=== PATIENT | male | born 1945 | race Caucasian/White ===

== ENCOUNTER → 2016-07-20 | Outpatient (CLI) | payer MEDICARE, MEDICAID ==
[~2016-07-20] MED LIST: /BISA10SU PR; /CARBXR20T PO; /LAMO20TA PO; /MEMA10TA PO; /TAMS4CA PO; ACET50TA PO; ARIC10TA PO; ASPI325T PEG; ASPI325T PO; CALC0.009 TOP; CALC05CR TOP; CLOR15TA PO; COLA100C PEG; COLA50CA3 PO; CORTISPORIN OTIC AU; CORTOTSO AU; DEPA250C PEG; DEPA250T2 PO; DEPA500T2 PO; DULC10SU2 PR; FLEEENE4 PR; HALO5OI EXT; LAMI200T3 PEG; LEVO500T PO; LISI10TA4 PO; LISI5TAB PO; MILKSUS PEG; MOM30SS PO; NAME28CA PO; NEO/1SUS AU; OMEP20CA3 PEG; OMEP20CA3 PO; PERC5TAB6 PO; POTA10SO11 GT; POTA50TAB PEG; PREVACID GT; TAMS0.4C2 PO; TOPA100T PO; TOPA200T6 PEG; TRAN15TA PO; TYLE325T5 PO; TYLE500T78 PO; VALP250S GT; VITA10002 PEG; [UNRECOGNIZED DRUG - CODE] EXT; [UNRECOGNIZED DRUG - CODE] TOP; [UNRECOGNIZED DRUG - CODE] TOP; [UNRECOGNIZED DRUG - CODE] TOP; [UNRECOGNIZED DRUG - OTHER] EXT
[2016-07-20 10:33] LABS: BASO # 0.1 K/mm3 (0.0-0.2); BASO % 0.5 % (0.0-1.0); EOS # 0.5 K/mm3 (0.0-0.50); EOS % 4.1 % (0.0-3.0); LARGE UNSTAINED CELL # 0.3 K/mm3 (0.0-0.4); LARGE UNSTAINED CELL % 2.4 % (0.0-4.0); LYMPH # 4.9 K/mm3 (1.5-4.5); LYMPH % 41.6 % (24.0-44.0); MEAN CORPUSCULAR HEMOGLOBIN 32.9 pg (27.0-33.0); MEAN CORPUSCULAR HGB CONC 32.1 g/dl (32.0-36.5); MEAN CORPUSCULAR VOLUME 102.7 fl (80.0-96.0); MONO # 0.8 K/mm3 (0.0-0.8); MONO % 6.4 % (0.0-5.0); NEUTROPHILS # 5.3 K/mm3 (1.8-7.7); PLATELET COUNT, AUTOMATED 276 k/mm3 (150-450); RED CELL DISTRIBUTION WIDTH 13.3 % (11.5-14.5); WHITE BLOOD COUNT 11.8 K/mm3 (4.0-10.0)
[2016-07-22 00:16] LABS: TOPIRAMATE LEVEL 11.5 ug/mL (2.0-25.0)
== END ==
LOC: M WUC 08:50
PROVIDERS: ATTEND Physician Assistant Medical
DX: R56.9 Unspecified convulsions (principal); E87.1 Hypo-osmolality and hyponatremia; Z79.899 Other long term (current) drug therapy

== ENCOUNTER → 2016-08-24 | Outpatient (REF) | payer MEDICARE, MEDICAID ==
[~2016-08-24] MED LIST changes: -COLA100C PEG; +COLA100C3 PEG
== END ==
LOC: M SFHCCLAY 15:18
PROVIDERS: ATTEND Family Medicine
DX: R46.89 Other symptoms and signs involving appearance and behavior (principal)

== ENCOUNTER → 2016-08-25 | Outpatient (CLI) | payer MEDICARE, MEDICAID ==
[2016-08-25 09:23] LABS: MEAN CORPUSCULAR HGB CONC 32.1 g/dl (32.0-36.5); MEAN CORPUSCULAR VOLUME 105.9 fl (80.0-96.0); RED CELL DISTRIBUTION WIDTH 14.5 % (11.5-14.5); WHITE BLOOD COUNT 12.9 K/mm3 (4.0-10.0)
[2016-08-25 10:01] LABS: ALBUMIN 2.4 GM/DL (3.2-5.2); ALBUMIN/GLOBULIN RATIO 0.56 (1.00-1.93); ALKALINE PHOSPHATASE 204 U/L (45-117); ALT/SGPT 51 U/L (12-78); ANION GAP 6 MEQ/L (8-16); AST/SGOT 65 U/L (15-37); BLOOD UREA NITROGEN 30 MG/DL (7-18); CALCIUM LEVEL 9.1 MG/DL (8.8-10.2); CARBON DIOXIDE LEVEL 29 MEQ/L (21-32); CHLORIDE LEVEL 104 MEQ/L (98-107); GLOMERULAR FILTRATION RATE > 60.0 (>49); GLUCOSE, FASTING 84 MG/DL (80-110); POTASSIUM SERUM 4.6 MEQ/L (3.5-5.1); SODIUM LEVEL 139 MEQ/L (136-145); TOTAL PROTEIN 6.7 GM/DL (6.4-8.2)
== END ==
LOC: M LAB 08:32
PROVIDERS: ATTEND Family Medicine
DX: R46.89 Other symptoms and signs involving appearance and behavior (principal)

== ENCOUNTER → 2016-09-18 | Outpatient (REF) | payer MEDICARE, MEDICAID | LOC: M SFHCCLAY 13:50 | PROVIDERS: ATTEND Nurse Practitioner | DX: K59.00 Constipation, unspecified (principal); R74.8 Abnormal levels of other serum enzymes; R56.9 Unspecified convulsions; L40.9 Psoriasis, unspecified; F79 Unspecified intellectual disabilities; R26.2 Difficulty in walking, not elsewhere classified; F03.90 Unspecified dementia, unspecified severity, without behavioral disturbance, psychotic disturbance, mood disturbance, and anxiety; Z87.81 Personal history of (healed) traumatic fracture | CPT/HCPCS: 84078; G0463 ==

== ENCOUNTER → 2016-09-29 | Outpatient (CLI) | payer MEDICARE, MEDICAID ==
--- NOTE | 2016-09-29 09:59 | REP ---
CT brain without contrast: History: Epilepsy. Comparison head CT study is from October 20, 2015. CT findings: Digital lateral fish fryer radiograph is unremarkable. Bone window settings demonstrate an intact bony calvarium. There is a small area of scalp swelling in the right parietal region. This appears to have been present previously although it is a little larger. No other scalp lesion is seen. There is marked diffuse cerebral atrophy again noted. Some vascular calcification is seen. There is a large old right middle cerebral artery territory infarction with extensive encephalomalacia in the middle cranial fossa and right temporal parietal lobe distribution unchanged from the comparison study. No new infarction is seen. There is concordant ventriculomegaly. This is unchanged as well. Small vessel atherosclerotic changes are noted. There is no evidence of hemorrhage, new infarct or mass. There are extensive dystrophic changes in the ocular globe on the left with calcification and contraction of the globe. There is evidence of a right-sided cataract. 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 Small vessel changes and moderate diffuse cerebral atrophy and concordant ventricular enlargement. No acute intracranial abnormality. Signed by Darryn Osullivan MD 09/29/2016 10:26 A
== END ==
LOC: M RAD 08:32
PROVIDERS: ATTEND Physician Assistant Medical
DX: I67.82 Cerebral ischemia (principal); G31.9 Degenerative disease of nervous system, unspecified; Z86.73 Personal history of transient ischemic attack (TIA), and cerebral infarction without residual deficits

== ENCOUNTER → 2016-10-09 | Outpatient (CLI) | payer MEDICARE, MEDICAID ==
--- NOTE | 2016-10-11 08:55 | DEXA ---
AP SPINE L1 - L4 1.375 1.1 1.7 LT FEMUR TOTAL Impacted left hip fracture. RT FEMUR TOTAL 0.639 -3.2 -2.5 TOTAL BODY TOTAL OTHER DUAL FEMUR FRAX* ASSESSMENT Risk factors: History of adult fracture. 10 year probability of fracture Major osteoporotic fracture 22.4 % Hip fracture 10.0 % COMMENTS: Normal bone densitometry of the spine. There is osteoporosis of the right hip. There is degenerative change in the spine which may artificially elevate the BMD. Lumbar scoliosis. FOLLOW-UP: Recommendation for the next bone density exam: 2 years. OCTAVIA
== END ==
LOC: M WHC 12:54
PROVIDERS: ATTEND Nurse Practitioner
DX: M81.0 Age-related osteoporosis without current pathological fracture (principal); M51.9 Unspecified thoracic, thoracolumbar and lumbosacral intervertebral disc disorder; M41.9 Scoliosis, unspecified; Z87.81 Personal history of (healed) traumatic fracture

== ENCOUNTER 2016-10-29 20:05 | Emergency (ER) | payer MEDICARE, MEDICAID ==
[2016-10-29 21:36] LABS: ADD MORPHOLOGY? YES; BASO # 0.1 K/mm3 (0.0-0.2); BASO % 1.3 % (0.0-1.0); EOS # 0.3 K/mm3 (0.0-0.50); EOS % 3.4 % (0.0-3.0); LARGE UNSTAINED CELL # 0.2 K/mm3 (0.0-0.4); LARGE UNSTAINED CELL % 1.8 % (0.0-4.0); LYMPH # 3.5 K/mm3 (1.5-4.5); LYMPH % 43.4 % (24.0-44.0); MEAN CORPUSCULAR HEMOGLOBIN 36.8 pg (27.0-33.0); MEAN CORPUSCULAR HGB CONC 33.3 g/dl (32.0-36.5); MEAN CORPUSCULAR VOLUME 110.4 fl (80.0-96.0); MONO # 0.6 K/mm3 (0.0-0.8); MONO % 6.8 % (0.0-5.0); NEUTROPHILS # 3.5 K/mm3 (1.8-7.7); NEUTROPHILS % 43.2 % (36.0-66.0); PLATELET COUNT, AUTOMATED 219 k/mm3 (150-450)
[2016-10-29 21:53] LABS: ANION GAP 7 MEQ/L (8-16); BLOOD UREA NITROGEN 33 MG/DL (7-18); CALCIUM LEVEL 8.7 MG/DL (8.8-10.2); CARBON DIOXIDE LEVEL 27 MEQ/L (21-32); CHLORIDE LEVEL 102 MEQ/L (98-107); CREATININE FOR GFR 0.66 MG/DL (0.70-1.30); GLOMERULAR FILTRATION RATE > 60.0 (>49); GLUCOSE, FASTING 78 MG/DL (80-110); POTASSIUM SERUM 4.4 MEQ/L (3.5-5.1); SODIUM LEVEL 136 MEQ/L (136-145)
[2016-10-30] MEDS ORDERED: LACTULOSE 20 GM/30 ML SYRUP UD PO ONE (00:30)
[2016-10-30 00:37] VITALS: BP 113/55
--- NOTE | 2016-10-30 14:44 | REPUSA ---
CLINICAL HISTORY: ALOC. TECHNIQUE: Multiple axial CT images were obtained through the brain without IV contrast material. COMPARISON: Comparison is made with prior study dated 09/29/2016. 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 The study shows normal configuration of sella turcica. There are no intra or extra-axial collections. There is no mass effect or midline shift. There is no evidence of hematoma formation. No hydrocep halus is present. The ventricles are symmetrical. No abnormal calcifications are present. Changes of diffuse age-appropriate cerebellar and cerebral atrophy are noted with proportionally dila arden ventricles and cortical sulci. There are bilateral periventricular hypolucencies compatible with white matter ischemic disease. There is no acute pathology. 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 Right sphenoid sinusitis is noted. Mastoid air cells are clear. IMPRESSION: 1. No acute intracranial pathology. 2. Old infract in the distribution of right MCA.. 3. Generalized parenchymal atrophy and chronic microvascular disease. 4. Right sphenoid sinusitis. Thank you for your kind referral of this patient. We appreciate the opportunity to participate in thi s patient's care.
== END 2016-10-30 00:54 | disposition home or self-care (01) ==
LOC: M ED 21:34
DX: G93.40 Encephalopathy, unspecified (principal); E72.20 Disorder of urea cycle metabolism, unspecified; T42.6X1A Poisoning by other antiepileptic and sedative-hypnotic drugs, accidental (unintentional), initial encounter; R56.9 Unspecified convulsions; F79 Unspecified intellectual disabilities; I63.9 Cerebral infarction, unspecified; Z79.82 Long term (current) use of aspirin; Z79.899 Other long term (current) drug therapy

== ENCOUNTER → 2016-11-02 | Outpatient (CLI) | payer MEDICARE, MEDICAID ==
[2016-11-06 10:11] LABS: TOPIRAMATE LEVEL 9.4 ug/mL (2.0-25.0)
== END ==
LOC: M WUC 09:23
PROVIDERS: ATTEND Physician Assistant Medical
DX: R56.9 Unspecified convulsions (principal); E72.20 Disorder of urea cycle metabolism, unspecified

== ENCOUNTER → 2016-11-06 | Outpatient (REF) | payer MEDICARE, MEDICAID | LOC: M LAB REF 19:20 | PROVIDERS: ATTEND Physician Assistant Medical | DX: R56.9 Unspecified convulsions (principal); E72.20 Disorder of urea cycle metabolism, unspecified ==

== ENCOUNTER → 2016-11-13 | Outpatient (CLI) | payer MEDICARE, MEDICAID ==
[2016-11-15 00:07] LABS: TOPIRAMATE LEVEL 12.8 ug/mL (2.0-25.0)
== END ==
LOC: M WUC 10:29
PROVIDERS: ATTEND Physician Assistant Medical
DX: R56.9 Unspecified convulsions (principal); E72.20 Disorder of urea cycle metabolism, unspecified

== ENCOUNTER → 2016-11-16 | Outpatient (CLI) | payer MEDICARE, MEDICAID ==
[~2016-11-16] MED LIST changes: +ARIC1TAB2 PO; -COLA100C3 PEG; +COLA100C5 PEG; +LAMI1TAB9 PEG; -LAMI200T3 PEG; +PERC5TAB12 PO; -PERC5TAB6 PO; -TOPA200T6 PEG; +TOPA200T7 PEG
== END ==
LOC: M WUC 08:46
PROVIDERS: ATTEND Physician Assistant Medical
DX: R56.9 Unspecified convulsions (principal); E72.20 Disorder of urea cycle metabolism, unspecified; R89.9 Unspecified abnormal finding in specimens from other organs, systems and tissues

== ENCOUNTER → 2016-11-16 | Outpatient (CLI) | payer MEDICARE, MEDICAID | LOC: M WUC 08:39 | PROVIDERS: ATTEND Nurse Practitioner | DX: R89.9 Unspecified abnormal finding in specimens from other organs, systems and tissues (principal) ==

== ENCOUNTER → 2016-11-27 | Outpatient (CLI) | payer MEDICARE, MEDICAID ==
--- NOTE | 2016-11-27 10:48 | REP ---
REASON: Hyperammonemia. There are no priors for comparison. Multiple ultrasonographic images of the liver show the hepatic parenchymal echo pattern to be within normal limits. There is no intrahepatic or extrahepatic ductal dilatation. The common bile duct measures between 4 and 5 mm. The patient is status post cholecystectomy. The imaged portion of the pancreas is within normal limits although barely identifiable due to intestinal gas. Seen in the imaged portion of the right kidney, there is a 2.6 cm sized hypoechoic nearly anechoic structure which exhibits posterior wall enhancement and increased through transmission. IMPRESSION: 1. No ultrasonographic evidence of an hepatic abnormality. 2. Complex appearing right renal cyst. Further evaluation with pre- and post contrast enhanced CT is warranted to rule out the possibility of suspicious features. Signed by Glen Michel DO 11/27/2016 11:01 A
== END ==
LOC: M RAD 07:52
PROVIDERS: ATTEND Nurse Practitioner
DX: R89.9 Unspecified abnormal finding in specimens from other organs, systems and tissues (principal); N28.1 Cyst of kidney, acquired

== ENCOUNTER → 2016-12-19 | Outpatient (CLI) | payer MEDICARE, MEDICAID ==
[2016-12-19 14:12] LABS: ADD MORPHOLOGY? YES; BASO % 0.3 % (0.0-1.0); EOS # 0.3 K/mm3 (0.0-0.50); EOS % 4.6 % (0.0-3.0); LARGE UNSTAINED CELL # 0.1 K/mm3 (0.0-0.4); LARGE UNSTAINED CELL % 1.2 % (0.0-4.0); LYMPH # 2.8 K/mm3 (1.5-4.5); LYMPH % 36.6 % (24.0-44.0); MEAN CORPUSCULAR HEMOGLOBIN 38.5 pg (27.0-33.0); MEAN CORPUSCULAR HGB CONC 33.1 g/dl (32.0-36.5); MEAN CORPUSCULAR VOLUME 116.2 fl (80.0-96.0); MONO # 0.4 K/mm3 (0.0-0.8); MONO % 5.3 % (0.0-5.0); NEUTROPHILS # 3.8 K/mm3 (1.8-7.7); NEUTROPHILS % 51.9 % (36.0-66.0); PLATELET COUNT, AUTOMATED 243 k/mm3 (150-450); RED CELL DISTRIBUTION WIDTH 14.5 % (11.5-14.5); WHITE BLOOD COUNT 7.3 K/mm3 (4.0-10.0)
[2016-12-19 14:22] LABS: ALBUMIN 2.1 GM/DL (3.2-5.2); ALKALINE PHOSPHATASE 237 U/L (45-117); ALT/SGPT 67 U/L (12-78); ANION GAP 9 MEQ/L (8-16); AST/SGOT 71 U/L (15-37); BILIRUBIN,TOTAL 1.4 MG/DL (0.2-1.0); BLOOD UREA NITROGEN 23 MG/DL (7-18); CALCIUM LEVEL 8.8 MG/DL (8.8-10.2); CARBON DIOXIDE LEVEL 28 MEQ/L (21-32); CHLORIDE LEVEL 98 MEQ/L (98-107); CREATININE FOR GFR 0.64 MG/DL (0.70-1.30); GLOMERULAR FILTRATION RATE > 60.0 (>49); GLUCOSE, FASTING 136 MG/DL (80-110); POTASSIUM SERUM 4.1 MEQ/L (3.5-5.1); SODIUM LEVEL 135 MEQ/L (136-145); TOTAL PROTEIN 6.3 GM/DL (6.4-8.2)
[2016-12-19 14:45] LABS: ANISOCYTOSIS 2+
[2016-12-21 00:07] LABS: TOPIRAMATE LEVEL 11.7 ug/mL (2.0-25.0)
== END ==
LOC: M LAB 13:05
PROVIDERS: ATTEND Physician Assistant Medical
DX: R56.9 Unspecified convulsions (principal); E72.20 Disorder of urea cycle metabolism, unspecified; Z79.899 Other long term (current) drug therapy

== ENCOUNTER → 2017-01-24 | Outpatient (CLI) | payer MEDICARE, MEDICAID ==
[2017-01-24 11:21] LABS: ADD MORPHOLOGY? YES; BASO % 0.5 % (0.0-1.0); EOS # 0.3 K/mm3 (0.0-0.50); EOS % 3.9 % (0.0-3.0); LARGE UNSTAINED CELL # 0.1 K/mm3 (0.0-0.4); LARGE UNSTAINED CELL % 1.3 % (0.0-4.0); LYMPH # 3.1 K/mm3 (1.5-4.5); MEAN CORPUSCULAR HEMOGLOBIN 39.1 pg (27.0-33.0); MEAN CORPUSCULAR HGB CONC 34.6 g/dl (32.0-36.5); MEAN CORPUSCULAR VOLUME 112.8 fl (80.0-96.0); MONO # 0.7 K/mm3 (0.0-0.8); MONO % 8.3 % (0.0-5.0); NEUTROPHILS # 4.1 K/mm3 (1.8-7.7); NEUTROPHILS % 49.1 % (36.0-66.0); PLATELET COUNT, AUTOMATED 223 k/mm3 (150-450); RED CELL DISTRIBUTION WIDTH 12.9 % (11.5-14.5); WHITE BLOOD COUNT 8.3 K/mm3 (4.0-10.0)
[2017-01-24 12:53] LABS: GLUCOSE, FASTING 72 MG/DL (80-110)
[2017-01-24 12:54] LABS: ANION GAP 11 MEQ/L (8-16); AST/SGOT 84 U/L (15-37); BLOOD UREA NITROGEN 22 MG/DL (7-18); CALCIUM LEVEL 8.5 MG/DL (8.8-10.2); CARBON DIOXIDE LEVEL 25 MEQ/L (21-32); CHLORIDE LEVEL 100 MEQ/L (98-107); CREATININE FOR GFR 0.64 MG/DL (0.70-1.30); GLOMERULAR FILTRATION RATE > 60.0 (>49); POTASSIUM SERUM 4.3 MEQ/L (3.5-5.1); SODIUM LEVEL 136 MEQ/L (136-145)
[2017-01-24 12:55] LABS: ALKALINE PHOSPHATASE 315 U/L (45-117); ALT/SGPT 74 U/L (12-78); BILIRUBIN,TOTAL 1.7 MG/DL (0.2-1.0); GAMMA GLUTAMYLTRANSPEPTIDASE 557 U/L (15-85); LABILE ALKPHOS 241 U/L; STABLE ALKPHOS 74 U/L
[2017-01-24 12:56] LABS: ALBUMIN 2.1 GM/DL (3.2-5.2)
[2017-01-24 12:57] LABS: ALBUMIN/GLOBULIN RATIO 0.47 (1.00-1.93); TOTAL PROTEIN 6.6 GM/DL (6.4-8.2)
[2017-01-24 13:45] LABS: ANISOCYTOSIS 2+; POLYCHROMASIA 1+
== END ==
LOC: M WUC 08:47
PROVIDERS: ATTEND Nurse Practitioner
DX: R89.9 Unspecified abnormal finding in specimens from other organs, systems and tissues (principal); R56.9 Unspecified convulsions

== ENCOUNTER → 2017-01-24 | Outpatient (CLI) | payer MEDICARE, MEDICAID ==
[2017-01-24 11:15] LABS: ALBUMIN 2.1 GM/DL (3.2-5.2); ALBUMIN/GLOBULIN RATIO 0.48 (1.00-1.93); ALKALINE PHOSPHATASE 304 U/L (45-117); ALT/SGPT 70 U/L (12-78); ANION GAP 10 MEQ/L (8-16); AST/SGOT 82 U/L (15-37); BILIRUBIN,TOTAL 1.6 MG/DL (0.2-1.0); BLOOD UREA NITROGEN 22 MG/DL (7-18); CALCIUM LEVEL 8.7 MG/DL (8.8-10.2); CARBON DIOXIDE LEVEL 26 MEQ/L (21-32); CHLORIDE LEVEL 101 MEQ/L (98-107); CREATININE FOR GFR 0.63 MG/DL (0.70-1.30); GLOMERULAR FILTRATION RATE > 60.0 (>49); GLUCOSE, FASTING 73 MG/DL (80-110); POTASSIUM SERUM 4.2 MEQ/L (3.5-5.1); SODIUM LEVEL 137 MEQ/L (136-145); TOTAL PROTEIN 6.5 GM/DL (6.4-8.2)
[2017-01-24 11:37] LABS: ADD MANUAL DIFFER YES; MEAN CORPUSCULAR HEMOGLOBIN 38.5 pg (27.0-33.0); MEAN CORPUSCULAR HGB CONC 34.2 g/dl (32.0-36.5); MEAN CORPUSCULAR VOLUME 112.7 fl (80.0-96.0); PLATELET COUNT, AUTOMATED 237 k/mm3 (150-450); WHITE BLOOD COUNT 7.9 K/mm3 (4.0-10.0)
[2017-01-24 13:51] LABS: BASOPHILS 2 % (0-4); EOSINOPHILS 4 % (0-5)
[2017-01-24 13:52] LABS: ANISOCYTOSIS 2+
[2017-01-26 00:06] LABS: TOPIRAMATE LEVEL 9.2 ug/mL (2.0-25.0)
== END ==
LOC: M WUC 08:40
PROVIDERS: ATTEND Physician Assistant Medical
DX: Z51.81 Encounter for therapeutic drug level monitoring (principal); Z79.899 Other long term (current) drug therapy; R89.9 Unspecified abnormal finding in specimens from other organs, systems and tissues; R56.9 Unspecified convulsions

== ENCOUNTER → 2017-03-28 | Outpatient (CLI) | payer MEDICARE, MEDICAID ==
[2017-03-28 11:13] LABS: BLOOD UREA NITROGEN 15 MG/DL (7-18); CHOLESTEROL LEVEL 158 MG/DL (<200); FERRITIN 308 NG/ML (26-388); GLOMERULAR FILTRATION RATE > 60.0 (>49); TRIGLYCERIDES LEVEL 119 MG/DL (<150)
[2017-03-28 11:20] LABS: HEPATITIS B SURFACE ANTIBODY POSITIVE (POSITIVE)
== END ==
LOC: M WUC 08:19
PROVIDERS: ATTEND Internal Medicine Gastroenterology
DX: R94.5 Abnormal results of liver function studies (principal); R74.8 Abnormal levels of other serum enzymes

== ENCOUNTER → 2017-04-22 | Outpatient (CLI) | payer MEDICARE, MEDICAID ==
--- NOTE | 2017-04-22 15:19 | REP ---
LEFT WRIST, FOUR VIEWS: HISTORY: Contusion. There is no acute fracture or dislocation. There is deformity of the distal radius and ulna secondary to old trauma. There is narrowing of the radiocarpal and first carpometacarpal joint spaces. IMPRESSION: Degenerative change as described above. Signed by Bola Thurman MD 04/22/2017 03:24 P
--- NOTE | 2017-04-23 06:24 | REP ---
LEFT ANKLE, FOUR VIEWS: HISTORY: Contusion. COMPARISON: 02/23/2015. There is no acute fracture. There is an old healed fracture of the distal fibula. There is narrowing of the joint space with associated irregularity of the talus. Soft tissue swelling is present. IMPRESSION: There is no acute fracture or dislocation. Signed by Bola Thurman MD 04/23/2017 08:24 A
== END ==
LOC: M WUC 14:25
PROVIDERS: ATTEND Physician Assistant
DX: M19.032 Primary osteoarthritis, left wrist (principal); S60.212A Contusion of left wrist, initial encounter; S90.02XA Contusion of left ankle, initial encounter; X58.XXXA Exposure to other specified factors, initial encounter; Y92.89 Other specified places as the place of occurrence of the external cause; Y93.89 Activity, other specified; Y99.8 Other external cause status

== ENCOUNTER 2017-07-06 06:28 | Day surgery (SDC) | payer MEDICARE, MEDICAID ==
[2017-07-06] MEDS ORDERED: LR 1,000 ML IV (06:45)
[2017-07-06] MEDS ORDERED: LIDOCAINE 1% MDV 20ML VIAL As Ordered (07:18)
[2017-07-06] MEDS ORDERED: LIDOCAINE W/EPINEPHRINE 1% 20ML VIAL As Ordered (07:18)
[2017-07-06] MEDS: CEFAZOLIN SOD 1 GM in APPROPRIATE DILUENT 1 EA IV (08:05)
[2017-07-06] MEDS ORDERED: PROPOFOL 200 MG/20 ML VIAL As Ordered (08:18)
[2017-07-06] MEDS ORDERED: MIDAZOLAM INJ 2 MG/2 ML VIAL (J2250) As Ordered (08:18)
[2017-07-06] MEDS ORDERED: fentaNYL 100 MCG/2 ML INJECTION (J3010) As Ordered (08:18)
[2017-07-06] MEDS ORDERED: PHENYLephrine HCL 500 MCG/5 ML (100MCG/ML) SYRINGE (J2370) As Ordered (08:23)
[2017-07-06] MEDS: BUPIVACAINE HCL 0.25% 10 ML VIAL As Ordered (08:30)
== END 2017-07-06 10:00 | disposition home or self-care (01) ==
LOC: M SDC 06:28
DX: D36.17 Benign neoplasm of peripheral nerves and autonomic nervous system of trunk, unspecified (principal); I10 Essential (primary) hypertension; N40.0 Benign prostatic hyperplasia without lower urinary tract symptoms; H54.8 Legal blindness, as defined in USA; M81.0 Age-related osteoporosis without current pathological fracture; K21.9 Gastro-esophageal reflux disease without esophagitis; R56.9 Unspecified convulsions; E07.9 Disorder of thyroid, unspecified; F41.9 Anxiety disorder, unspecified; Z86.73 Personal history of transient ischemic attack (TIA), and cerebral infarction without residual deficits; M41.9 Scoliosis, unspecified; F03.90 Unspecified dementia, unspecified severity, without behavioral disturbance, psychotic disturbance, mood disturbance, and anxiety; F72 Severe intellectual disabilities; F80.1 Expressive language disorder; Z79.899 Other long term (current) drug therapy
CPT/HCPCS: 11200

== ENCOUNTER 2017-07-14 09:05 | Outpatient (CLI) | payer MEDICARE, MEDICAID ==
[2017-07-15 09:20] LABS: BASO # 0.1 10^3/uL (0.0-0.2); BASO % 0.5 % (0.0-1.0); EOS # 0.3 10^3/uL (0.0-0.50); HEMATOCRIT 40.3 % (42.0-52.0); HEMOGLOBIN 13.8 g/dl (14.0-18.0); IMMATURE GRANULOCYTE % 0.6 % (0-3.0); LYMPH # 3.3 10^3/uL (1.5-4.5); MEAN CORPUSCULAR HEMOGLOBIN 35.7 pg (27.0-33.0); MEAN CORPUSCULAR HGB CONC 34.2 g/dl (32.0-36.5); MEAN CORPUSCULAR VOLUME 104.1 fl (80.0-96.0); MONO # 1.1 10^3/uL (0.0-0.8); MONO % 10.3 % (0.0-5.0); NEUTROPHILS # 5.5 10^3/uL (1.8-7.7); NEUTROPHILS % 53.6 % (36.0-66.0); PLATELET COUNT, AUTOMATED 230 10^3/uL (150-450); RED BLOOD COUNT 3.87 10^6/uL (4.30-6.10); RED CELL DISTRIBUTION WIDTH 13.4 % (11.5-14.5); WHITE BLOOD COUNT 10.3 10^3/uL (4.0-10.0)
[2017-07-15 09:45] LABS: AMMONIA 28 uMOL/L (<32)
[2017-07-15 09:55] LABS: ALBUMIN 2.7 GM/DL (3.2-5.2); ALBUMIN/GLOBULIN RATIO 0.63 (1.00-1.93); ALKALINE PHOSPHATASE 147 U/L (45-117); ALT/SGPT 30 U/L (12-78); ANION GAP 9 MEQ/L (8-16); AST/SGOT 28 U/L (7-37); BILIRUBIN,TOTAL 0.5 MG/DL (0.2-1.0); BLOOD UREA NITROGEN 12 MG/DL (7-18); CALCIUM LEVEL 9.2 MG/DL (8.8-10.2); CARBON DIOXIDE LEVEL 27 MEQ/L (21-32); CHLORIDE LEVEL 100 MEQ/L (98-107); CREATININE FOR GFR 0.62 MG/DL (0.70-1.30); FREE T3 2.5 PG/ML (2.2-4.0); FREE T4 1.25 NG/DL (0.76-1.46); GLOMERULAR FILTRATION RATE > 60.0 (>49); GLUCOSE, FASTING 82 MG/DL (70-100); POTASSIUM SERUM 4.1 MEQ/L (3.5-5.1); SODIUM LEVEL 136 MEQ/L (136-145)
[2017-07-16 09:43] LABS: THYROID PEROXIDASE ANTIBODY < 28.0 U/ML (<60.0)
== END 2017-07-15 ==
LOC: M WUC 09:05 → M LAB 07-15 08:46
DX: R74.0 Nonspecific elevation of levels of transaminase and lactic acid dehydrogenase [LDH] (principal); R79.89 Other specified abnormal findings of blood chemistry; R94.6 Abnormal results of thyroid function studies
CPT/HCPCS: 82140

== ENCOUNTER → 2018-01-30 | Outpatient (CLI) | payer MEDICARE, MEDICAID ==
[2018-01-30 10:08] LABS: BASO # 0.1 10^3/uL (0.0-0.2); BASO % 0.6 % (0.0-1.0); EOS # 0.4 10^3/uL (0.0-0.50); EOS % 3.8 % (0.0-3.0); HEMATOCRIT 44.3 % (42.0-52.0); HEMOGLOBIN 14.6 g/dl (13.5-17.5); IMMATURE GRANULOCYTE % 0.7 % (0-3.0); LYMPH # 4.3 10^3/uL (1.5-4.5); LYMPH % 38.1 % (24.0-44.0); MEAN CORPUSCULAR HEMOGLOBIN 35.4 pg (27.0-33.0); MEAN CORPUSCULAR VOLUME 107.3 fl (80.0-96.0); MONO % 8.5 % (0.0-5.0); NEUTROPHILS # 5.5 10^3/uL (1.8-7.7); NEUTROPHILS % 48.3 % (36.0-66.0); PLATELET COUNT, AUTOMATED 217 10^3/uL (150-450); RED BLOOD COUNT 4.13 10^6/uL (4.30-6.10); RED CELL DISTRIBUTION WIDTH 14.2 % (11.5-14.5); WHITE BLOOD COUNT 11.3 10^3/uL (4.0-10.0)
[2018-01-30 10:14] LABS: AMMONIA 45 uMOL/L (<32)
[2018-01-30 11:22] LABS: ALBUMIN 2.5 GM/DL (3.2-5.2); ALBUMIN/GLOBULIN RATIO 0.56 (1.00-1.93); ALKALINE PHOSPHATASE 147 U/L (45-117); ALT/SGPT 34 U/L (12-78); ANION GAP 7 MEQ/L (8-16); AST/SGOT 40 U/L (7-37); BILIRUBIN,TOTAL 0.7 MG/DL (0.2-1.0); BLOOD UREA NITROGEN 16 MG/DL (7-18); CALCIUM LEVEL 9.1 MG/DL (8.8-10.2); CARBON DIOXIDE LEVEL 27 MEQ/L (21-32); CHLORIDE LEVEL 103 MEQ/L (98-107); CREATININE FOR GFR 0.58 MG/DL (0.70-1.30); FREE T4 1.08 NG/DL (0.76-1.46); GLOMERULAR FILTRATION RATE > 60.0 (>42); GLUCOSE, FASTING 101 MG/DL (70-100); POTASSIUM SERUM 4.5 MEQ/L (3.5-5.1); SODIUM LEVEL 137 MEQ/L (136-145)
[2018-02-01 00:07] LABS: LAMOTRIGINE (LAMICTAL) 9.1 ug/mL (2.0-20.0)
[2018-02-01 00:07] LABS: TOPIRAMATE LEVEL 9.8 ug/mL (2.0-25.0)
== END ==
LOC: M WUC 08:31
DX: R74.0 Nonspecific elevation of levels of transaminase and lactic acid dehydrogenase [LDH] (principal); I10 Essential (primary) hypertension
CPT/HCPCS: 82140

== ENCOUNTER → 2018-02-22 | Outpatient (CLI) | payer MEDICARE, MEDICAID | LOC: M ST 11:51 | DX: Z86.73 Personal history of transient ischemic attack (TIA), and cerebral infarction without residual deficits (principal) | CPT/HCPCS: 74230 ==

== ENCOUNTER 2018-03-27 08:30 | Day surgery (SDC) | payer MEDICARE, MEDICAID ==
[~2018-03-27 08:30] MED LIST changes: -/BISA10SU PR; -/CARBXR20T PO; -/LAMO20TA PO; -/MEMA10TA PO; -/TAMS4CA PO; -ACET50TA PO; -ARIC10TA PO; -ARIC1TAB2 PO; -ASPI325T PEG; -ASPI325T PO; -CALC0.009 TOP; -CALC05CR TOP; -CLOR15TA PO; -COLA100C5 PEG; -COLA50CA3 PO; -CORTISPORIN OTIC AU; -CORTOTSO AU; -DEPA250C PEG; -DEPA250T2 PO; -DEPA500T2 PO; -DULC10SU2 PR; -FLEEENE4 PR; -HALO5OI EXT; -LAMI1TAB9 PEG; -LEVO500T PO; -LISI10TA4 PO; -LISI5TAB PO; -MILKSUS PEG; -MOM30SS PO; -NAME28CA PO; -NEO/1SUS AU; -OMEP20CA3 PEG; -OMEP20CA3 PO; -PERC5TAB12 PO; -POTA10SO11 GT; -POTA50TAB PEG; -PREVACID GT; +PROPOFOL 200 MG/20 ML VIAL As Ordered; -TAMS0.4C2 PO; -TOPA100T PO; -TOPA200T7 PEG; -TRAN15TA PO; -TYLE325T5 PO; -TYLE500T78 PO; -VALP250S GT; -VITA10002 PEG; -[UNRECOGNIZED DRUG - CODE] EXT; -[UNRECOGNIZED DRUG - CODE] TOP; -[UNRECOGNIZED DRUG - CODE] TOP; -[UNRECOGNIZED DRUG - CODE] TOP; -[UNRECOGNIZED DRUG - OTHER] EXT
[2018-03-27] MEDS ORDERED: ePHEDrine SULFATE 25 MG/5 ML(5MG/ML) SYRINGE As Ordered (09:43)
[2018-03-27] MEDS ORDERED: PROPOFOL 200 MG/20 ML VIAL As Ordered ×2 (10:09→10:41)
== END 2018-03-27 11:32 | disposition home or self-care (01) ==
LOC: M OPP 08:30
DX: Z12.11 Encounter for screening for malignant neoplasm of colon (principal); D12.4 Benign neoplasm of descending colon; Z86.010 Personal history of colon polyps; R56.9 Unspecified convulsions; H54.8 Legal blindness, as defined in USA; R32 Unspecified urinary incontinence; R15.9 Full incontinence of feces; Z93.1 Gastrostomy status; Z86.39 Personal history of other endocrine, nutritional and metabolic disease
CPT/HCPCS: 45385

== ENCOUNTER → 2018-04-03 | Outpatient (CLI) | payer MEDICARE, MEDICAID ==
[2018-04-03 08:09] LABS: AMMONIA 40 uMOL/L (<32)
[2018-04-03 08:12] LABS: VALPROIC ACID (DEPAKOTE) 65.4 UG/ML (50.0-100.0)
[2018-04-05 10:22] LABS: LAMOTRIGINE (LAMICTAL) 12.5 ug/mL (2.0-20.0)
[2018-04-05 10:22] LABS: TOPIRAMATE LEVEL 10.3 ug/mL (2.0-25.0)
== END ==
LOC: M LAB 07:19
DX: R56.9 Unspecified convulsions (principal)
CPT/HCPCS: 82140

== ENCOUNTER 2018-04-22 20:53 | Inpatient (IN) | payer MEDICARE, MEDICAID ==
[2018-04-22 21:47] LABS: BASO % 0.2 % (0.0-1.0); EOS % 0.1 % (0.0-3.0); HEMOGLOBIN 15.5 g/dl (13.5-17.5); IMMATURE GRANULOCYTE % 0.5 % (0-3.0); LYMPH # 1.2 10^3/uL (1.5-4.5); LYMPH % 6.1 % (24.0-44.0); MEAN CORPUSCULAR HEMOGLOBIN 35.7 pg (27.0-33.0); MEAN CORPUSCULAR VOLUME 108.3 fl (80.0-96.0); MONO % 10.4 % (0.0-5.0); NEUTROPHILS # 16.6 10^3/uL (1.8-7.7); NEUTROPHILS % 82.7 % (36.0-66.0); PLATELET COUNT, AUTOMATED 229 10^3/uL (150-450); RED BLOOD COUNT 4.34 10^6/uL (4.30-6.10); RED CELL DISTRIBUTION WIDTH 13.8 % (11.5-14.5); WHITE BLOOD COUNT 20.1 10^3/uL (4.0-10.0)
[2018-04-22 22:09] LABS: ALBUMIN 2.4 GM/DL (3.2-5.2); ALKALINE PHOSPHATASE 177 U/L (45-117); ALT/SGPT 61 U/L (12-78); ANION GAP 11 MEQ/L (8-16); AST/SGOT 92 U/L (7-37); BILIRUBIN,DIRECT 0.6 MG/DL (0.0-0.2); BILIRUBIN,TOTAL 0.9 MG/DL (0.2-1.0); BLOOD UREA NITROGEN 27 MG/DL (7-18); CALCIUM LEVEL 9.3 MG/DL (8.8-10.2); CARBON DIOXIDE LEVEL 26 MEQ/L (21-32); CHLORIDE LEVEL 100 MEQ/L (98-107); CREATININE FOR GFR 0.86 MG/DL (0.70-1.30); GLOMERULAR FILTRATION RATE > 60.0 (>42); GLUCOSE, FASTING 188 MG/DL (70-100); POTASSIUM SERUM 4.3 MEQ/L (3.5-5.1); SODIUM LEVEL 137 MEQ/L (136-145); TOTAL PROTEIN 7.2 GM/DL (6.4-8.2)
[2018-04-22 22:11] LABS: MONO # 2.1 10^3/uL (0.0-0.8); POSITIVE DIFF POS FLAG
[2018-04-22] MEDS: NS 1,000 ML IV (22:13)
[2018-04-22 22:16] LABS: LACTIC ACID SEPSIS PROTOCOL 5.1 MMOL/L (0.4-2.0)
[2018-04-22] MEDS ORDERED: ONDANSETRON 4MG/2ML VIAL (J2405) As Ordered (22:38)
[2018-04-22] MEDS: IBUPROFEN 100 MG/5 ML SUSP UDC DYE FREE GT (22:45)
[2018-04-22] MEDS: ONDANSETRON 4MG/2ML VIAL (J2405) IV (23:52)
[2018-04-23 00:02] LABS: INFLUENZA A AMPLIFICATION NEGATIVE (NEGATIVE); INFLUENZA B AMPLIFICATION NEGATIVE (NEGATIVE)
[2018-04-23] MEDS: PIPERACILLIN/TAZOBACTAM SOD 3.375 GM in D5W MINI-BAG PLUS 50 ML IV ×4 (00:45→20:07)
[2018-04-23] MEDS ORDERED: MOM 30ML SUSPENSION UDC GT (01:30)
[2018-04-23] MEDS ORDERED: FLEET ENEMA PR (01:30)
[2018-04-23] MEDS ORDERED: BISACODYL 10 MG SUPP PR (01:30)
[2018-04-23] MEDS ORDERED: ACETAMINOPHEN 650 MG SUPP PR (01:45)
[2018-04-23] MEDS: VANCOMYCIN HCL 1,000 MG, VIAL MATE ADAPTER 1 EACH in D5W 250 ML IV ×2 (02:01→05:55)
[2018-04-23] MEDS: NS 1,000 ML IV ×5 (02:01→23:10)
[2018-04-23 02:57] LABS: LACTIC ACID SEPSIS PROTOCOL 6.1 MMOL/L (0.4-2.0)
[2018-04-23] MEDS: NS 500 ML IV (04:20)
[2018-04-23 06:09] LABS: BASO % 0.2 % (0.0-1.0); IMMATURE GRANULOCYTE % 0.8 % (0-3.0); LYMPH # 1.3 10^3/uL (1.5-4.5); LYMPH % 5.6 % (24.0-44.0); MEAN CORPUSCULAR HEMOGLOBIN 35.2 pg (27.0-33.0); MEAN CORPUSCULAR HGB CONC 32.3 g/dl (32.0-36.5); MEAN CORPUSCULAR VOLUME 108.9 fl (80.0-96.0); MONO # 1.9 10^3/uL (0.0-0.8); MONO % 8.5 % (0.0-5.0); NEUTROPHILS % 84.9 % (36.0-66.0); PLATELET COUNT, AUTOMATED 197 10^3/uL (150-450); RED BLOOD COUNT 3.58 10^6/uL (4.30-6.10); RED CELL DISTRIBUTION WIDTH 13.8 % (11.5-14.5); WHITE BLOOD COUNT 22.4 10^3/uL (4.0-10.0)
[2018-04-23 06:14] LABS: HEMOGLOBIN 12.6 g/dl (13.5-17.5)
[2018-04-23 06:32] LABS: ANION GAP 10 MEQ/L (8-16); BLOOD UREA NITROGEN 24 MG/DL (7-18); CARBON DIOXIDE LEVEL 21 MEQ/L (21-32); CHLORIDE LEVEL 108 MEQ/L (98-107); CREATININE FOR GFR 0.76 MG/DL (0.70-1.30); GLOMERULAR FILTRATION RATE > 60.0 (>42); GLUCOSE, FASTING 144 MG/DL (70-100); POTASSIUM SERUM 4.3 MEQ/L (3.5-5.1); SODIUM LEVEL 139 MEQ/L (136-145)
[2018-04-23] MEDS: LACTULOSE 20 GM/30 ML SYRUP UD GT ×2 (09:18→20:07)
[2018-04-23] MEDS: MELOXICAM (MOBIC) 7.5 MG TAB GT (09:19)
[2018-04-23] MEDS: TOPIRAMATE (TopAMAX) 100 MG TAB GT ×2 (09:19→20:06)
[2018-04-23] MEDS: CYANOCOBALAMIN 500 MCG TAB GT (09:19)
[2018-04-23] MEDS: lamoTRIgine 100MG TAB GT ×2 (09:19→20:07)
[2018-04-23] MEDS: VALPROIC ACID SYRUP 250 MG/5 ML UDC GT ×2 (09:19→20:07)
[2018-04-23] MEDS: ENOXAPARIN 40 MG/0.4 ML SYRINGE (J1650) SC (09:20)
[2018-04-23 10:06] LABS: FOLATE 15.3 NG/ML (>5.4)
[2018-04-23 10:06] LABS: VITAMIN B12 LEVEL > 2000 PG/ML (247-911)
[2018-04-23 12:13] LABS: C REACTIVE PROTEIN QUANTITATIV 4.46 MG/DL (0.00-0.30)
[2018-04-23 12:24] LABS: ERYTHROCYTE SEDIMENTATION RATE 36 mm/hr (0-20)
[2018-04-23 15:02] LABS: PROCALCITONIN 2.48 NG/ML (<0.10)
[2018-04-23] MEDS ORDERED: ISOVUE-370 76% 100ML VIAL (Q9967) As Ordered (16:41)
[2018-04-24] MEDS: PIPERACILLIN/TAZOBACTAM SOD 3.375 GM in D5W MINI-BAG PLUS 50 ML IV ×4 (02:06→21:26)
[2018-04-24] MEDS: VANCOMYCIN HCL 1,000 MG, VIAL MATE ADAPTER 1 EACH in D5W 250 ML IV (06:04)
[2018-04-24 06:45] LABS: HEMATOCRIT 38.5 % (42.0-52.0); HEMOGLOBIN 12.8 g/dl (13.5-17.5); MEAN CORPUSCULAR HEMOGLOBIN 35.5 pg (27.0-33.0); MEAN CORPUSCULAR HGB CONC 33.2 g/dl (32.0-36.5); MEAN CORPUSCULAR VOLUME 106.6 fl (80.0-96.0); PLATELET COUNT, AUTOMATED 184 10^3/uL (150-450); RED BLOOD COUNT 3.61 10^6/uL (4.30-6.10); RED CELL DISTRIBUTION WIDTH 14.2 % (11.5-14.5); WHITE BLOOD COUNT 11.1 10^3/uL (4.0-10.0)
[2018-04-24 07:15] LABS: ANION GAP 9 MEQ/L (8-16); BLOOD UREA NITROGEN 22 MG/DL (7-18); C REACTIVE PROTEIN QUANTITATIV 7.84 MG/DL (0.00-0.30); CALCIUM LEVEL 8.3 MG/DL (8.8-10.2); CARBON DIOXIDE LEVEL 23 MEQ/L (21-32); CHLORIDE LEVEL 108 MEQ/L (98-107); CREATININE FOR GFR 0.63 MG/DL (0.70-1.30); GLOMERULAR FILTRATION RATE > 60.0 (>42); GLUCOSE, FASTING 85 MG/DL (70-100); POTASSIUM SERUM 3.9 MEQ/L (3.5-5.1); SODIUM LEVEL 140 MEQ/L (136-145)
[2018-04-24] MEDS: TOPIRAMATE (TopAMAX) 100 MG TAB GT ×2 (08:50→21:26)
[2018-04-24] MEDS: VALPROIC ACID SYRUP 250 MG/5 ML UDC GT ×2 (08:51→21:25)
[2018-04-24] MEDS: LACTULOSE 20 GM/30 ML SYRUP UD GT ×2 (08:51→21:25)
[2018-04-24] MEDS: CYANOCOBALAMIN 500 MCG TAB GT (08:51)
[2018-04-24] MEDS: MELOXICAM (MOBIC) 7.5 MG TAB GT (08:52)
[2018-04-24] MEDS: lamoTRIgine 100MG TAB GT ×2 (08:52→21:26)
[2018-04-24] MEDS: ENOXAPARIN 40 MG/0.4 ML SYRINGE (J1650) SC (08:53)
[2018-04-24 10:13] LABS: APPEARANCE, URINE CLEAR (CLEAR); BACTERIA, URINE AUTO NEGATIVE (NEGATIVE); BILIRUBIN, URINE AUTO NEGATIVE (NEGATIVE); BLOOD, URINE BLOOD NEGATIVE (NEGATIVE); COLOR, URINE AMBER (YELLOW); GLUCOSE, URINE (UA) AUTO NEGATIVE (NEGATIVE); KETONE, URINE AUTO NEGATIVE (NEGATIVE); LEUKOCYTE ESTERASE, URINE AUTO NEGATIVE (NEGATIVE); NITRITE, URINE AUTO NEGATIVE (NEGATIVE); PROTEIN, URINE AUTO NEGATIVE (NEGATIVE); RBC, URINE AUTO 1 /HPF (0-3); SPECIFIC GRAVITY URINE AUTO 1.041 (1.002-1.035); SQUAMOUS EPITHELIAL CELL UR AU 0 /HPF (0-6); WBC, URINE AUTO 1 /HPF (0-3)
[2018-04-25] MEDS: PIPERACILLIN/TAZOBACTAM SOD 3.375 GM in D5W MINI-BAG PLUS 50 ML IV ×2 (02:13→08:29)
[2018-04-25 05:52] LABS: HEMATOCRIT 37.3 % (42.0-52.0); HEMOGLOBIN 12.2 g/dl (13.5-17.5); MEAN CORPUSCULAR HGB CONC 32.7 g/dl (32.0-36.5); MEAN CORPUSCULAR VOLUME 106.9 fl (80.0-96.0); PLATELET COUNT, AUTOMATED 181 10^3/uL (150-450); RED BLOOD COUNT 3.49 10^6/uL (4.30-6.10); RED CELL DISTRIBUTION WIDTH 14.4 % (11.5-14.5); WHITE BLOOD COUNT 6.2 10^3/uL (4.0-10.0)
[2018-04-25 06:22] LABS: ANION GAP 9 MEQ/L (8-16); BLOOD UREA NITROGEN 24 MG/DL (7-18); CALCIUM LEVEL 8.1 MG/DL (8.8-10.2); CARBON DIOXIDE LEVEL 22 MEQ/L (21-32); CHLORIDE LEVEL 110 MEQ/L (98-107); CREATININE FOR GFR 0.65 MG/DL (0.70-1.30); GLOMERULAR FILTRATION RATE > 60.0 (>42); GLUCOSE, FASTING 93 MG/DL (70-100); POTASSIUM SERUM 3.9 MEQ/L (3.5-5.1); SODIUM LEVEL 141 MEQ/L (136-145)
[2018-04-25] MEDS: MELOXICAM (MOBIC) 7.5 MG TAB GT (08:29)
[2018-04-25] MEDS: VALPROIC ACID SYRUP 250 MG/5 ML UDC GT ×2 (08:29→21:47)
[2018-04-25] MEDS: TOPIRAMATE (TopAMAX) 100 MG TAB GT ×2 (08:30→21:46)
[2018-04-25] MEDS: CYANOCOBALAMIN 500 MCG TAB GT (08:30)
[2018-04-25] MEDS: ENOXAPARIN 40 MG/0.4 ML SYRINGE (J1650) SC (08:30)
[2018-04-25] MEDS: LACTULOSE 20 GM/30 ML SYRUP UD GT ×2 (08:30→21:46)
[2018-04-25] MEDS: lamoTRIgine 100MG TAB GT ×2 (08:30→21:47)
[2018-04-25] MEDS: AUGMENTIN 875 MG TAB GT ×2 (12:21→21:46)
[2018-04-25] MEDS ORDERED: VANCOMYCIN HCL 1,000 MG, VIAL MATE ADAPTER 1 EACH in D5W 250 ML IV (18:00)
[2018-04-26 06:48] LABS: HEMATOCRIT 38.6 % (42.0-52.0); HEMOGLOBIN 12.8 g/dl (13.5-17.5); MEAN CORPUSCULAR HEMOGLOBIN 35.9 pg (27.0-33.0); MEAN CORPUSCULAR HGB CONC 33.2 g/dl (32.0-36.5); MEAN CORPUSCULAR VOLUME 108.1 fl (80.0-96.0); PLATELET COUNT, AUTOMATED 179 10^3/uL (150-450); RED BLOOD COUNT 3.57 10^6/uL (4.30-6.10); RED CELL DISTRIBUTION WIDTH 14.4 % (11.5-14.5); WHITE BLOOD COUNT 6.2 10^3/uL (4.0-10.0)
[2018-04-26 07:14] LABS: ANION GAP 6 MEQ/L (8-16); BLOOD UREA NITROGEN 22 MG/DL (7-18); CALCIUM LEVEL 8.4 MG/DL (8.8-10.2); CARBON DIOXIDE LEVEL 28 MEQ/L (21-32); CHLORIDE LEVEL 109 MEQ/L (98-107); CREATININE FOR GFR 0.56 MG/DL (0.70-1.30); GLOMERULAR FILTRATION RATE > 60.0 (>42); GLUCOSE, FASTING 84 MG/DL (70-100); POTASSIUM SERUM 3.7 MEQ/L (3.5-5.1); SODIUM LEVEL 143 MEQ/L (136-145)
[2018-04-26] MEDS: TOPIRAMATE (TopAMAX) 100 MG TAB GT (08:00)
[2018-04-26] MEDS: LACTULOSE 20 GM/30 ML SYRUP UD GT (08:00)
[2018-04-26] MEDS: lamoTRIgine 100MG TAB GT (08:00)
[2018-04-26] MEDS: MELOXICAM (MOBIC) 7.5 MG TAB GT (08:00)
[2018-04-26] MEDS: VALPROIC ACID SYRUP 250 MG/5 ML UDC GT (08:00)
[2018-04-26] MEDS: AUGMENTIN 875 MG TAB GT (08:00)
[2018-04-26] MEDS: CYANOCOBALAMIN 500 MCG TAB GT (08:00)
[2018-04-26] MEDS: ENOXAPARIN 40 MG/0.4 ML SYRINGE (J1650) SC (08:01)
[2018-04-27 08:06] LABS: Methylmalonic Acid 73 nmol/L (0-378)
[2018-04-27 08:06] LABS: HOMOCYST(E)INE SERUM 4.2 umol/L (0.0-15.0)
[2018-04-27] MEDS ORDERED: CLOBETASOL PROPIONATE EMOLLIENT 0.05% CR 60 GM TOP (09:00)
== END 2018-04-26 13:30 | disposition home or self-care (01) | DRG 871 ==
LOC: M ED INP 04-23 01:32 → M MSPAV 04-23 03:22 → M ED 20:53
DX: A41.9 Sepsis, unspecified organism (principal); J69.0 Pneumonitis due to inhalation of food and vomit; G40.909 Epilepsy, unspecified, not intractable, without status epilepticus; L40.8 Other psoriasis; E53.8 Deficiency of other specified B group vitamins; R63.3 Feeding difficulties; R62.50 Unspecified lack of expected normal physiological development in childhood; D75.89 Other specified diseases of blood and blood-forming organs; Z79.899 Other long term (current) drug therapy; F79 Unspecified intellectual disabilities

== ENCOUNTER → 2018-05-06 | Outpatient (REF) | payer MEDICARE, MEDICAID ==
[~2018-05-06] MED LIST changes: +/BISA10SU PR; +/CARBXR20T PO; +/LAMO20TA PO; +/MEMA10TA PO; +/TAMS4CA PO; +ACET50TA PO; +AMOX875T2 GT; +ARIC10TA PO; +ARIC1TAB2 PO; +ASPI325T PEG; +ASPI325T PO; +CALC0.009 TOP; +CALC05CR TOP; +CLOB0.0548 TOP; +CLOB05OI EXT; +CLOR15TA PO; +COLA100C5 PEG; +COLA50CA3 PO; +CORTISPORIN OTIC AU; +CORTOTSO AU; +DEPA250C PEG; +DEPA250T2 PO; +DEPA500T2 PO; +DOCU5LIQ GT; +DOVO0.007 TOP; +DULC10SU2 PR; +FLEEENE4 PR; +HALO5OI EXT; +LACT10SO29 GT; +LACT10SO29 PEG; +LAMI1TAB9 PEG; +LAMO100T GT; +LEVO500T PO; +LISI10TA4 PO; +LISI5TAB PO; +MELO15TA28 GT; +MILK120011 GT; +MILK120011 PEG; +MOM30SS PO; +NAME28CA PO; +NEO/1SUS AU; +OMEP20CA3 PEG; +OMEP20CA3 PO; +PERC5TAB12 PO; +POTA10SO11 GT; +POTA50TAB PEG; +PREVACID GT; -PROPOFOL 200 MG/20 ML VIAL As Ordered; +TAMS0.4C2 PO; +TOPA100T PO; +TOPA200T7 GT; +TRAN15TA PO; +TWOCLIQ GT; +TYLE325T5 PO; +TYLE500T78 PO; +VALP250S GT; +VITA10002 GT; +[UNRECOGNIZED DRUG - CODE] EXT; +[UNRECOGNIZED DRUG - CODE] TOP; +[UNRECOGNIZED DRUG - CODE] TOP; +[UNRECOGNIZED DRUG - CODE] TOP; +[UNRECOGNIZED DRUG - OTHER] EXT; +docusate PEG
== END ==
LOC: M SFHCCLAY 13:28
PROVIDERS: ATTEND Nurse Practitioner Family
DX: R19.5 Other fecal abnormalities (principal)

== ENCOUNTER 2018-06-18 13:29 | Emergency (ER) | payer MEDICARE, MEDICAID ==
[~2018-06-18] VITALS: Ht 167.6 cm; Wt 90.9 kg
[2018-06-18 15:55] VITALS: BP 154/84
== END 2018-06-18 15:45 | disposition home or self-care (01) ==
LOC: M ED 13:29
DX: K94.20 Gastrostomy complication, unspecified (principal); G40.909 Epilepsy, unspecified, not intractable, without status epilepticus; K21.9 Gastro-esophageal reflux disease without esophagitis; I10 Essential (primary) hypertension; E03.9 Hypothyroidism, unspecified; N40.0 Benign prostatic hyperplasia without lower urinary tract symptoms

== ENCOUNTER 2018-07-05 07:41 | Inpatient (IN) | payer MEDICARE, MEDICAID ==
[~2018-07-05] VITALS: Ht 167.6 cm; Wt 93.6 kg
[2018-07-05] MEDS ORDERED: ACETAMINOPHEN 325 MG/10.15 ML UDC PO ONE (08:15)
[2018-07-05 08:57] LABS: BASO # 0.1 10^3/uL (0.0-0.2); BASO % 0.2 % (0.0-1.0); HEMATOCRIT 46.8 % (42.0-52.0); HEMOGLOBIN 15.3 g/dl (13.5-17.5); LYMPH # 1.3 10^3/uL (1.5-4.5); LYMPH % 3.4 % (24.0-44.0); MEAN CORPUSCULAR HEMOGLOBIN 35.6 pg (27.0-33.0); MEAN CORPUSCULAR HGB CONC 32.7 g/dl (32.0-36.5); MEAN CORPUSCULAR VOLUME 108.8 fl (80.0-96.0); MONO % 7.4 % (0.0-5.0); NEUTROPHILS % 87.6 % (36.0-66.0); PLATELET COUNT, AUTOMATED 247 10^3/uL (150-450)
[2018-07-05] MEDS ORDERED: NS 1,000 ML IV SCH (08:57)
[2018-07-05] MEDS ORDERED: VALPROIC ACID SYRUP 250 MG/5 ML UDC GT SCH (09:00)
[2018-07-05 09:04] LABS: MONO # 2.7 10^3/uL (0.0-0.8); NEUTROPHILS # 32.3 10^3/uL (1.8-7.7); WHITE BLOOD COUNT 36.9 10^3/uL (4.0-10.0)
[2018-07-05 09:27] LABS: ALBUMIN 2.5 GM/DL (3.2-5.2); ALT/SGPT 91 U/L (12-78); BILIRUBIN,DIRECT 2.2 MG/DL (0.0-0.2); BILIRUBIN,TOTAL 2.7 MG/DL (0.2-1.0); BLOOD UREA NITROGEN 19 MG/DL (7-18); CALCIUM LEVEL 9.7 MG/DL (8.8-10.2); CARBON DIOXIDE LEVEL 21 MEQ/L (21-32); CHLORIDE LEVEL 99 MEQ/L (98-107); CK-MB VALUE MASS < 1.0 NG/ML (<3.6); CPK CREATINE PHOSPHOKINASE 20 U/L (39-308); CREATININE FOR GFR 1.17 MG/DL (0.70-1.30); GLOMERULAR FILTRATION RATE > 60.0 (>42); GLUCOSE, FASTING 145 MG/DL (70-100); LIPASE 55 U/L (73-393); POTASSIUM SERUM 4.4 MEQ/L (3.5-5.1); SODIUM LEVEL 138 MEQ/L (136-145); TOTAL PROTEIN 7.6 GM/DL (6.4-8.2); TROPONIN I < 0.02 NG/ML (< 0.10)
[2018-07-05] MEDS ORDERED: NS IV ONE (09:30)
[2018-07-05] MEDS ORDERED: DILUENT IV ONE (09:30)
[2018-07-05 09:35] LABS: INR 0.99; PROTHROMBIN TIME 13.2 SECONDS (12.1-14.4)
[2018-07-05 09:36] LABS: PARTIAL THROMBOPLASTIN TIME 30.2 SECONDS (25.4-37.6)
[2018-07-05] MEDS ORDERED: ISOVUE-370 76% 100ML VIAL (Q9967) As Ordered ONE (09:44)
[2018-07-05] MEDS ORDERED: PIPERACILLIN/TAZOBACTAM SOD 4.5 GM in D5W MINI-BAG PLUS 50 ML IV ONE (09:45)
[2018-07-05] MEDS ORDERED: LIDOCAINE 2% 5ML JELLY UROJET TOP ONE (10:00)
[2018-07-05] MEDS ORDERED: OSEL6SUSP GT (10:24)
[2018-07-05] MEDS ORDERED: CLOB0.0548 TOP (10:24)
--- NOTE | 2018-07-05 10:28 | REP ---
CT of the chest with IV contrast, CT pulmonary artery angiography protocol: There are no comparisons. There are no emboli in the pulmonary trunk or central pulmonary arteries. There are no emboli in the pulmonary lobe or segment branches. There are no infiltrates or pleural effusions. There is scoliosis convex right of the mid thoracic spine resulting in anatomic distortion. There is atelectasis of the left lower lobe as a consequence. No masses or nodules are identified. There is no mediastinal or hilar adenopathy. No axillary adenopathy. Impression: No pulmonary emboli. No infiltrates or effusions. No adenopathy or mass. Thoracic scoliosis convex right, resulting in atelectasis of the left lower lobe. Electronically Signed by Beny Edmond MD 07/05/2018 10:19 A
--- NOTE | 2018-07-05 10:59 | REP ---
CT of the abdomen and pelvis with IV contrast, without bowel contrast: Comparison is 04/23/2018. The hepatic parenchyma, pancreas and spleen are unremarkable. There is a cholecystectomy. There is a peg tube. No evidence of inflammation or abscess along the tract. This is unchanged. There is a low density nodule in the left adrenal compatible with benign angioma, unchanged. The right adrenal is unremarkable. There are small simple cysts in the kidneys bilaterally, unchanged. There is no hydronephrosis or perinephric stranding. No solid renal masses are identified. There is a nonobstructive 5 mm calculus in the right kidney. There is a nonobstructive 6 mm calculus in the left kidney. No ureteral calculi are identified. There are multiple bladder calcifications along the dependent bladder wall, unchanged. No bladder wall masses are identified. The abdominal aorta is unremarkable. There is no retroperitoneal or mesenteric adenopathy. There is no ascites. There is no pneumoperitoneum. There is no bowel distension or obstruction. There is wall thickening of the sigmoid colon, nonspecific, but could represent colitis in the appropriate clinical setting. Pelvis: There is no ascites or adenopathy. The patient reportedly has an appendectomy. Impression: There are bilateral renal calculi and there are bladder calculi. There are no ureteral calculi. No hydronephrosis. No perinephric stranding. There are bilateral renal cortical cysts. There is sigmoid colon wall thickening, nonspecific, but compatible with colitis in the appropriate clinical setting. There is a peg tube in the upper abdomen. There is no inflammation or abscess along the tract. Cholecystectomy and appendectomy. Bilateral renal cortical simple cysts. No ascites or adenopathy. Low density left adrenal nodule compatible with benign angioma. Marked lumbar scoliosis convex left, unchanged. No bowel distension or obstruction. Electronically Signed by Beny Edmond MD 07/05/2018 10:51 A
[2018-07-05 11:13] LABS: AMORPHOUS SEDIMENT MODERATE (NEGATIVE); APPEARANCE, URINE TURBID (CLEAR); BACTERIA, URINE AUTO NEGATIVE (NEGATIVE); BILIRUBIN, URINE AUTO 1+ (NEGATIVE); BLOOD, URINE BLOOD 2+ (NEGATIVE); COLOR, URINE AMBER (YELLOW); GLUCOSE, URINE (UA) AUTO NEGATIVE (NEGATIVE); KETONE, URINE AUTO NEGATIVE (NEGATIVE); LEUKOCYTE ESTERASE, URINE AUTO NEGATIVE (NEGATIVE); MUCUS, URINE LARGE (NEGATIVE); NITRITE, URINE AUTO NEGATIVE (NEGATIVE); PROTEIN, URINE AUTO 2+ mg/dL (NEGATIVE); RBC, URINE AUTO 157 /HPF (0-3); SQUAMOUS EPITHELIAL CELL UR AU 0 /HPF (0-6); WBC, URINE AUTO 34 /HPF (0-3)
[2018-07-05 12:20] LABS: GAMMA GLUTAMYLTRANSPEPTIDASE 876 U/L (15-85)
[2018-07-05] MEDS ORDERED: LORazepam 2 MG/ML VIAL (J2060) As Ordered ONE (13:48)
[2018-07-05] MEDS: NS 1,000 ML IV SCH ×2 (13:52→20:53)
[2018-07-05] MEDS ORDERED: ACETAMINOPHEN 650 MG SUPP PR PRN (14:00)
[2018-07-05] MEDS ORDERED: ONDANSETRON 4MG/2ML VIAL (J2405) IV PRN (14:00)
[2018-07-05] MEDS ORDERED: LORazepam 2 MG/ML VIAL (J2060) IV STA (14:00)
[2018-07-05] MEDS ORDERED: ENTER DRUG NAME HERE (PATIENT'S OWN MED) TOP SCH (14:15)
[2018-07-05] MEDS ORDERED: LORazepam 2 MG/ML VIAL (J2060) IV PRN (14:15)
[2018-07-05] MEDS: lamoTRIgine 100MG TAB GT SCH ×2 (15:51→20:52)
[2018-07-05] MEDS: TOPIRAMATE (TopAMAX) 100 MG TAB GT SCH ×2 (15:52→20:52)
[2018-07-05 16:00] VITALS: BP 145/81
[2018-07-05] MEDS: LACTULOSE 20 GM/30 ML SYRUP UD GT SCH (20:52)
[2018-07-05] MEDS: VALPROIC ACID SYRUP 250 MG/5 ML UDC GT SCH (20:53)
[2018-07-05 22:00] VITALS: BP 149/73
[2018-07-06] MEDS: NS 1,000 ML IV SCH ×3 (04:32→22:32)
[2018-07-06 06:00] VITALS: BP 130/72
[2018-07-06] MEDS: ENOXAPARIN 40 MG/0.4 ML SYRINGE (J1650) SC SCH (09:06)
[2018-07-06] MEDS: LACTULOSE 20 GM/30 ML SYRUP UD GT SCH ×2 (09:07→22:30)
[2018-07-06] MEDS: TOPIRAMATE (TopAMAX) 100 MG TAB GT SCH ×2 (09:07→22:30)
[2018-07-06] MEDS: CYANOCOBALAMIN 500 MCG TAB GT SCH (09:07)
[2018-07-06] MEDS: lamoTRIgine 100MG TAB GT SCH ×2 (09:08→22:30)
[2018-07-06] MEDS: VALPROIC ACID SYRUP 250 MG/5 ML UDC GT SCH ×2 (09:08→22:31)
[2018-07-06] MEDS ORDERED: PILL CRUSHER/CUTTER 1 EACH XX PRN (09:15)
[2018-07-06 11:56] LABS: BASO % 0.2 % (0.0-1.0); EOS # 0.1 10^3/uL (0.0-0.50); EOS % 0.4 % (0.0-3.0); HEMATOCRIT 37.6 % (42.0-52.0); LYMPH % 6.9 % (24.0-44.0); MEAN CORPUSCULAR HGB CONC 32.4 g/dl (32.0-36.5); MEAN CORPUSCULAR VOLUME 110.9 fl (80.0-96.0); MONO % 7.1 % (0.0-5.0); NEUTROPHILS # 12.1 10^3/uL (1.8-7.7); NEUTROPHILS % 84.9 % (36.0-66.0); PLATELET COUNT, AUTOMATED 149 10^3/uL (150-450); RED BLOOD COUNT 3.39 10^6/uL (4.30-6.10); WHITE BLOOD COUNT 14.2 10^3/uL (4.0-10.0)
[2018-07-06 11:59] LABS: HEMOGLOBIN 12.2 g/dl (13.5-17.5)
[2018-07-06 12:29] LABS: ALBUMIN 2.1 GM/DL (3.2-5.2); ALT/SGPT 65 U/L (12-78); BILIRUBIN,TOTAL 1.1 MG/DL (0.2-1.0); BLOOD UREA NITROGEN 18 MG/DL (7-18); CALCIUM LEVEL 8.3 MG/DL (8.8-10.2); CARBON DIOXIDE LEVEL 25 MEQ/L (21-32); CHLORIDE LEVEL 110 MEQ/L (98-107); CREATININE FOR GFR 0.72 MG/DL (0.70-1.30); GLOMERULAR FILTRATION RATE > 60.0 (>42); GLUCOSE, FASTING 184 MG/DL (70-100); SODIUM LEVEL 142 MEQ/L (136-145); TOTAL PROTEIN 6.4 GM/DL (6.4-8.2)
--- NOTE | 2018-07-06 14:03 | IPN ---
DATE: 07/06/2018 The patient is seen today on [address]. He is a 72-year-old [facility] ([facility]) patient who is chronically tube fed, who was admitted yesterday due to nausea, vomiting, leukocytosis, since he did have elevated lactic acid level. He did not have very much in the way of elevated immature white cells. At this time, he is not febrile, not having any vomiting, tolerating his tube feedings okay, not evidencing any cough or shortness of breath. His three brothers are at his bedside and they feel that he is looking better than yesterday and really much improved and back to what appears to be his normal self. On examination temperature is 96.5, blood pressure 130/72, pulse 96 and regular, respirations 18, oxygen saturation is 93% on room air. He is having his blood drawn at this time. He is awake and alert. Not doing any coughing. No facial weakness. He does not have any jaundice. His lungs are clear. His heart has a regular rhythm without any murmur, click or gallop. Abdomen is soft and nontender without any masses or organomegaly. Bowel sounds are active. There is no edema. He did seem to be ticklish when we palpated his right foot. I reviewed his labs from yesterday. Today's labs are not done yet. His white count was 36,000. He had some elevations of his liver functions that were greater than his usual liver function elevations. ASSESSMENT: 1. Resolved nausea and vomiting. 2. Tube feeding dependent due to aspiration risk. 3. Chronic developmental disability. 4. Seizure disorder. 5. Leukocytosis. 6. Elevated liver functions. PLAN: Resident will continue on medications as currently ordered. I have not changed anything. Continue on IV fluids as well as his tube feedings. His blood cultures thus far are negative. His brothers report to me that leukocytosis was an issue during his last admission. I am unclear whether there was an interim CBC where his white count went down to normal. [facility]
--- NOTE | 2018-07-06 19:21 | ECGEPIP ---
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
[2018-07-06 22:00] VITALS: BP 139/88
[2018-07-06] MEDS: CLOBETASOL PROPIONATE EMOLLIENT 0.05% CR 60 GM TOP SCH (22:31)
[2018-07-07] MEDS: NS 1,000 ML IV SCH ×2 (05:06→12:41)
[2018-07-07 06:00] VITALS: BP 133/63
[2018-07-07] MEDS: LACTULOSE 20 GM/30 ML SYRUP UD GT SCH ×2 (08:22→21:55)
[2018-07-07] MEDS: TOPIRAMATE (TopAMAX) 100 MG TAB GT SCH ×2 (08:23→21:55)
[2018-07-07] MEDS: CYANOCOBALAMIN 500 MCG TAB GT SCH (08:24)
[2018-07-07] MEDS: VALPROIC ACID SYRUP 250 MG/5 ML UDC GT SCH ×2 (08:24→21:55)
[2018-07-07] MEDS: lamoTRIgine 100MG TAB GT SCH ×2 (08:24→21:55)
[2018-07-07] MEDS: ENOXAPARIN 40 MG/0.4 ML SYRINGE (J1650) SC SCH (08:25)
[2018-07-07 14:00] VITALS: BP 139/68
[2018-07-07] MEDS: CLOBETASOL PROPIONATE EMOLLIENT 0.05% CR 60 GM TOP SCH (21:55)
[2018-07-07 22:00] VITALS: BP 166/82
[2018-07-08 06:00] VITALS: BP 137/82
[2018-07-08 06:45] LABS: HEMATOCRIT 39.9 % (42.0-52.0); HEMOGLOBIN 13.1 g/dl (13.5-17.5); MEAN CORPUSCULAR HEMOGLOBIN 35.2 pg (27.0-33.0); MEAN CORPUSCULAR HGB CONC 32.8 g/dl (32.0-36.5); MEAN CORPUSCULAR VOLUME 107.3 fl (80.0-96.0); PLATELET COUNT, AUTOMATED 166 10^3/uL (150-450); RED BLOOD COUNT 3.72 10^6/uL (4.30-6.10); WHITE BLOOD COUNT 7.8 10^3/uL (4.0-10.0)
[2018-07-08 08:00] VITALS: BP 168/88
[2018-07-08 10:00] VITALS: BP 133/73
[2018-07-08] MEDS: ENOXAPARIN 40 MG/0.4 ML SYRINGE (J1650) SC SCH (10:14)
[2018-07-08] MEDS: LACTULOSE 20 GM/30 ML SYRUP UD GT SCH ×2 (10:16→21:52)
[2018-07-08] MEDS: VALPROIC ACID SYRUP 250 MG/5 ML UDC GT SCH ×2 (10:16→21:52)
[2018-07-08] MEDS: lamoTRIgine 100MG TAB GT SCH ×2 (10:16→21:52)
[2018-07-08] MEDS: CYANOCOBALAMIN 500 MCG TAB GT SCH (10:17)
[2018-07-08] MEDS: TOPIRAMATE (TopAMAX) 100 MG TAB GT SCH ×2 (10:17→21:52)
--- NOTE | 2018-07-08 11:07 | IPNPDOC ---
Subjective Date Seen The patient was seen on 07/08/18. Subjective Chief Complaint/HPI Pt nonverbal, nursing without new concerns. General: Reports: ROS Unobtainable Objective Physical Examination General Exam: Positive: Alert, Cooperative, No Acute Distress ENT Exam: Positive: Mucous membr. moist/pink Neck Exam: Positive: Supple Chest Exam: Positive: Clear to auscultation, Diminished Heart Exam: Positive: Rate Normal, Normal S1, Normal S2 Abdomen Exam: Positive: Normal bowel sounds, Soft, Other (+ PEG); Negative: Tenderness Extremity Exam: Negative: Edema Neuro Exam: Negative: Normal Speech Psych Exam: Negative: Mental status NL Assessment /Plan Problems (1) Elevated LFTs Status: Acute Response to Treatment: Stable, Improving Problem Specific Plan: Monitor Clinically, Repeat Labs Problem Text: Pt admitted on at home meds, has remained stable with improvement in his LFTs as well as WBC, suspect d/t viral infection, vomiting has resolved. WBC has normalized, LFTs are trending down, repeat labs in AM, if remain stable, plan to D/C back to [facility]. Will d/c IVF today as he is tolerating tube feeds. (2) Seizure disorder Status: Chronic Response to Treatment: Stable (3) Vomiting Status: Resolved (4) Leukocytosis Status: Resolved Response to Treatment: Stable, Improving Problem Specific Plan: Monitor Clinically, Repeat Labs Plan/VTE VTE Prophylaxis Ordered?: Yes VS, I&O, 24H, Fishbone Vital Signs/I&O Vital Signs Date Time Temp Pulse Resp B/P (MAP) Pulse Ox O2 Delivery O2 Flow Rate FiO2 07/08/18 08:00 97.4 94 18 168/88 (114) 97 07/05/18 15:25 Room Air I&O- Last 24 Hours up to 6 AM 07/08/18 06:00 Intake Total 2582 ml Output Total 1400 ml Balance 1182 ml Laboratory Data 24H LABS Laboratory Tests 2 07/08/18 05:50: Nucleated Red Blood Cells % (auto) 0.0 CBC/BMP Laboratory Tests 07/08/18 05:50 Red Blood Count 3.72 L, Mean Corpuscular Volume 107.3 H, Mean Corpuscular Hemoglobin 35.2 H, Mean Corpuscular Hemoglobin Concent 32.8, Red Cell Distribution Width 14.9 H Microbiology Microbiology 07/05/18 Blood Culture - Preliminary, Resulted No Growth after 72 hours. All specime... 07/05/18 Blood Culture - Preliminary, Resulted No Growth after 72 hours. All specime... 07/05/18 Respiratory Virus Panel (PCR) (TEDDY) - Final, Complete 07/05/18 Urine Culture - Final, Complete JACLYN BLAKELY PA-C Jul 08, 2018 11:07
--- NOTE | 2018-07-08 11:25 | ECWPN ---
PATIENT NAME: CONOR BORGES : 1945 GENDER: MALE VISIT DATE: 07/05/2018 DISCHARGE DATE: 07/05/18 0000 VISIT LOCKED DATE TIME: PHYSICIAN: PRITI ALEX MD RESOURCE: PRITI ALEX MD REASON FOR APPOINTMENT 1. ADMISSION H AND P 2. NAUSEA AND VOMITING AT [facility] HISTORY OF PRESENT ILLNESS GENERAL: (THIS HISTORY IS LIMITED BY THE PATIENT'S NON-VERBAL STATUS. THIS HISTORY IS COMPILED FROM THE ER PHYSICIAN'S REPORT PLUS HIS AIDE'S INPUT.)MR. BORGES IS A PATIENT OF [facility] IN [place] WHO WAS BROUGHT TO THE [facility] ER BY THE [facility] STAFF B/C OF SIGNIFICANT VOMITING IN THE PREVIOUS FEW HOURS. 72 YEAR OLD MALE PRESENTS WITH C/O HPI HIS AIDE REPORTS THAT HE HAS HAD A FEVER FOR SEVERAL DAYS AND THEY EMPIRICALLY GAVE HIM TAMIFLU, SINCE MANY OTHER RESIDENTS AT [facility] ARE INFLUENZA POSITIVE. HOWEVER WHEN HE STARTED VOMITING AT 1AM ON THE DAY OF ADMISSION AND SUBSEQUENTLY VOMITED 6-7 MORE TIMES THE BEGAN TO SUSPECT SOMETHING DIFFERENT WAS GOING ON. HIS TMAX WAS AROUND 101 AT [facility] TODAY OF NOTE HE DID HAVE HIS YONY BUTTON CHANGED ABOUT 2 WEEKS AGO, BUT HAD DONE WELL SINCE THEN. PAST MEDICAL HISTORY MENTAL RETARDATION PSORIASIS SEIZURES MENTAL ILLNESS IMPACTED CERUMEN FRACTURE RIGHT METACARPAL-FIRST RIGHT MCA INFARCT ALLERGIES N.K.D.A. SURGICAL HISTORY APPENDECTOMY 2004 REMOVAL OF POLYPS WITH COLONOSCOPY 2006 COLONOSCOPY -03/2010 LEFT HIP FRACTURE 12/2015 G- TUBE 2016 SKIN TAG REMOVED- LOWER BACK 06/2017 FAMILY HISTORY [facility] PT.- - - -. SOCIAL HISTORY GENERAL: TOBACCO USE ARE YOU A:NONSMOKER NON-SMOKER - PER [facility] EMPLOYEE ALCOHOL SCREENING DID YOU HAVE A DRINK CONTAINING ALCOHOL IN THE PAST YEAR?NO POINTS0 INTERPRETATIONNEGATIVE RECREATIONAL DRUG USE DRUG USE?NO CAFFEINE CAFFEINE USE?NO SEXUAL HX HAD SEX IN THE LAST 12 MONTHS (VAGINAL, ORAL, OR ANAL)?NO HIV / HEP-C SCREENING HIV TEST OFFERED TO PATIENT:NO HEP-C TEST OFFERED TO PATIENT:NO SCIENTOLOGIST SCIENTOLOGIST NO YARSANISM PREFERENCES THAT WOULD IMPACT HEALTHCARE LANGUAGE LATVIAN. EDUCATION NONE. LEARNING BARRIERS / SPECIAL NEEDS BARRIERS TO LEARNING?YES VISION IMPAIRED?YES COGNITIVELY IMPAIRED?YES SPECIAL DEVICES?YES :WHEELCHAIR DOMESTIC VIOLENCE NONE. OCCUPATION: DISABLED. DIET: HEART HEALTHY,GERD, CAT. EXERCISE: NONE. MARITAL STATUS: SINGLE. OTHERS AT HOME: [facility] RESIDENCE. HOUSING: [facility] HOUSING. HOSPITALIZATION/MAJOR DIAGNOSTIC PROCEDURE URGENT CARE 08/31/15 LEFT HIP FRACTURE SOB 04/2018 REVIEW OF SYSTEMS FOLLOW-UP ROS: CARDIOLOGY: NO ORTHOPNEA/PND . HEME/LYMPH NO EXCESSIVE BLEEDING OR BRUISING . ALLERGY/IMMUNOLOGY NO NASAL CONGESTION, ITCHING EYES . INTEGUMENT CHRONIC PSORIASIS; NO UNUSUAL RASH OR CHANGING LESIONS . ENDOCRINOLOGY: NO POLYURIA, POLYDIPSIA, POLYPHAGIA . GASTROENTEROLOGY: VOMITING; NO DIARRHEA, CONSTIPATION, MELENA, HEMATOCHEZIA . GENERAL: FEVER; NO SIGNIFICANT ABNORMAL WEIGHT CHANGE . GI/ NO HEMATURIA . HEENT NO RHINORRHEA . PULMONOLOGY: NO COUGH, CHANGE IN DYSPNEA . EXAMINATION GENERAL EXAMINATION: GENERAL APPEARANCE:WELL-NOURISHED. IN NO ACUTE DISTRESS. LAYING IN THE ER STRECHER WITH HIS AIDE AT HIS SIDE WHEN I ENTERED THE ER BAY . PSYCHALERT. HE WILL RESPOND TO SOME STIMULI AND QUESTIONS WITH PURPOSEFUL MOANS THAT APPROXIMATE LANGUAGE. HIS AIDE SEEMS TO BE ABLE TO INTERPRET A LITTLE OF WHAT HE SAYS . HEENT:HEAD: NORMOCEPHALIC, ATRAUMATIC. EYES: PUPILS ARE EQUAL AND REACTIVE TO LIGHT. SCLERA ANICTERIC. CONJUNCTIVA PINK AND NOT INFLAMED. EARS: AURICLES NORMALLY PLACED. EXTERNAL AUDITORY CANALS NOT INFLAMED BILATERALLY. TYMPANIC MEMBRANES SARABIA WITH NO FLUID NOTED BEHIND THEM. NOSE: SYMMETRIC. NO NASAL MUCOSA EDEMA OR ERYTHEMA. NO NASAL DISCHARGE . ORAL CAVITY:MUCOUS MEMBRANES ARE SLIGHTLY DRY . NECK:TRACHEA MIDLINE. NO CERVICAL OR SUPRACLAVICULAR LYMPHADENOPATHY NOTED . CHEST:THE CHEST IS SYMMETRIC AND EXPANDS SYMMETRICALLY ON INSPIRATION. NO PALPABLE CHEST WALL TENDERNESS . LUNGS:LUNG ISBELL ARE CLEAR TO AUSCULTATION BILATERALLY. MODERATE MOVEMENT OF AIR SECONDARY TO EXTRINSIC RESTRICTION FROM THE WEIGHT OF THE CHEST WALL . HEART:HEART TONES ARE A LITTLE DISTANT. S1 AND S2 ARE NOTED IN A REGULAR RATE AND RHYTHM. NO SIGNIFICANT MURMURS, RUBS OR GALLOPS NOTED . ABDOMEN:SYMMETRIC, SLIGHTLY DISTENDED. BOWEL SOUNDS ARE POSITIVE, BUT HYPOACTIVE. ABDOMEN IS NON-TENDER TO LIGHT PALPATION. HIS YONY BUTTON APPEARS TO BE WELL POSITIONED IN HIS LEFT/CENTRAL UPPER ABDOMEN. THERE IS NO, SWELLING, BLEEDING OR DISCHARGE AROUND IT . MALE GENITOURINARY:HE HAS A PSORIATIC PLAQUE NOTED JUST ABOVE HIS PENIS ON THE PRE-PUBIC FAT PAD . EXTREMITIES:NO NOTED PERIPHERAL EDEMA . NEUROLOGIC EXAM:NOTABLY, DURING MY EXAMINATION HE STARTED SEIZING. IT WAS A GENERALIZED TONIC-CONIC SEIZURE, BUT THE AMPLITUDE OF HIS MOVMENTS WAS RELATIVELY SMALL. HE ALSO HAD SIGNIFICANT LIP SMACKING AND SPASMS OF HIS SCMS AND PLATHYSMA. HIS AIDE STATED THAT HE USALLY COMES OUT OF THEM QUICKLY. AFTER ROUGHLY 2 MINUTES HIS EXTREMITY MOVEMENTS WERE DECREASED, BUT HE CONTINUED TO HAVE EVIDENCE OF SEIZURE WITH HIS NECK MUSCLES, FINE MOVEMENTS OF HIS CHEST MUSCLES (NOTED ON THE TELEMETRY) AND HAD A DECREASED RESPONSIVENESS (FROM THE BASELINE I OBSERVED AND PER HIS AIDE). I ORDERED 1MG OF IV ATIVAN STAT AND THE SEIZURE ACTIVITY QUICKLY SUBSIDED. LAB TESTS REVIEWEDLABS FROM 07/05/18 WERE REVIEWED EXTENSIVELY ON [employer] . ASSESSMENTS SYSTEMIC INFLAMMATORY RESPONSE SYNDROME (SIRS) - R65.10 (PRIMARY) VOMITING, INTRACTABILITY OF VOMITING NOT SPECIFIED, PRESENCE OF NAUSEA NOT SPECIFIED, UNSPECIFIED VOMITING TYPE - R11.10 LEUKOCYTOSIS, UNSPECIFIED TYPE - D72.829 ELEVATED LFTS - R94.5 CONVULSIONS - R56.9 PSORIASIS - L40.9 MENTAL RETARDATION - F79 THIS IS A 72YO MAN WITH MR WHO HAD SIGNIFICANT VOMITING THIS MORNING AND PRESENTS TO THE ER WITH SIRS. HE REQUIRES ADMISSION TO CONTROL HIS VOMITING IF IT SHOULD REOCCUR, FOR IV HYDRATION, AND MANAGEMENT OF HIS SEIZURES. TREATMENT SYSTEMIC INFLAMMATORY RESPONSE SYNDROME (SIRS) CLINICAL NOTES: HE MEETS CRITERIA FOR SIRS WITH A FEVER, TACHYCARDIA, LEUKOCYTOSIS, AND TACHYPNEA. HOWEVER, THE SOURCE OF THE INFECTION IS NOT CLEAR. HE DID RECEIVE A 30ML/KG BOLUS IN THE ER. HE HAS NOT BEEN STARTED ON ABX, I SUSPECT THIS IS A VIRAL GI SOURCE. HIS URINE IS TURBID, BUT DOESN'T LOOK INFECTED; UCX IS PENDING. HE HAS BPH AND I SUSPECT THAT THE CATHERIZATION WAS PARTIALLY TRAUMATIC. NO INFILTRATES ON CT (THOUGH THERE IS A CHRONIC ATALECTASIS FROM SCOLIOSIS). BLOOD CX PENDING. VOMITING, INTRACTABILITY OF VOMITING NOT SPECIFIED, PRESENCE OF NAUSEA NOT SPECIFIED, UNSPECIFIED VOMITING TYPE CLINICAL NOTES: THE VOMITING SEEMED TO BE CONTROLLED IN THE ER, PROBABLY BY THE ANTIEMETICS. I CONTINUED IV ODANSETRON. IT IS NOTEWORTHY THAT A VIRAL GASTROENTERITIS WITH VERY SIMILAR DAY CONVALESCENT PERIOD WITH AN ILEUS AND DIARRHEA HAS BEEN WIDELY CIRCULATING IN OUR COMMUNITY. LEUKOCYTOSIS, UNSPECIFIED TYPE CLINICAL NOTES: HE HAS A SIGNIFICANTLY ELEVATED WBC WITH A NEUTROPHIL PREDOMINENCE. THERE IS A NORMAL NUMBER OF BANDS. I BELIEVE THAT THIS IS LIKELY VIRAL (DESPITE THE NEUTROPHILS) AND THAT THE SIGNIFICANT ELEVATION IN THE WBC COUNT IS LARGLY 2/2 DEMARGINATION FROM THE STRESS OF RECURRENT VOMITING. IF I'M CORRECT THEN THE WBC WILL BE DOWN TOMORROW, THE DIFF WILL BE MORE BALANCED, AND STILL NO BANDS. IF I'M WRONG, HE SHOULD BE STARTED ON EMPERIC BROAD-SPECTRUM ABX WHILE A SOURCE IS IDENTIFIED. ELEVATED LFTS CLINICAL NOTES: HIS LFTS ARE ELEVATED IS HIS BILIRUBIN AND GGT. HE DOESN'T HAVE A GALL BLADDER ANY MORE. I SUSPECT THESE ABNORMALITIES ARE A FUNCTION OF A VIRAL ENTERITIS MAKING ITS WAY THROUGH THE ENTIRE GI TRACT. MONITOR. CONVULSIONS CLINICAL NOTES: HE SEIZED IN FRONT OF ME IN THE ER. WILL USE SEIZURE PRECAUTIONS AND I ORDERED LORAZEPAM TO BREAK THE SEIZURES. I SUSPECT THAT HE VOMITED UP THE LAST COUPLE DOSES OF HIS SEIZURE MEDICATIONS AND THIS IS WHY HIS SEIZURES BROKE THROUGH RIGHT NOW. I HAVE ORDERED HIS REGULAR REGIMEN WHILE HE IS HERE. IT IS GOOD FOR HIM TO BE ADMITTED WHILE WE ARE REGAINING CONTROL OVER HIS SEIZURES. PSORIASIS CLINICAL NOTES: CONTINUE HOME REGIMEN. MENTAL RETARDATION CLINICAL NOTES: THIS COMPLICATES ALL OF HIS CARE IT IS NOT POSSIBLE TO GET GOOD SUBJECTIVE DATA FROM HIM. OTHERS CLINICAL NOTES: PROPHYLAXIS: LOVENOX. NO GI PROPHYLAXIS FOR CONCERNS THAT IF HE HAS A GI BACTERIA WE COULD MAKE IT WORSE OR SET HIM UP FOR C. DIFF IF BROAD SPECTRUM ABX ARE NEEDED. HE IS NOT NPO. CODE STATUS: HE IS FULL CODEALTERNATE DECISION-MAKING: WE HAVE HCPS ON FILE LISTING HIS MOTHER HIS ALTERNATE DECISION-MAKER. UNFORTUNATELY, I WAS INFORMED THAT SHE HAS SINCE . NOW HIS BROTHERS BRENDA ([phone]) AND REYNOLD ([phone]) REPORTEDLY MAKE DECISIONS FOR HIM. PROCEDURE CODES ADM00 ADM HOSPITAL ADMISSION - NO CHARGE DISPOSITION & COMMUNICATION FOLLOW UP PRN (REASON: HOSPITAL DISCHARGE) ELECTRONICALLY SIGNED BY PRITI ALEX MD, MD ON 07/05/2018 AT 10:38 PM EST DISCLAIMER : THIS IS A VISIT SUMMARY EXTRACTED FROM THE [employer] CHART. IT IS NOT A COPY OF THE [employer] PROGRESS NOTE. [place]
[2018-07-08 14:00] VITALS: BP 133/73
[2018-07-08 22:00] VITALS: BP 123/69
[2018-07-09] MEDS ORDERED: UNRESOLVED CLARIFICATION ENTRY XX SCH (00:01)
--- NOTE | 2018-07-09 05:23 | IPN ---
DATE OF VISIT: 07/07/2018 The patient is seen today on [address] [facility]. He seems to be feeling well. He has not been febrile, not been vomiting, not having any dysuria. He is putting out plenty of urine; because of his developmental disability really not able to answer questions in a coherent fashion. CURRENT MEDICATIONS: He still getting some IV fluids. - Lovenox - vitamin B12 - valproic acid - lactulose - lorazepam as needed - lamotrigine - Topamax PHYSICAL EXAMINATION: VITAL SIGNS: Temperature is 97.60, blood pressure 139/68, pulse 97 and regular, respirations 18, O2 saturation 98% on room air. GENERAL: He does not appear in any distress. He is alert and awake. NECK: No neck masses, tenderness or adenopathy. No carotid bruits. LUNGS: Lungs are clear. HEART: Heart has regular rhythm without any murmur, click or gallop. ABDOMEN: Soft and nontender without any masses. He does have feeding tube with a Tavares button in the epigastrium. EXTREMITIES: I think his right arm looks a little puffy, otherwise no edema. LABORATORY DATA: Labs today show that his white blood count is down to 14,200, hemoglobin is down to 12,200. He has 85 segs, 7 lymphs, 7 monos. Chemistries today show that his BUN is 18, creatinine 0.72, glucose 84, calcium is 8.3, AST down to 83, alkaline phosphatase down to 134, ALT down to 65. Urine culture was negative, blood cultures are negative. Respiratory virus panel was negative. ASSESSMENT: 1. Resolved nausea and vomiting. 2. 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 3. Chronic mental developmental disability. 4. Seizure disorder. 5. Leukocytosis improved. 6. Elevated liver functions improved. PLAN: In retrospect he either had a viral illness or reacted adversely to the Tamiflu that he was given for influenza treatment which he did not have. Would discontinue his intravenous fluids at this time and take his Claudio catheter out. I did review his old records and indeed, the last time he was in the hospital he had a white count of 20,000, but in the interim it did go back to 6000, completely within normal range. Assuming that he has a good night, he could go back to the [facility] ([facility]) facility tomorrow.
[2018-07-09 06:00] VITALS: BP 131/63
[2018-07-09 07:18] LABS: ALBUMIN 1.8 GM/DL (3.2-5.2); ALT/SGPT 58 U/L (12-78); BILIRUBIN,TOTAL 0.8 MG/DL (0.2-1.0); BLOOD UREA NITROGEN 16 MG/DL (7-18); CALCIUM LEVEL 8.7 MG/DL (8.8-10.2); CARBON DIOXIDE LEVEL 22 MEQ/L (21-32); CHLORIDE LEVEL 108 MEQ/L (98-107); CREATININE FOR GFR 0.53 MG/DL (0.70-1.30); GLOMERULAR FILTRATION RATE > 60.0 (>42); GLUCOSE, FASTING 102 MG/DL (70-100); POTASSIUM SERUM 3.8 MEQ/L (3.5-5.1); SODIUM LEVEL 138 MEQ/L (136-145)
[2018-07-09 08:03] VITALS: BP 132/68
[2018-07-09] MEDS: LACTULOSE 20 GM/30 ML SYRUP UD GT SCH (08:23)
[2018-07-09] MEDS: ENOXAPARIN 40 MG/0.4 ML SYRINGE (J1650) SC SCH (08:24)
[2018-07-09] MEDS: CYANOCOBALAMIN 500 MCG TAB GT SCH (08:25)
[2018-07-09] MEDS: lamoTRIgine 100MG TAB GT SCH (08:25)
[2018-07-09] MEDS: VALPROIC ACID SYRUP 250 MG/5 ML UDC GT SCH (08:25)
[2018-07-09] MEDS: TOPIRAMATE (TopAMAX) 100 MG TAB GT SCH (08:26)
[2018-07-09 12:00] VITALS: BP 124/68
--- NOTE | 2018-07-09 22:34 | DSES ---
DATE OF ADMISSION: 07/05/2018 DATE OF DISCHARGE: 07/09/2018 PRIMARY CARE PROVIDER: Ariana Pacheco ATTENDING TODAY: Dr. Roula Sinha HISTORY: This is a 72-year-old male resident of [facility] ([facility]) who presented to [facility] after having vomiting and found to have leukocytosis. He had an elevated lactic acid upon evaluation in the emergency room. He was admitted to the hospital for further management and evaluation of leukocytosis and elevated liver function tests (LFTs). During his hospitalization, he has remained medically stable. His routine at-home medications were held. His leukocytosis has resolved. He had elevated LFTs. It is felt that these are likely secondary to either viral or post-Tamiflu treatment, and he was initially placed on intravenous (IV) fluids, which have been discontinued. His seizure medications have been continued. DISCHARGE DIAGNOSES INCLUDE: Elevated liver function tests. Leukocytosis. Seizure disorder. Vomiting. DISCHARGE MEDICATIONS INCLUDE: - clobetasol 0.5% topically two times weekly - vitamin B12 1000 mcg by mouth G-tube daily - docusate sodium 50 mg per 5 mL, 100 mg G-tube before bed - Dovonex 0.005 topically five times weekly - lactulose 15 mL G-tube twice daily - lamotrigine 100 mg G-tube twice daily - meloxicam 15 mg G-tube daily - Topamax 200 mg G-tube twice a day - valproic acid 15 mL G-tube daily, 10 mL G-tube nightly DISCHARGE PLAN: Will be to followup with Chely Pacheco in 1 week. Activity should be as tolerated. He will continue his percutaneous endoscopic gastrostomy (PEG) tube feedings.
== END 2018-07-09 15:45 | disposition home or self-care (01) | DRG 866 ==
LOC: EDBD 07:41 → M ED 07:41 → M ED INP 13:52 → M MS5PR 15:31
PROVIDERS: ADMIT Family Medicine; ATTEND Family Medicine
DX: B34.9 Viral infection, unspecified (principal); R65.10 Systemic inflammatory response syndrome (SIRS) of non-infectious origin without acute organ dysfunction; R11.10 Vomiting, unspecified; D72.829 Elevated white blood cell count, unspecified; R94.5 Abnormal results of liver function studies; G40.909 Epilepsy, unspecified, not intractable, without status epilepticus; F79 Unspecified intellectual disabilities; L40.9 Psoriasis, unspecified; Z79.899 Other long term (current) drug therapy; Z93.1 Gastrostomy status; Z86.73 Personal history of transient ischemic attack (TIA), and cerebral infarction without residual deficits

== ENCOUNTER → 2018-09-12 | Outpatient (CLI) | payer MEDICARE, MEDICAID ==
[~2018-09-12] MED LIST changes: -/BISA10SU PR; -/CARBXR20T PO; -/LAMO20TA PO; -/MEMA10TA PO; -/TAMS4CA PO; -ACET50TA PO; +ASPI-1 PEG; -ASPI325T PEG; +BISA10SU31 PR; -CALC05CR TOP; +CEFD250S26 PEG; +CEFD250S26 PO; -CORTOTSO AU; +FLOM0.4C39 PO; +HALO0.0511 EXT; -HALO5OI EXT; +LAMI1TAB9 PO; +LOTRCRE TOP; +MAPA500T17 PO; -NEO/1SUS AU; +NEOM1SOL19 AU; +NEOM1SUS10 AU; +OSEL6SUSP GT; +TEGR1TAB PO; +ULTR0.0510 TOP; +[UNRECOGNIZED DRUG - CODE] PO; -[UNRECOGNIZED DRUG - OTHER] EXT
[2018-09-12 09:46] LABS: VALPROIC ACID (DEPAKOTE) 59.2 UG/ML (50.0-100.0)
[2018-09-12 09:54] LABS: BASO % 0.4 % (0.0-1.0); EOS # 0.3 10^3/uL (0.0-0.50); EOS % 3.2 % (0.0-3.0); HEMATOCRIT 46.7 % (42.0-52.0); HEMOGLOBIN 15.2 g/dl (13.5-17.5); LYMPH % 31.4 % (24.0-44.0); MEAN CORPUSCULAR HEMOGLOBIN 35.5 pg (27.0-33.0); MEAN CORPUSCULAR HGB CONC 32.5 g/dl (32.0-36.5); MEAN CORPUSCULAR VOLUME 109.1 fl (80.0-96.0); MONO # 0.8 10^3/uL (0.0-0.8); MONO % 8.5 % (0.0-5.0); NEUTROPHILS # 5.3 10^3/uL (1.8-7.7); NEUTROPHILS % 55.9 % (36.0-66.0); PLATELET COUNT, AUTOMATED 234 10^3/uL (150-450); RED BLOOD COUNT 4.28 10^6/uL (4.30-6.10); WHITE BLOOD COUNT 9.5 10^3/uL (4.0-10.0)
[2018-09-17 00:08] LABS: LAMOTRIGINE (LAMICTAL) 13.5 ug/mL (2.0-20.0); TOPIRAMATE LEVEL 11.7 ug/mL (2.0-25.0)
== END ==
LOC: M LAB 08:16
PROVIDERS: ATTEND Physician Assistant Medical
DX: G40.89 Other seizures (principal); Z51.81 Encounter for therapeutic drug level monitoring; E72.20 Disorder of urea cycle metabolism, unspecified

== ENCOUNTER 2018-09-22 09:13 | Emergency (ER) | payer MEDICARE, MEDICAID ==
[2018-09-22] MEDS ORDERED: TOPA200T7 (09:26)
[2018-09-22] MEDS ORDERED: FLEEENE12 PR (09:26)
[2018-09-22] MEDS ORDERED: B-122500 PO (09:26)
[2018-09-22] MEDS ORDERED: DULC10SU2 PR (09:26)
[2018-09-22] MEDS ORDERED: NS 1,000 ML IV ONE ×2 (10:00→12:45)
[2018-09-22 11:19] LABS: BASO % 0.4 % (0.0-1.0); EOS # 0.3 10^3/uL (0.0-0.50); EOS % 2.8 % (0.0-3.0); HEMATOCRIT 43.6 % (42.0-52.0); HEMOGLOBIN 14.6 g/dl (13.5-17.5); LYMPH # 2.6 10^3/uL (1.5-4.5); LYMPH % 28.6 % (24.0-44.0); MEAN CORPUSCULAR HEMOGLOBIN 36.4 pg (27.0-33.0); MEAN CORPUSCULAR HGB CONC 33.5 g/dl (32.0-36.5); MEAN CORPUSCULAR VOLUME 108.7 fl (80.0-96.0); MONO # 1.5 10^3/uL (0.0-0.8); MONO % 16.1 % (0.0-5.0); NEUTROPHILS # 4.6 10^3/uL (1.8-7.7); NEUTROPHILS % 51.2 % (36.0-66.0); PLATELET COUNT, AUTOMATED 197 10^3/uL (150-450); RED BLOOD COUNT 4.01 10^6/uL (4.30-6.10)
[2018-09-22] MEDS: IPRATROPIUM 0.5MG/ALBUTEROL 2.5MG INH SOL UD 3ML (DUONEB)(J7620) NEB PRN ×2 (11:35→12:22)
[2018-09-22 11:42] LABS: ALBUMIN 2.2 GM/DL (3.2-5.2); ALT/SGPT 55 U/L (12-78); BILIRUBIN,DIRECT 0.4 MG/DL (0.0-0.2); BILIRUBIN,TOTAL 0.7 MG/DL (0.2-1.0); BLOOD UREA NITROGEN 24 MG/DL (7-18); CALCIUM LEVEL 8.7 MG/DL (8.8-10.2); CARBON DIOXIDE LEVEL 26 MEQ/L (21-32); CHLORIDE LEVEL 102 MEQ/L (98-107); CREATININE FOR GFR 0.68 MG/DL (0.70-1.30); GLOMERULAR FILTRATION RATE > 60.0 (>42); GLUCOSE, FASTING 98 MG/DL (70-100); POTASSIUM SERUM 4.1 MEQ/L (3.5-5.1); SODIUM LEVEL 136 MEQ/L (136-145); TOTAL PROTEIN 7.3 GM/DL (6.4-8.2)
[2018-09-22 11:42] LABS: INFLUENZA A AMPLIFICATION NEGATIVE (NEGATIVE); INFLUENZA B AMPLIFICATION NEGATIVE (NEGATIVE)
--- NOTE | 2018-09-22 11:47 | REP ---
CHEST, TWO VIEWS: Two views of the chest are performed and compared to prior study of 04/22/2018. No acute infiltrate is seen. There is mild bibasilar fibroatelectatic change which appears stable. There is left ventricular prominence. Mediastinal silhouette is unchanged. Severe right thoracic scoliosis is noted with degenerative changes. IMPRESSION: Stable exam. No evidence of acute infiltrate. Electronically Signed by Beny Mcghee MD 09/22/2018 12:29 P
--- NOTE | 2018-09-22 11:49 | REP ---
KUB ABDOMEN AND PELVIS: Two KUB films of abdomen and pelvis performed. Bowel gas pattern is unremarkable with no evidence of small bowel obstruction. I do not see significantly dilated small bowel loops. Metallic clips are seen in the right upper quadrant presumably status post cholecystectomy. Severe right thoracolumbar scoliosis is noted with degenerative changes of the spine. There are severe degenerative changes at the left hip. IMPRESSION: No evidence of small bowel obstruction. Electronically Signed by Beny Mcghee MD 09/22/2018 12:29 P
[2018-09-22 15:21] LABS: BLOOD UREA NITROGEN 23 MG/DL (7-18); CREATININE FOR GFR 0.68 MG/DL (0.70-1.30); GLOMERULAR FILTRATION RATE > 60.0 (>42)
[2018-09-22] MEDS ORDERED: LACT10SO29 PO (16:46)
[2018-09-22] MEDS ORDERED: CLOB0.0548 TOP (16:46)
[2018-09-22] MEDS ORDERED: MILKSUS9 PO (16:46)
[2018-09-22 17:47] VITALS: BP 149/67
[2018-09-22] MEDS ORDERED: AUGM875T28 PO (17:53)
[2018-09-22] MEDS ORDERED: MIRA1POW3 PEG (18:12)
[2018-09-22] MEDS ORDERED: AUGMENTIN 875 MG TAB PEG ONE (18:45)
[2018-09-22] MEDS ORDERED: AUGMENTIN BID 400MG/5ML SUSP 50ML BTL PO ONE (18:45)
== END 2018-09-22 19:39 | disposition home or self-care (01) ==
LOC: M ED 09:13
DX: R74.0 Nonspecific elevation of levels of transaminase and lactic acid dehydrogenase [LDH] (principal); E86.0 Dehydration; R06.2 Wheezing; K59.00 Constipation, unspecified; B34.9 Viral infection, unspecified; I10 Essential (primary) hypertension; K21.9 Gastro-esophageal reflux disease without esophagitis; M81.0 Age-related osteoporosis without current pathological fracture; E03.9 Hypothyroidism, unspecified; G40.909 Epilepsy, unspecified, not intractable, without status epilepticus; G93.41 Metabolic encephalopathy; L40.9 Psoriasis, unspecified; F79 Unspecified intellectual disabilities; H54.8 Legal blindness, as defined in USA; F60.7 Dependent personality disorder; Z79.899 Other long term (current) drug therapy

== ENCOUNTER 2018-10-02 10:29 | Emergency (ER) | payer MEDICARE, MEDICAID ==
[~2018-10-02] VITALS: Ht 167.6 cm; Wt 94.5 kg
[~2018-10-02 10:29] MED LIST changes: +AUGM875T28 PO; +B-122500 PO; +FLEEENE12 PR; +LACT10SO29 PO; +MILKSUS9 PO; +MIRA1POW3 PEG; +TOPA200T7
[2018-10-02] MEDS ORDERED: ALBU83IN NEB (10:51)
[2018-10-02] MEDS ORDERED: VALP25EL PO (10:51)
[2018-10-02] MEDS ORDERED: PANTOPRAZOLE 40MG INJ (PROTONIX) (C9113) IV ONE (12:15)
[2018-10-02 13:52] LABS: BASO # 0.1 10^3/uL (0.0-0.2); BASO % 0.6 % (0.0-1.0); EOS # 0.3 10^3/uL (0.0-0.50); EOS % 2.5 % (0.0-3.0); HEMATOCRIT 42.1 % (42.0-52.0); HEMOGLOBIN 13.7 g/dl (13.5-17.5); LYMPH # 4.4 10^3/uL (1.5-4.5); LYMPH % 34.3 % (24.0-44.0); MEAN CORPUSCULAR HEMOGLOBIN 36.3 pg (27.0-33.0); MEAN CORPUSCULAR HGB CONC 32.5 g/dl (32.0-36.5); MEAN CORPUSCULAR VOLUME 111.7 fl (80.0-96.0); MONO # 1.5 10^3/uL (0.0-0.8); MONO % 11.4 % (0.0-5.0); NEUTROPHILS # 6.4 10^3/uL (1.8-7.7); NEUTROPHILS % 49.7 % (36.0-66.0); PLATELET COUNT, AUTOMATED 253 10^3/uL (150-450); RED BLOOD COUNT 3.77 10^6/uL (4.30-6.10); WHITE BLOOD COUNT 12.9 10^3/uL (4.0-10.0)
[2018-10-02 14:14] LABS: ALBUMIN 1.9 GM/DL (3.2-5.2); ALT/SGPT 35 U/L (12-78); BILIRUBIN,DIRECT 0.4 MG/DL (0.0-0.2); BILIRUBIN,TOTAL 0.8 MG/DL (0.2-1.0); BLOOD UREA NITROGEN 16 MG/DL (7-18); CALCIUM LEVEL 8.5 MG/DL (8.8-10.2); CARBON DIOXIDE LEVEL 24 MEQ/L (21-32); CHLORIDE LEVEL 104 MEQ/L (98-107); CREATININE FOR GFR 0.67 MG/DL (0.70-1.30); GLOMERULAR FILTRATION RATE > 60.0 (>42); GLUCOSE, FASTING 86 MG/DL (70-100); LIPASE 114 U/L (73-393); POTASSIUM SERUM 4.5 MEQ/L (3.5-5.1); SODIUM LEVEL 134 MEQ/L (136-145); TOTAL PROTEIN 7.2 GM/DL (6.4-8.2)
[2018-10-02] MEDS ORDERED: ISOVUE-370 76% 100ML VIAL (Q9967) As Ordered ONE (14:22)
--- NOTE | 2018-10-02 15:05 | REP ---
CT of the abdomen and pelvis with IV contrast, without bowel contrast: Comparison is 07/05/2018. There is diffuse thickening of the left rectus abdominus as an interval change compatible with left rectus sheath hematoma. There is a significant motion artifact obscuring visualization of this area. The visualized lung lorenzo are unremarkable except for dependent atelectasis and marked scoliosis convex right at the thoracolumbar junction. This is unchanged. The hepatic parenchyma is homogeneous. There are surgical clips in the gallbladder fossa. The pancreas, spleen, adrenals are unremarkable. There are bilateral nonobstructive renal calculi. There are small bilateral renal cortical cysts. These are unchanged. There is no hydronephrosis. Abdominal aorta is unremarkable. There is no retroperitoneal adenopathy or mass. The bowel is difficult to visualize as there is significant motion artifact related to bowel loops. No definite bowel distension or obstruction. Pelvis: There are multiple small calculated calcifications layering along the dependent wall of the bladder. These are unchanged. The There is no pelvic ascites or adenopathy. The pelvic bowel loops are unremarkable. There is bilateral hip osteoarthritis. There is chronic deformity of the left hip which may be post traumatic, chronic osteoarthritic change, or combination. It is unchanged. There are multiple lumbar vertebral body compression deformities. These are unchanged. There are no retropulsed fragments. Impression: Findings are compatible with left rectus sheath hematoma. There is significant motion artifact reducing visualization in this area. There are other chronic findings as described. Electronically Signed by Beny Edmond MD 10/02/2018 02:56 P
[2018-10-02 15:53] VITALS: BP 110/62
--- NOTE | 2018-10-08 13:55 | ED PDOC ---
Post-Departure Follow-Up cat castillo faxed formal report of ct abd/p for fu Marilee Villatoro MD October 08, 2018 13:55
== END 2018-10-02 16:19 | disposition home or self-care (01) ==
LOC: M ED 10:29 → EDBD 10:29 → M ED 16:19
DX: S39.011A Strain of muscle, fascia and tendon of abdomen, initial encounter (principal); X58.XXXA Exposure to other specified factors, initial encounter; Y92.9 Unspecified place or not applicable; Y93.9 Activity, unspecified; Y99.9 Unspecified external cause status; R56.9 Unspecified convulsions; F79 Unspecified intellectual disabilities; Z79.899 Other long term (current) drug therapy
CPT/HCPCS: 51701; 74177; 80048; 80076; 81001; 83690; 85025; 96374; 99284; C9113; Q9967

== ENCOUNTER → 2018-11-07 | Outpatient (REF) | payer MEDICARE, MEDICAID ==
[~2018-11-07] MED LIST changes: +ALBU83IN NEB; +VALP25EL PO
== END ==
LOC: M SFHCCLAY 16:41
PROVIDERS: ATTEND Nurse Practitioner Family
DX: R19.7 Diarrhea, unspecified (principal)

== ENCOUNTER 2018-11-27 10:46 | Emergency (ER) | payer MEDICARE, MEDICAID ==
[~2018-11-27] VITALS: Ht 167.6 cm; Wt 92.3 kg
[~2018-11-27 10:46] MED LIST changes: +CYAN100049 GT; -OMEP20CA3 PEG; +OMEP20CA4 PEG; +OMEP20CA4 PO; -VITA10002 GT
[2018-11-27 12:03] LABS: BASO % 0.4 % (0.0-1.0); EOS # 0.2 10^3/uL (0.0-0.50); EOS % 1.5 % (0.0-3.0); HEMATOCRIT 42.5 % (42.0-52.0); HEMOGLOBIN 14.5 g/dl (13.5-17.5); LYMPH % 28.5 % (24.0-44.0); MEAN CORPUSCULAR HEMOGLOBIN 36.7 pg (27.0-33.0); MEAN CORPUSCULAR HGB CONC 34.1 g/dl (32.0-36.5); MEAN CORPUSCULAR VOLUME 107.6 fl (80.0-96.0); MONO # 1.1 10^3/uL (0.0-0.8); MONO % 10.2 % (0.0-5.0); NEUTROPHILS # 6.2 10^3/uL (1.8-7.7); NEUTROPHILS % 58.9 % (36.0-66.0); PLATELET COUNT, AUTOMATED 230 10^3/uL (150-450); RED BLOOD COUNT 3.95 10^6/uL (4.30-6.10); WHITE BLOOD COUNT 10.4 10^3/uL (4.0-10.0)
[2018-11-27 12:29] LABS: BLOOD UREA NITROGEN 21 MG/DL (7-18); CARBON DIOXIDE LEVEL 26 MEQ/L (21-32); CHLORIDE LEVEL 102 MEQ/L (98-107); CREATININE FOR GFR 0.72 MG/DL (0.70-1.30); GLOMERULAR FILTRATION RATE > 60.0 (>42); GLUCOSE, FASTING 100 MG/DL (70-100); POTASSIUM SERUM 3.7 MEQ/L (3.5-5.1); SODIUM LEVEL 136 MEQ/L (136-145)
[2018-11-27] MEDS ORDERED: CLOTCRE3 TOP (12:52)
[2018-11-27] MEDS ORDERED: SULF200S10 PO (13:12)
[2018-11-27] MEDS ORDERED: SULF200S10 PEG (13:23)
[2018-11-27 13:37] VITALS: BP 136/77
[2018-11-30] MEDS ORDERED: CEFD1CAP8 PO (15:46)
== END 2018-11-27 13:39 | disposition home or self-care (01) ==
LOC: M ED 10:46
DX: N49.2 Inflammatory disorders of scrotum (principal); B35.6 Tinea cruris; E86.0 Dehydration; Z79.899 Other long term (current) drug therapy

== ENCOUNTER → 2019-02-04 | Outpatient (CLI) | payer MEDICARE, MEDICAID ==
[~2019-02-04] MED LIST changes: +CEFD1CAP8 PO; +CLOTCRE3 TOP; +SULF200S10 PEG; +SULF200S10 PO
== END ==
LOC: M LAB 09:15
PROVIDERS: ATTEND Physician Assistant Medical
DX: R56.9 Unspecified convulsions (principal); E72.20 Disorder of urea cycle metabolism, unspecified

== ENCOUNTER → 2019-03-23 | Outpatient (REF) | payer MEDICARE, MEDICAID | LOC: M LAB REF 10:58 | DX: L02.415 Cutaneous abscess of right lower limb (principal) ==

== ENCOUNTER → 2019-04-06 | Outpatient (REF) | payer MEDICARE, MEDICAID | LOC: M LAB REF 13:32 | PROVIDERS: ATTEND Nurse Practitioner Family | DX: R19.7 Diarrhea, unspecified (principal) ==

== ENCOUNTER → 2019-04-09 | Outpatient (CLI) | payer MEDICARE, MEDICAID ==
[~2019-04-09] MED LIST changes: +ISOVUE-300 61% 50ML VIAL (Q9967) As Ordered ONE
[2019-04-09 15:21] VITALS: BP 128/73
--- NOTE | 2019-04-09 16:23 | POST-OPPD ---
Postoperative Procedure Note Date Of Procedure: Apr 09, 2019 Time Of Procedure: 15:02 PREOPERATIVE DIAGNOSIS: Reflux and aspiration. Gastrojejunostomy dependent POSTOPERATIVE DIAGNOSIS: Same FINDINGS: Button gastrojejunostomy catheter in expected location PROCEDURE: Gastrojejunostomy catheter exchanged for 18 Guinean SimpliVT gastrojejunostomy catheter. SURGEON: Alize ESTIMATED BLOOD LOSS: Less than 5 mL COMPLICATIONS: None POSTOPERATIVE CONDITION: Stable KEVIN SALAS MD Apr 09, 2019 16:23
--- NOTE | 2019-04-10 17:03 | REP ---
IR gastrojejunostomy catheter exchange. Gastrojejunostomy catheter exchange under fluoroscopy guidance. Clinical information: Gastrojejunostomy dependent. Aspiration. Reflux. Catheter malfunctioning. Physician: Dr. Herrmann. Procedure: The patient's family were advised of the benefits, risks and alternatives of the procedure and informed consent was obtained. The time-out was performed with verification of the patient's name, MRN, site of procedure and type of procedure to be performed. The patient was positioned in the supine position on the angiographic table. The site was prepped and draped in the usual sterile fashion. Moderate sedation was not required. The physician spent 45 minutes of continuous face to face time with the patient. A advance scout radiograph reveals a gastro jejunostomy catheter in expected location. A stiff guidewire was advanced through the catheter into the mid jejunum under fluoroscopy guidance. The old catheter was removed over the wire without difficulty. A 5-Australian catheter was advanced over the glide wire into the jejunum. The wire was removed and injection of contrast confirmed location within the jejunum. The catheter was removed over the wire. A new 18-Australian TEDDY gastro jejunostomy catheter was advanced over the wire under fluoroscopy guidance. The retention balloon was inflated and the catheter retracted against the anterior stomach wall. The wire was removed. Appropriate positioning of the catheter was confirmed with injection of contrast through the jejunal port. The retention disc was approximated to the skin of the abdominal wall and secured. A sterile dressing was applied. The patient tolerated the procedure well and was returned to the PRU in stable condition. EBL: Less than 5 ml. Complications: None. Conclusion: 1. Successful exchange of gastrojejunostomy catheter for 18 F TEDDY gastro jejunostomy catheter. The catheter is ready for immediate use. Thank you this referral. Electronically Signed by Arely Herrmann MD 04/10/2019 05:01 P
== END ==
LOC: M IRPRO 13:27 → EEVIPCON 14:30
PROVIDERS: ATTEND Radiology Diagnostic Radiology
DX: Z43.1 Encounter for attention to gastrostomy (principal); K21.9 Gastro-esophageal reflux disease without esophagitis

== ENCOUNTER → 2019-06-11 | Outpatient (CLI) | payer MEDICARE, MEDICAID ==
[~2019-06-11] MED LIST changes: -ISOVUE-300 61% 50ML VIAL (Q9967) As Ordered ONE; -LAMO100T GT; +LAMO100T3 GT; +MAGN400O50 PO; -MILKSUS9 PO; +OMEP1CAP73 PEG; +OMEP1CAP73 PO; -OMEP20CA4 PEG; -OMEP20CA4 PO
[2019-06-14 00:11] LABS: LAMOTRIGINE (LAMICTAL) 13.7 ug/mL (2.0-20.0); TOPIRAMATE LEVEL 9.6 ug/mL (2.0-25.0)
== END ==
LOC: M LAB 08:08
PROVIDERS: ATTEND Physician Assistant Medical
DX: R56.9 Unspecified convulsions (principal); H55.00 Unspecified nystagmus; Z51.81 Encounter for therapeutic drug level monitoring

== ENCOUNTER → 2019-06-11 | Outpatient (CLI) | payer MEDICARE, MEDICAID ==
[2019-06-11 09:39] LABS: BASO # 0.1 10^3/uL (0.0-0.2); BASO % 0.6 % (0.0-1.0); EOS # 0.3 10^3/uL (0.0-0.5); EOS % 2.7 % (0.0-3.0); HEMATOCRIT 46.7 % (42.0-52.0); HEMOGLOBIN 15.6 g/dl (13.5-17.5); LYMPH # 2.6 10^3/uL (1.5-5.0); LYMPH % 24.2 % (24.0-44.0); MEAN CORPUSCULAR HEMOGLOBIN 34.7 pg (27.0-33.0); MEAN CORPUSCULAR HGB CONC 33.4 g/dl (32.0-36.5); MONO % 9.2 % (0.0-5.0); NEUTROPHILS # 6.7 10^3/uL (1.5-8.5); NEUTROPHILS % 62.7 % (36.0-66.0); PLATELET COUNT, AUTOMATED 267 10^3/uL (150-450); RED BLOOD COUNT 4.49 10^6/uL (4.30-6.10); WHITE BLOOD COUNT 10.6 10^3/uL (4.0-10.0)
[2019-06-11 10:14] LABS: ALBUMIN 2.8 GM/DL (3.2-5.2); ALT/SGPT 23 U/L (12-78); BILIRUBIN,TOTAL 0.4 MG/DL (0.2-1.0); BLOOD UREA NITROGEN 16 MG/DL (7-18); CARBON DIOXIDE LEVEL 25 MEQ/L (21-32); CHLORIDE LEVEL 102 MEQ/L (98-107); CHOLESTEROL LEVEL 156 MG/DL (<200); CHOLESTEROL RISK RATIO 3.804 (<5); CREATININE FOR GFR 0.52 MG/DL (0.70-1.30); FREE T4 1.16 NG/DL (0.76-1.46); GLOMERULAR FILTRATION RATE > 60.0 (>42); GLUCOSE, FASTING 112 MG/DL (70-100); HDL CHOLESTEROL 41 MG/DL (>40); LDL CHOLESTEROL 73 MG/DL (<100); NON-HDL-C 115 MG/DL; SODIUM LEVEL 137 MEQ/L (136-145); TOTAL PROTEIN 7.3 GM/DL (6.4-8.2); TRIGLYCERIDES LEVEL 211 MG/DL (<150)
== END ==
LOC: M LAB 08:12
PROVIDERS: ATTEND Nurse Practitioner Family
DX: I10 Essential (primary) hypertension (principal); Z93.1 Gastrostomy status; Z22.322 Carrier or suspected carrier of Methicillin resistant Staphylococcus aureus; R56.9 Unspecified convulsions; H55.00 Unspecified nystagmus; Z51.81 Encounter for therapeutic drug level monitoring

== ENCOUNTER → 2019-07-21 | Outpatient (CLI) | payer MEDICARE, MEDICAID ==
[~2019-07-21] MED LIST changes: +ISOVUE-300 61% 50ML VIAL (Q9967) As Ordered ONE; +LIDOCAINE 1% MDV 20ML VIAL As Ordered ONE
[2019-07-21 11:54] VITALS: BP 121/70
--- NOTE | 2019-07-22 15:40 | REP ---
IR Gastro jejunostomy catheter exchange. Gastro Jejunostomy catheter exchange under fluoroscopy guidance. Clinical information: GJ dependent. Catheter broken. Physician: Dr. Herrmann. Procedure: The patient was advised of the benefits, risks and alternatives of the procedure and informed consent was obtained. The time-out was performed with verification of the patient's name, MRN, site of procedure and type of procedure to be performed. The patient was positioned in the supine position on the angiographic table. The site was prepped and draped in the usual sterile fashion. Moderate sedation was not performed. The physician spent 45 minutes of continuous face to face time with the patient. A mapping engineer radiograph reveals a GJ catheter in expected location. The jejunal port of the catheter was injected with contrast demonstrating contrast within the jejunum. The catheter is patent. A guidewire was advanced through the catheter into the mid jejunum under fluoroscopy guidance. The old catheter was removed over the wire without difficulty. A new 18-Somali TEDDY gastro jejunostomy catheter was advanced over the wire under fluoroscopy guidance. The retention balloon was inflated and the catheter retracted against the anterior stomach wall. The wire was removed. Appropriate positioning of the catheter was confirmed with injection of contrast through the gastric and jejunal port. The retention disc was approximated to the skin of the abdominal wall and secured. A sterile dressing was applied. The patient tolerated the procedure well and was returned to the PRU in stable condition. EBL: Less than 5 ml. Complications: None. Conclusion: 1. Gastro Jejunostomy catheter check demonstrates broken external hub. 2. Successful exchange of 18 F TEDDY gasto jejunostomy catheter. The catheter is ready for immediate use. NO routine exchanges required unless catheter malfunctions. Thank you this referral. [facility] Electronically Signed by Arely Herrmann MD 07/22/2019 03:38 P
== END ==
LOC: M IRPRO 11:03
PROVIDERS: ATTEND Radiology Diagnostic Radiology
DX: Z43.1 Encounter for attention to gastrostomy (principal)
CPT/HCPCS: 43762; C1729; C1769; Q9967

== ENCOUNTER → 2019-07-28 | Outpatient (REF) | payer MEDICARE, MEDICAID ==
[~2019-07-28] MED LIST changes: -ISOVUE-300 61% 50ML VIAL (Q9967) As Ordered ONE; -LIDOCAINE 1% MDV 20ML VIAL As Ordered ONE
[2019-07-29 11:57] LABS: APPEARANCE, URINE TURBID (CLEAR); BACTERIA, URINE AUTO 2+ (NEGATIVE); BILIRUBIN, URINE AUTO NEGATIVE (NEGATIVE); BLOOD, URINE BLOOD 2+ (NEGATIVE); CALCIUM OXALATE CRYSTALS SMALL; COLOR, URINE AMBER (YELLOW); GLUCOSE, URINE (UA) AUTO NEGATIVE (NEGATIVE); KETONE, URINE AUTO TRACE mg/dL (NEGATIVE); LEUKOCYTE ESTERASE, URINE AUTO 3+ (NEGATIVE); MUCUS, URINE LARGE (NEGATIVE); NITRITE, URINE AUTO NEGATIVE (NEGATIVE); PROTEIN, URINE AUTO 1+ mg/dL (NEGATIVE); RBC, URINE AUTO 60 /HPF (0-3); SPECIFIC GRAVITY URINE AUTO 1.017 (1.002-1.035); SQUAMOUS EPITHELIAL CELL UR AU 0 /HPF (0-6); WBC, URINE AUTO TNTC /HPF (0-3)
== END ==
LOC: M SFHCCLAY 12:52
PROVIDERS: ATTEND Nurse Practitioner Family
DX: R82.90 Unspecified abnormal findings in urine (principal)

== ENCOUNTER → 2019-09-17 | Outpatient (CLI) | payer MEDICARE, MEDICAID ==
--- NOTE | 2019-09-17 11:28 | REP ---
LEFT KNEE, FIVE VIEWS: Five views of the left knee performed. Medial tibial plateau fracture is suspected. I suspect depression and fracture of the posterior aspect of the medial tibial plateau. There is a moderate joint effusion. No other acute fracture or dislocation is visualized. IMPRESSION: Suspect posterior medial tibial plateau fracture. Recommend CT exam for further evaluation. Electronically Signed by Beny Mcghee MD 09/17/2019 11:58 A
== END ==
LOC: M RAD 10:13
PROVIDERS: ATTEND Nurse Practitioner Family
DX: M25.562 Pain in left knee (principal)

== ENCOUNTER → 2019-09-18 | Outpatient (CLI) | payer MEDICARE, MEDICAID ==
--- NOTE | 2019-09-18 16:43 | REP ---
REASON: Assess for medial tibial plateau fracture. There is a comminuted and depressed fracture of the medial tibial plateau. In addition, there is a fracture involving the lateral cortex of the lateral femoral condyle. The bones are rather markedly demineralized. There are no additional fractures. There is a knee joint effusion. IMPRESSION: Fractures as described above. Knee joint effusion and bony demineralization. Electronically Signed by Glen Michel DO 09/19/2019 09:23 A
== END ==
LOC: M RAD 15:14
PROVIDERS: ATTEND Nurse Practitioner Family
DX: S82.122A Displaced fracture of lateral condyle of left tibia, initial encounter for closed fracture (principal); S82.132A Displaced fracture of medial condyle of left tibia, initial encounter for closed fracture; X58.XXXA Exposure to other specified factors, initial encounter; Y92.89 Other specified places as the place of occurrence of the external cause; Y93.89 Activity, other specified; Y99.8 Other external cause status

== ENCOUNTER 2019-11-02 23:33 | Emergency (ER) | payer MEDICARE, MEDICAID ==
[~2019-11-02 23:33] MED LIST changes: -LACT10SO29 GT; -LACT10SO29 PEG; -LACT10SO29 PO; +LACT20EL GT; +LACT20EL PEG; +LACT20EL PO
[2019-11-03 00:41] LABS: BLOOD UREA NITROGEN 15 MG/DL (7-18); CALCIUM LEVEL 8.8 MG/DL (8.8-10.2); CARBON DIOXIDE LEVEL 23 MEQ/L (21-32); CHLORIDE LEVEL 100 MEQ/L (98-107); GLOMERULAR FILTRATION RATE > 60.0 (>42); GLUCOSE, FASTING 84 MG/DL (70-100); POTASSIUM SERUM 4.3 MEQ/L (3.5-5.1); SODIUM LEVEL 133 MEQ/L (136-145); VALPROIC ACID (DEPAKOTE) 72.1 UG/ML (50.0-100.0)
[2019-11-03 01:30] VITALS: BP 111/61
== END 2019-11-03 02:22 | disposition home or self-care (01) ==
LOC: M ED 23:33 → EDBD 23:33 → M ED 11-03 02:22
DX: E16.2 Hypoglycemia, unspecified (principal); F79 Unspecified intellectual disabilities

== ENCOUNTER → 2020-02-12 | Outpatient (CLI) | payer MEDICARE, MEDICAID ==
[~2020-02-12] MED LIST changes: +FAMO40TA3 PO; +ISOVUE-300 61% 50ML VIAL As Ordered ONE; +LIDOCAINE 1% MDV 20ML VIAL As Ordered ONE; +TRIA1CR80 TOP
[2020-02-12 15:22] VITALS: BP 124/71
--- NOTE | 2020-02-13 10:05 | POST-OPPD ---
Postoperative Procedure Note Date Of Procedure: Feb 12, 2020 Time Of Procedure: 16:00 IR Gastrojejunostomy Catheter Exchange Gastrojejunostomy catheter exchange with fluoroscopic guidance Clinical Information:Aspiration. Gastrojejunostomy dependent. Hole on side of gastrojejunostomy catheter. Physician: Dr. Herrmann. Procedure: The patient's auto claim representative was advised of the benefits, risks, and alternatives of the procedure and informed consent was obtained. A time out was performed with verification of the patient's name, MRN, site of procedure, and type of procedure to be performed. The patient was positioned in the supine position on the angiographic table. The site was prepped and draped in the usual sterile fashion. Moderate sedation was not required. The physician spent 30 minutes continuous [id number] time with the patient. A senior contracts administrator radiograph reveals a gastrojejunostomy catheter. The gastric and jejunal ports of the catheter were injected with contrast demonstrating the catheter is blocked and broken. The balloon port could not be used for balloon deflation as the catheter was broken. Therefore an 18-gauge needle was advanced to the balloon, under fluoroscopy guidance to pop the balloon. A stiff Eugene wire was advanced through the catheter into the mid jejunum under fluoroscopic guidance.The catheter was removed over the wire. A new 18 F Canadian TEDDY gastrojejunostomy catheter was advanced over the wire into the proximal jejunum. The retention balloon was inflated and then retracted against the anterior stomach wall. Appropriate positioning of the catheter was confirmed with injection of contrast through the gastric and jejunal ports. The retention disc was approximated to the skin of the abdominal wall and secured with 2-0 Prolene. A sterile dressing was applied. The patient tolerated the procedure well and was returned to the PRU in stable condition. EBL:Less than 5 mL Complications:None Conclusion: Successful exchange of a new 18 Canadian double lumen TEDDY gastrojejunostomy catheter. The catheter is ready for immediate use. Thank you for this referral KEVIN HERRMANN MD Feb 13, 2020 10:05
== END ==
LOC: M IRPRO 12:37
PROVIDERS: ATTEND Radiology Diagnostic Radiology
DX: Z43.1 Encounter for attention to gastrostomy (principal); R56.9 Unspecified convulsions; Z51.81 Encounter for therapeutic drug level monitoring
CPT/HCPCS: 36415; 43762; 80164; 80175; 80299; 82140; C1729; C1769; Q9967

== ENCOUNTER → 2020-02-12 | Outpatient (CLI) | payer MEDICARE, MEDICAID ==
[~2020-02-12] MED LIST changes: -ISOVUE-300 61% 50ML VIAL As Ordered ONE; -LIDOCAINE 1% MDV 20ML VIAL As Ordered ONE
[2020-02-16 14:08] LABS: TOPIRAMATE LEVEL 8.8 ug/mL (2.0-25.0)
== END ==
LOC: M LAB 12:50
PROVIDERS: ATTEND Physician Assistant Medical
DX: R56.9 Unspecified convulsions (principal); Z51.81 Encounter for therapeutic drug level monitoring

== ENCOUNTER → 2020-03-23 | Outpatient (CLI) | payer MEDICARE, MEDICAID | LOC: M LAB 09:16 | PROVIDERS: ATTEND Physician Assistant Medical | DX: R56.9 Unspecified convulsions (principal) ==

== ENCOUNTER → 2020-05-26 | Outpatient (CLI) | payer MEDICARE, MEDICAID | LOC: M WHC 11:12 | PROVIDERS: ATTEND Nurse Practitioner Family | DX: Z53.9 Procedure and treatment not carried out, unspecified reason (principal); M81.0 Age-related osteoporosis without current pathological fracture; S82.142A Displaced bicondylar fracture of left tibia, initial encounter for closed fracture; X58.XXXA Exposure to other specified factors, initial encounter; Y92.9 Unspecified place or not applicable ==

== ENCOUNTER 2020-06-20 10:38 | Observation (INO) | payer MEDICARE, MEDICAID ==
[~2020-06-20 10:38] MED LIST changes: +LISI10TA22 PO; -LISI10TA4 PO
--- OUTSIDE RECORDS SUMMARY | 2020-06-20 10:44 | CCD ---
Author Author [facility] Organization [facility] Address Unknown Phone Unavailable Care Team Providers Care Community Health Navigator Name Role Phone Ariana Pacheco Unavailable PROBLEMS Type Condition ICD9-CM Code MNP72-AD Code Onset Dates Condition S tatus SNOMED Code Notes Problem Psoriasis L40.9 Active 0063743 Problem Constipation K59.00 Active 15921429 Problem Convulsions R56.9 Active 57055528 Problem Mental retardation F79 Active 48997950 Problem Pain management R52 Active 843955603 Problem Stuporous R40.1 Active 69649259 Problem Medicare annual wellness visit, subsequent Z00.00 Active 399530156 Problem BPH (benign prostatic hyperplasia) N40.0 Activ e 551030906 Problem Immunization due Z23 Active 105526703 Problem Dementia F03.90 Active 00500612 Problem TSH elevation R94.6 Active 008483454 Problem Increased ammonia level R79.89 Active 32072324 3 Problem Abnormal laboratory test result R89.9 Active 473082237 Problem Seizure disorder G40.909 Active 429116318 Problem Abnormal laboratory test R89.9 Active 3810752 00 Problem Reflux esophagitis K21.0 Active 651485032 Problem Osteoporosis, unspecified os teoporosis type, unspecified pathological fracture presence M81.0 Active 05785866 Problem Abnormal levels of other serum enzymes R74.8 A ctive 232740639 Problem Prostate cancer screening Z12.5 Active 177849 005 Problem Difficulty walking R26.2 Active 448596341 Problem HTN (hypertension) I10 Active 22865037 Problem Intertrigo L30.4 Active 82407215 Problem Unspecified dementia with behavioral disturbance F 03.91 Active 6833810542758 Problem Feeding by G-tube Z93.1 Active 445180009 ALLERGIES No Known Allergies ENCOUNTERS from 1945 to 2020-06-14 Encounter Location Date Provider Diagnosis [facility] [place] [address] May Ariana Jesusjo ann Annual physical exam Z00.00 ; Mental ret ardation F79 ; HTN (hypertension) I10 ; BPH (benign prostatic hyperplasia) N40.0 ; Psoriasis L40.9 ; Feeding by G-tube Z93.1 ; Osteoporosis, unspecified osteoporosis type, unspecified pathological fracture presence M81.0 and Convulsions R56.9 IMMUNIZATIONS Vaccine Route Administration Date Status COVID-19(given elsewhere) Unspecified Unknown May 26 21 Administered Influenza (High Dose 65 & up) Unknown Mar 08, 2016 Ad ministered Pneumococcal Adult 0.5mL (Pneumovax 23) IM Intramuscular Jan 15, 2018 Administered TDAP IM Intramuscular Dec 20, 2011 Administered Pneumococcal 0.5mL (Prevnar 13) IM Intramuscular Mar 21, 2016 Administered Influenza (6mo & up) Fluzone Unknown Mar 27, 2017 Adm inistered SOCIAL HISTORY Tobacco Use: Social History Observation Description Date Details (start date - stop date) Never Smoker Sex Assigned At : Social History Observation Description Sex Assigned At Unknown Audit Question Answer Notes Total Score: 0 Interpretation: Alcohol Education Scientology: Question Answer Notes Scientology No episcopal prefere nces that would impact healthcare Sexual Hx: Question Answer Notes Had sex in the last 12 months (vaginal, oral, or anal)? No Drug and Alcohol Question Answer Notes Total Score: 0 Interpretation: No problems reported Alcohol Screening: Question Answer Notes Did you have a drink containing alcohol in the past year? No Points 0 Interpretation Negative BMI Care Goal Follow-Up Question Answer Notes Above Normal BMI Follow-Up Dietary management educatio n, guidance, and counseling Tobacco Use: Question Answer Notes Are you a: never smoker non-smoker - per [facility] employee REASON FOR REFERRAL No Information VITAL SIGNS Weight 161 lbs May, Height 66 in May, BMI 25.98 kg/m2 May, Heart Rate 69 /min May, Respiratory Rate 18 /min May, Temperature 97.2 degrees Fahrenheit May, Oximetry 98 May, Blood pressure systolic 110 mm Hg May, Blood pressure diastolic 64 mm Hg May, MEDICATIONS Medication SIG (Take, Route, Frequency, Duration) Notes Start Da te End Date Status May Have - as directed may have frequen t rest periods during the day - for 30 days Jan, Active Nystatin - as directed Externally Four times a day for 10 day(s) Aug, Active Docusate Sodium 100 MG 100 mg Orally Once a day for 30 day(s) Active May Have - as directed hospital bed -DX : Seizure d/o, Dev. delay, altered gait for 30 day(s) Jun, Active May Have - as directed Please eval for wheelchair measurements [facility] PT eval x 1 for 30 days September, Active Prevacid SoluTab 30 MG 1 tablet dissolved in 8 ounc es water GT Once a day for 30 Active Ultravate 0.05 % 1 application to affected area Externally Once a day Active TEDDY-HYATT Gastrostomy Kit 16FR - Replace every 6 months or PRN for any complications Daily Jun, Active May Have - as directed 2 chalo HN 2 cans tid via GT for 30 day(s) Jul, Active Diocto 50 MG/5ML TAKE 10 MILLILITERS VIA G-TU BE ONCE DAILY DIRECTED for 30 days Jun, Active Acetaminophen 650 MG 1 suppository as needed Rect al every 6 hrs MDD 3 grams. given prn temp of 100.3 or above for 30 day(s) Jun, Not-Taking Acetaminophen-Codeine #3 300-30 MG please given 300mg- 30mg in 12.5 ml via GT as needed every 6 hrs for 30 day(s) September, Active PredniSONE 5 MG/ML 8 ml GT Once a day with meal/feeding for 5 da y(s) Aug, Not-Taking Vitamin B12 1000 MCG 1 tablet Orally Once a day via G-Tube for 3 0 days Jun, Active Clotrimazole 1 % 1 application to affected ar ea Externally: groin Twice a day for 28 day(s) Nov, Active Abdominal Binder/Elastic XL - as directed DX: dysphagia with GT - for 30 days Oct, Active Acetaminophen 650 MG/20.3ML 20.3 ml as needed via GT every 4 hrs for 30 Days Aug, Active Sulfamethoxazole-Trimethoprim 800-160 MG 1 tablet via GT Twice a day Jul, Not-Taking Bactrim DS 800-160 MG 1 tablet Orally Twice a day for 10 day(s) Mar, Not-Taking Acetaminophen 650 MG 1 suppositories as needed Re ctal every 6 hrs prn temp above 100.3 for 30 days May, Active May Have - as directed [id number]-key18 Hungarian 4.5cm gasttrostomytube as directed for 30 day(s) May, Active MiraLax - 1 packet mixed with 8 ounces of fluid Or ally Once a day for 30 day(s) Active May Have - as directed 150 ml water via GT at 1000 and 1400 bid for 30 day(s) Jun, Active Jevity - as directed Orally Active Nebulizer Compressor - _ Dx wheezing R06.2 September, Active Triamcinolone Acetonide 0.1 % 1 application Externally bid on Sunday and Sunday for 90 day(s) Jul, Active May Have - as directed needs baby monitor while sleeping fo r 1 days September, Active Milk of Magnesia 400 MG/5ML 30 ml via G-tube daily Aug, Active Nebulizer/Adult Mask 1 inhaled q6h or as directed DX: R06.2 September, Active Topiramate 200 MG 1 tablet Orally Twice a day for 30 day(s) Active Valproic Acid 250 MG/5ML as directed gtube 15ML daily, 10ml @bedtime Active Fleet Enema 7-19 GM/118ML Rectal Active May Have - as directed may have rest periods throughout the day - for 30 days September, Active Mobic 15 MG 1 tablet VGT daily for 90 Active Lactulose 10 GM/15ML 15 ml via GT bid for 30 day(s) Active Dovonex 0.005 % 1 application to affected ar ea Externally Twice a day sunday to sunday only for 25 Active Lamictal 100 MG 2 gtube bid Active Albuterol Sulfate (2.5 MG/3ML) 0.083% 3 ml as needed I nhalation every 4 hours as needed for SOB, cough, DURBIN for 30 day(s) September, Active Dulcolax 10 MG 1 suppository as needed Rectal Active Famotidine 20 MG 0.5 tablet crush and give via GT bid for 30 day (s) Apr, Active PROCEDURES No Information RESULTS No Results REASON FOR VISIT annual MEDICAL (GENERAL) HISTORY Type Description Date Medical History mental retardation Medical History psoriasis Medical History seizures Medical History mental illness Medical History Impacted cerumen Medical History Fracture right metacarpal-first Medical History RIGHT MCA infarct Medical History Elevated LFT Medical History LEFT rectus sheath hematoma Medical History Tavares feeding tube. Surgical History appendectomy 2004 Surgical History removal of polyps with colonoscopy 2006 Surgical History colonoscopy -03/2010 Surgical History Left hip fracture 12/2015 Surgical History G- tube 2015 Surgical History Skin tag removed- lower back 06/2017 Hospitalization History Urgent care 08/31/15 Hospitalization History Left hip Fracture Hospitalization History SOB 04/2018 Hospitalization History [facility]-dehydration 07/05/18-07/09/18 Hospitalization History [facility]-ER-URI 09/22/18 Goals Section No Information Health Concerns No Information MEDICAL EQUIPMENT No Information MENTAL STATUS No Information FUNCTIONAL STATUS No Information ASSESSMENTS Encounter Date Diagnosis Assessment Notes Treatment Notes Treatm ent Clinical Notes May, Annual physical exam (ICD-10 - Z00.00) Paperwork filled out May, Mental retardation (ICD-10 - F79) Continue with supportive care through [facility] May, HTN (hypertension) (ICD-10 - I10) Stable. BP May, BPH (benign prostatic hyperplasia) (ICD-10 - N40 .0) Symptoms controlled May, Psoriasis (ICD-10 - L40.9) Continue with dermatology May, Feeding by G-tube (ICD-10 - Z93.1) G/J-tube stable May, Osteoporosis, unspecified os teoporosis type, unspecified pathological fracture presence (ICD-10 - M81.0) DEXA is scheduled for the next few weeks May, Convulsions (ICD-10 - R56.9) Continue with neurology PLAN OF TREATMENT Treatment Notes Assessment Notes Clinical Notes Annual physical exam Paperwork filled ou t Mental retardation Continue with suppor tive care through [facility] HTN (hypertension) Stable. BP BPH (benign prostatic hyperplasia) Sympt oms controlled Psoriasis Continue with dermat ology Feeding by G-tube G/J-tube stable Osteoporosis, unspecified osteoporosis t ype, unspecified pathological fracture presence DEXA is scheduled for the ne xt few weeks Convulsions Continue with neurol ogy Next Appt Details Provider Name:Ariana Sabas Tara, 2021-06-13 11:00:00 AM, Arianne [address], [place], [address], Insurance Providers Payer Name Payer Address Payer Phone Insured Name Patient Relati onship to Insured Coverage Start Date Coverage End Date MEDICARE Part A and B [address] [facility] [id number] [phone] [place] self MEDICAID [facility] [address] [facility] [id number] [place] self
--- OUTSIDE RECORDS SUMMARY | 2020-06-20 10:45 | CCD ---
Author Author [facility] Organization [facility] Address Unknown Phone Unavailable Care Team Providers Care Segmental Paving Supervisor Name Role Phone Ariana Pacheco Unavailable PROBLEMS Type Condition ICD9-CM Code PAC80-UM Code Onset Dates Condition S tatus SNOMED Code Notes Problem Psoriasis L40.9 Active 1517920 Problem Constipation K59.00 Active 36737469 Problem Convulsions R56.9 Active 11510850 Problem Mental retardation F79 Active 21045158 Problem Pain management R52 Active 018871896 Problem Stuporous R40.1 Active 02236185 Problem Medicare annual wellness visit, subsequent Z00.00 Active 220013990 Problem BPH (benign prostatic hyperplasia) N40.0 Activ e 074999227 Problem Immunization due Z23 Active 214325974 Problem Dementia F03.90 Active 02686840 Problem TSH elevation R94.6 Active 594089908 Problem Increased ammonia level R79.89 Active 33568120 3 Problem Abnormal laboratory test result R89.9 Active 957427538 Problem Seizure disorder G40.909 Active 824756216 Problem Abnormal laboratory test R89.9 Active 2109541 00 Problem Reflux esophagitis K21.0 Active 486062579 Problem Osteoporosis, unspecified os teoporosis type, unspecified pathological fracture presence M81.0 Active 94021532 Problem Abnormal levels of other serum enzymes R74.8 A ctive 921228195 Problem Prostate cancer screening Z12.5 Active 410950 005 Problem Difficulty walking R26.2 Active 769260308 Problem HTN (hypertension) I10 Active 29023938 Problem Intertrigo L30.4 Active 60458466 Problem Unspecified dementia with behavioral disturbance F 03.91 Active 8921051844164 Problem Feeding by G-tube Z93.1 Active 910298147 ALLERGIES No Known Allergies ENCOUNTERS from 1945 to 2020-04-23 Encounter Location Date Provider Diagnosis [facility] [place] [address] Apr Ariana Pacheco IMMUNIZATIONS Vaccine Route Administration Date Status Influenza (High Dose 65 & up) Unknown [...] Notes Total Score: 0 Interpretation: Alcohol Education Restoration: Question Answer Notes Restoration No orthodoxy prefere nces that would impact healthcare Sexual [...] you a: never smoker non-smoker - per [facility] employee REASON FOR REFERRAL No Information VITAL SIGNS No information MEDICATIONS Medication SIG (Take, Route, Frequency, Duration) Notes Start Da te End Date Status Lamictal 100 MG 2 gtube bid Active Lactulose 10 GM/15ML 15 ml via GT bid for 30 day(s) Active Acetaminophen 650 MG/20.3ML 20.3 ml as needed via GT every 4 hrs for 30 Days Aug, Active Bactrim DS 800-160 MG 1 tablet Orally Twice a day for 10 day(s) Mar, Active Famotidine 20 MG 0.5 tablet crush and give via GT bid for 30 day (s) Apr, Active Nystatin - as directed Externally Four times a day for 10 day(s) Aug, Active May Have - as directed may have frequen t rest periods during the day - for 30 days Jan, Active May Have - as directed needs baby monitor while sleeping fo r 1 days September, Active May Have - as directed 150 ml water via GT at 1000 and 1400 bid for 30 day(s) Jun, Active Mobic 15 MG 1 tablet VGT daily for 90 Active Abdominal Binder/Elastic XL - as directed DX: dysphagia with GT - for 30 days Oct, Active Ultravate 0.05 % 1 application to affected area Externally Once a day Active Albuterol Sulfate (2.5 MG/3ML) 0.083% 3 ml as needed I nhalation every 4 hours as needed for SOB, cough, DURBIN for 30 day(s) September, Active May Have - as directed [id number] Fijian 4.5cm gasttrostomytube as directed for 30 day(s) May, Active Clotrimazole 1 % 1 application to affected ar ea Externally: groin Twice a day for 28 day(s) Nov, Active PredniSONE 5 MG/ML 8 ml GT Once a day with meal/feeding for 5 da y(s) Aug, Active Diocto 50 MG/5ML TAKE 10 MILLILITERS VIA G-TU BE ONCE DAILY DIRECTED for 30 days Jun, Active Triamcinolone Acetonide 0.1 % 1 application Externally bid on Sunday and Sunday for 90 day(s) Jul, Active Nebulizer/Adult Mask 1 inhaled q6h or as directed DX: R06.2 September, Active Vitamin B12 1000 MCG 1 tablet Orally Once a day via G-Tube for 3 0 days Jun, Active Prevacid SoluTab 30 MG 1 tablet dissolved in 8 ounc es water GT Once a day for 30 Active May Have - as directed 2 chalo HN 2 cans tid via GT for 30 day(s) Jul, Active Fleet Enema 7-19 GM/118ML Rectal Active Docusate Sodium 100 MG 100 mg Orally Once a day for 30 day(s) Active Dovonex 0.005 % 1 application to affected ar ea Externally Twice a day sunday to sunday only for 25 Active Acetaminophen 650 MG 1 suppositories as needed Re ctal every 6 hrs prn temp above 100.3 for 30 days May, Active Topiramate 200 MG 1 tablet Orally Twice a day for 30 day(s) Active Sulfamethoxazole-Trimethoprim 800-160 MG 1 tablet via GT Twice a day Jul, Active May Have - as directed may have rest periods throughout the day - for 30 days September, Active Nebulizer Compressor - _ Dx wheezing R06.2 September, Active MiraLax - 1 packet mixed with 8 ounces of fluid Or ally Once a day for 30 day(s) Active Valproic Acid 250 MG/5ML as directed gtube 15ML daily, 10ml @bedtime Active Milk of Magnesia 400 MG/5ML 30 ml via G-tube daily Aug, Active TEDDY-HYATT Gastrostomy Kit 16FR - Replace every 6 months or PRN for any complications Daily Jun, Active Acetaminophen 650 MG 1 suppository as needed Rect al every 6 hrs MDD 3 grams. given prn temp of 100.3 or above for 30 day(s) Jun, Active Dulcolax 10 MG 1 suppository as needed Rectal Active Acetaminophen-Codeine #3 300-30 MG please given 300mg- 30mg in 12.5 ml via GT as needed every 6 hrs for 30 day(s) September, Active May Have - as directed hospital bed -DX : Seizure d/o, Dev. delay, altered gait for 30 day(s) Jun, Active May Have - as directed Please eval for wheelchair measurements [facility] PT eval x 1 for 30 days September, Active PROCEDURES No Information RESULTS No Results REASON FOR VISIT Orders MEDICAL (GENERAL) HISTORY Type Description Date Medical [...] Fracture Hospitalization History SOB 04/2018 Hospitalization History [facility]-dehydration 07/05/18-07/09/18 Hospitalization History [facility]-ER-URI 09/22/18 Goals Section No Information Health Concerns No Information MEDICAL EQUIPMENT No Information MENTAL STATUS No Information FUNCTIONAL STATUS No Information ASSESSMENTS No Information PLAN OF TREATMENT Medication Medication Name Sig Start Date Stop Date Dovonex 0.005 % 1 application to affected ar ea Externally Twice a day sunday to sunday only for 12 October Have - as directed Please eval for wheelchair measurements [facility] PT eval x 1 for 30 days September, Famotidine 20 MG 0.5 tablet crush and give via GT bid for 30 day(s) Apr,September Have - as directed may have rest periods throug hout the day - for 30 days September, Acetaminophen-Codeine #3 300-30 MG please given 300mg- 30mg in 12.5 ml via GT as needed every 6 hrs for 30 day(s) September, PredniSONE 5 MG/ML 8 ml GT Once a day with meal/feeding for 5 day(s) Aug, Lactulose 10 GM/15ML 15 ml via GT bid for 30 day(s) Triamcinolone Acetonide 0.1 % 1 application Externally bid on Sunday and Sunday for 90 day(s) Jul, Acetaminophen 650 MG/20.3ML 20.3 ml as needed via GT every 4 hrs for 30 Days Aug, Next Appt Details Provider Name:Ariana Pacheco, 06-09 11:15:00 AM, [address] [place], [address], Insurance Providers Payer Name Payer Address Payer Phone Insured Name Patient Relati onship to Insured Coverage Start Date Coverage End Date MEDICARE Part A and B [address] [facility] [address] [place] [facility] MEDICAID [employer] [address] [facility] [id number] [place]
--- OUTSIDE RECORDS SUMMARY | 2020-06-20 10:45 | CCD | Continuity of Care Document ---
Author Author [facility] Organization Unknown Address [address] [place] [address] Phone [phone] Care Team Providers Care Play Writer Name Role Phone TaraYaniDonna Sabas BEP-C AUTM Problems Description No Information Available Social History Type Date Description Comments Sex Unknown Allergies, Adverse Reactions, Alerts Description No Known Drug Allergies Medications Active Medications SIG Qnty Indications Ordering Provide r Date Valproic Acid 250mg/5ML Solution take 1 tablespoonful (15ml) via g-tube bid, new directions 946ml Laura Hodge M.D. 01/09/2019 Lamotrigine 100mg Tablets Take One Tablet Via G-Tube Twice Daily 60tabs Laura Hodge M.D. 019 Topiramate 200mg Tablets Take One Tablet Via G-Tube Twice Daily 60tabs G40.111 Laura Hodge M.D. 019 Immunizations Description No Information Available Vital Signs Date Vital Result Comment 01/21/2020 4:15am BP Systolic 110 mmHg BP Diastolic 70 mmHg Heart Rate 76 /min Respiratory Rate 16 /min 07/10/2019 7:19am BP Systolic 110 mmHg BP Diastolic 70 mmHg Heart Rate 84 /min Respiratory Rate 16 /min Results Test Acquired Date Facility Test Result H/L Range Note Laboratory test finding 03/23/2020 [facility] Valproic Acid (Depakote) 62.8 UG/ML Normal 50.0-100.0 1 Ammonia 23 uMOL/L Normal <32 2 Lamotrigine (Lamictal) 11.8 ug/mL Normal 2.0-20.0 3 Topiramate 8.7 ug/mL Normal 2.0-25.0 4 Laboratory test finding 02/12/2020 [facility] Valproic Acid (Depakote) 41.9 UG/ML Low 50.0-100.0 5 Laboratory test finding 02/12/2020 [facility] Ammonia 21 uMOL/L Normal <32 6 Topiramate 8.8 ug/mL Normal 2.0-25.0 7 Lamotrigine (Lamictal) 12.0 ug/mL Normal 2.0-20.0 8 1 note:<nlbl:demographic_chang ed> 2 note:<nlbl:demographic_chang ed> 3 Testing on this sample was p erformed by homogeneous enzyme immunoassay. Detection Limit = 1.0 Performed at: [facility] [id number] Bench Lay Out Technician: Geovanny Mao MD, Phone: [phone] Performed at: [facility] [address] [place] [id number] Bench Lay Out Technician: Kamila Pineda [facility], Phone: [phone] 4 This test was developed and its performance characteristics determined by [email or web address]. It has not been cleared or approved by the Food and Drug Administration. Detection Limit = 1.0 5 note:<nlbl:demographic_chang ed> 6 By: LAB DRAW Time: 1254 note:<nlbl:demographic_changed> By: LAB DRAW Time: 1254 7 This test was developed and its performance characteristics determined by [email or web address]. It has not been cleared or approved by the Food and Drug Administration. Detection Limit = 1.0 Performed at: [facility] [id number] 61 Bench Lay Out Technician: Geovanny Mao MD, Phone: [phone] 8 Testing on this sample was p erformed by homogeneous enzyme immunoassay. 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 01/21/2020 I63.89 Other cerebral infarction Seth Estrada.A.-C. 01/21/2020 F02.80 Dementia in other di seases classified elsewhere without behavioral disturbance Seth Soto.A.-C. 01/21/2020 E72.29 Other disorders of urea cycle me tabolism Dixie Reardon P.A.-C. 10/10/2019 I63.89 Other cerebral infarction Mike Byrd M.D. 10/10/2019 I63.89 Other cerebral infarction Seth Estrada.A.-C. 10/10/2019 F02.80 Dementia in other di seases classified elsewhere without behavioral disturbance Mike Byrd M.D. 10/10/2019 F02.80 Dementia in other diseases class ified elsewhere without beha Seth Soto.A.-C. 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 10/10/2019 G40.309 Generalized idiopathic epilepsy and epileptic syndromes, not Dixie Reardon P.A.-C. 10/10/2019 E72.29 Other disorders of urea cycle me tabolism Mike Byrd M.D. 10/10/2019 E72.29 Other disorders of urea cycle me tabolism Seth Soto.A.-CClarice Plan of Treatment Future Appointment(s):* 04/30/2020 11:15 am - Dixie Reardon P.A.-C. 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 Depakote, Topamax, and Lamictal levels pending. * I63.89 Other cerebral infarction* Comments:* No recurrent symptoms. * F02.80 Dementia in other diseases classified elsewhere without behavioral disturbance* Comments:* No medications added. 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 * Follow up:* 3 months Functional Status Description No Information Available Mental Status Description No Information Available Referrals Description No Information Available
--- OUTSIDE RECORDS SUMMARY | 2020-06-20 10:45 | CCD ---
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 Name Role Phone Ariana Pacheco Unavailable PROBLEMS Type Condition ICD9-CM Code [id number] Code Onset Dates Condition S tatus SNOMED Code Notes Problem Psoriasis L40.9 Active 8403207 Problem Constipation K59.00 Active 81877319 Problem Convulsions R56.9 Active 78145032 Problem Mental retardation F79 Active 18822443 Problem Pain management R52 Active 634898124 Problem Stuporous R40.1 Active 86990095 Problem Medicare annual wellness visit, subsequent Z00.00 Active 610568699 Problem BPH (benign prostatic hyperplasia) N40.0 Activ e 362152297 Problem Immunization due Z23 Active 259583589 Problem Dementia F03.90 Active 25022878 Problem TSH elevation R94.6 Active 338663751 Problem Increased ammonia level R79.89 Active 79524511 3 Problem Abnormal laboratory test result R89.9 Active 086997924 Problem Seizure disorder G40.909 Active 294910719 Problem Abnormal laboratory test R89.9 Active 2630145 00 Problem Reflux esophagitis K21.0 Active 806723940 Problem Osteoporosis, unspecified os teoporosis type, unspecified pathological fracture presence M81.0 Active 89966694 Problem Abnormal levels of other serum enzymes R74.8 A ctive 956260431 Problem Prostate cancer screening Z12.5 Active 503858 005 Problem Difficulty walking R26.2 Active 006558262 Problem HTN (hypertension) I10 Active 54744221 Problem Intertrigo L30.4 Active 86298409 Problem Unspecified dementia with behavioral disturbance F 03.91 Active 3231690544113 Problem Feeding by G-tube Z93.1 Active 633700222 ALLERGIES No Known Allergies ENCOUNTERS from 1945 to 2020-05-10 Encounter Location Date Provider Diagnosis [facility] [place] [address] 16 Apr Ariana Pacheco IMMUNIZATIONS Vaccine Route Administration [...] Notes Total Score: 0 Interpretation: Alcohol Education Baptism: Question Answer Notes Baptism No church prefere nces that would impact healthcare Sexual [...] you a: never smoker non-smoker - per [facility] employee REASON FOR REFERRAL No Information VITAL [...] Active May Have - as directed TEDDY-key18 Japanese 4.5cm gasttrostomytube as directed for 30 day(s) [...] as directed Please eval for wheelchair measurements [facility] PT eval x 1 for 30 days September, Active PROCEDURES No Information RESULTS No Results REASON FOR VISIT No Information MEDICAL (GENERAL) HISTORY Type Description Date Medical [...] Fracture Hospitalization History SOB 04/2018 Hospitalization History [facility]-dehydration 07/05/18-07/09/18 Hospitalization History [facility]-ER-URI 09/22/18 Goals Section No Information Health [...] as directed Please eval for wheelchair measurements [facility] PT eval x 1 for 30 days [...] Details Provider Name:Ariana Pacheco, [birth year]-09 11:15:00 AM, [address] [place], [address], Insurance Providers Payer Name Payer Address Payer Phone Insured Name Patient Relati onship to Insured Coverage Start Date Coverage End Date MEDICAID [place] [employer] [address] [facility] [id number] [place] MEDICARE Part A and B [address] [facility] [phone] [place]
--- OUTSIDE RECORDS SUMMARY | 2020-06-20 10:45 | CCD ---
Author Author [facility] Organization 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 Name Role Phone Ariana Pacheco Unavailable PROBLEMS Type Condition ICD9-CM Code [id number]-[id number] Code Onset Dates Condition S tatus SNOMED Code Notes Problem Psoriasis L40.9 Active 1284353 Problem Constipation K59.00 Active 46569811 Problem Convulsions R56.9 Active 96478842 Problem Mental retardation F79 Active 48273101 Problem Pain management R52 Active 389206500 Problem Stuporous R40.1 Active 88851271 Problem Medicare annual wellness visit, subsequent Z00.00 Active 589460716 Problem BPH (benign prostatic hyperplasia) N40.0 Activ e 380736684 Problem Immunization due Z23 Active 695557430 Problem Dementia F03.90 Active 48039038 Problem TSH elevation R94.6 Active 117942323 Problem Increased ammonia level R79.89 Active 31867694 3 Problem Abnormal laboratory test result R89.9 Active 077018627 Problem Seizure disorder G40.909 Active 616249903 Problem Abnormal laboratory test R89.9 Active 5133396 00 Problem Reflux esophagitis K21.0 Active 175128105 Problem Osteoporosis, unspecified os teoporosis type, unspecified pathological fracture presence M81.0 Active 20853949 Problem Abnormal levels of other serum enzymes R74.8 A ctive 557805942 Problem Prostate cancer screening Z12.5 Active 044366 005 Problem Difficulty walking R26.2 Active 151520795 Problem HTN (hypertension) I10 Active 87575236 Problem Intertrigo L30.4 Active 55300440 Problem Unspecified dementia with behavioral disturbance F 03.91 Active 0428909483938 Problem Feeding by G-tube Z93.1 Active 888461808 ALLERGIES No Known Allergies ENCOUNTERS from 1945 to 2020-06-11 Encounter Location Date Provider Diagnosis [facility] [place] [address] May Ariana Pacheco IMMUNIZATIONS Vaccine Route Administration Date Status COVID-19(given [...] Education Baptism: Question Answer Notes Baptism No temple prefere nces that would impact healthcare Sexual [...] a: never smoker non-smoker - per [facility] employee REASON FOR REFERRAL No Information [...] directed Please eval for wheelchair measurements [facility] PT eval x 1 for 30 [...] Active May Have - as directed TEDDY-key18 Uzbek 4.5cm gasttrostomytube as directed for 30 day(s) [...] Information RESULTS No Results REASON FOR VISIT follow up appointment MEDICAL (GENERAL) HISTORY Type Description Date Medical [...] Fracture Hospitalization History SOB 04/2018 Hospitalization History [facility]-dehydration 07/05/18-07/09/18 Hospitalization History [facility]-ER-URI 09/22/18 Goals Section No Information Health Concerns No Information MEDICAL EQUIPMENT No Information MENTAL STATUS No Information FUNCTIONAL STATUS No Information ASSESSMENTS No Information PLAN OF TREATMENT Next Appt Details Provider Name:Arianabay Leejo ann, [birth year]-13 11:00:00 AM, [address] , [place], [address], Insurance Providers Payer Name Payer Address Payer Phone Insured Name Patient Relati onship to Insured Coverage Start Date Coverage End Date MEDICARE Part A and B [address] [facility] [address] [phone] [place] self MEDICAID [facility] [employer] [address] [facility] [id number] [place] self
--- OUTSIDE RECORDS SUMMARY | 2020-06-20 10:45 | CCD ---
Author Author [facility] Organization [facility] Address Unknown Phone Unavailable Care Team Providers Care Ski Maker Name Role Phone Ariana Pacheco Unavailable PROBLEMS Type Condition ICD9-CM Code YSU58-KN Code Onset Dates Condition S tatus SNOMED Code Notes Problem Psoriasis L40.9 Active 8739004 Problem Constipation K59.00 Active 41072069 Problem Convulsions R56.9 Active 43320335 Problem Mental retardation F79 Active 88841403 Problem Pain management R52 Active 356487151 Problem Stuporous R40.1 Active 78977088 Problem Medicare annual wellness visit, subsequent Z00.00 Active 702654975 Problem BPH (benign prostatic hyperplasia) N40.0 Activ e 680441393 Problem Immunization due Z23 Active 464711829 Problem Dementia F03.90 Active 14535463 Problem TSH elevation R94.6 Active 703459740 Problem Increased ammonia level R79.89 Active 06176376 3 Problem Abnormal laboratory test result R89.9 Active 503362903 Problem Seizure disorder G40.909 Active 229614066 Problem Abnormal laboratory test R89.9 Active 2044452 00 Problem Reflux esophagitis K21.0 Active 106564269 Problem Osteoporosis, unspecified os teoporosis type, unspecified pathological fracture presence M81.0 Active 27264452 Problem Abnormal levels of other serum enzymes R74.8 A ctive 570061691 Problem Prostate cancer screening Z12.5 Active 827630 005 Problem Difficulty walking R26.2 Active 306070634 Problem HTN (hypertension) I10 Active 93681404 Problem Intertrigo L30.4 Active 10740747 Problem Unspecified dementia with behavioral disturbance F 03.91 Active 5935081855351 Problem Feeding by G-tube Z93.1 Active 565530030 ALLERGIES No Known Allergies ENCOUNTERS from 1945 to 2020-04-21 Encounter Location Date Provider Diagnosis [facility] [place] [address] Mar Ariana Jesusjo ann IMMUNIZATIONS Vaccine Route Administration Date Status Influenza [...] Notes Total Score: 0 Interpretation: Alcohol Education Quaker: Question Answer Notes Quaker No sikh prefere nces that would impact healthcare Sexual [...] you a: never smoker non-smoker - per [facility] employee REASON FOR REFERRAL No Information [...] Active May Have - as directed TEDDY-key18 Bermudian 4.5cm gasttrostomytube as directed for 30 day(s) [...] as directed Please eval for wheelchair measurements [facility] PT eval x 1 for 30 days September, Active PROCEDURES No Information RESULTS No Results REASON FOR VISIT COVID/med change MEDICAL (GENERAL) HISTORY Type Description Date Medical [...] Fracture Hospitalization History SOB 04/2018 Hospitalization History [facility]-dehydration 07/05/18-07/09/18 Hospitalization History [facility]-ER-URI 09/22/18 Goals Section No Information Health [...] as directed Please eval for wheelchair measurements [facility] PT eval x 1 for 30 [...] Name:Ariana Pacheco, [birth year]-09 11:15:00 AM, [address] , [place], [address], Insurance Providers Payer Name Payer Address Payer Phone Insured Name Patient Relati onship to Insured Coverage Start Date Coverage End Date MEDICAID [employer] [address] [facility] [address] [place] MEDICARE Part A and B [address] [facility] [address] [phone] [place]
--- OUTSIDE RECORDS SUMMARY | 2020-06-20 10:45 | CCD | Continuity of Care Document ---
Author Author [facility] REARDON P.A.-C. Organization Unknown Address [address] [place] [address] Phone [phone] Care Team Providers Care Transfer Coordinator Name Role Phone TaraYaniDonna Sabas BEP-C AUTM [phone] Problems Description No Information Available Social History [...] Normal 2.0-25.0 4 Laboratory test finding 02/12/2020 [facility] Valproic Acid (Depakote) 41.9 UG/ML Low 50.0-100.0 5 Laboratory test finding 02/12/2020 [facility] Ammonia 21 uMOL/L Normal <32 6 Topiramate 8.8 ug/mL Normal 2.0-25.0 7 Lamotrigine (Lamictal) 12.0 ug/mL Normal 2.0-20.0 8 1 note:<nlbl:demographic_chang ed> 2 note:<nlbl:demographic_chang ed> 3 Testing on this sample was p erformed by homogeneous enzyme immunoassay. Detection Limit = 1.0 Performed at: [facility] [id number] Micro Photographer: Geovanny Mao MD, Phone: [phone] Performed at: [facility] [address] [place] [address] [id number] Micro Photographer: Kamila Pineda [facility], Phone: [phone] 4 This test was developed and its performance characteristics determined by [facility]. It has not been cleared or approved by the Food and Drug Administration. Detection Limit = 1.0 5 note:<nlbl:demographic_chang ed> 6 By: LAB DRAW Time: 1254 note:<nlbl:demographic_changed> By: LAB DRAW Time: 1254 7 This test was developed and its performance characteristics determined by [facility]. It has not been cleared or approved by the Food and Drug Administration. Detection Limit = 1.0 Performed at: [facility] [id number] Micro Photographer: Geovanny Mao MD, Phone: [phone] 8 Testing on this sample was p erformed by homogeneous enzyme immunoassay. Detection Limit = 1.0 Performed at: [facility] [address] [place] [address] [id number] Micro Photographer: Kamila Pineda [facility], Phone: [phone] Procedures Description No Information Available Medical Devices Description No Information Available Encounters Type Date Location Provider Dx Diagnosis Office Visit 04/30/2020 11:15a Main office - [place] Dixie palmer, P.A.-C. 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 04/30/2020 F02.80 Dementia in other di seases classified elsewhere without behavioral disturbance Dixie Reardon P.A.-C. 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 04/30/2020 E72.29 Other disorders of urea cycle me tabolism Dixie Reardon P.A.-C. 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 01/21/2020 I63.89 Other cerebral infarction Dixie Reardon P.A.-C. 01/21/2020 F02.80 Dementia in other di seases classified elsewhere without behavioral disturbance Seth Soto.A.-C. 01/21/2020 E72.29 Other disorders of urea cycle me tabolism Dixie Reardon P.A.-C. Plan of Treatment 04/30/2020 - Dixie Reardon P.A.-C.* I63.89 Other cerebral infarction* Comments:* Not recurrent. * F02.80 Dementia in other diseases classified elsewhere without behavioral disturbance* Comments:* Stable. 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 His Depakote level was 62, Lamictal level 11.8, and Topamax level 8.7 in January. Continue current doses. 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 * Follow up:* 3 months with labs. Functional Status Description No Information Available Mental Status Description No Information Available Referrals Refer to Reason for Referral Status Appt Date Laura Hodge M.D. Created [facility] [address] [place] [address] [phone]
--- OUTSIDE RECORDS SUMMARY | 2020-06-20 10:45 | CCD | Continuity of Care Document ---
Author Author Bola LUNA P.A.-C. Organization Unknown Address [address] [place] [address] Phone [phone] Care Team Providers Care Director Compliance Name Role Phone TaraYaniDonna Sabas BEP-C AUTM [phone] Problems Description No Information Available Social History [...] Normal 2.0-25.0 4 Laboratory test finding 02/12/2020 [facility] Valproic Acid (Depakote) 41.9 UG/ML Low 50.0-100.0 5 Laboratory test finding 02/12/2020 [facility] Ammonia 21 uMOL/L Normal <32 6 Topiramate 8.8 ug/mL Normal 2.0-25.0 7 Lamotrigine (Lamictal) 12.0 ug/mL Normal 2.0-20.0 8 1 note:<nlbl:demographic_chang ed> 2 note:<nlbl:demographic_chang ed> 3 Testing on this sample was p erformed by homogeneous enzyme immunoassay. Detection Limit = 1.0 Performed at: [facility] [id number] Pet Feeder: Geovanny Mao MD, Phone: [phone] Performed at: [facility] [address] [place] [address] [id number] Pet Feeder: Kamila Pineda [facility], Phone: [phone] 4 This test was developed and its performance characteristics determined by [facility]. It has not been cleared or approved by the Food and Drug Administration. Detection Limit = 1.0 5 note:<nlbl:demographic_chang ed> 6 By: LAB DRAW Time: 1254 note:<nlbl:demographic_changed> By: LAB DRAW Time: 1254 7 This test was developed and its performance characteristics determined by [facility]. It has not been cleared or approved by the Food and Drug Administration. Detection Limit = 1.0 Performed at: [facility] [id number] Pet Feeder: Geovanny Mao MD, Phone: [phone] 8 Testing on this sample was p erformed by homogeneous enzyme immunoassay. 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 04/30/2020 E72.29 Other disorders of urea cycle me tabolism Madhav SotoA.-C. 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 01/21/2020 F02.80 Dementia in other di seases classified elsewhere without behavioral disturbance Seth Soto.A.-C. 01/21/2020 E72.29 Other disorders of urea cycle me tabolism Seth Soto.A.-CClarice Plan of Treatment No Information Available Functional Status Description No Information Available Mental Status Description No Information Available Referrals Description No Information Available
--- OUTSIDE RECORDS SUMMARY | 2020-06-20 10:46 | CCD ---
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 Driver Name Role Phone Jae Reardon PA Unavailable Unavailable Trickey, Jae Colin PA Unavailable Unavailable Trickey, Jae Colin PA Unavailable Unavailable Trickey, Jae Colni PA Unavailable Unavailable Trickey, Jae Colin PA Unavailable Unavailable Trickey, Jae Colin PA Unavailable Unavailable Trickey, J Dixie PA Unavailable Unavailable Trickey, J Dixie PA Unavailable Unavailable Trickey, J Dixie PA Unavailable Unavailable Trickey, J Dixie PA Unavailable Unavailable Trickey, J Dixie PA Unavailable Unavailable Trickey, J Dixie PA Unavailable Unavailable Trickey, J Dixie PA Unavailable Unavailable Trickey, J Dixie PA Unavailable Unavailable Trickey, J Dixie PA Unavailable Unavailable Trickey, J Dixie PA Unavailable Unavailable Trickey, J Dixie PA Unavailable Unavailable Trickey, J Dixie PA Unavailable Unavailable Trickey, J Dixie PA Unavailable Unavailable Trickey, J Dixie PA Unavailable Unavailable Trickey, J Dixie PA Unavailable Unavailable Trickey, J Dixie PA Unavailable Unavailable Trickey, J Dixie PA Unavailable Unavailable Trickey, J Dixie PA Unavailable Unavailable Trickey, J Dixie PA Unavailable Unavailable Trickey, J Dixie PA Unavailable Unavailable Trickey, J Dixie PA Unavailable Unavailable Trickey, J Dixie PA Unavailable Unavailable Trickey, J Dixie PA Unavailable Unavailable Trickey, J Dixie PA Unavailable Unavailable Trickey, J Dixie PA Unavailable Unavailable Trickey, J Dixie PA Unavailable Unavailable Trickey, J Dixie PA Unavailable Unavailable Trickey, J Dixie PA Unavailable Unavailable Trickey, J Dixie PA Unavailable Unavailable Trickey, J Dixie PA Unavailable Unavailable Trickey, J Dixie PA Unavailable Unavailable Trickey, J Dixie PA Unavailable Unavailable Trickey, J Dixie PA Unavailable Unavailable Trickey, J Dixie PA Unavailable Unavailable Trickey, J Dixie PA Unavailable Unavailable Trickey, J Dixie PA Unavailable Unavailable Trickey, J Dixie PA Unavailable Unavailable Trickey, J Dixie PA Unavailable Unavailable Trickey, J Dixie PA Unavailable Unavailable Trickey, J Dixie PA Unavailable Unavailable Trickey, J Dixie PA Unavailable Unavailable Trickey, J Dixie PA Unavailable Unavailable Trickey, J Dixie PA Unavailable Unavailable Trickey, J Dixie PA Unavailable Unavailable Trickey, J Dixie PA Unavailable Unavailable Trickey, J Dixie PA Unavailable Unavailable FishKarolina MPAS, PA-C Unavailable Unavailabl e Karolina Villegas MPAS, PA-C Unavailable Unavailabl e Karolina Villegas MPAS, PA-C Unavailable Unavailabl e FishKarolina MPAS, PA-C Unavailable Unavailabl e FishKarolina MPAS, PA-C Unavailable Unavailabl e FishKarolinaen MPAS, PA-C Unavailable Unavailabl e FishKarolinaen MPAS, PA-C Unavailable Unavailabl e FishKarolina MPAS, PA-C Unavailable Unavailabl e FishKarolina MPAS, PA-C Unavailable Unavailabl e FishKarolina MPAS, PA-C Unavailable Unavailabl e FishKarolina MPAS, PA-C Unavailable Unavailabl e FishKarolina MPAS, PA-C Unavailable Unavailabl e FishKarolinaen MPAS, PA-C Unavailable Unavailabl e FishKarolina MPAS, PA-C Unavailable Unavailabl e Fish, Kar[facility]ina [facility], PA-C Unavailable Unavailabl e Fish, Karolina [facility], PA-C Unavailable Unavailabl e Fish, Karolina [facility], PA-C Unavailable Unavailabl e Fish, Karolina [facility], PA-C Unavailable Unavailabl e Fish, [facility]ina [facility], [facility]-C Unavailable Unavailabl e Fish, Karolina [facility], PA-C Unavailable Unavailabl e Fish, Karolina [facility], PA-C Unavailable Unavailabl e Fish, Karolina [facility], PA-C Unavailable Unavailabl e Fish, Karolina [facility], PA-C Unavailable Unavailabl e Fish, Karolina [facility], PA-C Unavailable Unavailabl e Fish, Karolina [facility], [facility]C Unavailable Unavailabl e Fish, Karolina [facility], PA-C Unavailable Unavailabl e Fish, Karolina [facility], PA-C Unavailable Unavailabl e Fish, Karolina [facility], PA-C Unavailable Unavailabl e Fish, Karolina [facility], PA-C Unavailable Unavailabl e Fish, Karolina [facility], PA-C Unavailable Unavailabl e Fish, Karolina [facility], PA-C Unavailable Unavailabl e Fish, Karolina [facility], PA-C Unavailable Unavailabl e Fish, Karolina [facility], PA-C Unavailable Unavailabl e Dille, E Stacey DDS Unavailable Unavailable Dille, E Stacey DDS Unavailable Unavailable Dille, E Stacey DDS Unavailable Unavailable Dille, E Stacey DDS Unavailable Unavailable Re-disclosure Warning The records that you are about to access may contain information from federally-assisted alcohol or drug abuse programs. If such information is present, then the following federally mandated warning applies: This information has been disclosed to you from records protected by federal confidentiality rules (42 CFR part 2). The federal rules prohibit you from making any further disclosure of this information unless further disclosure is expressly permitted by the written consent of the person to whom it pertains or as otherwise permitted by 42 CFR part 2. A general authorization for the release of medical or other information is NOT sufficient for this purpose. The Federal rules restrict any use of the information to criminally investigate or prosecute any alcohol or drug abuse patient.The records that you are about to access may contain highly sensitive health information, the redisclosure of which is protected by Article 27-F of the [facility] Public Health law. If you continue you may have access to information: Regarding HIV / AIDS; Provided by facilities licensed or operated by the [facility] Office of Mental Health; or Provided by the [facility] Office for People With Developmental Disabilities. If such information is present, then the following [facility] mandated warning applies: This information has been disclosed to you from confidential records which are protected by state law. State law prohibits you from making any further disclosure of this information without the specific written consent of the person to whom it pertains, or as otherwise permitted by law. Any unauthorized further disclosure in violation of state law may result in a fine or mcfp sentence or both. A general authorization for the release of medical or other information is NOT sufficient authorization for further disc losure. Family History Family Member Name Family Member Gender Family Member Status Date o f Status Description Data Source(s) Unknown Male Problem MEDENT ([facility]) () Unknown Male Problem MEDENT ([facility]) Unknown Unknown Problem MEDENT ([facility]) Encounters Encounter Providers Location Date Indications Data Source(s ) Outpatient [address] [facility] [place] [address] 06/09/2020 12:00:00 AM EST [facility]CW1 [facility] Unknown [address] [facility] [place] [address] 06/09/2020 12:00:00 AM EST eCW1 ([facility]) [place] [address] [facility] [place] [address] 05/05/2020 12:00:00 AM EST eCW1 ([facility]) Office Visit Attender: Dixie HANDY Main office - [facility] 04/30/2020 10:15:00 AM EST MEDENT ([facility] ) Unknown [address] [facility] [place] [address] 04/22/2020 12:00:00 AM EST eCW1 ([facility]) Unknown [address] [facility] [place] [address] 04/19/2020 12:00:00 AM EST eCW1 ([facility]) [place] [address] [facility] [place] [address] 03/18/2020 12:00:00 AM EDT eCW1 ([facility]) Outpatient Attender: Dixie HANDY Main office - [facility] 01/21/2020 11:15:00 AM EDT MEDENT ([facility]) [place] [address] [facility] [place] [address] 12/03/2019 12:00:00 AM EDT eCW1 ([facility]) [facility] [address] [facility] [place] [address] 12/03/2019 12:00:00 AM EDT eCW1 ([facility]) [place] [address] [facility] [place] [address] 11/03/2019 12:00:00 AM EDT eCW1 ([facility]) [place] [address] [facility] [place] [address] 10/31/2019 12:00:00 AM EDT eCW1 ([facility]) Outpatient Attender: Stacey KNOTT 10/28/2019 07:35:46 P M EDT [facility] Unknown [address] [facility] [place] [address] 10/23/2019 12:00:00 AM EDT eCW1 ([facility]) Outpatient Attender: Stacey KNOTT 10/18/2019 12:10:25 A M EDT [facility] [address] [facility] [place] [address] 10/15/2019 12:00:00 AM EDT eCW1 ([facility]) [facility] [address] [facility] [place] [address] 10/15/2019 12:00:00 AM EDT eCW1 ([facility]) Office Visit Attender: Dixie HANDY Main office - [facility] 10/10/2019 11:45:00 AM EDT MEDENT ([facility]) [address] [address] 10/06/2019 12:00:00 AM EDT eCW1 ([facility]) [address] [address] 09/24/2019 12:00:00 AM EDT eCW1 ([facility]) [address] [address] 09/24/2019 12:00:00 AM EDT eCW1 ([facility]) Outpatient Attender: Stacey KNOTT 09/23/2019 10:02:01 A M EDT [facility] OFFICE OUTPATIENT NEW 30 MINUTES Attender: Lissy HAAS PA-C Physical Therapy 09/19/2019 01:30:00 PM EDT MEDENT ([facility]) [address] [address] 09/19/2019 12:00:00 AM EDT eCW1 ([facility]) [address] [address] 09/18/2019 12:00:00 AM EDT eCW1 ([facility]) [address] [address] 09/18/2019 12:00:00 AM EDT eCW1 ([facility]) [address] [address] 09/18/2019 12:00:00 AM EDT eCW1 ([facility]) [address] [address] 09/17/2019 12:00:00 AM EDT eCW1 ([facility]) [address] [address] 09/17/2019 12:00:00 AM EDT eCW1 ([facility]) [facility] [address] [facility] [place] [address] 09/16/2019 12:00:00 AM EDT eCW1 ([facility]) [facility] [address] [facility] [place] [address] 09/16/2019 12:00:00 AM EDT eCW1 ([facility]) [facility] [address] [place] [address] 08/18/2019 12:00:00 AM EDT eCW1 ([facility]) [facility] [address] [facility] [place] [address] 08/07/2019 12:00:00 AM EDT eCW1 ([facility]) [facility] [address] [facility] [place] [address] 08/06/2019 12:00:00 AM EDT eCW1 ([facility]) [facility] [address] [facility] [place] [address] 08/06/2019 12:00:00 AM EDT eCW1 ([facility]) [facility] [address] [facility] [place] [address] 08/05/2019 12:00:00 AM EDT eCW1 ([facility]) [facility] [address] [facility] [place] [address] 07/31/2019 12:00:00 AM EDT eCW1 ([facility]) [facility] [address] [place] [address], [place] [address] 07/31/2019 12:00:00 AM EDT eCW1 ([facility]) [facility] [address] [place] [address], [place] [address] 07/30/2019 12:00:00 AM EDT eCW1 ([facility]) [facility] [address] [place] [address], [place] [address] 07/29/2019 12:00:00 AM EDT eCW1 ([facility]) [address] [address] 07/28/2019 12:00:00 AM EDT eCW1 ([facility]) [address] [address] 07/28/2019 12:00:00 AM EDT eCW1 ([facility]) Outpatient 07/24/2019 01:05:00 PM EST [facility] [address] [address] 07/21/2019 12:00:00 AM EST eCW1 ([facility]) Outpatient Attender: Dixie HANDY Main office - [facility] 07/10/2019 10:15:00 AM EST MEDENT ([facility] ) [address] [address] 07/09/2019 12:00:00 AM EST eCW1 ([facility]) [address] [address] 07/07/2019 12:00:00 AM EST eCW1 ([facility]) [address] [address] 07/07/2019 12:00:00 AM EST eCW1 ([facility]) [address] [address] 06/24/2019 12:00:00 AM EST eCW1 ([facility]) [address] [address] 06/17/2019 12:00:00 AM EST eCW1 ([facility]) [address] [address] 06/10/2019 12:00:00 AM EST eCW1 ([facility]) [address] [address] 06/05/2019 12:00:00 AM EST eCW1 ([facility]) [address] [address] 06/04/2019 12:00:00 AM EST eCW1 ([facility]) [address] [address] 05/05/2019 12:00:00 AM EST eCW1 ([facility]) [address] [address] 04/25/2019 12:00:00 AM EST eCW1 ([facility]) Immunizations Vaccine Date Status Description Data Source(s) COVID-19(given elsewhere) Unspecified 05/26/2020 11:30:00 AM EST co mpleted [facility] COVID-19(given elsewhere) Unspecified 05/26/2020 11:30:00 AM EST co mpleted [facility]) Medications Medication Brand Name Start Date Product Form Dose Route Admi nistrative Instructions Pharmacy Instructions Status Indications Reaction Description Data Source(s) Famotidine 20 MG Oral Tablet Famotidine 20 MG 04/20/2020 12:00:00 A M EST 0.5 {tablet} active Famotidine 20 MG [facility]CW[facility] ( [facility]) Famotidine 20 MG Oral Tablet Famotidine 20 MG 04/20/2020 12:00:00 A M EST 0.5 {tablet} active Famotidine 20 MG eCW1 ( [facility]) Famotidine 20 MG Oral Tablet Famotidine 20 MG 04/20/2020 12:00:00 A M EST 0.5 {tablet} active Famotidine 20 MG eCW1 ( [facility]) Famotidine 20 MG Oral Tablet Famotidine 20 MG 04/20/2020 12:00:00 A M EST 0.5 {tablet} active Famotidine 20 MG eCW1 ( [facility]) Famotidine 20 MG Oral Tablet Famotidine 20 MG 04/20/2020 12:00:00 A M EST 0.5 {tablet} active Famotidine 20 MG eCW1 ( [facility]) May Have - UNK 10/15/2019 12:00:00 AM EDT active May Have - eCW1 ([facility]) May Have - UNK 10/15/2019 12:00:00 AM EDT active May Have - eCW1 ([facility]) May Have - UNK 10/15/2019 12:00:00 AM EDT active May Have - eCW1 ([facility]) May Have - UNK 10/15/2019 12:00:00 AM EDT active May Have - eCW1 ([facility]) May Have - UNK 10/15/2019 12:00:00 AM EDT active May Have - eCW1 ([facility]) May Have - UNK 10/15/2019 12:00:00 AM EDT active as directed eCW1 ([facility]) May Have - UNK 10/15/2019 12:00:00 AM EDT active May Have - eCW1 ([facility]) May Have - UNK 10/15/2019 12:00:00 AM EDT active May Have - eCW1 ([facility]) May Have - UNK 10/15/2019 12:00:00 AM EDT active May Have - eCW1 ([facility]) May Have - UNK 10/15/2019 12:00:00 AM EDT active May Have - eCW1 ([facility]) May Have - UNK 10/15/2019 12:00:00 AM EDT active May Have - eCW1 ([facility]) Acetaminophen 300 MG / Codeine Phosphate 30 MG Oral Tablet Acetaminophen-Codeine #3 300-30 MG Acetaminophen-Codeine #3 300-30 MG 09/24/2019 12:00:00 AM EDT active please given 300mg-3 0mg in 12.5 ml eCW1 ([facility]) Acetaminophen 300 MG / Codeine Phosphate 30 MG Oral Tablet Acetaminophen-Codeine #3 300-30 MG Acetaminophen-Codeine #3 300-30 MG 09/24/2019 12:00:00 AM EDT active Acetaminophen-Codein e #3 300-30 MG eCW1 ([facility]) Acetaminophen 300 MG / Codeine Phosphate 30 MG Oral Tablet Acetaminophen-Codeine #3 300-30 MG Acetaminophen-Codeine #3 300-30 MG 09/24/2019 12:00:00 AM EDT active Acetaminophen-Codein e #3 300-30 MG eCW1 ([facility]) Acetaminophen 300 MG / Codeine Phosphate 30 MG Oral Tablet Acetaminophen-Codeine #3 300-30 MG Acetaminophen-Codeine #3 300-30 MG 09/24/2019 12:00:00 AM EDT active please given 300mg-3 0mg in 12.5 ml eCW1 ([facility]) Acetaminophen 300 MG / Codeine Phosphate 30 MG Oral Tablet Acetaminophen-Codeine #3 300-30 MG Acetaminophen-Codeine #3 300-30 MG 09/24/2019 12:00:00 AM EDT active Acetaminophen-Codein e #3 300-30 MG eCW1 ([facility]) Acetaminophen 300 MG / Codeine Phosphate 30 MG Oral Tablet Acetaminophen-Codeine #3 300-30 MG Acetaminophen-Codeine #3 300-30 MG 09/24/2019 12:00:00 AM EDT active Acetaminophen-Codein e #3 300-30 MG eCW1 ([facility]) Acetaminophen 300 MG / Codeine Phosphate 30 MG Oral Tablet Acetaminophen-Codeine #3 300-30 MG Acetaminophen-Codeine #3 300-30 MG 09/24/2019 12:00:00 AM EDT active Acetaminophen-Codein e #3 300-30 MG eCW1 ([facility]) Acetaminophen 300 MG / Codeine Phosphate 30 MG Oral Tablet Acetaminophen-Codeine #3 300-30 MG Acetaminophen-Codeine #3 300-30 MG 09/24/2019 12:00:00 AM EDT active please given 300mg-3 0mg in 12.5 ml eCW1 ([facility]) Acetaminophen 300 MG / Codeine Phosphate 30 MG Oral Tablet Acetaminophen-Codeine #3 300-30 MG Acetaminophen-Codeine #3 300-30 MG 09/24/2019 12:00:00 AM EDT active Acetaminophen-Codein e #3 300-30 MG eCW1 ([facility]) Acetaminophen 300 MG / Codeine Phosphate 30 MG Oral Tablet Acetaminophen-Codeine #3 300-30 MG Acetaminophen-Codeine #3 300-30 MG 09/24/2019 12:00:00 AM EDT active Acetaminophen-Codein e #3 300-30 MG eCW1 ([facility]) Acetaminophen 300 MG / Codeine Phosphate 30 MG Oral Tablet Acetaminophen-Codeine #3 300-30 MG Acetaminophen-Codeine #3 300-30 MG 09/24/2019 12:00:00 AM EDT active Acetaminophen-Codein e #3 300-30 MG eCW1 ([facility]) Acetaminophen 300 MG / Codeine Phosphate 30 MG Oral Tablet Acetaminophen-Codeine #3 300-30 MG Acetaminophen-Codeine #3 300-30 MG 09/24/2019 12:00:00 AM EDT active Acetaminophen-Codein e #3 300-30 MG eCW1 ([facility]) Acetaminophen 300 MG / Codeine Phosphate 30 MG Oral Tablet Acetaminophen-Codeine #3 300-30 MG Acetaminophen-Codeine #3 300-30 MG 09/24/2019 12:00:00 AM EDT active Acetaminophen-Codein e #3 300-30 MG eCW1 ([facility]) May Have - UNK 09/22/2019 12:00:00 AM EDT active May Have - eCW1 ([facility]) May Have - UNK 09/22/2019 12:00:00 AM EDT active May Have - eCW1 ([facility]) May Have - UNK 09/22/2019 12:00:00 AM EDT active May Have - eCW1 ([facility]) May Have - UNK 09/22/2019 12:00:00 AM EDT active May Have - eCW1 ([facility]) May Have - UNK 09/22/2019 12:00:00 AM EDT active May Have - eCW1 ([facility]) May Have - UNK 09/22/2019 12:00:00 AM EDT active May Have - eCW1 ([facility]) May Have - UNK 09/22/2019 12:00:00 AM EDT active as directed eCW1 ([facility]) May Have - UNK 09/22/2019 12:00:00 AM EDT active May Have - eCW1 ([facility]) May Have - UNK 09/22/2019 12:00:00 AM EDT active May Have - eCW1 ([facility]) May Have - UNK 09/22/2019 12:00:00 AM EDT active May Have - eCW1 ([facility]) May Have - UNK 09/22/2019 12:00:00 AM EDT active May Have - eCW1 ([facility]) Famotidine 8 MG/ML Oral Suspension Famotidine 40 MG/5ML Famo tidine 40 MG/5ML 09/18/2019 12:00:00 AM EDT active 1.25 ml eCW1 ([facility]) Famotidine 8 MG/ML Oral Suspension Famotidine 40 MG/5ML Famo tidine 40 MG/5ML 09/18/2019 12:00:00 AM EDT 1.25 {ml} active Famotidine 40 MG/5ML eCW1 ([facility]) Famotidine 8 MG/ML Oral Suspension Famotidine 40 MG/5ML Famo tidine 40 MG/5ML 09/18/2019 12:00:00 AM EDT 1.25 {ml} active Famotidine 40 MG/5ML eCW1 ([facility]) Famotidine 8 MG/ML Oral Suspension Famotidine 40 MG/5ML Famo tidine 40 MG/5ML 09/18/2019 12:00:00 AM EDT 1.25 {ml} active Famotidine 40 MG/5ML eCW1 ([facility]) Famotidine 8 MG/ML Oral Suspension Famotidine 40 MG/5ML Famo tidine 40 MG/5ML 09/18/2019 12:00:00 AM EDT 1.25 {ml} active Famotidine 40 MG/5ML eCW1 ([facility]) Famotidine 8 MG/ML Oral Suspension Famotidine 40 MG/5ML Famo tidine 40 MG/5ML 09/18/2019 12:00:00 AM EDT 1.25 {ml} active Famotidine 40 MG/5ML eCW1 [facility]) Acetaminophen 32 MG/ML Oral Suspension Acetaminophen 6 50 MG/20.3ML Acetaminophen 650 MG/20.3ML 09/17/2019 12:00:00 AM EDT 20.3 {ml_as_needed} active Acetaminophen 650 MG/20.3ML eCW1 ([facility]) Acetaminophen 32 MG/ML Oral Suspension Acetaminophen 6 50 MG/20.3ML Acetaminophen 650 MG/20.3ML 09/17/2019 12:00:00 AM EDT 20.3 {ml_as_needed} active Acetaminophen 650 MG/20.3ML eCW1 ([facility]) Acetaminophen 32 MG/ML Oral Suspension Acetaminophen 6 50 MG/20.3ML Acetaminophen 650 MG/20.3ML 09/17/2019 12:00:00 AM EDT 20.3 {ml_as_needed} active Acetaminophen 650 MG/20.3ML eCW1 ([facility]) Acetaminophen 32 MG/ML Oral Suspension Acetaminophen 6 50 MG/20.3ML Acetaminophen 650 MG/20.3ML 09/17/2019 12:00:00 AM EDT 20.3 {ml_as_needed} active Acetaminophen 650 MG/20.3ML eCW1 ([facility]) Acetaminophen 32 MG/ML Oral Suspension Acetaminophen 6 50 MG/20.3ML Acetaminophen 650 MG/20.3ML 09/17/2019 12:00:00 AM EDT active 20.3 ml as needed eCW1 ([facility]) Acetaminophen 32 MG/ML Oral Suspension Acetaminophen 6 50 MG/20.3ML Acetaminophen 650 MG/20.3ML 09/17/2019 12:00:00 AM EDT 20.3 {ml_as_needed} active Acetaminophen 650 MG/20.3ML eCW1 ([facility]) Acetaminophen 32 MG/ML Oral Suspension Acetaminophen 6 50 MG/20.3ML Acetaminophen 650 MG/20.3ML 09/17/2019 12:00:00 AM EDT 20.3 {ml_as_needed} active Acetaminophen 650 MG/20.3ML eCW1 ([facility]) Acetaminophen 32 MG/ML Oral Suspension Acetaminophen 6 50 MG/20.3ML Acetaminophen 650 MG/20.3ML 09/17/2019 12:00:00 AM EDT 20.3 {ml_as_needed} active Acetaminophen 650 MG/20.3ML eCW1 ([facility]) Acetaminophen 32 MG/ML Oral Suspension Acetaminophen 6 50 MG/20.3ML Acetaminophen 650 MG/20.3ML 09/17/2019 12:00:00 AM EDT 20.3 {ml_as_needed} active Acetaminophen 650 MG/20.3ML eCW1 ([facility]) Acetaminophen 32 MG/ML Oral Suspension Acetaminophen 6 50 MG/20.3ML Acetaminophen 650 MG/20.3ML 09/17/2019 12:00:00 AM EDT 20.3 {ml_as_needed} active Acetaminophen 650 MG/20.3ML eCW1 ([facility]) Acetaminophen 32 MG/ML Oral Suspension Acetaminophen 6 50 MG/20.3ML Acetaminophen 650 MG/20.3ML 09/17/2019 12:00:00 AM EDT 20.3 {ml_as_needed} active Acetaminophen 650 MG/20.3ML eCW1 [facility]) Acetaminophen 32 MG/ML Oral Suspension Acetaminophen 6 50 MG/20.3ML Acetaminophen 650 MG/20.3ML 09/17/2019 12:00:00 AM EDT active 20.3 ml as needed eCW1 [facility]) PredniSONE 5 MG/ML UNK 09/16/2019 12:00:00 AM EDT 8.0 {ml} active PredniSONE 5 MG/ML eCW1 ([facility]) PredniSONE 5 MG/ML UNK 09/16/2019 12:00:00 AM EDT 8.0 {ml} suspended PredniSONE 5 MG/ML eCW1 ([facility]) PredniSONE 5 MG/ML UNK 09/16/2019 12:00:00 AM EDT 8.0 {ml} active PredniSONE 5 MG/ML [facility]CW1 [facility]) PredniSONE 5 MG/ML UNK 09/16/2019 12:00:00 AM EDT 8.0 {ml} active PredniSONE 5 MG/ML eCW1 ([facility]) PredniSONE 5 MG/ML UNK 09/16/2019 12:00:00 AM EDT 8.0 {ml} active PredniSONE 5 MG/ML eCW1 [facility] PredniSONE 5 MG/ML UNK 09/16/2019 12:00:00 AM EDT 8.0 {ml} active PredniSONE 5 MG/ML [facility]CW[facility] PredniSONE 5 MG/ML UNK 09/16/2019 12:00:00 AM EDT active 8 ml eCW1 ([facility]) PredniSONE 5 MG/ML UNK 09/16/2019 12:00:00 AM EDT 8.0 {ml} active PredniSONE 5 MG/ML eCW1 [facility]) PredniSONE 5 MG/ML UNK 09/16/2019 12:00:00 AM EDT 8.0 {ml} active PredniSONE 5 MG/ML eCW1 [facility]) PredniSONE 5 MG/ML UNK 09/16/2019 12:00:00 AM EDT 8.0 {ml} active PredniSONE 5 MG/ML eCW1 [facility]) PredniSONE 5 MG/ML UNK 09/16/2019 12:00:00 AM EDT 8.0 {ml} suspended PredniSONE 5 MG/ML eCW1 ([facility]) Triamcinolone Acetonide 1 MG/ML Topical Cream Triamcin olone Acetonide 0.1 % Triamcinolone Acetonide 0.1 % 07/31/2019 12:00:00 AM EDT active 1 application eCW1 [facility]) Triamcinolone Acetonide 1 MG/ML Topical Cream Triamcin olone Acetonide 0.1 % Triamcinolone Acetonide 0.1 % 07/31/2019 12:00:00 AM EDT 1.0 {appli cation} active Triamcinolone Acetonide 0 .1 % [facility]CW1 [facility] Triamcinolone Acetonide 1 MG/ML Topical Cream Triamcin olone Acetonide 0.1 % Triamcinolone Acetonide 0.1 % 07/31/2019 12:00:00 AM EDT 1.0 {appli cation} active Triamcinolone Acetonide 0 .1 % [facility]CW1 [facility]) Triamcinolone Acetonide 1 MG/ML Topical Cream Triamcin olone Acetonide 0.1 % Triamcinolone Acetonide 0.1 % 07/31/2019 12:00:00 AM EDT 1.0 {appli cation} active Triamcinolone Acetonide 0 .1 % eCW1 [facility]) Triamcinolone Acetonide 1 MG/ML Topical Cream Triamcin olone Acetonide 0.1 % Triamcinolone Acetonide 0.1 % 07/31/2019 12:00:00 AM EDT active 1 application eCW1 [facility]) Triamcinolone Acetonide 1 MG/ML Topical Cream Triamcin olone Acetonide 0.1 % Triamcinolone Acetonide 0.1 % 07/31/2019 12:00:00 AM EDT 1.0 {appli cation} active Triamcinolone Acetonide 0 .1 % eCW1 [facility]) Triamcinolone Acetonide 1 MG/ML Topical Cream Triamcin olone Acetonide 0.1 % Triamcinolone Acetonide 0.1 % 07/31/2019 12:00:00 AM EDT 1.0 {appli cation} active Triamcinolone Acetonide 0 .1 % eCW1 [facility]) Triamcinolone Acetonide 1 MG/ML Topical Cream Triamcin olone Acetonide 0.1 % Triamcinolone Acetonide 0.1 % 07/31/2019 12:00:00 AM EDT active 1 application eCW1 [facility]) Triamcinolone Acetonide 1 MG/ML Topical Cream Triamcin olone Acetonide 0.1 % Triamcinolone Acetonide 0.1 % 07/31/2019 12:00:00 AM EDT 1.0 {appli cation} active Triamcinolone Acetonide 0 .1 % eCW1 [facility]) Triamcinolone Acetonide 1 MG/ML Topical Cream Triamcin olone Acetonide 0.1 % Triamcinolone Acetonide 0.1 % 07/31/2019 12:00:00 AM EDT active 1 application eCW1 ([facility]) Triamcinolone Acetonide 1 MG/ML Topical Cream Triamcin olone Acetonide 0.1 % Triamcinolone Acetonide 0.1 % 07/31/2019 12:00:00 AM EDT active 1 application eCW1 [facility]) Triamcinolone Acetonide 1 MG/ML Topical Cream Triamcin olone Acetonide 0.1 % Triamcinolone Acetonide 0.1 % 07/31/2019 12:00:00 AM EDT 1.0 {appli cation} active Triamcinolone Acetonide 0 .1 % eCW1 [facility]) Triamcinolone Acetonide 1 MG/ML Topical Cream Triamcin olone Acetonide 0.1 % Triamcinolone Acetonide 0.1 % 07/31/2019 12:00:00 AM EDT 1.0 {appli cation} active Triamcinolone Acetonide 0 .1 % eCW1 [facility]) Triamcinolone Acetonide 1 MG/ML Topical Cream Triamcin olone Acetonide 0.1 % Triamcinolone Acetonide 0.1 % 07/31/2019 12:00:00 AM EDT 1.0 {appli cation} active Triamcinolone Acetonide 0 .1 % eCW1 [facility]) Triamcinolone Acetonide 1 MG/ML Topical Cream Triamcin olone Acetonide 0.1 % Triamcinolone Acetonide 0.1 % 07/31/2019 12:00:00 AM EDT 1.0 {appli cation} active Triamcinolone Acetonide 0 .1 % eCW1 [facility]) Sulfamethoxazole 800 MG / Trimethoprim 1 60 MG Oral Tablet Sulfamethoxazole- Trimethoprim 800-160 MG Sulfamethoxazole-Trimethoprim 800-160 MG 07/29/2019 12:00:00 AM EDT 1.0 {tablet} active Sulfamethoxazole-Trimethoprim 800-160 MG eCW1 [facility]) Sulfamethoxazole 800 MG / Trimethoprim 1 60 MG Oral Tablet Sulfamethoxazole- Trimethoprim 800-160 MG Sulfamethoxazole-Trimethoprim 800-160 MG 07/29/2019 12:00:00 AM EDT 1.0 {tablet} active Sulfamethoxazole-Trimethoprim 800-160 MG eCW1 [facility]) Sulfamethoxazole 800 MG / Trimethoprim 1 60 MG Oral Tablet Sulfamethoxazole- Trimethoprim 800-160 MG Sulfamethoxazole-Trimethoprim 800-160 MG 07/29/2019 12:00:00 AM EDT 1.0 {tablet} active Sulfamethoxazole-Trimethoprim 800-160 MG eCW1 [facility]) Sulfamethoxazole 800 MG / Trimethoprim 1 60 MG Oral Tablet Sulfamethoxazole- Trimethoprim 800-160 MG Sulfamethoxazole-Trimethoprim 800-160 MG 07/29/2019 12:00:00 AM EDT active 1 tablet eCW1 ([facility]) Sulfamethoxazole 800 MG / Trimethoprim 1 60 MG Oral Tablet Sulfamethoxazole- Trimethoprim 800-160 MG Sulfamethoxazole-Trimethoprim 800-160 MG 07/29/2019 12:00:00 AM EDT 1.0 {tablet} active Sulfamethoxazole-Trimethoprim 800-160 MG eCW1 [facility]) Sulfamethoxazole 800 MG / Trimethoprim 1 60 MG Oral Tablet Sulfamethoxazole- Trimethoprim 800-160 MG Sulfamethoxazole-Trimethoprim 800-160 MG 07/29/2019 12:00:00 AM EDT active 1 tablet eCW1 ([facility]) Sulfamethoxazole 800 MG / Trimethoprim 1 60 MG Oral Tablet Sulfamethoxazole- Trimethoprim 800-160 MG Sulfamethoxazole-Trimethoprim 800-160 MG 07/29/2019 12:00:00 AM EDT active 1 tablet eCW1 ([facility]) Sulfamethoxazole 800 MG / Trimethoprim 1 60 MG Oral Tablet Sulfamethoxazole- Trimethoprim 800-160 MG Sulfamethoxazole-Trimethoprim 800-160 MG 07/29/2019 12:00:00 AM EDT 1.0 {tablet} active Sulfamethoxazole-Trimethoprim 800-160 MG eCW1 [facility]) Sulfamethoxazole 800 MG / Trimethoprim 1 60 MG Oral Tablet Sulfamethoxazole- Trimethoprim 800-160 MG Sulfamethoxazole-Trimethoprim 800-160 MG 07/29/2019 12:00:00 AM EDT 1.0 {tablet} suspended Sulfamethoxazole-Trimethoprim 800-160 MG eCW1 [facility]) Sulfamethoxazole 800 MG / Trimethoprim 1 60 MG Oral Tablet Sulfamethoxazole- Trimethoprim 800-160 MG Sulfamethoxazole-Trimethoprim 800-160 MG 07/29/2019 12:00:00 AM EDT 1.0 {tablet} active Sulfamethoxazole-Trimethoprim 800-160 MG eCW1 [facility]) Sulfamethoxazole 800 MG / Trimethoprim 1 60 MG Oral Tablet Sulfamethoxazole- Trimethoprim 800-160 MG Sulfamethoxazole-Trimethoprim 800-160 MG 07/29/2019 12:00:00 AM EDT 1.0 {tablet} active Sulfamethoxazole-Trimethoprim 800-160 MG eCW1 [facility]) Sulfamethoxazole 800 MG / Trimethoprim 1 60 MG Oral Tablet Sulfamethoxazole- Trimethoprim 800-160 MG Sulfamethoxazole-Trimethoprim 800-160 MG 07/29/2019 12:00:00 AM EDT 1.0 {tablet} suspended Sulfamethoxazole-Trimethoprim 800-160 MG eCW1 [facility]) Sulfamethoxazole 800 MG / Trimethoprim 1 60 MG Oral Tablet Sulfamethoxazole- Trimethoprim 800-160 MG Sulfamethoxazole-Trimethoprim 800-160 MG 07/29/2019 12:00:00 AM EDT 1.0 {tablet} active Sulfamethoxazole-Trimethoprim 800-160 MG eCW1 [facility]) Sulfamethoxazole 800 MG / Trimethoprim 1 60 MG Oral Tablet Sulfamethoxazole- Trimethoprim 800-160 MG Sulfamethoxazole-Trimethoprim 800-160 MG 07/29/2019 12:00:00 AM EDT active 1 tablet eCW1 [facility]) Docusate Sodium 10 MG/ML Oral Suspension Diocto 50 MG/5ML Di octo 50 MG/5ML 07/09/2019 12:00:00 AM EST active TAKE 10 MILLILITERS VIA G-TUBE ONCE DAILY DIRECTED eCW1 ([facility]) Docusate Sodium 10 MG/ML Oral Suspension Diocto 50 MG/5ML Di octo 50 MG/5ML 07/09/2019 12:00:00 AM EST active Diocto 50 MG/5ML eCW1 ([facility]) Vitamin B12 1000 MCG Vitamin B12 1000 MCG 07/09/2019 12:00:00 AM ES T 1.0 {tablet} active Vitamin B12 1000 MCG eC W1 ([facility]) Docusate Sodium 10 MG/ML Oral Suspension Diocto 50 MG/5ML Di octo 50 MG/5ML 07/09/2019 12:00:00 AM EST active Diocto 50 MG/5ML eCW1 ([facility]) Vitamin B12 1000 MCG Vitamin B12 1000 MCG 07/09/2019 12:00:00 AM ES T 1.0 {tablet} active Vitamin B12 1000 MCG eC W1 [facility]) Docusate Sodium 10 MG/ML Oral Suspension Diocto 50 MG/5ML Di octo 50 MG/5ML 07/09/2019 12:00:00 AM EST active Diocto 50 MG/5ML eCW1 ([facility]) Docusate Sodium 10 MG/ML Oral Suspension Diocto 50 MG/5ML Di octo 50 MG/5ML 07/09/2019 12:00:00 AM EST active TAKE 10 MILLILITERS VIA G-TUBE ONCE DAILY DIRECTED eCW1 ([facility]) Vitamin B12 1000 MCG Vitamin B12 1000 MCG 07/09/2019 12:00:00 AM ES T 1.0 {tablet} active Vitamin B12 1000 MCG eC W1 ([facility]) Docusate Sodium 10 MG/ML Oral Suspension Diocto 50 MG/5ML Di octo 50 MG/5ML 07/09/2019 12:00:00 AM EST active Diocto 50 MG/5ML eCW1 ([facility]) Vitamin B12 1000 MCG Vitamin B12 1000 MCG 07/09/2019 12:00:00 AM ES T 1.0 {tablet} active Vitamin B12 1000 MCG eC W1 [facility]) Vitamin B12 1000 MCG Vitamin B12 1000 MCG 07/09/2019 12:00:00 AM ES T 1.0 {tablet} active Vitamin B12 1000 MCG eC W1 ([facility]) Vitamin B12 1000 MCG Vitamin B12 1000 MCG 07/09/2019 12:00:00 AM ES T 1.0 {tablet} active Vitamin B12 1000 MCG eC W1 ([facility]) Docusate Sodium 10 MG/ML Oral Suspension Diocto 50 MG/5ML Di octo 50 MG/5ML 07/09/2019 12:00:00 AM EST active Diocto 50 MG/5ML eCW1 [facility]) Vitamin B12 1000 MCG Vitamin B12 1000 MCG 07/09/2019 12:00:00 AM ES T 1.0 {tablet} active Vitamin B12 1000 MCG eC W1 ([facility]) Vitamin B12 1000 MCG Vitamin B12 1000 MCG 07/09/2019 12:00:00 AM ES T 1.0 {tablet} active Vitamin B12 1000 MCG eC W1 ([facility]) Vitamin B12 1000 MCG Vitamin B12 1000 MCG 07/09/2019 12:00:00 AM ES T 1.0 {tablet} active Vitamin B12 1000 MCG eC W1 ([facility]) Docusate Sodium 10 MG/ML Oral Suspension Diocto 50 MG/5ML Di octo 50 MG/5ML 07/09/2019 12:00:00 AM EST active Diocto 50 MG/5ML eCW1 ([facility]) Docusate Sodium 10 MG/ML Oral Suspension Diocto 50 MG/5ML Di octo 50 MG/5ML 07/09/2019 12:00:00 AM EST active Diocto 50 MG/5ML eCW1 ([facility]) Vitamin B12 1000 MCG Vitamin B12 1000 MCG 07/09/2019 12:00:00 AM ES T 1.0 {tablet} active Vitamin B12 1000 MCG eC W1 ([facility]) Vitamin B12 1000 MCG Vitamin B12 1000 MCG 07/09/2019 12:00:00 AM EST active 1 tablet eCW1 ([facility]) Vitamin B12 1000 MCG Vitamin B12 1000 MCG 07/09/2019 12:00:00 AM EST active 1 tablet eCW1 ([facility]) Vitamin B12 1000 MCG Vitamin B12 1000 MCG 07/09/2019 12:00:00 AM EST active 1 tablet eCW1 ([facility]) Docusate Sodium 10 MG/ML Oral Suspension Diocto 50 MG/5ML Di octo 50 MG/5ML 07/09/2019 12:00:00 AM EST active Diocto 50 MG/5ML eCW1 [facility]) Docusate Sodium 10 MG/ML Oral Suspension Diocto 50 MG/5ML Di octo 50 MG/5ML 07/09/2019 12:00:00 AM EST active Diocto 50 MG/5ML eCW1 ([facility]) Docusate Sodium 10 MG/ML Oral Suspension Diocto 50 MG/5ML Di octo 50 MG/5ML 07/09/2019 12:00:00 AM EST active Diocto 50 MG/5ML eCW1 [facility]) Docusate Sodium 10 MG/ML Oral Suspension Diocto 50 MG/5ML Di octo 50 MG/5ML 07/09/2019 12:00:00 AM EST active TAKE 10 MILLILITERS VIA G-TUBE ONCE DAILY DIRECTED eCW1 ([facility]) TEDDY-HYATT Gastrostomy Kit 16FR - TEDDY-HYATT Gastrostomy Kit FR 07/07/2019 12:00:00 AM EST active TEDDY-HYATT Gastrostomy Kit 16FR - eCW1 [facility]) TEDDY-HYATT Gastrostomy Kit 16FR - TEDDY-HYATT Gastrostomy Kit FR 07/07/2019 12:00:00 AM EST active TEDDY-HYATT Gastrostomy Kit 16FR - eCW1 ([facility]) TEDDY-HYATT Gastrostomy Kit 16FR - TEDDY-HYATT Gastrostomy Kit FR 07/07/2019 12:00:00 AM EST active TEDDY-HYATT Gastrostomy Kit 16FR - eCW1 [facility] TEDDY-HYATT Gastrostomy Kit 16FR - TEDDY-HYATT Gastrostomy Kit FR 07/07/2019 12:00:00 AM EST active TEDDY-HYATT Gastrostomy Kit 16FR - eCW1 [facility]) TEDDY-HYATT Gastrostomy Kit 16FR - TEDDY-HYATT Gastrostomy Kit 07/07/2019 12:00:00 AM EST active Replace every 6 months or PRN for any complications eCW1 ([facility]) TEDDY-HYATT Gastrostomy Kit 16FR - TEDDY-HYATT Gastrostomy Kit 07/07/2019 12:00:00 AM EST active TEDDY-HYATT Gastrostomy Kit 16FR - eCW1 [facility] TEDDY-HYATT Gastrostomy Kit 16FR - TEDDY-HYATT Gastrostomy Kit FR 07/07/2019 12:00:00 AM EST active TEDDY-HYATT Gastrostomy Kit 16FR - eCW1 [facility] TEDDY-HYATT Gastrostomy Kit 16FR - TEDDY-HYATT Gastrostomy Kit FR 07/07/2019 12:00:00 AM EST active TEDDY-HYATT Gastrostomy Kit 16FR - eCW1 [facility] TEDDY-HYATT Gastrostomy Kit 16FR - TEDDY-HYATT Gastrostomy Kit FR 07/07/2019 12:00:00 AM EST active TEDDY-HYATT Gastrostomy Kit 16FR - eCW1 [facility]) TEDDY-HYATT Gastrostomy Kit 16FR - TEDDY-HYATT Gastrostomy Kit 16FR - 07/07/2019 12:00:00 AM EST active TEDDY-HYATT Gastrostomy Kit 16FR - eCW1 [facility]) TEDDY-HYATT Gastrostomy Kit 16FR - TEDDY-HYATT Gastrostomy Kit 16FR - 07/07/2019 12:00:00 AM EST active TEDDY-HYATT Gastrostomy Kit 16FR - eCW1 [facility]) TEDDY-HYATT Gastrostomy Kit 16FR - TEDDY-HYATT Gastrostomy Kit 16FR - 07/07/2019 12:00:00 AM EST active Replace every 6 months or PRN for any complications eCW1 ([facility]) Dura-G Gastrostomy Tube 18FR - Dura-G Gastrostomy Tube 18FR - 07/07/2019 12:00:00 AM EST active Replace every 6 months or as needed for complication eCW1 [facility]) Ranitidine 15 MG/ML Oral Solution Ranitidine HCl 150 M G/10ML Ranitidine HCl 150 MG/10ML 06/17/2019 12:00:00 AM EST active 10 ml as needed eCW1 [facility]) Ranitidine 15 MG/ML Oral Solution Ranitidine HCl 150 M G/10ML Ranitidine HCl 150 MG/10ML 06/17/2019 12:00:00 AM EST active 10 ml as needed eCW1 [facility]) Acetaminophen 650 MG Rectal Suppository Acetaminophen 650 MG 06/10/2019 12:00:00 AM EST active Acetaminophen 650 MG eCW1 [facility]) Acetaminophen 650 MG Rectal Suppository Acetaminophen 650 MG 06/10/2019 12:00:00 AM EST active Acetaminophen 650 MG eCW1 [facility]) Acetaminophen 650 MG Rectal Suppository Acetaminophen 650 MG 06/10/2019 12:00:00 AM EST active Acetaminophen 650 MG eCW1 [facility]) Acetaminophen 650 MG Rectal Suppository Acetaminophen 650 MG 06/10/2019 12:00:00 AM EST active Acetaminophen 650 MG eCW1 [facility]) Acetaminophen 650 MG Rectal Suppository Acetaminophen 650 MG 06/10/2019 12:00:00 AM EST active 1 suppositories a s needed eCW1 ([facility]) Acetaminophen 650 MG Rectal Suppository Acetaminophen 650 MG 06/10/2019 12:00:00 AM EST active Acetaminophen 650 MG eCW1 [facility]) Acetaminophen 650 MG Rectal Suppository Acetaminophen 650 MG 06/10/2019 12:00:00 AM EST active Acetaminophen 650 MG eCW1 [facility]) Acetaminophen 650 MG Rectal Suppository Acetaminophen 650 MG 06/10/2019 12:00:00 AM EST active Acetaminophen 650 MG eCW1 [facility]) Acetaminophen 650 MG Rectal Suppository Acetaminophen 650 MG 06/10/2019 12:00:00 AM EST active Acetaminophen 650 MG eCW1 [facility]) Acetaminophen 650 MG Rectal Suppository Acetaminophen 650 MG 06/10/2019 12:00:00 AM EST active Acetaminophen 650 MG eCW1 [facility]) Acetaminophen 650 MG Rectal Suppository Acetaminophen 650 MG 06/10/2019 12:00:00 AM EST active Acetaminophen 650 MG eCW1 [facility]) Acetaminophen 650 MG UNK 06/10/2019 12:00:00 AM EST active 1 suppositories as needed eCW1 [facility]) Insurance Providers Payer name Policy type / Coverage type Policy ID Covered green party ID Covered green party's relationship to cummins Policy [employer] Plan Information EMEDNY [id number] SP [id number] MEDICARE [id number] SP [id number] Medicare P [id number] S [id number] Medicaid S UNAVAILABLE S UNA[place]ILA BLE MEDICAID [id number] SP [id number] MEDICARE C [id number] S [id number] MEDICAID M [id number] S [id number] MEDICAID [id number] SP [id number] MEDICARE [id number] SP [id number] ANS-Medicare Part B [id number] ANSI-Medicaid [id number] ANSI-Medicaid [id number] ANSI-Medicare Part B [id number] ANSI-Medicaid [id number] ANSI-Medicare Part B [id number] ANSI-Medicaid [id number] ANSI-Medicare Part B [id number] ANSI-Medicaid [id number] ANSI-Medicare Part B [id number] MEDICAID M [id number] Self [id number] MEDICARE A [id number] Self [id number] Medicaid Medigap Part B [id number] Self [id number] Medicare Part B Medicare Primary [id number] Self [id number] ANSI-Medicaid [id number] ANSI-Medicare Part B [id number] ANSI-Medicare Part B [id number] ANSI-Medicaid [id number] ANSI-Medicaid [id number] ANSI-Medicare Part B [id number] ANSI-Medicaid [id number] ANSI-Medicare Part B [id number] ANSI-Medicare Part B [id number] ANSI-Medicaid [id number] ANSI-Medicaid [id number] ANSI-Medicare Part B [id number] ANSI-Medicare Part B [id number] ANSI-Medicaid [id number] MEDICARE [id number] SP [id number] ANSI-Medicaid [id number] ANSI-Medicare Part B [id number] ANSI-Medicare Part B [id number] ANSI-Medicaid [id number] ANSI-Medicare Part B [id number] ANSI-Medicaid [id number] Medicaid Medigap Part B [id number] Self [id number] Medicare Part B Medicare Primary [id number] Self [id number] Medicaid Medigap Part B [id number] Self [id number] Medicare Part B Medicare Primary [id number] Self [id number] ANSI-Medicare Part B [id number] ANSI-Medicaid [id number] ANSI-Medicare Part B [id number] ANSI-Medicaid [id number] ANSI-Medicaid [id number] ANSI-Medicare Part B [id number] ANSI-Medicaid [id number] ANSI-Medicare Part B [id number] Medicaid [place] Medigap Part B [id number] Self [id number] [place] Primary [id number] Self [id number] ANSI-Medicaid [id number] ANSI-Medicare Part B [id number] ANSI-Medicare Part B [id number] ANSI-Medicaid [id number] ANSI-Medicare Part B [id number] ANSI-Medicaid [id number] ANSI-Medicare Part B [id number] ANSI-Medicaid [id number] ANSI-Medicare Part B [id number] ANSI-Medicaid [id number] ANSI-Medicare Part B [id number] ANSI-Medicaid [id number] ANSI-Medicaid [id number] ANSI-Medicare Part B [id number] ANSI-Medicare Part B [id number] ANSI-Medicaid [id number] ANSI-Medicare Part B [id number] ANSI-Medicaid [id number] Medicaid Medigap Part B [id number] Self [id number] Medicare Part B Medicare Primary [id number] Self [id number] ANSI-Medicaid [id number] ANSI-Medicare Part B [id number] Medicaid [facility] Part B [id number] Self [id number] [place] Primary [id number] Self [id number] MEDICARE [id number] ANSI-Medicare Part B [id number] ANSI-Medicaid [id number] ANSI-Medicaid [id number] ANSI-Medicare Part B [id number] ANSI-Medicare Part B [id number] ANSI-Medicaid [id number] ANSI-Medicare Part B [id number] ANSI-Medicaid [id number] ANSI-Medicare Part B [id number] ANSI-Medicaid [id number] ANS-Medicare Part B [id number] ANSI-Medicaid [id number] ANSI-Medicaid [id number] ANSI-Medicare Part B [id number] Medicaid Medigap Part B [id number] Self [id number] Medicare Part B Medicare Primary [id number] Self [id number] MEDICAID [id number] [place] [id number] Self [id number] [place] Medicare Primary [id number] Self [id number] [place] Part [place] [id number] Self [id number] Medicare [place] Gov't Servi Medicare Primary [id number] Self [id number] Medicaid Medigap Part B [id number] Self [id number] [id number] Medicare Part B Medicare Primary [id number] Self [id number] [place] Med[place] [id number] Self [id number] [place] Medicare Primary [id number] Self [id number] Medicaid Medigap Part B [id number] Self [id number] Medicare Part B Medicare Primary [id number] Self [id number] Medicaid Medigap Part B [id number] Self [id number] Medicare Part B Medicare Primary [id number] Self [id number] MEDICARE C [id number] S [id number] Medicaid Medigap Part B [id number] Self [id number] Medicare Part B Medicare Primary [id number] Self [id number] MEDICAID [id number] SP [id number] Medicaid Medigap Part B [id number] Self [id number] [id number] Medicare Part B Medicare Primary [id number] Self [id number] Medicaid Medigap Part B [id number] #[id number] Self A [id number] #[id number] Medicare Part B Medicare Primary [id number] Self [id number] [place] Primary Self Medicare Part B Medicare Primary Self Medicaid Medicaid Self Medicaid [place] Self [place] Gov't [place] Medicare Primary Self Medicare Medicare Primary Self Medicaid Dental S [id number] S [id number] Problems, Conditions, and Diagnoses Code Display Name Description Problem Type Effective Dates Data Source(s) M81.0 [id number] Osteoporosis, unspec ified osteoporosis type, unspecified pathological fracture presence Problem 06/24/2019 12:00:00 AM EST [facility]C [facility] M81.0 [id number] Osteoporosis, unspec ified osteoporosis type, unspecified pathological fracture presence Problem 06/24/2019 12:00:00 AM EST eC W1 ([facility]) G40.909 [id number] Seizure disorder Problem 06/04/2019 12:00:00 AM EST eCW1 ([facility]) G40.909 [id number] Seizure disorder Problem 06/04/2019 12:00:00 AM EST eCW1 ([facility]) Surgeries/Procedures Procedure Description Date Indications Data Source(s) RADIOLOGIC EXAMINATION KNEE 1/2 VIEWS 11/25/2019 12:00 :00 AM EDT MEDENT ([facility]) RADIOLOGIC EXAM KNEE COMPLETE 4/MORE VIEWS 10/27/2019 12:00:00 AM EDT [facility] ([facility]) FX Femur Med/Lat Condyle W/O Manipulation 09/26/2019 1 2:00:00 AM EDT [facility] ([facility]) FX Tibia Proximal W/O Manipulation 09/26/2019 12:00:00 AM EDT [facility] ([facility]) RADIOLOGIC EXAM KNEE COMPLETE 4/MORE VIEWS 09/26/2019 12:00:00 AM EDT [facility] ([facility]) Office Visit, Est Pt., Level 2 FC 09/16/2019 12:00:00 AM EDT eCW1 ([facility]) Office Visit, Est Pt., Level 3 PC 09/16/2019 12:00:00 AM EDT eCW1 ([facility]) Results ID Date Data Source [id number] 03/23/2020 09:39:00 AM EST [facility] ([facility]) Name Value Range Interpretation Code Description Data Caroline rce(s) Supporting Document(s) Valproate [Mass/volume] in Serum or Plasma 62.8 UG/ML 50.0-100.0 [facility] ([facility] ) <content>note:<nlbl:demographic_changed> </content>
<content></content> Ammonia [Mass/volume] in Blood 23 uMOL/L MED[facility] ([facility] ) <content>note:<nlbl:demographic_changed> </content>
<content></content> Topiramate [Mass/volume] in Serum or Plasma 8.7 ug/mL 2.0-25.0 MED[facility] ([facility] ) This test was developed and its performa nce characteristics determined by [employer]. It has not been cleared or approved by the Food and Drug Administration. Detection Limit = 1.0 Lamotrigine [Mass/volume] in Serum or Plasma 11.8 ug/mL 2.0-20.0 MED[facility] ([facility] ) Testing on this sample was performed by homogeneous enzyme immunoassay. Detection Limit = 1.0 Performed at: [facility] [employer] [id number] Pricing Strategist: Geovanny Mao MD, Phone: [phone] Performed at: [employer] [address] [place] [address] [id number] Pricing Strategist: Kamila Pineda [facility], Phone: [phone] ID Date Data Source [id number] 02/12/2020 01:20:00 PM EDT [facility] ([facility]) Name Value Range Interpretation Code Description Data Caroline rce(s) Supporting Document(s) Valproate [Mass/volume] in Serum or Plasma 41.9 UG/ML 50.0-100.0 [facility] ([facility] ) <content>note:<nlbl:demographic_changed> </content>
<content></content> ID Date Data Source [id number] 02/12/2020 01:16:00 PM EDT [facility] ([facility] ) Name Value Range Interpretation Code Description Data Caroline rce(s) Supporting Document(s) Topiramate [Mass/volume] in Serum or Plasma 8.8 ug/mL 2.0-25.0 MED[facility] ([facility] ) This test was developed and its performa nce characteristics determined by [employer]. It has not been cleared or approved by the Food and Drug Administration. Detection Limit = 1.0 Performed at: [facility] [employer] [id number] Pricing Strategist: Geovanny Mao MD, Phone: [phone] Ammonia [Mass/volume] in Blood 21 uMOL/L [facility] ([facility] ) <content>By: LAB DRAW</content>
<con tent>Time: 1254</content>
<content>note:<nlbl:demographic_changed></content>
<sherly LAB DRAW Time: 1254</content>
<content></content> Lamotrigine [Mass/volume] in Serum or Plasma 12.0 ug/mL 2.0-20.0 [facility] ([facility] ) Testing on this sample was performed by homogeneous enzyme immunoassay. Detection Limit = 1.0 Performed at: [employer] [address] [id number] Pricing Strategist: Kamila Pineda [facility], Phone: [phone] ID Date Data Source [id number] 06/11/2019 08:29:00 AM EST [facility] ([facility] ) Name Value Range Interpretation Code Description Data Caroline rce(s) Supporting Document(s) Ammonia [Mass/volume] in Blood 27 uMOL/L [facility] ([facility] ) <content>note:<nlbl:demographic_changed> </content>
<content></content> Valproate [Mass/volume] in Serum or Plasma 50.1 UG/ML 50.0-100.0 [facility] ([facility] ) <content>note:<nlbl:demographic_changed> </content>
<content></content> Topiramate [Mass/volume] in Serum or Plasma 9.6 ug/mL 2.0-25.0 [facility] ([facility] ) This test was developed and its performa nce characteristics determined by [facility]. It has not been cleared or approved by the Food and Drug Administration. Detection Limit = 1.0 Lamotrigine [Mass/volume] in Serum or Plasma 13.7 ug/mL 2.0-20.0 MED[facility] ([facility], ) This test was developed and its performa nce characteristics determined by [facility]. It has not been cleared or approved by the Food and Drug Administration. Detection Limit = 1.0 Performed at: [facility] [id number] Pricing Strategist: Geovanny Mao MD, Phone: [phone] Procedure Social History Code Duration Value Status Description Data Source(s ) Smoking 06/09/2020 12:00:00 AM EST Never Smoker completed Never S moker [facility] ([facility]) Smoking 06/09/2020 12:00:00 AM EST Never Smoker completed Never S moker eCW1 ([facility]) Smoking 09/16/2019 12:00:00 AM EDT Never Smoker completed Never S moker eCW1 ([facility]) Smoking 09/16/2019 12:00:00 AM EDT Never Smoker completed Never S moker eCW1 ([facility]) Smoking 09/16/2019 12:00:00 AM EDT Never Smoker completed Never S moker eCW1 ([facility]) Smoking 09/16/2019 12:00:00 AM EDT Never Smoker completed Never S moker eCW1 ([facility]) Smoking 09/16/2019 12:00:00 AM EDT Never Smoker completed Never S moker eCW1 ([facility]) Smoking 09/16/2019 12:00:00 AM EDT Never Smoker completed Never S moker eCW1 ([facility]) Smoking 09/16/2019 12:00:00 AM EDT Never Smoker completed Never S moker eCW1 ([facility]) Smoking 09/16/2019 12:00:00 AM EDT Never Smoker completed Never S moker eCW1 ([facility]) Vital Signs ID Date Data Source UNK Name Value Range Interpretation Code Description Data Source(s) Diastolic blood pressure 64 mm[Hg] 64 mm[Hg] eCW1 ([facility]) Systolic blood pressure 110 mm[Hg] 110 mm[Hg] e CW1 ([facility]) Body temperature 97.2 [degF] 97.2 [degF] eCW1 ( [facility]) Respiratory rate 18 /min 18 /min eCW1 ([facility]) Heart rate 69 /min 69 /min eCW1 ([facility]) Body mass index (BMI) [Ratio] 25.98 kg/m2 25.98 kg/m2 eCW1 ([facility]) Body height 66 [in_i] 66 [in_i] eCW1 ([facility]) Body weight 161 [lb_av] 161 [lb_av] eCW1 ([facility]) Respiratory rate 16 /min 16 /min [facility] ( [facility] ) Heart rate 76 /min 76 /min [facility] ([facility] ) Diastolic blood pressure 70 mm[Hg] 70 mm[Hg] [facility] ([facility] ) Systolic blood pressure 110 mm[Hg] 110 mm[Hg] M EDENT ([facility] ) Body mass index (BMI) [Ratio] 27.4 kg/m2 27.4 k g/m2 [facility] ([facility] Body weight 175.00 [lb_av] 175.00 [lb_av] MEDEN T ([facility] ) Body height 67 [in_i] 67 [in_i] [facility] ([facility] ) 5'7" Diastolic blood pressure 78 mm[Hg] 78 mm[Hg] eCW1 [facility] Systolic blood pressure 127 mm[Hg] 127 mm[Hg] e CW1 ([facility]) Body temperature 97.8 [degF] 97.8 [degF] eCW1 ( [facility]) Respiratory rate 16 /min 16 /min eCW1 ([facility]) Heart rate 89 /min 89 /min eCW1 ([facility]) Body mass index (BMI) [Ratio] 28.24 kg/m2 28.24 kg/m2 eCW1 ([facility]) Body height 66 [in_us] 66 [in_us] eCW1 ([facility]) Body weight Measured [lb_av] eCW1 ([facility]) Respiratory rate 16 /min 16 /min [facility] ( [facility] ) Heart rate 84 /min 84 /min [facility] ([facility] ) Diastolic blood pressure 70 mm[Hg] 70 mm[Hg] [facility] ([facility] ) Systolic blood pressure 110 mm[Hg] 110 mm[Hg] M EDENT ([facility] ) Diastolic blood pressure 78 mm[Hg] 78 mm[Hg] eCW1 [facility] Systolic blood pressure 117 mm[Hg] 117 mm[Hg] e CW1 ([facility]) Body temperature 97.9 [degF] 97.9 [degF] eCW1 ( [facility]) Respiratory rate 18 /min 18 /min eCW1 ([facility]) Heart rate 90 /min 90 /min eCW1 ([facility]) Body mass index (BMI) [Ratio] 30.02 kg/m2 30.02 kg/m2 eCW1 ([facility]) Body height 66 [in_us] 66 [in_us] eCW1 ([facility]) Body weight Measured 186 [lb_av] 186 [lb_av] eC W1 ([facility]) Patient Treatment Plan of Care Planned Activity Planned Date Details Description Data Source (s) Famotidine 20 MG Oral Tablet 04/20/2020 12:00:00 AM EST eCW1 ([facility]) Famotidine 20 MG Oral Tablet 04/20/2020 12:00:00 AM EST eCW1 ([facility]) Famotidine 20 MG Oral Tablet 04/20/2020 12:00:00 AM EST eCW1 ([facility]) May Have - 10/15/2019 12:00:00 AM EDT e CW1 ([facility]) May Have - 10/15/2019 12:00:00 AM EDT e CW1 ([facility]) May Have - 10/15/2019 12:00:00 AM EDT e CW1 ([facility]) May Have - 10/15/2019 12:00:00 AM EDT e CW1 ([facility]) May Have - 10/15/2019 12:00:00 AM EDT e CW1 ([facility]) May Have - 10/15/2019 12:00:00 AM EDT e CW1 ([facility]) May Have - 10/15/2019 12:00:00 AM EDT e CW1 ([facility]) May Have - 10/15/2019 12:00:00 AM EDT e CW1 ([facility]) May Have - 10/15/2019 12:00:00 AM EDT e CW1 ([facility]) Acetaminophen 300 MG / Codeine Phosphate 30 MG Oral Ta blet 09/24/2019 12:00:00 AM EDT eCW1 ([facility]) Acetaminophen 300 MG / Codeine Phosphate 30 MG Oral Ta blet 09/24/2019 12:00:00 AM EDT eCW1 ([facility]) Acetaminophen 300 MG / Codeine Phosphate 30 MG Oral Ta blet 09/24/2019 12:00:00 AM EDT eCW1 ([facility]) Acetaminophen 300 MG / Codeine Phosphate 30 MG Oral Ta blet 09/24/2019 12:00:00 AM EDT eCW1 ([facility]) Acetaminophen 300 MG / Codeine Phosphate 30 MG Oral Ta blet 09/24/2019 12:00:00 AM EDT eCW1 ([facility]) Acetaminophen 300 MG / Codeine Phosphate 30 MG Oral Ta blet 09/24/2019 12:00:00 AM EDT eCW1 ([facility]) Acetaminophen 300 MG / Codeine Phosphate 30 MG Oral Ta blet 09/24/2019 12:00:00 AM EDT eCW1 ([facility]) Acetaminophen 300 MG / Codeine Phosphate 30 MG Oral Ta blet 09/24/2019 12:00:00 AM EDT eCW1 ([facility]) Acetaminophen 300 MG / Codeine Phosphate 30 MG Oral Ta blet 09/24/2019 12:00:00 AM EDT eCW1 ([facility]) Acetaminophen 300 MG / Codeine Phosphate 30 MG Oral Ta blet 09/24/2019 12:00:00 AM EDT eCW1 ([facility]) Acetaminophen 300 MG / Codeine Phosphate 30 MG Oral Ta blet 09/24/2019 12:00:00 AM EDT eCW1 ([facility]) May Have - 09/22/2019 12:00:00 AM EDT e CW1 ([facility]) May Have - 09/22/2019 12:00:00 AM EDT e CW1 ([facility]) May Have - 09/22/2019 12:00:00 AM EDT e CW1 ([facility]) May Have - 09/22/2019 12:00:00 AM EDT e CW1 ([facility]) May Have - 09/22/2019 12:00:00 AM EDT e CW1 ([facility]) May Have - 09/22/2019 12:00:00 AM EDT e CW1 ([facility]) May Have - 09/22/2019 12:00:00 AM EDT e CW1 ([facility]) May Have - 09/22/2019 12:00:00 AM EDT e CW1 ([facility]) May Have - 09/22/2019 12:00:00 AM EDT e CW1 ([facility]) Famotidine 8 MG/ML Oral Suspension 09/18/2019 12:00:00 AM EDT eCW1 ([facility]) Famotidine 8 MG/ML Oral Suspension 09/18/2019 12:00:00 AM EDT eCW1 ([facility]) Famotidine 8 MG/ML Oral Suspension 09/18/2019 12:00:00 AM EDT eCW1 ([facility]) Famotidine 8 MG/ML Oral Suspension 09/18/2019 12:00:00 AM EDT eCW1 ([facility]) Famotidine 8 MG/ML Oral Suspension 09/18/2019 12:00:00 AM EDT eCW1 ([facility]) Famotidine 8 MG/ML Oral Suspension 09/18/2019 12:00:00 AM EDT eCW1 ([facility]) Acetaminophen 32 MG/ML Oral Suspension 09/17/2019 12:00:00 AM EDT eCW1 ([facility]) Acetaminophen 32 MG/ML Oral Suspension 09/17/2019 12:00:00 AM EDT eCW1 ([facility]) Acetaminophen 32 MG/ML Oral Suspension 09/17/2019 12:00:00 AM EDT eCW1 ([facility]) Acetaminophen 32 MG/ML Oral Suspension 09/17/2019 12:00:00 AM EDT eCW1 ([facility]) Acetaminophen 32 MG/ML Oral Suspension 09/17/2019 12:00:00 AM EDT eCW1 ([facility]) Acetaminophen 32 MG/ML Oral Suspension 09/17/2019 12:00:00 AM EDT eCW1 ([facility]) Acetaminophen 32 MG/ML Oral Suspension 09/17/2019 12:00:00 AM EDT eCW1 ([facility]) Acetaminophen 32 MG/ML Oral Suspension 09/17/2019 12:00:00 AM EDT eCW1 ([facility]) Acetaminophen 32 MG/ML Oral Suspension 09/17/2019 12:00:00 AM EDT eCW1 ([facility]) Acetaminophen 32 MG/ML Oral Suspension 09/17/2019 12:00:00 AM EDT eCW1 ([facility]) PredniSONE 5 MG/ML 09/16/2019 12:00:00 AM EDT eCW1 ([facility]) PredniSONE 5 MG/ML 09/16/2019 12:00:00 AM EDT eCW1 ([facility]) PredniSONE 5 MG/ML 09/16/2019 12:00:00 AM EDT eCW1 ([facility]) PredniSONE 5 MG/ML 09/16/2019 12:00:00 AM EDT eCW1 ([facility]) PredniSONE 5 MG/ML 09/16/2019 12:00:00 AM EDT eCW1 ([facility]) PredniSONE 5 MG/ML 09/16/2019 12:00:00 AM EDT eCW1 ([facility]) PredniSONE 5 MG/ML 09/16/2019 12:00:00 AM EDT eCW1 ([facility]) PredniSONE 5 MG/ML 09/16/2019 12:00:00 AM EDT eCW1 ([facility]) PredniSONE 5 MG/ML 09/16/2019 12:00:00 AM EDT eCW1 ([facility]) Triamcinolone Acetonide 1 MG/ML Topical Cream 07/31/2019 12:00:00 A M EDT eCW1 ([facility]) Triamcinolone Acetonide 1 MG/ML Topical Cream 07/31/2019 12:00:00 A M EDT eCW1 ([facility]) Triamcinolone Acetonide 1 MG/ML Topical Cream 07/31/2019 12:00:00 A M EDT eCW1 ([facility]) Triamcinolone Acetonide 1 MG/ML Topical Cream 07/31/2019 12:00:00 A M EDT eCW1 ([facility]) Triamcinolone Acetonide 1 MG/ML Topical Cream 07/31/2019 12:00:00 A M EDT eCW1 ([facility]) Triamcinolone Acetonide 1 MG/ML Topical Cream 07/31/2019 12:00:00 A M EDT eCW1 ([facility]) Triamcinolone Acetonide 1 MG/ML Topical Cream 07/31/2019 12:00:00 A M EDT eCW1 ([facility]) Triamcinolone Acetonide 1 MG/ML Topical Cream 07/31/2019 12:00:00 A M EDT eCW1 ([facility]) Sulfamethoxazole 800 MG / Trimethoprim 160 MG Oral Tab let 07/29/2019 12:00:00 AM EDT eCW1 ([facility]) Sulfamethoxazole 800 MG / Trimethoprim 160 MG Oral Tab let 07/29/2019 12:00:00 AM EDT eCW1 ([facility]) Sulfamethoxazole 800 MG / Trimethoprim 160 MG Oral Tab let 07/29/2019 12:00:00 AM EDT eCW1 ([facility]) Vitamin B12 1000 MCG 07/09/2019 12:00:00 AM EST eCW1 ([facility]) Docusate Sodium 10 MG/ML Oral Suspension 07/09/2019 12:00:00 AM EST eCW1 ([facility]) Vitamin B12 1000 MCG 07/09/2019 12:00:00 AM EST eCW1 ([facility]) Docusate Sodium 10 MG/ML Oral Suspension 07/09/2019 12:00:00 AM EST eCW1 ([facility]) Dura-G Gastrostomy Tube 18FR - 07/07/2019 12:00:00 AM EST eCW1 ([facility]) TEDDY-HYATT Gastrostomy Kit 16FR - 07/07/2019 12:00:00 AM EST eCW1 ([facility]) Ranitidine 15 MG/ML Oral Solution 06/17/2019 12:00:00 AM EST eCW1 ([facility]) Acetaminophen 650 MG 06/10/2019 12:00:00 AM EST eCW1 ([facility])
[2020-06-20] MEDS ORDERED: VANCOMYCIN HCL 1,500 MG in D5W 250 ML IV ONE (11:15)
[2020-06-20] MEDS ORDERED: PIPERACILLIN/TAZOBACTAM SOD 4.5 GM in D5W MINI-BAG PLUS 50 ML IV ONE (11:15)
[2020-06-20] MEDS ORDERED: NS 2,200 ML in IV 1 EA IV ONE (11:15)
--- NOTE | 2020-06-20 11:31 | REP ---
INDICATION: hypotension. COMPARISON: Comparison chest x-ray 22 Sep 2018. TECHNIQUE: Portable upright AP chest radiograph. FINDINGS: There is a severe dextroconvex thoracolumbar scoliosis again noted. Mild cardiomegaly is observed unchanged. Pulmonary vasculature is not increased. No infiltrate is seen. Pleural angles are sharp. 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 IMPRESSION: Cardiomegaly. Severe scoliosis. Otherwise no acute disease.. <Electronically signed by Osmel Osullivan > 06/20/20 1121
[2020-06-20] MEDS ORDERED: ACETAMINOPHEN 650 MG SUPP PR ONE (11:45)
[2020-06-20 11:57] LABS: VENOUS BASE EXCESS -8.2 (-2.0-2.0); VENOUS HCO3 18.8 MEQ/L (23.0-27.0); VENOUS O2 SATURATION 92.3 % (60.0-80.0); VENOUS PARTIAL PRESSURE CO2 43.9 mmHg (38.0-50.0); VENOUS PARTIAL PRESSURE O2 65.5 mmHg (30.0-50.0); VENOUS PH 7.249 UNITS (7.330-7.430); VENOUS STANDARD HCO3 17.8 MEQ/L; VENOUS TOTAL CO2 20.1 MEQ/L (24.0-28.0)
[2020-06-20 11:59] LABS: HEMATOCRIT 47.7 % (42.0-52.0); HEMOGLOBIN 15.1 g/dl (13.5-17.5); MEAN CORPUSCULAR HEMOGLOBIN 32.4 pg (27.0-33.0); MEAN CORPUSCULAR HGB CONC 31.7 g/dl (32.0-36.5); MEAN CORPUSCULAR VOLUME 102.4 fl (80.0-96.0); PLATELET COUNT, AUTOMATED 203 10^3/uL (150-450); RED BLOOD COUNT 4.66 10^6/uL (4.30-6.10)
--- OUTSIDE RECORDS SUMMARY | 2020-06-20 12:01 | CCD ---
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 Role Phone Jae Reardon PA Unavailable [...] J Dixie PA Unavailable Unavailable Trickey, J Idxie PA Unavailable Unavailable Trickey, J Dixie PA Unavailable Unavailable Trickey, J Dixie PA Unavailable Unavailable Trickey, J Dixie PA Unavailable Unavailable Trickey, J Dixie PA Unavailable Unavailable Trickey, J Dixie PA Unavailable Unavailable Trickey, J Dixie PA Unavailable Unavailable Trickey, J Dixie PA Unavailable Unavailable Trickey, J Dixie PA Unavailable Unavailable Trickey, J Dixie PA Unavailable Unavailable Trickey, J Diixe PA Unavailable Unavailable Trickey, J Dixie PA [...] MPAS, PA-C Unavailable Unavailabl e Fish, Karolina [facility], PA-C Unavailable Unavailabl e Fish, Karolina JimenezSaint [facility] Hospital[facility], PA-C Unavailable Unavailabl e Fish, Karolina JimenezSaint [facility], PA-C Unavailable Unavailabl e Fish, Karolina JimenezSaint [facility], PA-C Unavailable Unavailabl e Fish, [facility]ina [facility], PA-C Unavailable Unavailabl e Fish, Karolina [facility], PA-C Unavailable Unavailabl e Fish, Karolina [facility], PA-C Unavailable Unavailabl e Fish, Karolina [facility], PA-C Unavailable Unavailabl e Fish, Karolina [facility], PA-C Unavailable Unavailabl e Fish, Karolina [facility], PA-C Unavailable Unavailabl e Fish, Karolina [facility]enezSaint [facility], PA-C Unavailable Unavailabl e Fish, Karolina [facility], PA-C Unavailable Unavailabl e Fish, Karolina [facility], PA-C Unavailable Unavailabl e Fish, Karolina [facility], PA-C Unavailable Unavailabl e Fish, Karolina [facility], PA-C Unavailable Unavailabl e Fish, Karolina [facility]enez[facility], PA-C Unavailable Unavailabl e Fish, Karolina [facility]enez[facility], PA-C Unavailable Unavailabl e Fish, Karolina [facility]enez[facility], PA-C Unavailable Unavailabl e Fish, Karolina Jimenez[facility], PA-C Unavailable Unavailabl e Dille, E Stacey [...] is protected by Article 27-F of the [facility] Public Health law. If you continue you may have access to information: Regarding HIV / AIDS; Provided by facilities licensed or operated by the [facility] Office of Mental Health; or Provided by the [facility] Office for People With Developmental Disabilities. If such information is present, then the following [facility] mandated warning applies: This information has [...] law may result in a fine or chcf sentence or both. A general authorization for the release of medical or other information is NOT sufficient authorization for further disc losure. Family History Family Member Name Family Member Gender Family Member Status Date o f Status Description Data Source(s) Unknown Male Problem MEDENT ([facility]) () Unknown Male Problem MEDENT ([facility]) Unknown Unknown Problem MEDENT ([facility]) Encounters Encounter Providers Location Date Indications Data Source(s ) Outpatient [address] [facility] [place] [address] 06/09/2020 12:00:00 AM EST eCW1 ([facility]) [place] [address] [facility] [place] [address] 06/09/2020 12:00:00 AM EST eCW1 ([facility]) Unknown [address] [facility] [place] [address] 05/05/2020 12:00:00 AM EST eCW1 ([facility]) Office Visit Attender: Dixie HANDY Main office - [facility] 04/30/2020 10:15:00 AM EST MEDENT ([facility] ) Unknown [address] [facility] [place] [address] 04/22/2020 12:00:00 AM EST eCW1 ([facility]) Unknown [address] [facility] [place] [address] 04/19/2020 12:00:00 AM EST eCW1 ([facility]) Unknown [address] [facility] [place] [address] 03/18/2020 12:00:00 AM EDT eCW1 ([facility]) Outpatient Attender: Dixie HANDY Main office - [facility] n 01/21/2020 11:15:00 AM EDT MEDENT ([facility]) Unknown [address] [facility] [address] 12/03/2019 12:00:00 AM EDT eCW1 ([facility]) [facility] [address] [facility] [address] 12/03/2019 12:00:00 AM EDT eCW1 ([facility]) Unknown [address] [facility] [place] [address] 11/03/2019 12:00:00 AM EDT eCW1 ([facility]) Unknown [address] [facility] [address] 10/31/2019 12:00:00 AM EDT eCW1 ([facility]) Outpatient Attender: Stacey KNOTT 10/28/2019 07:35:[address] [facility] Unknown [address] [facility] [address] 10/23/2019 12:00:00 AM EDT eCW1 ([facility]) Outpatient Attender: Stacey KNOTT 10/18/2019 12:10:25 A M EDT [facility] [address] [facility] [address] 10/15/2019 12:00:00 AM EDT eCW1 ([facility]) [facility] [address] [facility] [address] 10/15/2019 12:00:00 AM EDT eCW1 ([facility]) Office Visit Attender: Dixie HANDY Main office - [facility] n 10/10/2019 11:45:00 AM EDT MEDENT ([facility]) [address] [address] 10/06/2019 12:00:00 AM EDT eCW1 ([facility]) [address] [address] 09/24/2019 12:00:00 AM EDT eCW1 ([facility]) [address] [address] 09/24/2019 12:00:00 AM EDT eCW1 ([facility]) Outpatient Attender: Stacey KNOTT 09/23/2019 10:02:[address] [facility] OFFICE OUTPATIENT NEW 30 MINUTES Attender: Lissy HAAS PA-C Physical Therapy 09/19/2019 01:30:00 PM EDT MEDENT ([facility]) [address] [address] 09/19/2019 12:00:00 AM EDT eCW1 ([facility]) [address] [address] 09/18/2019 12:00:00 AM EDT eCW1 ([facility]) [address] [address] 09/18/2019 12:00:00 AM EDT eCW1 ([facility]) [address] [address] 09/18/2019 12:00:00 AM EDT eCW1 ([facility]) [address] [address] 09/17/2019 12:00:00 AM EDT eCW1 ([facility]) [address] [address] 09/17/2019 12:00:00 AM EDT eCW1 ([facility]) [facility] [place] [address] [facility] [address] 09/16/2019 12:00:00 AM EDT eCW1 ([facility]) [facility] [place] [address] [facility] [address] 09/16/2019 12:00:00 AM EDT eCW1 ([facility]) [facility] [address] [facility] [place] [address] 08/18/2019 12:00:00 AM EDT eCW1 ([facility]) [facility] [place] [address] [facility] [address] 08/07/2019 12:00:00 AM EDT eCW1 ([facility]) [facility] [place] [address] [facility] [address] 08/06/2019 12:00:00 AM EDT eCW1 ([facility]) [facility] [place] [address] [facility] [address] 08/06/2019 12:00:00 AM EDT eCW1 ([facility]) [facility] [place] [address] [facility] [place] [address] 08/05/2019 12:00:00 AM EDT eCW1 ([facility]) [facility] [place] [address] [facility] [address] 07/31/2019 12:00:00 AM EDT eCW1 ([facility]) [facility] [place] [address] [place] [address], [place] [address] 07/31/2019 12:00:00 AM EDT eCW1 ([facility]) [facility] [place] [address] [place] [address], [place] [address] 07/30/2019 12:00:00 AM EDT eCW1 ([facility]) [facility] [place] [address] [place] [address], [place] [address] 07/29/2019 12:00:00 AM EDT eCW1 ([facility]) [address] [address] 07/28/2019 12:00:00 AM EDT eCW1 ([facility]) [address] [address] 07/28/2019 12:00:00 AM EDT eCW1 ([facility]) Outpatient 07/24/2019 01:05:00 PM EST [facility] [address] [address] 07/21/2019 12:00:00 AM EST eCW1 ([facility]) Outpatient Attender: Dixie HANDY Main office - [facility] 07/10/2019 10:15:00 AM EST MEDENT ([facility] ) [address] [address] 07/09/2019 12:00:00 AM EST eCW1 ([facility]) [address] [address] 07/07/2019 12:00:00 AM EST eCW1 ([facility]) [address] [address] 07/07/2019 12:00:00 AM EST eCW1 ([facility]) [address] [address] 06/24/2019 12:00:00 AM EST eCW1 ([facility]) [address] [address] 06/17/2019 12:00:00 AM EST eCW1 ([facility]) [address] [address] 06/10/2019 12:00:00 AM EST eCW1 ([facility]) [address] [address] 06/05/2019 12:00:00 AM EST eCW1 ([facility]) [address] [address] 06/04/2019 12:00:00 AM EST eCW1 ([facility]) [address] [address] 05/05/2019 12:00:00 AM EST eCW1 ([facility]) [address] [address] 04/25/2019 12:00:00 AM EST eCW1 ([facility]) Immunizations Vaccine Date Status Description Data Source(s) COVID-19(given elsewhere) Unspecified 05/26/2020 11:30:00 AM EST co mpleted eCW1 ([facility]) COVID-19(given elsewhere) Unspecified 05/26/2020 11:30:00 AM EST co mpleted eCW1 ([facility]) Medications Medication Brand Name Start Date Product Form Dose Route Admi nistrative Instructions Pharmacy Instructions Status Indications Reaction Description Data Source(s) Famotidine 20 MG Oral Tablet Famotidine 20 MG 04/20/2020 12:00:00 A M EST 0.5 {tablet} active Famotidine 20 MG eCW1 ( [facility]) Famotidine 20 MG Oral Tablet Famotidine 20 MG 04/20/2020 12:00:00 A M EST 0.5 {tablet} active Famotidine 20 MG eCW1 ( [facility]) Famotidine 20 MG Oral Tablet Famotidine 20 MG 04/20/2020 12:00:00 A M EST 0.5 {tablet} active Famotidine 20 MG eCW1 ( [facility]) Famotidine 20 MG Oral Tablet Famotidine 20 MG 04/20/2020 12:00:00 A M EST 0.5 {tablet} active Famotidine 20 MG eCW1 ( [facility]) Famotidine 20 MG Oral Tablet Famotidine 20 MG 04/20/2020 12:00:00 A M EST 0.5 {tablet} active Famotidine 20 MG eCW1 ( [facility]) May Have - UNK 10/15/2019 12:00:00 AM EDT active May Have - eCW1 ([facility]) May Have - UNK 10/15/2019 12:00:00 AM EDT active May Have - eCW1 ([facility]) May Have - UNK 10/15/2019 12:00:00 AM EDT active May Have - eCW1 ([facility]) May Have - UNK 10/15/2019 12:00:00 AM EDT active May Have - eCW1 ([facility]) May Have - UNK 10/15/2019 12:00:00 AM EDT active May Have - eCW1 ([facility]) May Have - UNK 10/15/2019 12:00:00 AM EDT active as directed eCW1 ([facility]) May Have - UNK 10/15/2019 12:00:00 AM EDT active May Have - eCW1 ([facility]) May Have - UNK 10/15/2019 12:00:00 AM EDT active May Have - eCW1 ([facility]) May Have - UNK 10/15/2019 12:00:00 AM EDT active May Have - eCW1 ([facility]) May Have - UNK 10/15/2019 12:00:00 AM EDT active May Have - eCW1 ([facility]) May Have - UNK 10/15/2019 12:00:00 AM EDT active May Have - eCW1 ([facility]) Acetaminophen 300 MG / Codeine Phosphate 30 MG Oral Tablet Acetaminophen-Codeine #3 300-30 MG Acetaminophen-Codeine #3 300-30 MG 09/24/2019 12:00:00 AM EDT active please given 300mg-3 0mg in 12.5 ml eCW1 ([facility]) Acetaminophen 300 MG / Codeine Phosphate 30 MG Oral Tablet Acetaminophen-Codeine #3 300-30 MG Acetaminophen-Codeine #3 300-30 MG 09/24/2019 12:00:00 AM EDT active Acetaminophen-Codein e #3 300-30 MG eCW1 ([facility]) Acetaminophen 300 MG / Codeine Phosphate 30 MG Oral Tablet Acetaminophen-Codeine #3 300-30 MG Acetaminophen-Codeine #3 300-30 MG 09/24/2019 12:00:00 AM EDT active Acetaminophen-Codein e #3 300-30 MG eCW1 ([facility]) Acetaminophen 300 MG / Codeine Phosphate 30 MG Oral Tablet Acetaminophen-Codeine #3 300-30 MG Acetaminophen-Codeine #3 300-30 MG 09/24/2019 12:00:00 AM EDT active please given 300mg-3 0mg in 12.5 ml eCW1 ([facility]) Acetaminophen 300 MG / Codeine Phosphate 30 MG Oral Tablet Acetaminophen-Codeine #3 300-30 MG Acetaminophen-Codeine #3 300-30 MG 09/24/2019 12:00:00 AM EDT active Acetaminophen-Codein e #3 300-30 MG eCW1 ([facility]) Acetaminophen 300 MG / Codeine Phosphate 30 MG Oral Tablet Acetaminophen-Codeine #3 300-30 MG Acetaminophen-Codeine #3 300-30 MG 09/24/2019 12:00:00 AM EDT active Acetaminophen-Codein e #3 300-30 MG eCW1 ([facility]) Acetaminophen 300 MG / Codeine Phosphate 30 MG Oral Tablet Acetaminophen-Codeine #3 300-30 MG Acetaminophen-Codeine #3 300-30 MG 09/24/2019 12:00:00 AM EDT active Acetaminophen-Codein e #3 300-30 MG eCW1 ([facility]) Acetaminophen 300 MG / Codeine Phosphate 30 MG Oral Tablet Acetaminophen-Codeine #3 300-30 MG Acetaminophen-Codeine #3 300-30 MG 09/24/2019 12:00:00 AM EDT active please given 300mg-3 0mg in 12.5 ml eCW1 ([facility]) Acetaminophen 300 MG / Codeine Phosphate 30 MG Oral Tablet Acetaminophen-Codeine #3 300-30 MG Acetaminophen-Codeine #3 300-30 MG 09/24/2019 12:00:00 AM EDT active Acetaminophen-Codein e #3 300-30 MG eCW1 ([facility]) Acetaminophen 300 MG / Codeine Phosphate 30 MG Oral Tablet Acetaminophen-Codeine #3 300-30 MG Acetaminophen-Codeine #3 300-30 MG 09/24/2019 12:00:00 AM EDT active Acetaminophen-Codein e #3 300-30 MG eCW1 ([facility]) Acetaminophen 300 MG / Codeine Phosphate 30 MG Oral Tablet Acetaminophen-Codeine #3 300-30 MG Acetaminophen-Codeine #3 300-30 MG 09/24/2019 12:00:00 AM EDT active Acetaminophen-Codein e #3 300-30 MG eCW1 ([facility]) Acetaminophen 300 MG / Codeine Phosphate 30 MG Oral Tablet Acetaminophen-Codeine #3 300-30 MG Acetaminophen-Codeine #3 300-30 MG 09/24/2019 12:00:00 AM EDT active Acetaminophen-Codein e #3 300-30 MG eCW1 ([facility]) Acetaminophen 300 MG / Codeine Phosphate 30 MG Oral Tablet Acetaminophen-Codeine #3 300-30 MG Acetaminophen-Codeine #3 300-30 MG 09/24/2019 12:00:00 AM EDT active Acetaminophen-Codein e #3 300-30 MG eCW1 ([facility]) May Have - UNK 09/22/2019 12:00:00 AM EDT active May Have - eCW1 ([facility]) May Have - UNK 09/22/2019 12:00:00 AM EDT active May Have - eCW1 ([facility]) May Have - UNK 09/22/2019 12:00:00 AM EDT active May Have - eCW1 ([facility]) May Have - UNK 09/22/2019 12:00:00 AM EDT active May Have - eCW1 ([facility]) May Have - UNK 09/22/2019 12:00:00 AM EDT active May Have - eCW1 ([facility]) May Have - UNK 09/22/2019 12:00:00 AM EDT active May Have - eCW1 ([facility]) May Have - UNK 09/22/2019 12:00:00 AM EDT active as directed eCW1 ([facility]) May Have - UNK 09/22/2019 12:00:00 AM EDT active May Have - eCW1 ([facility]) May Have - UNK 09/22/2019 12:00:00 AM EDT active May Have - eCW1 ([facility]) May Have - UNK 09/22/2019 12:00:00 AM EDT active May Have - eCW1 ([facility]) May Have - UNK 09/22/2019 12:00:00 AM EDT active May Have - eCW1 ([facility]) Famotidine 8 MG/ML Oral Suspension Famotidine 40 MG/5ML Famo tidine 40 MG/5ML 09/18/2019 12:00:00 AM EDT active 1.25 ml eCW1 ([facility]) Famotidine 8 MG/ML Oral Suspension Famotidine 40 MG/5ML Famo tidine 40 MG/5ML 09/18/2019 12:00:00 AM EDT 1.25 {ml} active Famotidine 40 MG/5ML eCW1 ([facility]) Famotidine 8 MG/ML Oral Suspension Famotidine 40 MG/5ML Famo tidine 40 MG/5ML 09/18/2019 12:00:00 AM EDT 1.25 {ml} active Famotidine 40 MG/5ML eCW1 ([facility]) Famotidine 8 MG/ML Oral Suspension Famotidine 40 MG/5ML Famo tidine 40 MG/5ML 09/18/2019 12:00:00 AM EDT 1.25 {ml} active Famotidine 40 MG/5ML eCW1 ([facility]) Famotidine 8 MG/ML Oral Suspension Famotidine 40 MG/5ML Famo tidine 40 MG/5ML 09/18/2019 12:00:00 AM EDT 1.25 {ml} active Famotidine 40 MG/5ML eCW1 ([facility]) Famotidine 8 MG/ML Oral Suspension Famotidine 40 MG/5ML Famo tidine 40 MG/5ML 09/18/2019 12:00:00 AM EDT 1.25 {ml} active Famotidine 40 MG/5ML eCW1 ([facility]) Acetaminophen 32 MG/ML Oral Suspension Acetaminophen 6 50 MG/20.3ML Acetaminophen 650 MG/20.3ML 09/17/2019 12:00:00 AM EDT 20.3 {ml_as_needed} active Acetaminophen 650 MG/20.3ML eCW1 ([facility]) Acetaminophen 32 MG/ML Oral Suspension Acetaminophen 6 50 MG/20.3ML Acetaminophen 650 MG/20.3ML 09/17/2019 12:00:00 AM EDT 20.3 {ml_as_needed} active Acetaminophen 650 MG/20.3ML eCW1 ([facility]) Acetaminophen 32 MG/ML Oral Suspension Acetaminophen 6 50 MG/20.3ML Acetaminophen 650 MG/20.3ML 09/17/2019 12:00:00 AM EDT 20.3 {ml_as_needed} active Acetaminophen 650 MG/20.3ML eCW1 ([facility]) Acetaminophen 32 MG/ML Oral Suspension Acetaminophen 6 50 MG/20.3ML Acetaminophen 650 MG/20.3ML 09/17/2019 12:00:00 AM EDT 20.3 {ml_as_needed} active Acetaminophen 650 MG/20.3ML eCW1 ([facility]) Acetaminophen 32 MG/ML Oral Suspension Acetaminophen 6 50 MG/20.3ML Acetaminophen 650 MG/20.3ML 09/17/2019 12:00:00 AM EDT active 20.3 ml as needed eCW1 ([facility]) Acetaminophen 32 MG/ML Oral Suspension Acetaminophen 6 50 MG/20.3ML Acetaminophen 650 MG/20.3ML 09/17/2019 12:00:00 AM EDT 20.3 {ml_as_needed} active Acetaminophen 650 MG/20.3ML eCW1 ([facility]) Acetaminophen 32 MG/ML Oral Suspension Acetaminophen 6 50 MG/20.3ML Acetaminophen 650 MG/20.3ML 09/17/2019 12:00:00 AM EDT 20.3 {ml_as_needed} active Acetaminophen 650 MG/20.3ML eCW1 ([facility]) Acetaminophen 32 MG/ML Oral Suspension Acetaminophen 6 50 MG/20.3ML Acetaminophen 650 MG/20.3ML 09/17/2019 12:00:00 AM EDT 20.3 {ml_as_needed} active Acetaminophen 650 MG/20.3ML eCW1 ([facility]) Acetaminophen 32 MG/ML Oral Suspension Acetaminophen 6 50 MG/20.3ML Acetaminophen 650 MG/20.3ML 09/17/2019 12:00:00 AM EDT 20.3 {ml_as_needed} active Acetaminophen 650 MG/20.3ML eCW1 ([facility]) Acetaminophen 32 MG/ML Oral Suspension Acetaminophen 6 50 MG/20.3ML Acetaminophen 650 MG/20.3ML 09/17/2019 12:00:00 AM EDT 20.3 {ml_as_needed} active Acetaminophen 650 MG/20.3ML eCW1 ([facility]) Acetaminophen 32 MG/ML Oral Suspension Acetaminophen 6 50 MG/20.3ML Acetaminophen 650 MG/20.3ML 09/17/2019 12:00:00 AM EDT 20.3 {ml_as_needed} active Acetaminophen 650 MG/20.3ML eCW1 ([facility]) Acetaminophen 32 MG/ML Oral Suspension Acetaminophen 6 50 MG/20.3ML Acetaminophen 650 MG/20.3ML 09/17/2019 12:00:00 AM EDT active 20.3 ml as needed eCW1 ([facility]) PredniSONE 5 MG/ML UNK 09/16/2019 12:00:00 AM EDT 8.0 {ml} active PredniSONE 5 MG/ML eCW1 ([facility]) PredniSONE 5 MG/ML UNK 09/16/2019 12:00:00 AM EDT 8.0 {ml} suspended PredniSONE 5 MG/ML eCW1 ([facility]) PredniSONE 5 MG/ML UNK 09/16/2019 12:00:00 AM EDT 8.0 {ml} active PredniSONE 5 MG/ML eCW1 ([facility]) PredniSONE 5 MG/ML UNK 09/16/2019 12:00:00 AM EDT 8.0 {ml} active PredniSONE 5 MG/ML eCW1 ([facility]) PredniSONE 5 MG/ML UNK 09/16/2019 12:00:00 AM EDT 8.0 {ml} active PredniSONE 5 MG/ML eCW1 ([facility]) PredniSONE 5 MG/ML UNK 09/16/2019 12:00:00 AM EDT 8.0 {ml} active PredniSONE 5 MG/ML eCW1 ([facility]) PredniSONE 5 MG/ML UNK 09/16/2019 12:00:00 AM EDT active 8 ml eCW1 ([facility]) PredniSONE 5 MG/ML UNK 09/16/2019 12:00:00 AM EDT 8.0 {ml} active PredniSONE 5 MG/ML eCW1 ([facility]) PredniSONE 5 MG/ML UNK 09/16/2019 12:00:00 AM EDT 8.0 {ml} active PredniSONE 5 MG/ML eCW1 ([facility]) PredniSONE 5 MG/ML UNK 09/16/2019 12:00:00 AM EDT 8.0 {ml} active PredniSONE 5 MG/ML eCW1 ([facility]) PredniSONE 5 MG/ML UNK 09/16/2019 12:00:00 AM EDT 8.0 {ml} suspended PredniSONE 5 MG/ML eCW1 ([facility]) Triamcinolone Acetonide 1 MG/ML Topical Cream Triamcin olone Acetonide 0.1 % Triamcinolone Acetonide 0.1 % 07/31/2019 12:00:00 AM EDT active 1 application eCW1 ([facility]) Triamcinolone Acetonide 1 MG/ML Topical Cream Triamcin olone Acetonide 0.1 % Triamcinolone Acetonide 0.1 % 07/31/2019 12:00:00 AM EDT 1.0 {appli cation} active Triamcinolone Acetonide 0 .1 % eCW1 ([facility]) Triamcinolone Acetonide 1 MG/ML Topical Cream Triamcin olone Acetonide 0.1 % Triamcinolone Acetonide 0.1 % 07/31/2019 12:00:00 AM EDT 1.0 {appli cation} active Triamcinolone Acetonide 0 .1 % eCW1 ([facility]) Triamcinolone Acetonide 1 MG/ML Topical Cream Triamcin olone Acetonide 0.1 % Triamcinolone Acetonide 0.1 % 07/31/2019 12:00:00 AM EDT 1.0 {appli cation} active Triamcinolone Acetonide 0 .1 % eCW1 ([facility]) Triamcinolone Acetonide 1 MG/ML Topical Cream Triamcin olone Acetonide 0.1 % Triamcinolone Acetonide 0.1 % 07/31/2019 12:00:00 AM EDT active 1 application eCW1 ([facility]) Triamcinolone Acetonide 1 MG/ML Topical Cream Triamcin olone Acetonide 0.1 % Triamcinolone Acetonide 0.1 % 07/31/2019 12:00:00 AM EDT 1.0 {appli cation} active Triamcinolone Acetonide 0 .1 % eCW1 ([facility]) Triamcinolone Acetonide 1 MG/ML Topical Cream Triamcin olone Acetonide 0.1 % Triamcinolone Acetonide 0.1 % 07/31/2019 12:00:00 AM EDT 1.0 {appli cation} active Triamcinolone Acetonide 0 .1 % eCW1 ([facility]) Triamcinolone Acetonide 1 MG/ML Topical Cream Triamcin olone Acetonide 0.1 % Triamcinolone Acetonide 0.1 % 07/31/2019 12:00:00 AM EDT active 1 application eCW1 ([facility]) Triamcinolone Acetonide 1 MG/ML Topical Cream Triamcin olone Acetonide 0.1 % Triamcinolone Acetonide 0.1 % 07/31/2019 12:00:00 AM EDT 1.0 {appli cation} active Triamcinolone Acetonide 0 .1 % eCW1 ([facility]) Triamcinolone Acetonide 1 MG/ML Topical Cream Triamcin olone Acetonide 0.1 % Triamcinolone Acetonide 0.1 % 07/31/2019 12:00:00 AM EDT active 1 application eCW1 ([facility]) Triamcinolone Acetonide 1 MG/ML Topical Cream Triamcin olone Acetonide 0.1 % Triamcinolone Acetonide 0.1 % 07/31/2019 12:00:00 AM EDT active 1 application eCW1 ([facility]) Triamcinolone Acetonide 1 MG/ML Topical Cream Triamcin olone Acetonide 0.1 % Triamcinolone Acetonide 0.1 % 07/31/2019 12:00:00 AM EDT 1.0 {appli cation} active Triamcinolone Acetonide 0 .1 % eCW1 ([facility]) Triamcinolone Acetonide 1 MG/ML Topical Cream Triamcin olone Acetonide 0.1 % Triamcinolone Acetonide 0.1 % 07/31/2019 12:00:00 AM EDT 1.0 {appli cation} active Triamcinolone Acetonide 0 .1 % eCW1 ([facility]) Triamcinolone Acetonide 1 MG/ML Topical Cream Triamcin olone Acetonide 0.1 % Triamcinolone Acetonide 0.1 % 07/31/2019 12:00:00 AM EDT 1.0 {appli cation} active Triamcinolone Acetonide 0 .1 % eCW1 ([facility]) Triamcinolone Acetonide 1 MG/ML Topical Cream Triamcin olone Acetonide 0.1 % Triamcinolone Acetonide 0.1 % 07/31/2019 12:00:00 AM EDT 1.0 {appli cation} active Triamcinolone Acetonide 0 .1 % eCW1 ([facility]) Sulfamethoxazole 800 MG / Trimethoprim 1 60 MG Oral Tablet Sulfamethoxazole- Trimethoprim 800-160 MG Sulfamethoxazole-Trimethoprim 800-160 MG 07/29/2019 12:00:00 AM EDT 1.0 {tablet} active Sulfamethoxazole-Trimethoprim 800-160 MG eCW1 ([facility]) Sulfamethoxazole 800 MG / Trimethoprim 1 60 MG Oral Tablet Sulfamethoxazole- Trimethoprim 800-160 MG Sulfamethoxazole-Trimethoprim 800-160 MG 07/29/2019 12:00:00 AM EDT 1.0 {tablet} active Sulfamethoxazole-Trimethoprim 800-160 MG eCW1 ([facility]) Sulfamethoxazole 800 MG / Trimethoprim 1 60 MG Oral Tablet Sulfamethoxazole- Trimethoprim 800-160 MG Sulfamethoxazole-Trimethoprim 800-160 MG 07/29/2019 12:00:00 AM EDT 1.0 {tablet} active Sulfamethoxazole-Trimethoprim 800-160 MG eCW1 ([facility]) Sulfamethoxazole 800 MG / Trimethoprim 1 60 MG Oral Tablet Sulfamethoxazole- Trimethoprim 800-160 MG Sulfamethoxazole-Trimethoprim 800-160 MG 07/29/2019 12:00:00 AM EDT active 1 tablet eCW1 ([facility]) Sulfamethoxazole 800 MG / Trimethoprim 1 60 MG Oral Tablet Sulfamethoxazole- Trimethoprim 800-160 MG Sulfamethoxazole-Trimethoprim 800-160 MG 07/29/2019 12:00:00 AM EDT 1.0 {tablet} active Sulfamethoxazole-Trimethoprim 800-160 MG eCW1 ([facility]) Sulfamethoxazole 800 MG / Trimethoprim 1 60 MG Oral Tablet Sulfamethoxazole- Trimethoprim 800-160 MG Sulfamethoxazole-Trimethoprim 800-160 MG 07/29/2019 12:00:00 AM EDT active 1 tablet eCW1 ([facility]) Sulfamethoxazole 800 MG / Trimethoprim 1 60 MG Oral Tablet Sulfamethoxazole- Trimethoprim 800-160 MG Sulfamethoxazole-Trimethoprim 800-160 MG 07/29/2019 12:00:00 AM EDT active 1 tablet eCW1 ([facility]) Sulfamethoxazole 800 MG / Trimethoprim 1 60 MG Oral Tablet Sulfamethoxazole- Trimethoprim 800-160 MG Sulfamethoxazole-Trimethoprim 800-160 MG 07/29/2019 12:00:00 AM EDT 1.0 {tablet} active Sulfamethoxazole-Trimethoprim 800-160 MG eCW1 ([facility]) Sulfamethoxazole 800 MG / Trimethoprim 1 60 MG Oral Tablet Sulfamethoxazole- Trimethoprim 800-160 MG Sulfamethoxazole-Trimethoprim 800-160 MG 07/29/2019 12:00:00 AM EDT 1.0 {tablet} suspended Sulfamethoxazole-Trimethoprim 800-160 MG eCW1 ([facility]) Sulfamethoxazole 800 MG / Trimethoprim 1 60 MG Oral Tablet Sulfamethoxazole- Trimethoprim 800-160 MG Sulfamethoxazole-Trimethoprim 800-160 MG 07/29/2019 12:00:00 AM EDT 1.0 {tablet} active Sulfamethoxazole-Trimethoprim 800-160 MG eCW1 ([facility]) Sulfamethoxazole 800 MG / Trimethoprim 1 60 MG Oral Tablet Sulfamethoxazole- Trimethoprim 800-160 MG Sulfamethoxazole-Trimethoprim 800-160 MG 07/29/2019 12:00:00 AM EDT 1.0 {tablet} active Sulfamethoxazole-Trimethoprim 800-160 MG eCW1 ([facility]) Sulfamethoxazole 800 MG / Trimethoprim 1 60 MG Oral Tablet Sulfamethoxazole- Trimethoprim 800-160 MG Sulfamethoxazole-Trimethoprim 800-160 MG 07/29/2019 12:00:00 AM EDT 1.0 {tablet} suspended Sulfamethoxazole-Trimethoprim 800-160 MG eCW1 ([facility]) Sulfamethoxazole 800 MG / Trimethoprim 1 60 MG Oral Tablet Sulfamethoxazole- Trimethoprim 800-160 MG Sulfamethoxazole-Trimethoprim 800-160 MG 07/29/2019 12:00:00 AM EDT 1.0 {tablet} active Sulfamethoxazole-Trimethoprim 800-160 MG eCW1 ([facility]) Sulfamethoxazole 800 MG / Trimethoprim 1 60 MG Oral Tablet Sulfamethoxazole- Trimethoprim 800-160 MG Sulfamethoxazole-Trimethoprim 800-160 MG 07/29/2019 12:00:00 AM EDT active 1 tablet eCW1 ([facility]) Docusate Sodium 10 MG/ML Oral Suspension Diocto 50 MG/5ML Di octo 50 MG/5ML 07/09/2019 12:00:00 AM EST active TAKE 10 MILLILITERS VIA G-TUBE ONCE DAILY DIRECTED eCW1 ([facility]) Docusate Sodium 10 MG/ML Oral Suspension Diocto 50 MG/5ML Di octo 50 MG/5ML 07/09/2019 12:00:00 AM EST active Diocto 50 MG/5ML eCW1 ([facility]) Vitamin B12 1000 MCG Vitamin B12 1000 MCG 07/09/2019 12:00:00 AM ES T 1.0 {tablet} active Vitamin B12 1000 MCG eC W1 ([facility]) Docusate Sodium 10 MG/ML Oral Suspension Diocto 50 MG/5ML Di octo 50 MG/5ML 07/09/2019 12:00:00 AM EST active Diocto 50 MG/5ML eCW1 ([facility]) Vitamin B12 1000 MCG Vitamin B12 1000 MCG 07/09/2019 12:00:00 AM ES T 1.0 {tablet} active Vitamin B12 1000 MCG eC W1 ([facility]) Docusate Sodium 10 MG/ML Oral Suspension Diocto 50 MG/5ML Di octo 50 MG/5ML 07/09/2019 12:00:00 AM EST active Diocto 50 MG/5ML eCW1 ([facility]) Docusate Sodium 10 MG/ML Oral Suspension Diocto 50 MG/5ML Di octo 50 MG/5ML 07/09/2019 12:00:00 AM EST active TAKE 10 MILLILITERS VIA G-TUBE ONCE DAILY DIRECTED eCW1 ([facility]) Vitamin B12 1000 MCG Vitamin B12 1000 MCG 07/09/2019 12:00:00 AM ES T 1.0 {tablet} active Vitamin B12 1000 MCG eC W1 ([facility]) Docusate Sodium 10 MG/ML Oral Suspension Diocto 50 MG/5ML Di octo 50 MG/5ML 07/09/2019 12:00:00 AM EST active Diocto 50 MG/5ML eCW1 ([facility]) Vitamin B12 1000 MCG Vitamin B12 1000 MCG 07/09/2019 12:00:00 AM ES T 1.0 {tablet} active Vitamin B12 1000 MCG eC W1 ([facility]) Vitamin B12 1000 MCG Vitamin B12 1000 MCG 07/09/2019 12:00:00 AM ES T 1.0 {tablet} active Vitamin B12 1000 MCG eC W1 ([facility]) Vitamin B12 1000 MCG Vitamin B12 1000 MCG 07/09/2019 12:00:00 AM ES T 1.0 {tablet} active Vitamin B12 1000 MCG eC W1 ([facility]) Docusate Sodium 10 MG/ML Oral Suspension Diocto 50 MG/5ML Di octo 50 MG/5ML 07/09/2019 12:00:00 AM EST active Diocto 50 MG/5ML eCW1 ([facility]) Vitamin B12 1000 MCG Vitamin B12 1000 MCG 07/09/2019 12:00:00 AM ES T 1.0 {tablet} active Vitamin B12 1000 MCG eC W1 ([facility]) Vitamin B12 1000 MCG Vitamin B12 1000 MCG 07/09/2019 12:00:00 AM ES T 1.0 {tablet} active Vitamin B12 1000 MCG eC W1 ([facility]) Vitamin B12 1000 MCG Vitamin B12 1000 MCG 07/09/2019 12:00:00 AM ES T 1.0 {tablet} active Vitamin B12 1000 MCG eC W1 ([facility]) Docusate Sodium 10 MG/ML Oral Suspension Diocto 50 MG/5ML Di octo 50 MG/5ML 07/09/2019 12:00:00 AM EST active Diocto 50 MG/5ML eCW1 ([facility]) Docusate Sodium 10 MG/ML Oral Suspension Diocto 50 MG/5ML Di octo 50 MG/5ML 07/09/2019 12:00:00 AM EST active Diocto 50 MG/5ML eCW1 ([facility]) Vitamin B12 1000 MCG Vitamin B12 1000 MCG 07/09/2019 12:00:00 AM ES T 1.0 {tablet} active Vitamin B12 1000 MCG eC W1 ([facility]) Vitamin B12 1000 MCG Vitamin B12 1000 MCG 07/09/2019 12:00:00 AM EST active 1 tablet eCW1 ([facility]) Vitamin B12 1000 MCG Vitamin B12 1000 MCG 07/09/2019 12:00:00 AM EST active 1 tablet eCW1 ([facility]) Vitamin B12 1000 MCG Vitamin B12 1000 MCG 07/09/2019 12:00:00 AM EST active 1 tablet eCW1 ([facility]) Docusate Sodium 10 MG/ML Oral Suspension Diocto 50 MG/5ML Di octo 50 MG/5ML 07/09/2019 12:00:00 AM EST active Diocto 50 MG/5ML eCW1 ([facility]) Docusate Sodium 10 MG/ML Oral Suspension Diocto 50 MG/5ML Di octo 50 MG/5ML 07/09/2019 12:00:00 AM EST active Diocto 50 MG/5ML eCW1 ([facility]) Docusate Sodium 10 MG/ML Oral Suspension Diocto 50 MG/5ML Di octo 50 MG/5ML 07/09/2019 12:00:00 AM EST active Diocto 50 MG/5ML eCW1 ([facility]) Docusate Sodium 10 MG/ML Oral Suspension Diocto 50 MG/5ML Di octo 50 MG/5ML 07/09/2019 12:00:00 AM EST active TAKE 10 MILLILITERS VIA G-TUBE ONCE DAILY DIRECTED eCW1 ([facility]) TEDDY-HYATT Gastrostomy Kit 16FR - TEDDY-HYATT Gastrostomy Kit FR 07/07/2019 12:00:00 AM EST active TEDDY-HYATT Gastrostomy Kit 16FR - eCW1 ([facility]) TEDDY-HYATT Gastrostomy Kit 16FR - TEDDY-HYATT Gastrostomy Kit FR 07/07/2019 12:00:00 AM EST active TEDDY-HYATT Gastrostomy Kit 16FR - eCW1 ([facility]) TEDDY-HYATT Gastrostomy Kit 16FR - TEDDY-HYATT Gastrostomy Kit FR 07/07/2019 12:00:00 AM EST active TEDDY-HYATT Gastrostomy Kit 16FR - eCW1 ([facility]) TEDDY-HYATT Gastrostomy Kit 16FR - TEDDY-HYATT Gastrostomy Kit FR 07/07/2019 12:00:00 AM EST active TEDDY-HYATT Gastrostomy Kit 16FR - eCW1 ([facility]) TEDDY-HYATT Gastrostomy Kit 16FR - TEDDY-HYATT Gastrostomy Kit 07/07/2019 12:00:00 AM EST active Replace every 6 months or PRN for any complications eCW1 ([facility]) TEDDY-HYATT Gastrostomy Kit 16FR - TEDDY-HYATT Gastrostomy Kit 07/07/2019 12:00:00 AM EST active TEDDY-HYATT Gastrostomy Kit 16FR - eCW1 ([facility]) TEDDY-HYATT Gastrostomy Kit 16FR - TEDDY-HYATT Gastrostomy Kit FR 07/07/2019 12:00:00 AM EST active TEDDY-HYATT Gastrostomy Kit 16FR - eCW1 ([facility]) TEDDY-HYATT Gastrostomy Kit 16FR - TEDDY-HYATT Gastrostomy Kit FR 07/07/2019 12:00:00 AM EST active TEDDY-HYATT Gastrostomy Kit 16FR - eCW1 ([facility]) TEDDY-HYATT Gastrostomy Kit 16FR - TEDDY-HYATT Gastrostomy Kit FR 07/07/2019 12:00:00 AM EST active TEDDY-HYATT Gastrostomy Kit 16FR - eCW1 ([facility]) TEDDY-HYATT Gastrostomy Kit 16FR - TEDDY-HYATT Gastrostomy Kit 16FR - 07/07/2019 12:00:00 AM EST active TEDDY-HYATT Gastrostomy Kit 16FR - eCW1 ([facility]) TEDDY-HYATT Gastrostomy Kit 16FR - TEDDY-HYATT Gastrostomy Kit 16FR - 07/07/2019 12:00:00 AM EST active TEDDY-HYATT Gastrostomy Kit 16FR - eCW1 ([facility]) TDEDY-HYATT Gastrostomy Kit 16FR - TEDDY-HYATT Gastrostomy Kit 16FR - 07/07/2019 12:00:00 AM EST active Replace every 6 months or PRN for any complications eCW1 ([facility]) Dura-G Gastrostomy Tube 18FR - Dura-G Gastrostomy Tube 18FR - 07/07/2019 12:00:00 AM EST active Replace every 6 months or as needed for complication eCW1 ([facility]) Ranitidine 15 MG/ML Oral Solution Ranitidine HCl 150 M G/10ML Ranitidine HCl 150 MG/10ML 06/17/2019 12:00:00 AM EST active 10 ml as needed eCW1 ([facility]) Ranitidine 15 MG/ML Oral Solution Ranitidine HCl 150 M G/10ML Ranitidine HCl 150 MG/10ML 06/17/2019 12:00:00 AM EST active 10 ml as needed eCW1 ([facility]) Acetaminophen 650 MG Rectal Suppository Acetaminophen 650 MG 06/10/2019 12:00:00 AM EST active Acetaminophen 650 MG eCW1 ([facility]) Acetaminophen 650 MG Rectal Suppository Acetaminophen 650 MG 06/10/2019 12:00:00 AM EST active Acetaminophen 650 MG eCW1 ([facility]) Acetaminophen 650 MG Rectal Suppository Acetaminophen 650 MG 06/10/2019 12:00:00 AM EST active Acetaminophen 650 MG eCW1 ([facility]) Acetaminophen 650 MG Rectal Suppository Acetaminophen 650 MG 06/10/2019 12:00:00 AM EST active Acetaminophen 650 MG eCW1 ([facility]) Acetaminophen 650 MG Rectal Suppository Acetaminophen 650 MG 06/10/2019 12:00:00 AM EST active 1 suppositories a s needed eCW1 ([facility]) Acetaminophen 650 MG Rectal Suppository Acetaminophen 650 MG 06/10/2019 12:00:00 AM EST active Acetaminophen 650 MG eCW1 ([facility]) Acetaminophen 650 MG Rectal Suppository Acetaminophen 650 MG 06/10/2019 12:00:00 AM EST active Acetaminophen 650 MG eCW1 ([facility]) Acetaminophen 650 MG Rectal Suppository Acetaminophen 650 MG 06/10/2019 12:00:00 AM EST active Acetaminophen 650 MG eCW1 ([facility]) Acetaminophen 650 MG Rectal Suppository Acetaminophen 650 MG 06/10/2019 12:00:00 AM EST active Acetaminophen 650 MG eCW1 ([facility]) Acetaminophen 650 MG Rectal Suppository Acetaminophen 650 MG 06/10/2019 12:00:00 AM EST active Acetaminophen 650 MG eCW1 ([facility]) Acetaminophen 650 MG Rectal Suppository Acetaminophen 650 MG 06/10/2019 12:00:00 AM EST active Acetaminophen 650 MG eCW1 ([facility]) Acetaminophen 650 MG UNK 06/10/2019 12:00:00 AM EST active 1 suppositories as needed eCW1 ([facility]) Insurance Providers Payer name Policy type / Coverage type Policy ID Covered constitution party ID Covered constitution party's relationship to cummins Policy [employer] Plan Information EMEDNY [id number] SP [id number] MEDICARE [id number] SP [id number] Medicare P [id number] S [id number] Medicaid S UNAVAILABLE S UNAVAILA BLE MEDICAID [id number] SP [id number] MEDICARE C [id number] S [id number] MEDICAID M [id number] S [id number] MEDICAID [id number] SP [id number] MEDICARE [id number] SP [id number] ANS-Medicare Part B [id number] ANSI-Medicaid [id number] ANSI-Medicaid [id number] ANSI-Medicare Part B [id number] ANSI-Medicaid [id number] ANSI-Medicare Part B [id number] ANSI-Medicaid [id number] ANSI-Medicare Part B [id number] ANSI-Medicaid [id number] ANSI-Medicare Part B [id number] MEDICAID M [id number] Self [id number] MEDICARE A [id number] Self [id number] Medicaid Medigap Part B [id number] Self [id number] Medicare Part B Medicare Primary [id number] Self [id number] ANSI-Medicaid [id number] ANSI-Medicare Part B [id number] ANSI-Medicare Part B [id number] ANSI-Medicaid [id number] ANSI-Medicaid [id number] ANSI-Medicare Part B [id number] ANSI-Medicaid [id number] ANSI-Medicare Part B [id number] ANSI-Medicare Part B [id number] ANSI-Medicaid [id number] ANSI-Medicaid [id number] ANSI-Medicare Part B [id number] ANSI-Medicare Part B [id number] ANSI-Medicaid [id number] MEDICARE [id number] SP [id number] ANSI-Medicaid [id number] ANSI-Medicare Part B [id number] ANSI-Medicare Part B [id number] ANSI-Medicaid [id number] ANSI-Medicare Part B [id number] ANSI-Medicaid [id number] Medicaid Medigap Part B [id number] Self [id number] Medicare Part B Medicare Primary [id number] Self [id number] Medicaid Medigap Part B [id number] Self [id number] Medicare Part B Medicare Primary [id number] Self [id number] ANSI-Medicare Part B [id number] ANSI-Medicaid [id number] ANSI-Medicare Part B [id number] ANSI-Medicaid [id number] ANSI-Medicaid [id number] ANSI-Medicare Part B [id number] ANSI-Medicaid [id number] ANSI-Medicare Part B [id number] [place] Part B [id number] Self [id number] [place] Primary [id number] Self [id number] ANSI-Medicaid [id number] ANSI-Medicare Part B [id number] ANSI-Medicare Part B [id number] ANSI-Medicaid [id number] ANSI-Medicare Part B [id number] ANSI-Medicaid [id number] ANSI-Medicare Part B [id number] ANSI-Medicaid [id number] ANSI-Medicare Part B [id number] ANSI-Medicaid [id number] ANSI-Medicare Part B [id number] ANSI-Medicaid [id number] ANSI-Medicaid [id number] ANSI-Medicare Part B [id number] ANSI-Medicare Part B [id number] ANSI-Medicaid [id number] ANSI-Medicare Part B [id number] ANSI-Medicaid [id number] Medicaid Medigap Part B [id number] Self [id number] 93V Medicare Part B Medicare Primary [id number] Self [id number] ANSI-Medicaid [id number] ANSI-Medicare Part B [id number] Medicaid [facility] Part B [id number] Self AN0 [id number] [place] Primary [id number] Self [id number] MEDICARE [id number] ANSI-Medicare Part B [id number] ANSI-Medicaid [id number] ANSI-Medicaid [id number] ANSI-Medicare Part B [id number] ANSI-Medicare Part B [id number] ANSI-Medicaid [id number] ANSI-Medicare Part B [id number] ANSI-Medicaid [id number] ANSI-Medicare Part B [id number] ANSI-Medicaid [id number] ANS-Medicare Part B [id number] ANSI-Medicaid [id number] ANSI-Medicaid [id number] ANSI-Medicare Part B [id number] Medicaid Medigap Part B [id number] Self [id number] 93V Medicare Part B Medicare Primary [id number] Self [id number] MEDICAID [id number] [place] Med[place] Part B [id number] Self AN0 [id number] [place] Primary [id number] Self [id number] [place] B [id number] Self [id number] Medicare [place] Gov[place] Medicare Primary [id number] Self [id number] Medicaid Medigap Part B [id number] Self [id number] 93V Medicare Part B Medicare Primary [id number] Self [id number] [place] Part B [id number] Self AN0 [id number] [place] Primary [id number] Self [id number] Medicaid Medigap Part B [id number] Self [id number] [id number] Medicare Part B Medicare Primary [id number] Self [id number] Medicaid Medigap Part B [id number] Self [id number] 93V Medicare Part B Medicare Primary [id number] Self [id number] MEDICARE C [id number] S [id number] Medicaid Medigap Part B [id number] Self [id number] [id number] Medicare Part B Medicare Primary [id number] Self [id number] MEDICAID [id number] Medicaid Medigap Part B [id number] Self [id number] 93V Medicare Part B Medicare Primary [id number] Self [id number] Medicaid Medigap Part B [id number] Self A [id number] Medicare Part B Medicare Primary [id number] Self [id number] [place] Self Medicare Part B Medicare Primary Self Medicaid Medicaid Self Medicaid [place] Self [place] Medicare Primary Self Medicare Medicare Primary Self Medicaid Dental S [id number] Problems, Conditions, and Diagnoses Code Display Name Description Problem Type Effective Dates Data Source(s) M81.0 49232440 Osteoporosis, unspec ified osteoporosis type, unspecified pathological fracture presence Problem 06/24/2019 12:00:00 AM EST eC W1 ([facility] [facility] M81.0 [id number] Osteoporosis, unspec ified osteoporosis type, unspecified pathological fracture presence Problem 06/24/2019 12:00:00 AM EST eC W1 ([facility]) G40.909 [id number] Seizure disorder Problem 06/04/2019 12:00:00 AM EST eCW1 ([facility]) G40.909 [id number] Seizure disorder Problem 06/04/2019 12:00:00 AM EST eCW1 ([facility]) Surgeries/Procedures Procedure Description Date Indications Data Source(s) RADIOLOGIC EXAMINATION KNEE 1/2 VIEWS 11/25/2019 12:00 :00 AM EDT MEDENT ([facility]) RADIOLOGIC EXAM KNEE COMPLETE 4/MORE VIEWS 10/27/2019 12:00:00 AM EDT [facility] ([facility]) FX Femur Med/Lat Condyle W/O Manipulation 09/26/2019 1 2:00:00 AM EDT [facility] ([facility]) FX Tibia Proximal W/O Manipulation 09/26/2019 12:00:00 AM EDT [facility] ([facility]) RADIOLOGIC EXAM KNEE COMPLETE 4/MORE VIEWS 09/26/2019 12:00:00 AM EDT MEDENT ([facility]) Office Visit, Est Pt., Level 2 FC 09/16/2019 12:00:00 AM EDT eCW1 ([facility]) Office Visit, Est Pt., Level 3 PC 09/16/2019 12:00:00 AM EDT eCW1 ([facility]) Results ID Date Data Source [id number] 03/23/2020 09:39:00 AM EST MEDENT ([facility]) Name Value Range Interpretation Code Description Data Caroline rce(s) Supporting Document(s) Valproate [Mass/volume] in Serum or Plasma 62.8 UG/ML 50.0-100.0 MEDENT ([facility] ) <content>note:<nlbl:demographic_changed> </content>
<content></content> Ammonia [Mass/volume] in Blood 23 uMOL/L MEDENT ([facility] ) <content>note:<nlbl:demographic_changed> </content>
<content></content> Topiramate [Mass/volume] in Serum or Plasma 8.7 ug/mL 2.0-25.0 MEDENT ([facility] ) This test was developed and its performa nce characteristics determined by [facility]. It has not been cleared or approved by the Food and Drug Administration. Detection Limit = 1.0 Lamotrigine [Mass/volume] in Serum or Plasma 11.8 ug/mL 2.0-20.0 MEDENT ([facility] ) Testing on this sample was performed by homogeneous enzyme immunoassay. Detection Limit = 1.0 Performed at: [facility] [address] [id number] Endocrinology Physician: Geovanny Mao MD, Phone: [phone] Performed at: [facility] [address] [place] [id number] Endocrinology Physician: Kamila Pineda [facility], Phone: [phone] ID Date Data Source [id number] 02/12/2020 01:20:00 PM EDT MED[facility] ([facility]) Name Value Range Interpretation Code Description Data Caroline rce(s) Supporting Document(s) Valproate [Mass/volume] in Serum or Plasma 41.9 UG/ML 50.0-100.0 MED[facility] ([facility] ) <content>note:<nlbl:demographic_changed> </content>
<content></content> ID Date Data Source [id number] 02/12/2020 01:16:00 PM EDT MED[facility] ([facility] ) Name Value Range Interpretation Code Description Data Caroline rce(s) Supporting Document(s) Topiramate [Mass/volume] in Serum or Plasma 8.8 ug/mL 2.0-25.0 MEDENT ([facility] ) This test was developed and its performa nce characteristics determined by [facility]. It has not been cleared or approved by the Food and Drug Administration. Detection Limit = 1.0 Performed at: [facility] [address] [id number] Endocrinology Physician: Geovanny Mao MD, Phone: [phone] Ammonia [Mass/volume] in Blood 21 uMOL/L MEDENT ([facility] ) <content>By: LAB DRAW</content>
<con tent>Time: 1254</content>
<content>note:<nlbl:demographic_changed></content>
<sherly LAB DRAW Time: 1254</content>
<content></content> Lamotrigine [Mass/volume] in Serum or Plasma 12.0 ug/mL 2.0-20.0 MEDENT ([facility] ) Testing on this sample was performed by homogeneous enzyme immunoassay. Detection Limit = 1.0 Performed at: [facility] [address] [id number] Endocrinology Physician: Kaimla Pineda [facility], Phone: [phone] ID Date Data Source [id number] 06/11/2019 08:29:00 AM EST MED[facility] ([facility] ) Name Value Range Interpretation Code Description Data Caroline rce(s) Supporting Document(s) Ammonia [Mass/volume] in Blood 27 uMOL/L MEDENT ([facility] ) <content>note:<nlbl:demographic_changed> </content>
<content></content> Valproate [Mass/volume] in Serum or Plasma 50.1 UG/ML 50.0-100.0 MED[facility] ([facility] ) <content>note:<nlbl:demographic_changed> </content>
<content></content> Topiramate [Mass/volume] in Serum or Plasma 9.6 ug/mL 2.0-25.0 MEDENT ([facility] ) This test was developed and its performa nce characteristics determined by [facility]. It has not been cleared or approved by the Food and Drug Administration. Detection Limit = 1.0 Lamotrigine [Mass/volume] in Serum or Plasma 13.7 ug/mL 2.0-20.0 MEDENT ([facility], ) This test was developed and its performa nce characteristics determined by [facility]. It has not been cleared or approved by the Food and Drug Administration. Detection Limit = 1.0 Performed at: [facility] [address] [id number] Endocrinology Physician: Geovanny Mao MD, Phone: [phone] Procedure Social History Code Duration Value Status Description Data Source(s ) Smoking 06/09/2020 12:00:00 AM EST Never Smoker completed Never S moker eCW1 ([facility]) Smoking 06/09/2020 12:00:00 AM EST Never Smoker completed Never S moker eCW1 ([facility]) Smoking 09/16/2019 12:00:00 AM EDT Never Smoker completed Never S moker eCW1 ([facility]) Smoking 09/16/2019 12:00:00 AM EDT Never Smoker completed Never S moker eCW1 ([facility]) Smoking 09/16/2019 12:00:00 AM EDT Never Smoker completed Never S moker eCW1 ([facility]) Smoking 09/16/2019 12:00:00 AM EDT Never Smoker completed Never S moker eCW1 ([facility]) Smoking 09/16/2019 12:00:00 AM EDT Never Smoker completed Never S moker eCW1 ([facility]) Smoking 09/16/2019 12:00:00 AM EDT Never Smoker completed Never S moker eCW1 ([facility]) Smoking 09/16/2019 12:00:00 AM EDT Never Smoker completed Never S moker eCW1 ([facility]) Smoking 09/16/2019 12:00:00 AM EDT Never Smoker completed Never S moker eCW1 ([facility]) Vital Signs ID Date Data Source UNK Name Value Range Interpretation Code Description Data Source(s) Diastolic blood pressure 64 mm[Hg] 64 mm[Hg] eCW1 ([facility]) Systolic blood pressure 110 mm[Hg] 110 mm[Hg] e CW1 ([facility]) Body temperature 97.2 [degF] 97.2 [degF] eCW1 ( [facility]) Respiratory rate 18 /min 18 /min eCW1 ([facility]) Heart rate 69 /min 69 /min eCW1 ([facility]) Body mass index (BMI) [Ratio] 25.98 kg/m2 25.98 kg/m2 eCW1 ([facility]) Body height 66 [in_i] 66 [in_i] eCW1 ([facility]) Body weight 161 [lb_av] 161 [lb_av] eCW1 ([facility]) Respiratory rate 16 /min 16 /min MEDENT ( [facility] ) Heart rate 76 /min 76 /min MEDENT ([facility] ) Diastolic blood pressure 70 mm[Hg] 70 mm[Hg] MEDENT ([facility] ) Systolic blood pressure 110 mm[Hg] 110 mm[Hg] M EDENT ([facility] ) Body mass index (BMI) [Ratio] 27.4 kg/m2 27.4 k g/m2 MEDENT ([facility] Body weight 175.00 [lb_av] 175.00 [lb_av] MEDEN T ([facility] ) Body height 67 [in_i] 67 [in_i] MED[facility] ([facility] ) 5'7" Diastolic blood pressure 78 mm[Hg] 78 mm[Hg] eCW1 ([facility]) Systolic blood pressure 127 mm[Hg] 127 mm[Hg] e CW1 ([facility]) Body temperature 97.8 [degF] 97.8 [degF] eCW1 ( [facility]) Respiratory rate 16 /min 16 /min eCW1 ([facility]) Heart rate 89 /min 89 /min eCW1 ([facility]) Body mass index (BMI) [Ratio] 28.24 kg/m2 28.24 kg/m2 eCW1 ([facility]) Body height 66 [in_us] 66 [in_us] eCW1 ([facility]) Body weight Measured [lb_av] eCW1 ([facility]) Respiratory rate 16 /min 16 /min MEDENT ( [facility] ) Heart rate 84 /min 84 /min MED[facility] ([facility] ) Diastolic blood pressure 70 mm[Hg] 70 mm[Hg] MEDENT ([facility] ) Systolic blood pressure 110 mm[Hg] 110 mm[Hg] M EDENT ([facility] ) Diastolic blood pressure 78 mm[Hg] 78 mm[Hg] eCW1 ([facility]) Systolic blood pressure 117 mm[Hg] 117 mm[Hg] e CW1 ([facility]) Body temperature 97.9 [degF] 97.9 [degF] eCW1 ( [facility]) Respiratory rate 18 /min 18 /min eCW1 ([facility]) Heart rate 90 /min 90 /min eCW1 ([facility]) Body mass index (BMI) [Ratio] 30.02 kg/m2 30.02 kg/m2 eCW1 ([facility]) Body height 66 [in_us] 66 [in_us] eCW1 ([facility]) Body weight Measured 186 [lb_av] 186 [lb_av] eC W1 ([facility]) Patient Treatment Plan of Care Planned Activity Planned Date Details Description Data Source (s) Famotidine 20 MG Oral Tablet 04/20/2020 12:00:00 AM EST eCW1 ([facility]) Famotidine 20 MG Oral Tablet 04/20/2020 12:00:00 AM EST eCW1 ([facility]) Famotidine 20 MG Oral Tablet 04/20/2020 12:00:00 AM EST eCW1 ([facility]) May Have - 10/15/2019 12:00:00 AM EDT e CW1 ([facility]) May Have - 10/15/2019 12:00:00 AM EDT e CW1 ([facility]) May Have - 10/15/2019 12:00:00 AM EDT e CW1 ([facility]) May Have - 10/15/2019 12:00:00 AM EDT e CW1 ([facility]) May Have - 10/15/2019 12:00:00 AM EDT e CW1 ([facility]) May Have - 10/15/2019 12:00:00 AM EDT e CW1 ([facility]) May Have - 10/15/2019 12:00:00 AM EDT e CW1 ([facility]) May Have - 10/15/2019 12:00:00 AM EDT e CW1 ([facility]) May Have - 10/15/2019 12:00:00 AM EDT e CW1 ([facility]) Acetaminophen 300 MG / Codeine Phosphate 30 MG Oral Ta blet 09/24/2019 12:00:00 AM EDT eCW1 ([facility]) Acetaminophen 300 MG / Codeine Phosphate 30 MG Oral Ta blet 09/24/2019 12:00:00 AM EDT eCW1 ([facility]) Acetaminophen 300 MG / Codeine Phosphate 30 MG Oral Ta blet 09/24/2019 12:00:00 AM EDT eCW1 ([facility]) Acetaminophen 300 MG / Codeine Phosphate 30 MG Oral Ta blet 09/24/2019 12:00:00 AM EDT eCW1 ([facility]) Acetaminophen 300 MG / Codeine Phosphate 30 MG Oral Ta blet 09/24/2019 12:00:00 AM EDT eCW1 ([facility]) Acetaminophen 300 MG / Codeine Phosphate 30 MG Oral Ta blet 09/24/2019 12:00:00 AM EDT eCW1 ([facility]) Acetaminophen 300 MG / Codeine Phosphate 30 MG Oral Ta blet 09/24/2019 12:00:00 AM EDT eCW1 ([facility]) Acetaminophen 300 MG / Codeine Phosphate 30 MG Oral Ta blet 09/24/2019 12:00:00 AM EDT eCW1 ([facility]) Acetaminophen 300 MG / Codeine Phosphate 30 MG Oral Ta blet 09/24/2019 12:00:00 AM EDT eCW1 ([facility]) Acetaminophen 300 MG / Codeine Phosphate 30 MG Oral Ta blet 09/24/2019 12:00:00 AM EDT eCW1 ([facility]) Acetaminophen 300 MG / Codeine Phosphate 30 MG Oral Ta blet 09/24/2019 12:00:00 AM EDT eCW1 ([facility]) May Have - 09/22/2019 12:00:00 AM EDT e CW1 ([facility]) May Have - 09/22/2019 12:00:00 AM EDT e CW1 ([facility]) May Have - 09/22/2019 12:00:00 AM EDT e CW1 ([facility]) May Have - 09/22/2019 12:00:00 AM EDT e CW1 ([facility]) May Have - 09/22/2019 12:00:00 AM EDT e CW1 ([facility]) May Have - 09/22/2019 12:00:00 AM EDT e CW1 ([facility]) May Have - 09/22/2019 12:00:00 AM EDT e CW1 ([facility]) May Have - 09/22/2019 12:00:00 AM EDT e CW1 ([facility]) May Have - 09/22/2019 12:00:00 AM EDT e CW1 ([facility]) Famotidine 8 MG/ML Oral Suspension 09/18/2019 12:00:00 AM EDT eCW1 ([facility]) Famotidine 8 MG/ML Oral Suspension 09/18/2019 12:00:00 AM EDT eCW1 ([facility]) Famotidine 8 MG/ML Oral Suspension 09/18/2019 12:00:00 AM EDT eCW1 ([facility]) Famotidine 8 MG/ML Oral Suspension 09/18/2019 12:00:00 AM EDT eCW1 ([facility]) Famotidine 8 MG/ML Oral Suspension 09/18/2019 12:00:00 AM EDT eCW1 ([facility]) Famotidine 8 MG/ML Oral Suspension 09/18/2019 12:00:00 AM EDT eCW1 ([facility]) Acetaminophen 32 MG/ML Oral Suspension 09/17/2019 12:00:00 AM EDT eCW1 ([facility]) Acetaminophen 32 MG/ML Oral Suspension 09/17/2019 12:00:00 AM EDT eCW1 ([facility]) Acetaminophen 32 MG/ML Oral Suspension 09/17/2019 12:00:00 AM EDT eCW1 ([facility]) Acetaminophen 32 MG/ML Oral Suspension 09/17/2019 12:00:00 AM EDT eCW1 ([facility]) Acetaminophen 32 MG/ML Oral Suspension 09/17/2019 12:00:00 AM EDT eCW1 ([facility]) Acetaminophen 32 MG/ML Oral Suspension 09/17/2019 12:00:00 AM EDT eCW1 ([facility]) Acetaminophen 32 MG/ML Oral Suspension 09/17/2019 12:00:00 AM EDT eCW1 ([facility]) Acetaminophen 32 MG/ML Oral Suspension 09/17/2019 12:00:00 AM EDT eCW1 ([facility]) Acetaminophen 32 MG/ML Oral Suspension 09/17/2019 12:00:00 AM EDT eCW1 ([facility]) Acetaminophen 32 MG/ML Oral Suspension 09/17/2019 12:00:00 AM EDT eCW1 ([facility]) PredniSONE 5 MG/ML 09/16/2019 12:00:00 AM EDT eCW1 ([facility]) PredniSONE 5 MG/ML 09/16/2019 12:00:00 AM EDT eCW1 ([facility]) PredniSONE 5 MG/ML 09/16/2019 12:00:00 AM EDT eCW1 ([facility]) PredniSONE 5 MG/ML 09/16/2019 12:00:00 AM EDT eCW1 ([facility]) PredniSONE 5 MG/ML 09/16/2019 12:00:00 AM EDT eCW1 ([facility]) PredniSONE 5 MG/ML 09/16/2019 12:00:00 AM EDT eCW1 ([facility]) PredniSONE 5 MG/ML 09/16/2019 12:00:00 AM EDT eCW1 ([facility]) PredniSONE 5 MG/ML 09/16/2019 12:00:00 AM EDT eCW1 ([facility]) PredniSONE 5 MG/ML 09/16/2019 12:00:00 AM EDT eCW1 ([facility]) Triamcinolone Acetonide 1 MG/ML Topical Cream 07/31/2019 12:00:00 A M EDT eCW1 ([facility]) Triamcinolone Acetonide 1 MG/ML Topical Cream 07/31/2019 12:00:00 A M EDT eCW1 ([facility]) Triamcinolone Acetonide 1 MG/ML Topical Cream 07/31/2019 12:00:00 A M EDT eCW1 ([facility]) Triamcinolone Acetonide 1 MG/ML Topical Cream 07/31/2019 12:00:00 A M EDT eCW1 ([facility]) Triamcinolone Acetonide 1 MG/ML Topical Cream 07/31/2019 12:00:00 A M EDT eCW1 ([facility]) Triamcinolone Acetonide 1 MG/ML Topical Cream 07/31/2019 12:00:00 A M EDT eCW1 ([facility]) Triamcinolone Acetonide 1 MG/ML Topical Cream 07/31/2019 12:00:00 A M EDT eCW1 ([facility]) Triamcinolone Acetonide 1 MG/ML Topical Cream 07/31/2019 12:00:00 A M EDT eCW1 ([facility]) Sulfamethoxazole 800 MG / Trimethoprim 160 MG Oral Tab let 07/29/2019 12:00:00 AM EDT eCW1 ([facility]) Sulfamethoxazole 800 MG / Trimethoprim 160 MG Oral Tab let 07/29/2019 12:00:00 AM EDT eCW1 ([facility]) Sulfamethoxazole 800 MG / Trimethoprim 160 MG Oral Tab let 07/29/2019 12:00:00 AM EDT eCW1 ([facility]) Vitamin B12 1000 MCG 07/09/2019 12:00:00 AM EST eCW1 ([facility]) Docusate Sodium 10 MG/ML Oral Suspension 07/09/2019 12:00:00 AM EST eCW1 ([facility]) Vitamin B12 1000 MCG 07/09/2019 12:00:00 AM EST eCW1 ([facility]) Docusate Sodium 10 MG/ML Oral Suspension 07/09/2019 12:00:00 AM EST eCW1 ([facility]) Dura-G Gastrostomy Tube 18FR - 07/07/2019 12:00:00 AM EST eCW1 ([facility]) TEDDY-HYATT Gastrostomy Kit 16FR - 07/07/2019 12:00:00 AM EST eCW1 ([facility]) Ranitidine 15 MG/ML Oral Solution 06/17/2019 12:00:00 AM EST eCW1 ([facility]) Acetaminophen 650 MG 06/10/2019 12:00:00 AM EST eCW1 ([facility])
[2020-06-20 12:12] LABS: WHITE BLOOD COUNT 37.5 10^3/uL (4.0-10.0)
[2020-06-20] MEDS ORDERED: VANCOMYCIN HCL 750 MG, VIAL MATE ADAPTER 1 EACH in D5W 250 ML IV ONE ×2 (12:15→13:15)
[2020-06-20 12:16] LABS: ATYPICAL LYMPH 2 % (0-5); LYMPHOCYTES 1 % (16-44); METAMYELOCYTES 10 % (0-0); MONOCYTES 6 % (0-5); MYELOCYTES 1 % (0-0); NEUTROPHILS 50 % (28-66); PLATELET ESTIMATE NORMAL (NORMAL)
[2020-06-20 12:17] LABS: TOXIC VACUOLATION 2+
[2020-06-20] MEDS ORDERED: FAMO1TAB11 GT (12:31)
[2020-06-20] MEDS ORDERED: VALP250S GT (12:31)
[2020-06-20 12:36] LABS: ALBUMIN 2.3 GM/DL (3.2-5.2); ALT/SGPT 75 U/L (12-78); BILIRUBIN,TOTAL 4.7 MG/DL (0.2-1.0); BLOOD UREA NITROGEN 35 MG/DL (7-18); CALCIUM LEVEL 9.5 MG/DL (8.8-10.2); CARBON DIOXIDE LEVEL 23 MEQ/L (21-32); CHLORIDE LEVEL 101 MEQ/L (98-107); CK-MB VALUE MASS 1.1 NG/ML (<3.6); CPK CREATINE PHOSPHOKINASE 110 U/L (39-308); CREATININE FOR GFR 1.46 MG/DL (0.70-1.30); GLOMERULAR FILTRATION RATE 50.5 (>42); GLUCOSE, FASTING 122 MG/DL (70-100); LIPASE 35 U/L (73-393); POTASSIUM SERUM 3.5 MEQ/L (3.5-5.1); SODIUM LEVEL 137 MEQ/L (136-145); TOTAL PROTEIN 6.7 GM/DL (6.4-8.2); TROPONIN I < 0.02 NG/ML (< 0.10)
[2020-06-20] MEDS ORDERED: LIDOCAINE 2% 5ML JELLY UROJET TOP ONE (12:45)
[2020-06-20] MEDS ORDERED: NS 1,000 ML IV ONE ×2 (13:30→14:45)
[2020-06-20] MEDS ORDERED: NOREPINEPHRINE BITARTRATE 8 MG in D5W 492 ML IV SCH (14:00)
[2020-06-20 14:13] LABS: APPEARANCE, URINE MANUAL TURBID (CLEAR); COLOR, URINE MANUAL BROWN (YELLOW); GLUCOSE, URINE (UA) MANUAL OBSCURED mg/dL (NEGATIVE); PH,URINE MAN OBSCURED UNITS (5.0 - 7.0); PROTEIN, URINE MANUAL OBSCURED mg/dL (NEGATIVE); SPECIFIC GRAVITY,URINE MANUAL 1.021 (1.002-1.035)
[2020-06-20 14:14] LABS: BILIRUBIN, URINE MANUAL OBSCURED (NEGATIVE); BLOOD URINE MANUAL OBSCURED (NEGATIVE); KETONE, URINE MANUAL OBSCURED mg/dL (NEGATIVE); LEUKOCYTE ESTERASE, URINE MAN OBSCURED (NEGATIVE); NITRITE, URINE MANUAL OBSCURED (NEGATIVE); UROBILINOGEN, URINE MANUAL OBSCURED mg/dl (NORMAL)
[2020-06-20 14:16] LABS: BACTERIA, URINE MOD AMOUNT; MUCUS, URINE SMALL AMOUNT (NEGATIVE); RBC, URINE TNTC /hpf (0-3); SQUAMOUS EPITHELIAL CELL URINE SMALL AMOUNT /hpf (SMALL AMT); TRANSITIONAL EPI CELLS, URINE MOD AMOUNT /hpf; WBC, URINE TNTC /hpf (0-3)
[2020-06-20] MEDS ORDERED: FLEET ENEMA PR PRN (14:45)
[2020-06-20] MEDS ORDERED: LORazepam 2 MG/ML VIAL IV PRN (14:45)
[2020-06-20] MEDS ORDERED: MORPHINE 2 MG/ML 1ML VIAL (J2270) IV PRN (14:45)
[2020-06-20] MEDS ORDERED: ACETAMINOPHEN TAB 650MG DOSE (2X325MG) PO PRN (14:45)
[2020-06-20] MEDS ORDERED: MOM 30ML SUSPENSION UDC PO PRN (14:45)
[2020-06-20] MEDS ORDERED: ONDANSETRON 4MG/2ML VIAL IV PRN (14:45)
[2020-06-20] MEDS ORDERED: BISACODYL 10 MG SUPP PR PRN (14:45)
[2020-06-20] MEDS ORDERED: SCOPOLAMINE 1MG TRANSDERMAL PATCH TOP PRN (14:45)
[2020-06-20] MEDS ORDERED: HYOSCYAMINE SULFATE 0.125 MG SUBL TABLET PO PRN (14:45)
[2020-06-20] MEDS ORDERED: MORPHINE 10MG/0.5ML ORAL CONCENTRATE SOLUTION U/D SL PRN (14:45)
[2020-06-20] MEDS ORDERED: ATROPINE SULFATE 1% OP SOLN 2 ML BTL SL PRN (14:45)
[2020-06-20] MEDS ORDERED: MAALOX 30 ML SUSP *UDC PO PRN (14:45)
--- OUTSIDE RECORDS SUMMARY | 2020-06-20 14:58 | CCD ---
Author Author [facility] Organization [facility] Address Unknown Phone Unavailable Care Team Providers Care Manager Content Name Role Phone Jae Reardon PA Unavailable [...] MPAS, PA-C Unavailable Unavailabl e Fish, [facility], [facility]-C Unavailable Unavailabl e Fish, [facility], PA-C Unavailable Unavailabl e Fish, [facility], PA-C Unavailable Unavailabl e Fish, [facility], PA-C Unavailable Unavailabl e Fish, [facility], [facility]-C Unavailable Unavailabl e Fish, [facility], PA-C Unavailable Unavailabl e Fish, [facility], PA-C Unavailable Unavailabl e Fish, [facility], PA-C Unavailable Unavailabl e Fish, [facility], PA-C Unavailable Unavailabl e Fish, [facility], PA-C Unavailable Unavailabl e Fish, [facility], [facility]C Unavailable Unavailabl e Fish, [facility], PA-C Unavailable Unavailabl e Fish, [facility], PA-C Unavailable Unavailabl e Fish, [facility], PA-C Unavailable Unavailabl e Fish, [facility], PA-C Unavailable Unavailabl e Fish, [facility], PA-C Unavailable Unavailabl e Fish, [facility], PA-C Unavailable Unavailabl e Fish, [facility], PA-C Unavailable Unavailabl e Fish, [facility], PA-C Unavailable Unavailabl e Dille, E Stacey [...] is protected by Article 27-F of the [facility] Public Health law. If you continue you may have access to information: Regarding HIV / AIDS; Provided by facilities licensed or operated by the [facility] Office of Mental Health; or Provided by the [facility] Office for People With Developmental Disabilities. If such information is present, then the following [facility] mandated warning applies: This information has [...] law may result in a fine or alf sentence or both. A general authorization for the release of medical or other information is NOT sufficient authorization for further disc losure. Family History Family Member Name Family Member Gender Family Member Status Date o f Status Description Data Source(s) Unknown Male Problem MEDENT ([facility]) () Unknown Male Problem MEDENT ([facility]) Unknown Unknown Problem MEDENT ([facility]) Encounters Encounter Providers Location Date Indications Data Source(s ) [place] [address] [facility] [place] [address] 06/09/2020 12:00:00 AM EST [facility]1 [facility] [place] [address] [place] [address] 06/09/2020 12:00:00 AM EST eCW1 ([facility]) [place] [address] [place] [address] 05/05/2020 12:00:00 AM EST eCW1 ([facility]) Office Visit Attender: Dixie HANDY Main office - [facility] 04/30/2020 10:15:00 AM EST MEDENT ([facility] ) [place] [address] [facility] [place] [address] 04/22/2020 12:00:00 AM EST eCW1 ([facility]) [place] [address] [facility] [place] [address] 04/19/2020 12:00:00 AM EST eCW1 ([facility]) [place] [address] [facility] [place] [address] 03/18/2020 12:00:00 AM EDT eCW1 ([facility]) Outpatient Attender: Dixie HANDY Main office - [facility] n 01/21/2020 11:15:00 AM EDT MEDENT ([facility]) [place] [address] [facility] [address] 12/03/2019 12:00:00 AM EDT eCW1 ([facility]) [facility] [address] [facility] [address] 12/03/2019 12:00:00 AM EDT eCW1 ([facility]) [place] [address] [facility] [address] 11/03/2019 12:00:00 AM EDT eCW1 ([facility]) [place] [address] [facility] [address] 10/31/2019 12:00:00 AM EDT eCW1 ([facility]) Outpatient Attender: Stacey KNOTT 10/28/2019 07:35:46 P M EDT [facility] Unknown [address] [facility] [address] 10/23/2019 12:00:00 AM EDT eCW1 ([facility]) Outpatient Attender: Stacey KNOTT 10/18/2019 12:10:25 A M EDT [facility] [address] [facility] [address] 10/15/2019 12:00:00 AM EDT eCW1 ([facility]) [facility] [address] [facility] [address] 10/15/2019 12:00:00 AM EDT eCW1 ([facility]) Office Visit Attender: Dixie HANDY Main office - [facility] n 10/10/2019 11:45:00 AM EDT MEDENT ([facility]) [address] [address] 10/06/2019 12:00:00 AM EDT eCW1 ([facility]) [address] [address] 09/24/2019 12:00:00 AM EDT eCW1 ([facility]) [address] [address] 09/24/2019 12:00:00 AM EDT eCW1 ([facility]) Outpatient Attender: Stacey KNOTT 09/23/2019 10:02:01 A M EDT [facility] OFFICE OUTPATIENT NEW 30 MINUTES Attender: Lissy HAAS PA-C Physical Therapy 09/19/2019 01:30:00 PM EDT MEDENT ([facility]) [address] [address] 09/19/2019 12:00:00 AM EDT eCW1 ([facility]) [address] [address] 09/18/2019 12:00:00 AM EDT eCW1 ([facility]) [address] [address] 09/18/2019 12:00:00 AM EDT eCW1 ([facility]) [address] [address] 09/18/2019 12:00:00 AM EDT eCW1 ([facility]) [address] [address] 09/17/2019 12:00:00 AM EDT eCW1 ([facility]) [address] [address] 09/17/2019 12:00:00 AM EDT eCW1 ([facility]) [facility] [address] [facility] [address] 09/16/2019 12:00:00 AM EDT eCW1 ([facility]) [facility] [address] [facility] [address] 09/16/2019 12:00:00 AM EDT eCW1 ([facility]) [facility] [address] [facility] [place] [place] [address] 08/18/2019 12:00:00 AM EDT eCW1 ([facility]) [facility] [address] [facility] [address] 08/07/2019 12:00:00 AM EDT eCW1 ([facility]) [facility] [address] [facility] [address] 08/06/2019 12:00:00 AM EDT eCW1 ([facility]) [facility] [address] [facility] [address] 08/06/2019 12:00:00 AM EDT eCW1 ([facility]) [facility] [address] [facility] [address] 08/05/2019 12:00:00 AM EDT eCW1 ([facility]) [facility] [address] [facility] [address] 07/31/2019 12:00:00 AM EDT eCW1 ([facility]) [facility] [place] [address] [place] [address], [place] [address] 07/31/2019 12:00:00 AM EDT eCW1 ([facility]) [facility] [address] [place] [address], [place] [address] 07/30/2019 12:00:00 AM EDT eCW1 ([facility]) [facility] [place] [address] [place] [address], [place] [address] 07/29/2019 12:00:00 AM EDT eCW1 ([facility]) [address] [address] 07/28/2019 12:00:00 AM EDT eCW1 ([facility]) [address] [address] 07/28/2019 12:00:00 AM EDT eCW1 ([facility]) Outpatient 07/24/2019 01:05:00 PM EST [facility] [address] [address] 07/21/2019 12:00:00 AM EST eCW1 ([facility]) Outpatient Attender: Dixie HANDY Main office - [facility] 07/10/2019 10:15:00 AM EST MEDENT ([facility] ) [address] [address] 07/09/2019 12:00:00 AM EST eCW1 ([facility]) [address] [address] 07/07/2019 12:00:00 AM EST eCW1 ([facility]) [address] [address] 07/07/2019 12:00:00 AM EST eCW1 ([facility]) [address] [address] 06/24/2019 12:00:00 AM EST eCW1 ([facility]) [address] [address] 06/17/2019 12:00:00 AM EST eCW1 ([facility]) [address] [address] 06/10/2019 12:00:00 AM EST eCW1 ([facility]) [address] [address] 06/05/2019 12:00:00 AM EST eCW1 ([facility]) [address] [address] 06/04/2019 12:00:00 AM EST eCW1 ([facility]) [address] [address] 05/05/2019 12:00:00 AM EST eCW1 ([facility]) [address] [address] 04/25/2019 12:00:00 AM EST eCW1 ([facility]) Immunizations Vaccine Date Status Description Data Source(s) COVID-19(given elsewhere) Unspecified 05/26/2020 11:30:00 AM EST co mpleted eCW1 ([facility]) COVID-19(given elsewhere) Unspecified 05/26/2020 11:30:00 AM EST co mpleted eCW1 ([facility]) Medications Medication Brand Name Start Date Product Form Dose Route Admi nistrative Instructions Pharmacy Instructions Status Indications Reaction Description Data Source(s) Famotidine 20 MG Oral Tablet Famotidine 20 MG 04/20/2020 12:00:00 A M EST 0.5 {tablet} active Famotidine 20 MG eCW1 ( [facility]) Famotidine 20 MG Oral Tablet Famotidine 20 MG 04/20/2020 12:00:00 A M EST 0.5 {tablet} active Famotidine 20 MG eCW1 ( [facility]) Famotidine 20 MG Oral Tablet Famotidine 20 MG 04/20/2020 12:00:00 A M EST 0.5 {tablet} active Famotidine 20 MG eCW1 ( [facility]) Famotidine 20 MG Oral Tablet Famotidine 20 MG 04/20/2020 12:00:00 A M EST 0.5 {tablet} active Famotidine 20 MG eCW1 ( [facility]) Famotidine 20 MG Oral Tablet Famotidine 20 MG 04/20/2020 12:00:00 A M EST 0.5 {tablet} active Famotidine 20 MG eCW1 ( [facility]) May Have - UNK 10/15/2019 12:00:00 AM EDT active May Have - eCW1 ([facility]) May Have - UNK 10/15/2019 12:00:00 AM EDT active May Have - eCW1 ([facility]) May Have - UNK 10/15/2019 12:00:00 AM EDT active May Have - eCW1 ([facility]) May Have - UNK 10/15/2019 12:00:00 AM EDT active May Have - eCW1 ([facility]) May Have - UNK 10/15/2019 12:00:00 AM EDT active May Have - eCW1 ([facility]) May Have - UNK 10/15/2019 12:00:00 AM EDT active as directed eCW1 ([facility]) May Have - UNK 10/15/2019 12:00:00 AM EDT active May Have - eCW1 ([facility]) May Have - UNK 10/15/2019 12:00:00 AM EDT active May Have - eCW1 ([facility]) May Have - UNK 10/15/2019 12:00:00 AM EDT active May Have - eCW1 ([facility]) May Have - UNK 10/15/2019 12:00:00 AM EDT active May Have - eCW1 ([facility]) May Have - UNK 10/15/2019 12:00:00 AM EDT active May Have - eCW1 ([facility]) Acetaminophen 300 MG / Codeine Phosphate 30 MG Oral Tablet Acetaminophen-Codeine #3 300-30 MG Acetaminophen-Codeine #3 300-30 MG 09/24/2019 12:00:00 AM EDT active please given 300mg-3 0mg in 12.5 ml eCW1 ([facility]) Acetaminophen 300 MG / Codeine Phosphate 30 MG Oral Tablet Acetaminophen-Codeine #3 300-30 MG Acetaminophen-Codeine #3 300-30 MG 09/24/2019 12:00:00 AM EDT active Acetaminophen-Codein e #3 300-30 MG eCW1 ([facility]) Acetaminophen 300 MG / Codeine Phosphate 30 MG Oral Tablet Acetaminophen-Codeine #3 300-30 MG Acetaminophen-Codeine #3 300-30 MG 09/24/2019 12:00:00 AM EDT active Acetaminophen-Codein e #3 300-30 MG eCW1 ([facility]) Acetaminophen 300 MG / Codeine Phosphate 30 MG Oral Tablet Acetaminophen-Codeine #3 300-30 MG Acetaminophen-Codeine #3 300-30 MG 09/24/2019 12:00:00 AM EDT active please given 300mg-3 0mg in 12.5 ml eCW1 ([facility]) Acetaminophen 300 MG / Codeine Phosphate 30 MG Oral Tablet Acetaminophen-Codeine #3 300-30 MG Acetaminophen-Codeine #3 300-30 MG 09/24/2019 12:00:00 AM EDT active Acetaminophen-Codein e #3 300-30 MG eCW1 ([facility]) Acetaminophen 300 MG / Codeine Phosphate 30 MG Oral Tablet Acetaminophen-Codeine #3 300-30 MG Acetaminophen-Codeine #3 300-30 MG 09/24/2019 12:00:00 AM EDT active Acetaminophen-Codein e #3 300-30 MG eCW1 ([facility]) Acetaminophen 300 MG / Codeine Phosphate 30 MG Oral Tablet Acetaminophen-Codeine #3 300-30 MG Acetaminophen-Codeine #3 300-30 MG 09/24/2019 12:00:00 AM EDT active Acetaminophen-Codein e #3 300-30 MG eCW1 ([facility]) Acetaminophen 300 MG / Codeine Phosphate 30 MG Oral Tablet Acetaminophen-Codeine #3 300-30 MG Acetaminophen-Codeine #3 300-30 MG 09/24/2019 12:00:00 AM EDT active please given 300mg-3 0mg in 12.5 ml eCW1 ([facility]) Acetaminophen 300 MG / Codeine Phosphate 30 MG Oral Tablet Acetaminophen-Codeine #3 300-30 MG Acetaminophen-Codeine #3 300-30 MG 09/24/2019 12:00:00 AM EDT active Acetaminophen-Codein e #3 300-30 MG eCW1 ([facility]) Acetaminophen 300 MG / Codeine Phosphate 30 MG Oral Tablet Acetaminophen-Codeine #3 300-30 MG Acetaminophen-Codeine #3 300-30 MG 09/24/2019 12:00:00 AM EDT active Acetaminophen-Codein e #3 300-30 MG eCW1 ([facility]) Acetaminophen 300 MG / Codeine Phosphate 30 MG Oral Tablet Acetaminophen-Codeine #3 300-30 MG Acetaminophen-Codeine #3 300-30 MG 09/24/2019 12:00:00 AM EDT active Acetaminophen-Codein e #3 300-30 MG eCW1 ([facility]) Acetaminophen 300 MG / Codeine Phosphate 30 MG Oral Tablet Acetaminophen-Codeine #3 300-30 MG Acetaminophen-Codeine #3 300-30 MG 09/24/2019 12:00:00 AM EDT active Acetaminophen-Codein e #3 300-30 MG eCW1 ([facility]) Acetaminophen 300 MG / Codeine Phosphate 30 MG Oral Tablet Acetaminophen-Codeine #3 300-30 MG Acetaminophen-Codeine #3 300-30 MG 09/24/2019 12:00:00 AM EDT active Acetaminophen-Codein e #3 300-30 MG eCW1 ([facility]) May Have - UNK 09/22/2019 12:00:00 AM EDT active May Have - eCW1 ([facility]) May Have - UNK 09/22/2019 12:00:00 AM EDT active May Have - eCW1 ([facility]) May Have - UNK 09/22/2019 12:00:00 AM EDT active May Have - eCW1 ([facility]) May Have - UNK 09/22/2019 12:00:00 AM EDT active May Have - eCW1 ([facility]) May Have - UNK 09/22/2019 12:00:00 AM EDT active May Have - eCW1 ([facility]) May Have - UNK 09/22/2019 12:00:00 AM EDT active May Have - eCW1 ([facility]) May Have - UNK 09/22/2019 12:00:00 AM EDT active as directed eCW1 ([facility]) May Have - UNK 09/22/2019 12:00:00 AM EDT active May Have - eCW1 ([facility]) May Have - UNK 09/22/2019 12:00:00 AM EDT active May Have - eCW1 ([facility]) May Have - UNK 09/22/2019 12:00:00 AM EDT active May Have - eCW1 ([facility]) May Have - UNK 09/22/2019 12:00:00 AM EDT active May Have - eCW1 ([facility]) Famotidine 8 MG/ML Oral Suspension Famotidine 40 MG/5ML Famo tidine 40 MG/5ML 09/18/2019 12:00:00 AM EDT active 1.25 ml eCW1 ([facility]) Famotidine 8 MG/ML Oral Suspension Famotidine 40 MG/5ML Famo tidine 40 MG/5ML 09/18/2019 12:00:00 AM EDT 1.25 {ml} active Famotidine 40 MG/5ML eCW1 ([facility]) Famotidine 8 MG/ML Oral Suspension Famotidine 40 MG/5ML Famo tidine 40 MG/5ML 09/18/2019 12:00:00 AM EDT 1.25 {ml} active Famotidine 40 MG/5ML eCW1 ([facility]) Famotidine 8 MG/ML Oral Suspension Famotidine 40 MG/5ML Famo tidine 40 MG/5ML 09/18/2019 12:00:00 AM EDT 1.25 {ml} active Famotidine 40 MG/5ML eCW1 ([facility]) Famotidine 8 MG/ML Oral Suspension Famotidine 40 MG/5ML Famo tidine 40 MG/5ML 09/18/2019 12:00:00 AM EDT 1.25 {ml} active Famotidine 40 MG/5ML eCW1 ([facility]) Famotidine 8 MG/ML Oral Suspension Famotidine 40 MG/5ML Famo tidine 40 MG/5ML 09/18/2019 12:00:00 AM EDT 1.25 {ml} active Famotidine 40 MG/5ML eCW1 ([facility]) Acetaminophen 32 MG/ML Oral Suspension Acetaminophen 6 50 MG/20.3ML Acetaminophen 650 MG/20.3ML 09/17/2019 12:00:00 AM EDT 20.3 {ml_as_needed} active Acetaminophen 650 MG/20.3ML eCW1 ([facility]) Acetaminophen 32 MG/ML Oral Suspension Acetaminophen 6 50 MG/20.3ML Acetaminophen 650 MG/20.3ML 09/17/2019 12:00:00 AM EDT 20.3 {ml_as_needed} active Acetaminophen 650 MG/20.3ML eCW1 ([facility]) Acetaminophen 32 MG/ML Oral Suspension Acetaminophen 6 50 MG/20.3ML Acetaminophen 650 MG/20.3ML 09/17/2019 12:00:00 AM EDT 20.3 {ml_as_needed} active Acetaminophen 650 MG/20.3ML eCW1 ([facility]) Acetaminophen 32 MG/ML Oral Suspension Acetaminophen 6 50 MG/20.3ML Acetaminophen 650 MG/20.3ML 09/17/2019 12:00:00 AM EDT 20.3 {ml_as_needed} active Acetaminophen 650 MG/20.3ML eCW1 ([facility]) Acetaminophen 32 MG/ML Oral Suspension Acetaminophen 6 50 MG/20.3ML Acetaminophen 650 MG/20.3ML 09/17/2019 12:00:00 AM EDT active 20.3 ml as needed eCW1 ([facility]) Acetaminophen 32 MG/ML Oral Suspension Acetaminophen 6 50 MG/20.3ML Acetaminophen 650 MG/20.3ML 09/17/2019 12:00:00 AM EDT 20.3 {ml_as_needed} active Acetaminophen 650 MG/20.3ML eCW1 ([facility]) Acetaminophen 32 MG/ML Oral Suspension Acetaminophen 6 50 MG/20.3ML Acetaminophen 650 MG/20.3ML 09/17/2019 12:00:00 AM EDT 20.3 {ml_as_needed} active Acetaminophen 650 MG/20.3ML eCW1 ([facility]) Acetaminophen 32 MG/ML Oral Suspension Acetaminophen 6 50 MG/20.3ML Acetaminophen 650 MG/20.3ML 09/17/2019 12:00:00 AM EDT 20.3 {ml_as_needed} active Acetaminophen 650 MG/20.3ML eCW1 ([facility]) Acetaminophen 32 MG/ML Oral Suspension Acetaminophen 6 50 MG/20.3ML Acetaminophen 650 MG/20.3ML 09/17/2019 12:00:00 AM EDT 20.3 {ml_as_needed} active Acetaminophen 650 MG/20.3ML eCW1 ([facility]) Acetaminophen 32 MG/ML Oral Suspension Acetaminophen 6 50 MG/20.3ML Acetaminophen 650 MG/20.3ML 09/17/2019 12:00:00 AM EDT 20.3 {ml_as_needed} active Acetaminophen 650 MG/20.3ML eCW1 ([facility]) Acetaminophen 32 MG/ML Oral Suspension Acetaminophen 6 50 MG/20.3ML Acetaminophen 650 MG/20.3ML 09/17/2019 12:00:00 AM EDT 20.3 {ml_as_needed} active Acetaminophen 650 MG/20.3ML eCW1 ([facility]) Acetaminophen 32 MG/ML Oral Suspension Acetaminophen 6 50 MG/20.3ML Acetaminophen 650 MG/20.3ML 09/17/2019 12:00:00 AM EDT active 20.3 ml as needed eCW1 ([facility]) PredniSONE 5 MG/ML UNK 09/16/2019 12:00:00 AM EDT 8.0 {ml} active PredniSONE 5 MG/ML eCW1 ([facility]) PredniSONE 5 MG/ML UNK 09/16/2019 12:00:00 AM EDT 8.0 {ml} suspended PredniSONE 5 MG/ML eCW1 ([facility]) PredniSONE 5 MG/ML UNK 09/16/2019 12:00:00 AM EDT 8.0 {ml} active PredniSONE 5 MG/ML eCW1 ([facility]) PredniSONE 5 MG/ML UNK 09/16/2019 12:00:00 AM EDT 8.0 {ml} active PredniSONE 5 MG/ML eCW1 ([facility]) PredniSONE 5 MG/ML UNK 09/16/2019 12:00:00 AM EDT 8.0 {ml} active PredniSONE 5 MG/ML eCW1 ([facility]) PredniSONE 5 MG/ML UNK 09/16/2019 12:00:00 AM EDT 8.0 {ml} active PredniSONE 5 MG/ML eCW1 ([facility]) PredniSONE 5 MG/ML UNK 09/16/2019 12:00:00 AM EDT active 8 ml eCW1 ([facility]) PredniSONE 5 MG/ML UNK 09/16/2019 12:00:00 AM EDT 8.0 {ml} active PredniSONE 5 MG/ML eCW1 ([facility]) PredniSONE 5 MG/ML UNK 09/16/2019 12:00:00 AM EDT 8.0 {ml} active PredniSONE 5 MG/ML eCW1 ([facility]) PredniSONE 5 MG/ML UNK 09/16/2019 12:00:00 AM EDT 8.0 {ml} active PredniSONE 5 MG/ML eCW1 ([facility]) PredniSONE 5 MG/ML UNK 09/16/2019 12:00:00 AM EDT 8.0 {ml} suspended PredniSONE 5 MG/ML eCW1 ([facility]) Triamcinolone Acetonide 1 MG/ML Topical Cream Triamcin olone Acetonide 0.1 % Triamcinolone Acetonide 0.1 % 07/31/2019 12:00:00 AM EDT active 1 application eCW1 ([facility]) Triamcinolone Acetonide 1 MG/ML Topical Cream Triamcin olone Acetonide 0.1 % Triamcinolone Acetonide 0.1 % 07/31/2019 12:00:00 AM EDT 1.0 {appli cation} active Triamcinolone Acetonide 0 .1 % eCW1 ([facility]) Triamcinolone Acetonide 1 MG/ML Topical Cream Triamcin olone Acetonide 0.1 % Triamcinolone Acetonide 0.1 % 07/31/2019 12:00:00 AM EDT 1.0 {appli cation} active Triamcinolone Acetonide 0 .1 % eCW1 (Formerly [facility], [facility]) Triamcinolone Acetonide 1 MG/ML Topical Cream Triamcin olone Acetonide 0.1 % Triamcinolone Acetonide 0.1 % 07/31/2019 12:00:00 AM EDT 1.0 {appli cation} active Triamcinolone Acetonide 0 .1 % eCW1 (Formerly [facility], [facility]) Triamcinolone Acetonide 1 MG/ML Topical Cream Triamcin olone Acetonide 0.1 % Triamcinolone Acetonide 0.1 % 07/31/2019 12:00:00 AM EDT active 1 application eCW1 (Formerly [facility], [facility]) Triamcinolone Acetonide 1 MG/ML Topical Cream Triamcin olone Acetonide 0.1 % Triamcinolone Acetonide 0.1 % 07/31/2019 12:00:00 AM EDT 1.0 {appli cation} active Triamcinolone Acetonide 0 .1 % eCW1 (Formerly [facility], [facility]) Triamcinolone Acetonide 1 MG/ML Topical Cream Triamcin olone Acetonide 0.1 % Triamcinolone Acetonide 0.1 % 07/31/2019 12:00:00 AM EDT 1.0 {appli cation} active Triamcinolone Acetonide 0 .1 % eCW1 (Formerly [facility]) Triamcinolone Acetonide 1 MG/ML Topical Cream Triamcin olone Acetonide 0.1 % Triamcinolone Acetonide 0.1 % 07/31/2019 12:00:00 AM EDT active 1 application eCW1 (Formerly [facility]) Triamcinolone Acetonide 1 MG/ML Topical Cream Triamcin olone Acetonide 0.1 % Triamcinolone Acetonide 0.1 % 07/31/2019 12:00:00 AM EDT 1.0 {appli cation} active Triamcinolone Acetonide 0 .1 % eCW1 (Formerly [facility]) Triamcinolone Acetonide 1 MG/ML Topical Cream Triamcin olone Acetonide 0.1 % Triamcinolone Acetonide 0.1 % 07/31/2019 12:00:00 AM EDT active 1 application eCW1 (Formerly [facility]) Triamcinolone Acetonide 1 MG/ML Topical Cream Triamcin olone Acetonide 0.1 % Triamcinolone Acetonide 0.1 % 07/31/2019 12:00:00 AM EDT active 1 application eCW1 (Formerly [facility]) Triamcinolone Acetonide 1 MG/ML Topical Cream Triamcin olone Acetonide 0.1 % Triamcinolone Acetonide 0.1 % 07/31/2019 12:00:00 AM EDT 1.0 {appli cation} active Triamcinolone Acetonide 0 .1 % eCW1 (Formerly [facility]) Triamcinolone Acetonide 1 MG/ML Topical Cream Triamcin olone Acetonide 0.1 % Triamcinolone Acetonide 0.1 % 07/31/2019 12:00:00 AM EDT 1.0 {appli cation} active Triamcinolone Acetonide 0 .1 % eCW1 (Formerly [facility]) Triamcinolone Acetonide 1 MG/ML Topical Cream Triamcin olone Acetonide 0.1 % Triamcinolone Acetonide 0.1 % 07/31/2019 12:00:00 AM EDT 1.0 {appli cation} active Triamcinolone Acetonide 0 .1 % eCW1 (Formerly [facility]) Triamcinolone Acetonide 1 MG/ML Topical Cream Triamcin olone Acetonide 0.1 % Triamcinolone Acetonide 0.1 % 07/31/2019 12:00:00 AM EDT 1.0 {appli cation} active Triamcinolone Acetonide 0 .1 % eCW1 (Formerly [facility]) Sulfamethoxazole 800 MG / Trimethoprim 1 60 MG Oral Tablet Sulfamethoxazole- Trimethoprim 800-160 MG Sulfamethoxazole-Trimethoprim 800-160 MG 07/29/2019 12:00:00 AM EDT 1.0 {tablet} active Sulfamethoxazole-Trimethoprim 800-160 MG eCW1 (Formerly [facility]) Sulfamethoxazole 800 MG / Trimethoprim 1 60 MG Oral Tablet Sulfamethoxazole- Trimethoprim 800-160 MG Sulfamethoxazole-Trimethoprim 800-160 MG 07/29/2019 12:00:00 AM EDT 1.0 {tablet} active Sulfamethoxazole-Trimethoprim 800-160 MG eCW1 (Formerly [facility]) Sulfamethoxazole 800 MG / Trimethoprim 1 60 MG Oral Tablet Sulfamethoxazole- Trimethoprim 800-160 MG Sulfamethoxazole-Trimethoprim 800-160 MG 07/29/2019 12:00:00 AM EDT 1.0 {tablet} active Sulfamethoxazole-Trimethoprim 800-160 MG eCW1 (Formerly [facility]) Sulfamethoxazole 800 MG / Trimethoprim 1 60 MG Oral Tablet Sulfamethoxazole- Trimethoprim 800-160 MG Sulfamethoxazole-Trimethoprim 800-160 MG 07/29/2019 12:00:00 AM EDT active 1 tablet eCW1 (Formerly [facility]) Sulfamethoxazole 800 MG / Trimethoprim 1 60 MG Oral Tablet Sulfamethoxazole- Trimethoprim 800-160 MG Sulfamethoxazole-Trimethoprim 800-160 MG 07/29/2019 12:00:00 AM EDT 1.0 {tablet} active Sulfamethoxazole-Trimethoprim 800-160 MG eCW1 (Formerly [facility]) Sulfamethoxazole 800 MG / Trimethoprim 1 60 MG Oral Tablet Sulfamethoxazole- Trimethoprim 800-160 MG Sulfamethoxazole-Trimethoprim 800-160 MG 07/29/2019 12:00:00 AM EDT active 1 tablet eCW1 (Formerly [facility]) Sulfamethoxazole 800 MG / Trimethoprim 1 60 MG Oral Tablet Sulfamethoxazole- Trimethoprim 800-160 MG Sulfamethoxazole-Trimethoprim 800-160 MG 07/29/2019 12:00:00 AM EDT active 1 tablet eCW1 (Formerly [facility]) Sulfamethoxazole 800 MG / Trimethoprim 1 60 MG Oral Tablet Sulfamethoxazole- Trimethoprim 800-160 MG Sulfamethoxazole-Trimethoprim 800-160 MG 07/29/2019 12:00:00 AM EDT 1.0 {tablet} active Sulfamethoxazole-Trimethoprim 800-160 MG eCW1 (Formerly [facility]) Sulfamethoxazole 800 MG / Trimethoprim 1 60 MG Oral Tablet Sulfamethoxazole- Trimethoprim 800-160 MG Sulfamethoxazole-Trimethoprim 800-160 MG 07/29/2019 12:00:00 AM EDT 1.0 {tablet} suspended Sulfamethoxazole-Trimethoprim 800-160 MG eCW1 (Formerly [facility]) Sulfamethoxazole 800 MG / Trimethoprim 1 60 MG Oral Tablet Sulfamethoxazole- Trimethoprim 800-160 MG Sulfamethoxazole-Trimethoprim 800-160 MG 07/29/2019 12:00:00 AM EDT 1.0 {tablet} active Sulfamethoxazole-Trimethoprim 800-160 MG eCW1 (Formerly [facility]) Sulfamethoxazole 800 MG / Trimethoprim 1 60 MG Oral Tablet Sulfamethoxazole- Trimethoprim 800-160 MG Sulfamethoxazole-Trimethoprim 800-160 MG 07/29/2019 12:00:00 AM EDT 1.0 {tablet} active Sulfamethoxazole-Trimethoprim 800-160 MG eCW1 (Formerly [facility]) Sulfamethoxazole 800 MG / Trimethoprim 1 60 MG Oral Tablet Sulfamethoxazole- Trimethoprim 800-160 MG Sulfamethoxazole-Trimethoprim 800-160 MG 07/29/2019 12:00:00 AM EDT 1.0 {tablet} suspended Sulfamethoxazole-Trimethoprim 800-160 MG eCW1 (Formerly [facility]) Sulfamethoxazole 800 MG / Trimethoprim 1 60 MG Oral Tablet Sulfamethoxazole- Trimethoprim 800-160 MG Sulfamethoxazole-Trimethoprim 800-160 MG 07/29/2019 12:00:00 AM EDT 1.0 {tablet} active Sulfamethoxazole-Trimethoprim 800-160 MG eCW1 (Formerly [facility]) Sulfamethoxazole 800 MG / Trimethoprim 1 60 MG Oral Tablet Sulfamethoxazole- Trimethoprim 800-160 MG Sulfamethoxazole-Trimethoprim 800-160 MG 07/29/2019 12:00:00 AM EDT active 1 tablet eCW1 (Formerly [facility]) Docusate Sodium 10 MG/ML Oral Suspension Diocto 50 MG/5ML Di octo 50 MG/5ML 07/09/2019 12:00:00 AM EST active TAKE 10 MILLILITERS VIA G-TUBE ONCE DAILY DIRECTED eCW1 (Formerly [facility]) Docusate Sodium 10 MG/ML Oral Suspension Diocto 50 MG/5ML Di octo 50 MG/5ML 07/09/2019 12:00:00 AM EST active Diocto 50 MG/5ML eCW1 (Formerly [facility]) Vitamin B12 1000 MCG Vitamin B12 1000 MCG 07/09/2019 12:00:00 AM ES T 1.0 {tablet} active Vitamin B12 1000 MCG eC W1 (Formerly [facility]) Docusate Sodium 10 MG/ML Oral Suspension Diocto 50 MG/5ML Di octo 50 MG/5ML 07/09/2019 12:00:00 AM EST active Diocto 50 MG/5ML eCW1 (Formerly [facility]) Vitamin B12 1000 MCG Vitamin B12 1000 MCG 07/09/2019 12:00:00 AM ES T 1.0 {tablet} active Vitamin B12 1000 MCG eC W1 (Formerly [facility]) Docusate Sodium 10 MG/ML Oral Suspension Diocto 50 MG/5ML Di octo 50 MG/5ML 07/09/2019 12:00:00 AM EST active Diocto 50 MG/5ML eCW1 (Formerly [facility]) Docusate Sodium 10 MG/ML Oral Suspension Diocto 50 MG/5ML Di octo 50 MG/5ML 07/09/2019 12:00:00 AM EST active TAKE 10 MILLILITERS VIA G-TUBE ONCE DAILY DIRECTED eCW1 (Formerly [facility]) Vitamin B12 1000 MCG Vitamin B12 1000 MCG 07/09/2019 12:00:00 AM ES T 1.0 {tablet} active Vitamin B12 1000 MCG eC W1 (Formerly [facility]) Docusate Sodium 10 MG/ML Oral Suspension Diocto 50 MG/5ML Di octo 50 MG/5ML 07/09/2019 12:00:00 AM EST active Diocto 50 MG/5ML eCW1 (Formerly [facility]) Vitamin B12 1000 MCG Vitamin B12 1000 MCG 07/09/2019 12:00:00 AM ES T 1.0 {tablet} active Vitamin B12 1000 MCG eC W1 (Formerly [facility]) Vitamin B12 1000 MCG Vitamin B12 1000 MCG 07/09/2019 12:00:00 AM ES T 1.0 {tablet} active Vitamin B12 1000 MCG eC W1 (Formerly [facility]) Vitamin B12 1000 MCG Vitamin B12 1000 MCG 07/09/2019 12:00:00 AM ES T 1.0 {tablet} active Vitamin B12 1000 MCG eC W1 (Formerly [facility]) Docusate Sodium 10 MG/ML Oral Suspension Diocto 50 MG/5ML Di octo 50 MG/5ML 07/09/2019 12:00:00 AM EST active Diocto 50 MG/5ML eCW1 (Formerly [facility]) Vitamin B12 1000 MCG Vitamin B12 1000 MCG 07/09/2019 12:00:00 AM ES T 1.0 {tablet} active Vitamin B12 1000 MCG eC W1 (Formerly [facility]) Vitamin B12 1000 MCG Vitamin B12 1000 MCG 07/09/2019 12:00:00 AM ES T 1.0 {tablet} active Vitamin B12 1000 MCG eC W1 (Formerly [facility]) Vitamin B12 1000 MCG Vitamin B12 1000 MCG 07/09/2019 12:00:00 AM ES T 1.0 {tablet} active Vitamin B12 1000 MCG eC W1 (Formerly [facility]) Docusate Sodium 10 MG/ML Oral Suspension Diocto 50 MG/5ML Di octo 50 MG/5ML 07/09/2019 12:00:00 AM EST active Diocto 50 MG/5ML eCW1 (Formerly [facility]) Docusate Sodium 10 MG/ML Oral Suspension Diocto 50 MG/5ML Di octo 50 MG/5ML 07/09/2019 12:00:00 AM EST active Diocto 50 MG/5ML eCW1 (Formerly [facility]) Vitamin B12 1000 MCG Vitamin B12 1000 MCG 07/09/2019 12:00:00 AM ES T 1.0 {tablet} active Vitamin B12 1000 MCG eC W1 (Formerly [facility]) Vitamin B12 1000 MCG Vitamin B12 1000 MCG 07/09/2019 12:00:00 AM EST active 1 tablet eCW1 (Formerly [facility]) Vitamin B12 1000 MCG Vitamin B12 1000 MCG 07/09/2019 12:00:00 AM EST active 1 tablet eCW1 (Formerly [facility]) Vitamin B12 1000 MCG Vitamin B12 1000 MCG 07/09/2019 12:00:00 AM EST active 1 tablet eCW1 (Formerly [facility]) Docusate Sodium 10 MG/ML Oral Suspension Diocto 50 MG/5ML Di octo 50 MG/5ML 07/09/2019 12:00:00 AM EST active Diocto 50 MG/5ML eCW1 (Formerly [facility]) Docusate Sodium 10 MG/ML Oral Suspension Diocto 50 MG/5ML Di octo 50 MG/5ML 07/09/2019 12:00:00 AM EST active Diocto 50 MG/5ML eCW1 (Formerly [facility]) Docusate Sodium 10 MG/ML Oral Suspension Diocto 50 MG/5ML Di octo 50 MG/5ML 07/09/2019 12:00:00 AM EST active Diocto 50 MG/5ML eCW1 (Formerly [facility]) Docusate Sodium 10 MG/ML Oral Suspension Diocto 50 MG/5ML Di octo 50 MG/5ML 07/09/2019 12:00:00 AM EST active TAKE 10 MILLILITERS VIA G-TUBE ONCE DAILY DIRECTED eCW1 (Formerly [facility]) TEDDY-HYATT Gastrostomy Kit 16FR - TEDDY-HYATT Gastrostomy Kit FR 07/07/2019 12:00:00 AM EST active TEDDY-HYATT Gastrostomy Kit 16FR - eCW1 (Formerly [facility]) TEDDY-HYATT Gastrostomy Kit 16FR - TEDDY-HYATT Gastrostomy Kit FR 07/07/2019 12:00:00 AM EST active TEDDY-HYATT Gastrostomy Kit 16FR - eCW1 (Formerly [facility]) TEDDY-HYATT Gastrostomy Kit 16FR - TEDDY-HYATT Gastrostomy Kit FR 07/07/2019 12:00:00 AM EST active TEDDY-HYATT Gastrostomy Kit 16FR - eCW1 (Formerly [facility]) TEDDY-HYATT Gastrostomy Kit 16FR - TEDDY-HYATT Gastrostomy Kit FR 07/07/2019 12:00:00 AM EST active TEDDY-HYATT Gastrostomy Kit 16FR - eCW1 (Formerly [facility]) TEDDY-HYATT Gastrostomy Kit 16FR - TEDDY-HYATT Gastrostomy Kit 07/07/2019 12:00:00 AM EST active Replace every 6 months or PRN for any complications eCW1 (Formerly [facility]) TEDDY-HYATT Gastrostomy Kit 16FR - TEDDY-HYATT Gastrostomy Kit 07/07/2019 12:00:00 AM EST active TEDDY-HYATT Gastrostomy Kit 16FR - eCW1 (Formerly [facility]) TEDDY-HYATT Gastrostomy Kit 16FR - TEDDY-HYATT Gastrostomy Kit FR 07/07/2019 12:00:00 AM EST active TEDDY-HYATT Gastrostomy Kit 16FR - eCW1 (Formerly [facility]) TEDDY-HYATT Gastrostomy Kit 16FR - TEDDY-HYATT Gastrostomy Kit FR 07/07/2019 12:00:00 AM EST active TEDDY-HYATT Gastrostomy Kit 16FR - eCW1 (Formerly [facility]) TEDDY-HYATT Gastrostomy Kit 16FR - TEDDY-HYATT Gastrostomy Kit FR 07/07/2019 12:00:00 AM EST active TEDDY-HYATT Gastrostomy Kit 16FR - eCW1 (Formerly [facility]) TEDDY-HYATT Gastrostomy Kit 16FR - TEDDY-HYATT Gastrostomy Kit 16FR - 07/07/2019 12:00:00 AM EST active TEDDY-HYATT Gastrostomy Kit 16FR - eCW1 (Formerly [facility]) TEDDY-HYATT Gastrostomy Kit 16FR - TEDDY-HYATT Gastrostomy Kit 16FR - 07/07/2019 12:00:00 AM EST active TEDDY-HYATT Gastrostomy Kit 16FR - eCW1 (Formerly [facility]) TEDDY-HYATT Gastrostomy Kit 16FR - TEDDY-HYATT Gastrostomy Kit 16FR - 07/07/2019 12:00:00 AM EST active Replace every 6 months or PRN for any complications eCW1 (Formerly [facility]) Dura-G Gastrostomy Tube 18FR - Dura-G Gastrostomy Tube 18FR - 07/07/2019 12:00:00 AM EST active Replace every 6 months or as needed for complication eCW1 (Formerly [facility]) Ranitidine 15 MG/ML Oral Solution Ranitidine HCl 150 M G/10ML Ranitidine HCl 150 MG/10ML 06/17/2019 12:00:00 AM EST active 10 ml as needed eCW1 (Formerly [facility]) Ranitidine 15 MG/ML Oral Solution Ranitidine HCl 150 M G/10ML Ranitidine HCl 150 MG/10ML 06/17/2019 12:00:00 AM EST active 10 ml as needed eCW1 (Formerly [facility]) Acetaminophen 650 MG Rectal Suppository Acetaminophen 650 MG 06/10/2019 12:00:00 AM EST active Acetaminophen 650 MG eCW1 (Formerly [facility]) Acetaminophen 650 MG Rectal Suppository Acetaminophen 650 MG 06/10/2019 12:00:00 AM EST active Acetaminophen 650 MG eCW1 (Formerly [facility]) Acetaminophen 650 MG Rectal Suppository Acetaminophen 650 MG 06/10/2019 12:00:00 AM EST active Acetaminophen 650 MG eCW1 (Formerly [facility]) Acetaminophen 650 MG Rectal Suppository Acetaminophen 650 MG 06/10/2019 12:00:00 AM EST active Acetaminophen 650 MG eCW1 (Formerly [facility]) Acetaminophen 650 MG Rectal Suppository Acetaminophen 650 MG 06/10/2019 12:00:00 AM EST active 1 suppositories a s needed eCW1 (Formerly [facility]) Acetaminophen 650 MG Rectal Suppository Acetaminophen 650 MG 06/10/2019 12:00:00 AM EST active Acetaminophen 650 MG eCW1 (Formerly [facility]) Acetaminophen 650 MG Rectal Suppository Acetaminophen 650 MG 06/10/2019 12:00:00 AM EST active Acetaminophen 650 MG eCW1 (Formerly [facility]) Acetaminophen 650 MG Rectal Suppository Acetaminophen 650 MG 06/10/2019 12:00:00 AM EST active Acetaminophen 650 MG eCW1 (Formerly [facility]) Acetaminophen 650 MG Rectal Suppository Acetaminophen 650 MG 06/10/2019 12:00:00 AM EST active Acetaminophen 650 MG eCW1 (Formerly [facility]) Acetaminophen 650 MG Rectal Suppository Acetaminophen 650 MG 06/10/2019 12:00:00 AM EST active Acetaminophen 650 MG eCW1 (Formerly [facility]) Acetaminophen 650 MG Rectal Suppository Acetaminophen 650 MG 06/10/2019 12:00:00 AM EST active Acetaminophen 650 MG eCW1 (Formerly [facility]) Acetaminophen 650 MG UNK 06/10/2019 12:00:00 AM EST active 1 suppositories as needed eCW1 (Formerly [facility]) Insurance Providers Payer name Policy type / Coverage type Policy ID Covered alliance party ID Covered alliance party's relationship to cummins Policy [employer] Plan Information EMEDNY [id number] SP [id number] MEDICARE [id number] SP [id number] Medicare P [id number] S [id number] Medicaid S UNAVAILABLE S [place] BLE MEDICAID [id number] SP [id number] MEDICARE C [id number] S [id number] [id number] MEDICAID M [id number] S [id number] MEDICAID [id number] SP [id number] MEDICARE [id number] SP [id number] ANS-Medicare Part B [id number] ANSI-Medicaid [id number] ANSI-Medicaid [id number] ANSI-Medicare Part B [id number] ANSI-Medicaid [id number] ANSI-Medicare Part B [id number] ANSI-Medicaid [id number] ANSI-Medicare Part B [id number] ANSI-Medicaid [id number] ANSI-Medicare Part B [id number] MEDICAID M [id number] Self [id number] MEDICARE A [id number] Self [id number] T12 Medicaid Medigap Part B [id number] Self [id number] Medicare Part B Medicare Primary [id number] Self [id number] ANSI-Medicaid [id number] ANSI-Medicare Part B [id number] ANSI-Medicare Part B [id number] ANSI-Medicaid [id number] ANSI-Medicaid [id number] ANSI-Medicare Part B [id number] ANSI-Medicaid [id number] ANSI-Medicare Part B [id number] ANSI-Medicare Part B [id number] ANSI-Medicaid [id number] ANSI-Medicaid [id number] ANSI-Medicare Part B [id number] ANSI-Medicare Part B [id number] ANSI-Medicaid [id number] MEDICARE [id number] SP [id number] ANSI-Medicaid [id number] ANSI-Medicare Part B [id number] ANSI-Medicare Part B [id number] ANSI-Medicaid [id number] ANSI-Medicare Part B [id number] ANSI-Medicaid [id number] Medicaid Medigap Part B [id number] Self [id number] Medicare Part B Medicare Primary [id number] Self [id number] Medicaid Medigap Part B [id number] Self [id number] Medicare Part B Medicare Primary [id number] Self [id number] ANSI-Medicare Part B [id number] ANSI-Medicaid [id number] ANSI-Medicare Part B [id number] ANSI-Medicaid [id number] ANSI-Medicaid [id number] ANSI-Medicare Part B [id number] ANSI-Medicaid [id number] ANSI-Medicare Part B [id number] [place] Med[place] [id number] Self [id number] [place] Medicare Primary [id number] Self [id number] ANSI-Medicaid [id number] ANSI-Medicare Part B [id number] ANSI-Medicare Part B [id number] ANSI-Medicaid [id number] ANSI-Medicare Part B [id number] ANSI-Medicaid [id number] ANSI-Medicare Part B [id number] ANSI-Medicaid [id number] ANSI-Medicare Part B [id number] ANSI-Medicaid [id number] ANSI-Medicare Part B [id number] ANSI-Medicaid [id number] ANSI-Medicaid [id number] ANSI-Medicare Part B [id number] ANSI-Medicare Part B [id number] ANSI-Medicaid [id number] ANSI-Medicare Part B [id number] ANSI-Medicaid [id number] Medicaid Medigap Part B [id number] Self [id number] Medicare Part B Medicare Primary [id number] Self [id number] ANSI-Medicaid [id number] ANSI-Medicare Part B [id number] Medicaid [facility] Part B [id number] Self [id number] [place] Medicare Primary [id number] Self [id number] MEDICARE [id number] ANSI-Medicare Part B [id number] ANSI-Medicaid [id number] ANSI-Medicaid [id number] ANSI-Medicare Part B [id number] ANSI-Medicare Part B [id number] ANSI-Medicaid [id number] ANSI-Medicare Part B [id number] ANSI-Medicaid [id number] ANSI-Medicare Part B [id number] ANSI-Medicaid [id number] ANS-Medicare Part B [id number] ANSI-Medicaid [id number] ANSI-Medicaid [id number] ANSI-Medicare Part B [id number] Medicaid Medig[place] Part B [id number] Self [id number] Medicare Part B Medicare Primary [id number] Self [id number] MEDICAID [id number] Medicaid [place] Part B [id number] Self [id number] [place] Medicare Primary [id number] Self [id number] [place] Part [place] [id number] Self ANO [id number] [place] Primary [id number] Self [id number] Medicaid Medigap Part B [id number] Self [id number] Medicare Part B Medicare Primary [id number] Self [id number] [place] Part [place] [id number] Self AN0 [id number] [place] Medicare Primary [id number] Self [id number] Medicaid Medigap Part B [id number] Self [id number] Medicare Part B Medicare Primary [id number] Self [id number] Medicaid Medigap Part B [id number] Self [id number] Medicare Part B Medicare Primary [id number] Self [id number] MEDICARE C [id number] S [id number] Medicaid Medigap Part B [id number] Self [id number] Medicare Part B Medicare Primary [id number] Self [id number] MEDICAID [id number] Medicaid Medigap Part B [id number] Self [id number] 93V Medicare Part B Medicare Primary [id number] Self [id number] Medicaid Medigap Part B [id number] Self A [id number] Medicare Part B Medicare Primary [id number] Self [id number] [place]ig[place] Primary Self Medicare Part B Medicare Primary Self Medicaid Medicaid Self Medicaid [place] Self [place] Medicare Primary Self Medicare Medicare Primary Self Medicaid Dental S [id number] Problems, Conditions, and Diagnoses Code Display Name Description Problem Type Effective Dates Data Source(s) M81.0 88016681 Osteoporosis, unspec ified osteoporosis type, unspecified pathological fracture presence Problem 06/24/2019 12:00:00 AM EST eC W1 (Formerly [facility]) M81.0 [id number] Osteoporosis, unspec ified osteoporosis type, unspecified pathological fracture presence Problem 06/24/2019 12:00:00 AM EST eC W1 (Formerly [facility]) G40.909 [id number] Seizure disorder Problem 06/04/2019 12:00:00 AM EST eCW1 (Formerly [facility]) G40.909 [id number] Seizure disorder Problem 06/04/2019 12:00:00 AM EST eCW1 (Formerly [facility]) Surgeries/Procedures Procedure Description Date Indications Data Source(s) RADIOLOGIC EXAMINATION KNEE 1/2 VIEWS 11/25/2019 12:00 :00 AM EDT MEDENT ([facility]) RADIOLOGIC EXAM KNEE COMPLETE 4/MORE VIEWS 10/27/2019 12:00:00 AM EDT [facility] ([facility]) FX Femur Med/Lat Condyle W/O Manipulation 09/26/2019 1 2:00:00 AM EDT [facility] ([facility]) FX Tibia Proximal W/O Manipulation 09/26/2019 12:00:00 AM EDT [facility] ([facility]) RADIOLOGIC EXAM KNEE COMPLETE 4/MORE VIEWS 09/26/2019 12:00:00 AM EDT [facility] ([facility]) Office Visit, Est Pt., Level 2 FC 09/16/2019 12:00:00 AM EDT eCW1 (Formerly [facility]) Office Visit, Est Pt., Level 3 PC 09/16/2019 12:00:00 AM EDT eCW1 (Formerly [facility]) Results ID Date Data Source [id number] 03/23/2020 09:39:00 AM EST [facility] ([facility] [...] and its performa nce characteristics determined by [facility]. It has not been cleared or approved by the Food and Drug Administration. Detection Limit = 1.0 Lamotrigine [Mass/volume] in Serum or Plasma 11.8 ug/mL 2.0-20.0 MEDENT ([facility], ) Testing on this sample was performed by homogeneous enzyme immunoassay. Detection Limit = 1.0 Performed at: [facility] [employer] [id number] Field Naturalist: Geovanny Mao MD, Phone: [phone] Performed at: [employer] [address] [place] [address] [id number] Field Naturalist: Kamila Pineda [facility], Phone: [phone] ID Date Data Source [id number] 02/12/2020 01:20:00 PM EDT MED[facility] ([facility]) Name Value Range Interpretation Code Description Data Caroline rce(s) Supporting Document(s) Valproate [Mass/volume] in Serum or Plasma 41.9 UG/ML 50.0-100.0 MEDENT ([facility] ) <content>note:<nlbl:demographic_changed> </content>
<content></content> ID Date Data Source [id number] 02/12/2020 01:16:00 PM EDT MEDENT ([facility] ) Name Value Range Interpretation Code Description Data Caroline rce(s) Supporting Document(s) Topiramate [Mass/volume] in Serum or Plasma 8.8 ug/mL 2.0-25.0 MEDENT ([facility], ) This test was developed and its performa nce characteristics determined by [facility]. It has not been cleared or approved by the Food and Drug Administration. Detection Limit = 1.0 Performed at: [facility] [employer] [id number] Field Naturalist: Geovanny Mao MD, Phone: [phone] Ammonia [Mass/volume] in Blood 21 uMOL/L MEDENT ([facility] ) <content>By: LAB DRAW</content>
<con tent>Time: 1254</content>
<content>note:<nlbl:demographic_changed></content>
<sherly LAB DRAW Time: 1254</content>
<content></content> Lamotrigine [Mass/volume] in Serum or Plasma 12.0 ug/mL 2.0-20.0 MEDENT ([facility] ) Testing on this sample was performed by homogeneous enzyme immunoassay. Detection Limit = 1.0 Performed at: [facility] [employer] [facility] [address] [id number] Field Naturalist: Kamila Pineda [facility], Phone: [phone] ID Date Data Source [id number] 06/11/2019 08:29:00 AM EST [facility] ([facility] [...] Serum or Plasma 13.7 ug/mL 2.0-20.0 MED[facility] ([facility], ) This test was developed and its performa nce characteristics determined by [facility]. It has not been cleared or approved by the Food and Drug Administration. Detection Limit = 1.0 Performed at: [facility] [id number] Field Naturalist: Geovanny Mao MD, Phone: [phone] Procedure Social History Code Duration Value Status Description Data Source(s ) Smoking 06/09/2020 12:00:00 AM EST Never Smoker completed Never S moker eCW1 (Formerly [facility]) Smoking 06/09/2020 12:00:00 AM EST Never Smoker completed Never S moker eCW1 (Formerly [facility]) Smoking 09/16/2019 12:00:00 AM EDT Never Smoker completed Never S moker eCW1 (Formerly [facility]) Smoking 09/16/2019 12:00:00 AM EDT Never Smoker completed Never S moker eCW1 (Formerly [facility]) Smoking 09/16/2019 12:00:00 AM EDT Never Smoker completed Never S moker eCW1 (Formerly [facility]) Smoking 09/16/2019 12:00:00 AM EDT Never Smoker completed Never S moker eCW1 (Formerly [facility]) Smoking 09/16/2019 12:00:00 AM EDT Never Smoker completed Never S moker eCW1 (Formerly [facility]) Smoking 09/16/2019 12:00:00 AM EDT Never Smoker completed Never S moker eCW1 (Formerly [facility]) Smoking 09/16/2019 12:00:00 AM EDT Never Smoker completed Never S moker eCW1 (Formerly [facility]) Smoking 09/16/2019 12:00:00 AM EDT Never Smoker completed Never S moker eCW1 (Formerly [facility]) Vital Signs ID Date Data Source UNK Name Value Range Interpretation Code Description Data Source(s) Diastolic blood pressure 64 mm[Hg] 64 mm[Hg] eCW1 ([facility]ly [facility]) Systolic blood pressure 110 mm[Hg] 110 mm[Hg] e CW1 (Formerly [facility]) Body temperature 97.2 [degF] 97.2 [degF] eCW1 ( Formerly [facility]) Respiratory rate 18 /min 18 /min eCW1 ([facility]) Heart rate 69 /min 69 /min eCW1 ([facility]) Body mass index (BMI) [Ratio] 25.98 kg/m2 25.98 kg/m2 eCW1 (Formerly [facility]) Body height 66 [in_i] 66 [in_i] eCW1 (Formerly [facility]) Body weight 161 [lb_av] 161 [lb_av] eCW1 ([facility]) Respiratory rate 16 /min 16 [...] blood pressure 78 mm[Hg] 78 mm[Hg] eCW1 ([facility]ly [facility]) Systolic blood pressure 127 mm[Hg] 127 mm[Hg] e CW1 ([facility]ly [facility]) Body temperature 97.8 [degF] 97.8 [degF] eCW1 ( Formerly [facility]) Respiratory rate 16 /min 16 /min eCW1 ([facility]) Heart rate 89 /min 89 /min eCW1 ([facility]) Body mass index (BMI) [Ratio] 28.24 kg/m2 28.24 kg/m2 eCW1 ([facility]ly [facility]) Body height 66 [in_us] 66 [in_us] eCW1 (Formerly [facility]) Body weight Measured [lb_av] eCW1 ([facility]ly [facility]) Respiratory rate 16 /min 16 /min MEDENT ( [facility] ) Heart rate 84 /min 84 /min MEDENT ([facility] ) Diastolic blood pressure 70 mm[Hg] 70 mm[Hg] MEDENT ([facility] ) Systolic blood pressure 110 mm[Hg] 110 mm[Hg] M EDENT ([facility] ) Diastolic blood pressure 78 mm[Hg] 78 mm[Hg] eCW1 ([facility]ly [facility]) Systolic blood pressure 117 mm[Hg] 117 mm[Hg] e CW1 ([facility]ly [facility]) Body temperature 97.9 [degF] 97.9 [degF] eCW1 ( Formerly [facility]) Respiratory rate 18 /min 18 /min eCW1 ([facility]) Heart rate 90 /min 90 /min eCW1 ([facility]) Body mass index (BMI) [Ratio] 30.02 kg/m2 30.02 kg/m2 eCW1 ([facility]ly [facility]) Body height 66 [in_us] 66 [in_us] eCW1 (Formerly [facility]) Body weight Measured 186 [lb_av] 186 [lb_av] eC W1 (Formerly [facility]) Patient Treatment Plan of Care Planned Activity Planned Date Details Description Data Source (s) Famotidine 20 MG Oral Tablet 04/20/2020 12:00:00 AM EST eCW1 ([facility]ly [facility]) Famotidine 20 MG Oral Tablet 04/20/2020 12:00:00 AM EST eCW1 (Formerly [facility]) Famotidine 20 MG Oral Tablet 04/20/2020 12:00:00 AM EST eCW1 (Formerly [facility]) May Have - 10/15/2019 12:00:00 AM EDT e CW1 (Formerly [facility]) May Have - 10/15/2019 12:00:00 AM EDT e CW1 ([facility]ly [facility]) May Have - 10/15/2019 12:00:00 AM EDT e CW1 ([facility]ly [facility]) May Have - 10/15/2019 12:00:00 AM EDT e CW1 ([facility]ly [facility]) May Have - 10/15/2019 12:00:00 AM EDT e CW1 ([facility]ly [facility]) May Have - 10/15/2019 12:00:00 AM EDT e CW1 ([facility]ly [facility]) May Have - 10/15/2019 12:00:00 AM EDT e CW1 ([facility]ly [facility]) May Have - 10/15/2019 12:00:00 AM EDT e CW1 ([facility]ly [facility]) May Have - 10/15/2019 12:00:00 AM EDT e CW1 ([facility]ly [facility]) Acetaminophen 300 MG / Codeine Phosphate 30 MG Oral Ta blet 09/24/2019 12:00:00 AM EDT eCW1 ([facility]) Acetaminophen 300 MG / Codeine Phosphate 30 MG Oral Ta blet 09/24/2019 12:00:00 AM EDT eCW1 ([facility]) Acetaminophen 300 MG / Codeine Phosphate 30 MG Oral Ta blet 09/24/2019 12:00:00 AM EDT eCW1 ([facility]) Acetaminophen 300 MG / Codeine Phosphate 30 MG Oral Ta blet 09/24/2019 12:00:00 AM EDT eCW1 ([facility]) Acetaminophen 300 MG / Codeine Phosphate 30 MG Oral Ta blet 09/24/2019 12:00:00 AM EDT eCW1 ([facility]) Acetaminophen 300 MG / Codeine Phosphate 30 MG Oral Ta blet 09/24/2019 12:00:00 AM EDT eCW1 ([facility]) Acetaminophen 300 MG / Codeine Phosphate 30 MG Oral Ta blet 09/24/2019 12:00:00 AM EDT eCW1 ([facility]) Acetaminophen 300 MG / Codeine Phosphate 30 MG Oral Ta blet 09/24/2019 12:00:00 AM EDT eCW1 ([facility]) Acetaminophen 300 MG / Codeine Phosphate 30 MG Oral Ta blet 09/24/2019 12:00:00 AM EDT eCW1 ([facility]) Acetaminophen 300 MG / Codeine Phosphate 30 MG Oral Ta blet 09/24/2019 12:00:00 AM EDT eCW1 ([facility]) Acetaminophen 300 MG / Codeine Phosphate 30 MG Oral Ta blet 09/24/2019 12:00:00 AM EDT eCW1 ([facility]) May Have - 09/22/2019 12:00:00 AM EDT e CW1 ([facility]ly [facility]) May Have - 09/22/2019 12:00:00 AM EDT e CW1 ([facility]ly [facility]) May Have - 09/22/2019 12:00:00 AM EDT e CW1 ([facility]) May Have - 09/22/2019 12:00:00 AM EDT e CW1 ([facility]) May Have - 09/22/2019 12:00:00 AM EDT e CW1 ([facility]ly [facility]) May Have - 09/22/2019 12:00:00 AM EDT e CW1 ([facility]ly [facility]) May Have - 09/22/2019 12:00:00 AM EDT e CW1 ([facility]ly [facility]) May Have - 09/22/2019 12:00:00 AM EDT e CW1 ([facility]ly [facility]) May Have - 09/22/2019 12:00:00 AM EDT e CW1 ([facility]ly [facility]) Famotidine 8 MG/ML Oral Suspension 09/18/2019 12:00:00 AM EDT eCW1 ([facility]ly [facility]) Famotidine 8 MG/ML Oral Suspension 09/18/2019 12:00:00 AM EDT eCW1 ([facility]ly [facility]) Famotidine 8 MG/ML Oral Suspension 09/18/2019 12:00:00 AM EDT eCW1 ([facility]ly [facility]) Famotidine 8 MG/ML Oral Suspension 09/18/2019 12:00:00 AM EDT eCW1 ([facility]ly [facility]) Famotidine 8 MG/ML Oral Suspension 09/18/2019 12:00:00 AM EDT eCW1 ([facility]ly [facility]) Famotidine 8 MG/ML Oral Suspension 09/18/2019 12:00:00 AM EDT eCW1 ([facility]ly [facility]) Acetaminophen 32 MG/ML Oral Suspension 09/17/2019 12:00:00 AM EDT eCW1 ([facility]ly [facility]) Acetaminophen 32 MG/ML Oral Suspension 09/17/2019 12:00:00 AM EDT eCW1 ([facility]) Acetaminophen 32 MG/ML Oral Suspension 09/17/2019 12:00:00 AM EDT eCW1 ([facility]) Acetaminophen 32 MG/ML Oral Suspension 09/17/2019 12:00:00 AM EDT eCW1 ([facility]) Acetaminophen 32 MG/ML Oral Suspension 09/17/2019 12:00:00 AM EDT eCW1 ([facility]ly [facility]) Acetaminophen 32 MG/ML Oral Suspension 09/17/2019 12:00:00 AM EDT eCW1 ([facility]) Acetaminophen 32 MG/ML Oral Suspension 09/17/2019 12:00:00 AM EDT eCW1 ([facility]) Acetaminophen 32 MG/ML Oral Suspension 09/17/2019 12:00:00 AM EDT eCW1 ([facility]) Acetaminophen 32 MG/ML Oral Suspension 09/17/2019 12:00:00 AM EDT eCW1 ([facility]) Acetaminophen 32 MG/ML Oral Suspension 09/17/2019 12:00:00 AM EDT eCW1 ([facility]ly [facility]) PredniSONE 5 MG/ML 09/16/2019 12:00:00 AM EDT eCW1 ([facility]ly [facility]) PredniSONE 5 MG/ML 09/16/2019 12:00:00 AM EDT eCW1 ([facility]ly [facility]) PredniSONE 5 MG/ML 09/16/2019 12:00:00 AM EDT eCW1 ([facility]) PredniSONE 5 MG/ML 09/16/2019 12:00:00 AM EDT eCW1 ([facility]) PredniSONE 5 MG/ML 09/16/2019 12:00:00 AM EDT eCW1 ([facility]) PredniSONE 5 MG/ML 09/16/2019 12:00:00 AM EDT eCW1 ([facility]) PredniSONE 5 MG/ML 09/16/2019 12:00:00 AM EDT eCW1 ([facility]) PredniSONE 5 MG/ML 09/16/2019 12:00:00 AM EDT eCW1 ([facility]) PredniSONE 5 MG/ML 09/16/2019 12:00:00 AM EDT eCW1 ([facility]ly [facility]) Triamcinolone Acetonide 1 MG/ML Topical Cream 07/31/2019 12:00:00 A M EDT eCW1 ([facility]ly [facility]) Triamcinolone Acetonide 1 MG/ML Topical Cream 07/31/2019 12:00:00 A M EDT eCW1 ([facility]ly [facility]) Triamcinolone Acetonide 1 MG/ML Topical Cream 07/31/2019 12:00:00 A M EDT eCW1 ([facility]ly [facility]) Triamcinolone Acetonide 1 MG/ML Topical Cream 07/31/2019 12:00:00 A M EDT eCW1 ([facility]ly [facility]) Triamcinolone Acetonide 1 MG/ML Topical Cream 07/31/2019 12:00:00 A M EDT eCW1 ([facility]ly [facility]) Triamcinolone Acetonide 1 MG/ML Topical Cream 07/31/2019 12:00:00 A M EDT eCW1 ([facility]ly [facility]) Triamcinolone Acetonide 1 MG/ML Topical Cream 07/31/2019 12:00:00 A M EDT eCW1 ([facility]) Triamcinolone Acetonide 1 MG/ML Topical Cream 07/31/2019 12:00:00 A M EDT eCW1 ([facility]ly [facility]) Sulfamethoxazole 800 MG / Trimethoprim 160 MG Oral Tab let 07/29/2019 12:00:00 AM EDT eCW1 ([facility]) Sulfamethoxazole 800 MG / Trimethoprim 160 MG Oral Tab let 07/29/2019 12:00:00 AM EDT eCW1 ([facility]) Sulfamethoxazole 800 MG / Trimethoprim 160 MG Oral Tab let 07/29/2019 12:00:00 AM EDT eCW1 ([facility]) Vitamin B12 1000 MCG 07/09/2019 12:00:00 AM EST eCW1 ([facility]) Docusate Sodium 10 MG/ML Oral Suspension 07/09/2019 12:00:00 AM EST eCW1 ([facility]) Vitamin B12 1000 MCG 07/09/2019 12:00:00 AM EST eCW1 ([facility]) Docusate Sodium 10 MG/ML Oral Suspension 07/09/2019 12:00:00 AM EST eCW1 ([facility]) Dura-G Gastrostomy Tube 18FR - 07/07/2019 12:00:00 AM EST eCW1 ([facility]ly [facility]) TEDDY-HYATT Gastrostomy Kit 16FR - 07/07/2019 12:00:00 AM EST eCW1 ([facility]) Ranitidine 15 MG/ML Oral Solution 06/17/2019 12:00:00 AM EST eCW1 ([facility]) Acetaminophen 650 MG 06/10/2019 12:00:00 AM EST eCW1 ([facility])
--- NOTE | 2020-06-20 15:01 | HPEPDOC ---
[facility] Medical History & Physical Date of Admission Jun 20, 2020 Date of Service: Jun 20, 2020 History and Physical CHIEF COMPLAINT: Severe sepsis Covid 19 infection HISTORY OF PRESENT ILLNESS: This is a 74-year-old male [facility] patient was brought into the emergency department by EMS because he was noted to have shortness of breath and low blood pressure at [facility]. In the emergency department patient was found to be in septic shock severe sepsis lactate almost 8 WBC count almost 40 with severe hypertension that did not respond to fluids. Patient had a very guarded prognosis with poor outlook a discussion was had with both brothers were healthcare proxy is Yonatan and Mark will ask the patient to be made comfort measures only. Patient is nonverbal at baseline and appeared very ill unable to answer any questions. In the emergency department initially sepsis protocol with initiated and followed with poor response. 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 REVIEW OF SYSTEMS: Cannot obtain review of systems as patient is nonverbal HOME MEDICATIONS: Please see below. PHYSICAL EXAMINATION: Constitutional: Older frail ill-appearing male who is nonverbal but opens his eyes spontaneously not tracking me around the room ENT: Sclera are clear Respiratory: Appears to be breathing comfortably lungs are clear to auscultation Cardiovascular: Tachycardia Gastrointestinal: Abdomen is soft, non distended, non tender, BS present. Claudio catheter in place with dark dirty looking urine. Musculoskeletal: No lower extremity edema Neurologic: Unable to assess Mental Status: Patient is nonverbal noncommunicative LABORATORY DATA: See below. IMAGING: See chart MICROBIOLOGY: Please see below. ASSESSMENT/PLAN 74-year-old male [facility] resident comes to the hospital with severe sepsis admitted with comfort measures only and hospice consult placed. Patient is not doing well he's clinically deteriorating his blood pressure was resistant to fluid boluses and appears to have severe sepsis lactate at time of admission 7.8 leukocytosis of 37.5 with very dirty urinalysis hypokalemia and Covid 19 infection. PFS consult has been placed hospice consult placed patient will be admitted with all comfort measures ordered. Oxygen for comfort. Feeding for comfort. I spoke with Shaina and confirmed the plan with them, also confirmed code status as CAN CLEANER, discussed prognosis and answered all their questions. A [facility] Hospitalist Vital Signs Vital Signs Date Time Temp Pulse Resp B/P (MAP) Pulse Ox O2 Delivery O2 Flow Rate FiO2 06/20/20 14:35 98 100 06/20/20 14:30 81/50 (60) 06/20/20 13:35 99.0 18 06/20/20 11:13 Room Air Laboratory Data Labs 24H Laboratory Tests 2 06/20/20 11:13: SARS Antigen (LFIA) NEGATIVE 06/20/20 11:38: POC Glucose (Misc Panel) 139H, POC Sodium (Misc Panel) 136, POC Potassium (Misc Panel) 3.3L, POC Chloride (Misc Panel) 102, POC Total CO2 (Misc Panel) 19.0L, POC Blood Urea Nitrogen (Misc Panel 30H, POC Ionized Calcium (Misc Panel) 4.2L, POC Creatinine (Misc Panel) 1.2, POC Hematocrit (Misc Panel) 45.0 06/20/20 11:40: Blood Gas Bicarbonate Standard 17.8, Venous Blood pH 7.249L, Venous Blood Partial Pressure CO2 43.9, Venous Blood Partial Pressure O2 65.5H, Venous Blood Total Carbon Dioxide 20.1L, Venous Blood HCO3 18.8L, Venous Blood Oxygen Saturation 92.3H, Venous Blood Base Excess -8.2L, Lactic Acid Level 7.8*H 06/20/20 11:42: Neutrophils (%) (Auto) , Nucleated Red Blood Cells % (auto) 0.0, Neutrophils 50, Band Neutrophils 30H, Lymphocytes (Manual) 1L, Monocytes (Manual) 6H, Metamyel ocytes 10H, Myelocytes 1H, Atypical Lymphocytes 2, Toxic Vacuolation 2+, Platelet Estimate NORMAL, Anion Gap 13, Glomerular Filtration Rate 50.5, Calcium Level 9.5, Total Bilirubin 4.7H, Direct Bilirubin 4.0H, Aspartate Amino Transf (AST/SGOT) 119H, Alanine Aminotransferase (ALT/SGPT) 75, Alkaline Phosphatase 270H, Total Creatine Kinase 110, Creatine Kinase MB 1.1, Creatine Kinase MB Relative Index 1.00, Troponin I < 0.02, Total Protein 6.7, Albumin 2.3L, Albumin/Globulin Ratio 0.5, Lipase 35L 06/20/20 13:52: Bedside Urine Color (LAB) BROWNH, Bedside Urine Appearance (LAB) TURBIDH, Bedside Urine pH (LAB) OBSCUREDH, Bedside Urine Specific Gruver (LAB 1.021, Bedside Urine Protein (LAB) OBSCUREDH, Bedside Urine Glucose (UA) OBSCUREDH, Bedside Urine Ketones (LAB) OBSCUREDH, Bedside Urine Blood OBSCUREDH, Bedside Urine Nitrite (LAB) OBSCUREDH, Bedside Urine Bilirubin (LAB) OBSCUREDH, Bedside Urine Urobilinogen (LAB) OBSCUREDH, Bedside Urine Leukocyte Esterase (L OBSCUR EDH, Urine Sediment Examination PERFORMED, Urine RBC TNTCH, Urine WBC TNTCH, Urine Squamous Epithelial Cells SMALL AMOUNT, Urine Transitional Epithelial Cells MOD AMOUNTH, Urine Bacteria MOD AMOUNTH, Urine Hyaline Casts , Urine Mucus SMALL AMOUNTH CBC/BMP Laboratory Tests 06/20/20 11:42 Microbiology Microbiology 06/20/20 Urine Culture, Received Pending 06/20/20 Blood Culture, Received Pending 06/20/20 Blood Culture, Received Pending 06/20/20 Respiratory Virus Panel (PCR) (TEDDY) - Final, Complete SARS-CoV-2 (COVID 19) Home Medications Scheduled Calcipotriene (Dovonex) 0.005 % Cre, 1 DOSE TOP 5XW BID MON THRU FRI - APPLY TO PSORIASIS AREAS Cyanocobalamin (Vitamin B-12) (Vitamin B-12) 1,000 Mcg Tab, 1,000 MCG GT DAILY Docusate Sodium (Docusate Sodium) 50 Mg/5 Ml Liq, 100 MG GT QHS Famotidine (Famotidine) 20 Mg Tablet, 10 MG GT BID Lactulose (Lactulose) 10 Gm/15 Ml Solution, 15 ML PO BID Lamotrigine (Lamotrigine) 100 Mg Tab, 100 MG GT BID Meloxicam (Meloxicam) 15 Mg Tab, 15 MG GT DAILY Topiramate (Topamax) 200 Mg Tab, 200 MG GT BID Triamcinolone Acet (Triamcinolone Acetonide 0.1% Crm) 80 Gm Cream..g., 1 APLCT TOP 2XW BID ON SAT & SUN Valproic Acid (As Sodium Salt) (Valproic Acid) 250 Mg/5 Ml Solution, 15 ML GT BID Scheduled PRN Bisacodyl (Dulcolax) 10 Mg Supp.rect, [address] ASDIRECTED PRN for CONSTIPATION GIVE ON DAY 4 IF NO BM Magnesium Hydroxide (Milk of Magnesia) 400 Mg/5 Ml Oral.susp, 30 ML PO ASDIRECTED PRN for CONSTIPATION GIVE ON DAY 3 IF NO BM Sodium Phosphate,Jerome-Dibasic (Fleet Enema) 133 Ml Enema, [address] ASDIRECTED PRN for CONSTIPATION GIVE ON DAY 5 IF NO BM Allergies Coded Allergies: No Known Allergies (Unverified , 09/22/18) A-FIB/CHADSVASC A-FIB History Current/History of A-Fib/PAF?: No KEVIN BUNN MD Jun 20, 2020 15:01
[2020-06-20 16:20] VITALS: BP 94/55
[2020-06-20] MEDS ORDERED: ACETAMINOPHEN 325 MG/10.15 ML UDC PO PRN (20:51)
[2020-06-20] MEDS ORDERED: DOCUSATE SODIUM 100MG CAPSULE PO SCH (21:00)
--- NOTE | 2020-06-20 21:02 | ECGEPIP ---
[facility] - ED Test Date: 2020-06-20 Pat Name: CONOR BORGES Department: Room: - Gender: Male Solution Advisor: : [id number] Requested By: CATRINA CUEVAS Order Number: [id number] Reading MD: Nora Aguillon Measurements Intervals [place] Rate: 98 P: 52 SC: 152 QRS: 79 QRSD: 112 T: 71 QT: 300 QTc: 383 Interpretive Statements SINUS RHYTHM NSTTW abnormalities RIGHT BUNDLE BRANCH BLOCK decreased rate 07/05/18 Electronically Signed on 06-20-2020 21:02:27 EST by Nora Aguillon
[2020-06-20] MEDS: DOCUSATE SOD LIQ 100MG/10ML UDC PO SCH (22:02)
[2020-06-21 04:33] VITALS: BP 100/65
[2020-06-21] MEDS: DOCUSATE SOD LIQ 100MG/10ML UDC PO SCH ×2 (09:22→21:18)
--- NOTE | 2020-06-21 10:00 | IPNPDOC ---
Text Note Date of Service The patient was seen on 06/21/20. NOTE Subjective: Patient is a 74-year-old male with a PMHx of MR, Psoriasis, Seizures, R MCA infarct, PEG tube feeding who presented to the ER with shortness of breath and hypotension. Upon arrival to ER patient was noted to be in septic shock. After discussion with HCP (Brothers, Yonatan and Mark) patient was ultimately transitioned to MAGNETIC HEALER. Patient was seen and examined at the bedside. Currently laying in bed, appears comfortable. Objective: Vitals (See below) General: Lying in bed, appears comfortable, Drowsy HEENT: NC, AT CVS: +S1S2 Lungs: Fair air entry b/l, no wheezing / rhonchi / rales Abdomen: Soft, non-distended, non-tender Extremities: No significant edema, - Calf tenderness Assessment: Septic shock Lactic acidosis Leukocytosis Acute kidney injury Elevated bilirubin COVID19 infection Mental Retardation Psoriasis Seizures R MCA infarct PEG tube feeding Plan: - Patient has been made MAGNETIC HEALER on 06/20 - MOLST form was updated again today (06/21) after completing mental hygiene checklist and confirming with [place] [facility] - Contact Yonatan Sosa; confirmed MOLST form - c/w Comfort measures - PFS on board - Plan for return to [facility] within 24 hours under MAGNETIC HEALER VS,Fishbone, I+O VS, Fishbone, I+O Laboratory Tests 06/20/20 11:42 Vital Signs Date Time Temp Pulse Resp B/P (MAP) Pulse Ox O2 Delivery O2 Flow Rate FiO2 06/21/20 04:33 97.4 75 11 100/65 (77) 99 Room Air I&O- Last 24 Hours up to 6 AM 06/21/20 06:00 Intake Total 4900 ml Balance 4900 ml MIRELA COOL MD Jun 21, 2020 10:00
[2020-06-21] MEDS ORDERED: lamoTRIgine 100MG TAB GT ONE (17:15)
[2020-06-21] MEDS ORDERED: TOPIRAMATE (TopAMAX) 100 MG TAB GT ONE (17:30)
[2020-06-21] MEDS ORDERED: VALPROIC ACID 250MG/5ML SOL ORAL SYRINGE *DRAW UP EXACT DOSE GT ONE (17:30)
[2020-06-22] MEDS ORDERED: lamoTRIgine 100MG TAB GT SCH (09:00)
[2020-06-22] MEDS ORDERED: VALPROIC ACID 250MG/5ML SOL ORAL SYRINGE *DRAW UP EXACT DOSE GT SCH (09:00)
[2020-06-22] MEDS ORDERED: TOPIRAMATE (TopAMAX) 100 MG TAB GT SCH (09:00)
[2020-06-22] MEDS: DOCUSATE SOD LIQ 100MG/10ML UDC PO SCH (09:08)
[2020-06-22] MEDS ORDERED: ZOFR4TAB16 PO (11:09)
[2020-06-22] MEDS ORDERED: DOCU10ELUD PO (11:09)
[2020-06-22] MEDS ORDERED: MORP20SO3 PO (11:09)
[2020-06-22] MEDS ORDERED: ATIV1TAB10 PO (11:09)
[2020-06-22] MEDS ORDERED: BISA10SU PR (11:09)
[2020-06-22] MEDS ORDERED: HYOS125TA PO (11:09)
[2020-06-22] MEDS ORDERED: MOM30SS2 PO (11:13)
--- NOTE | 2020-06-22 11:46 | DS.PDOC ---
Discharge Summary General Date of Admission Jun 20, 2020 at 10:39 Date of Discharge 06/22/20 Discharge Summary PROCEDURES PERFORMED DURING STAY: None ADMITTING DIAGNOSES: Septic shock Lactic acidosis Leukocytosis Acute kidney injury Elevated bilirubin COVID19 infection Mental Delay Psoriasis Seizures R MCA infarct PEG tube feeding DISCHARGE DIAGNOSES: Septic shock Lactic acidosis Leukocytosis Acute kidney injury Elevated bilirubin COVID19 infection Mental Delay Psoriasis Seizures R MCA infarct PEG tube feeding Comfort measures COMPLICATIONS/CHIEF COMPLAINT: Comfort Measures Only Status Covid 19 Sepsis. HISTORY OF PRESENT ILLNESS: This is a 74-year-old male [facility] patient was brought into the emergency department by EMS because he was noted to have shortness of breath and low blood pressure at [facility]. In the emergency department patient was found to be in septic shock severe sepsis lactate almost 8 WBC count almost 40 with severe hypertension that did not respond to fluids. Patient had a very guarded prognosis with poor outlook a discussion was had with both brothers were healthcare proxy is Yonatan and Mark will ask the patient to be made comfort measures only. Patient is nonverbal at baseline and appeared very ill unable to answer any questions. In the emergency department initially sepsis protocol with initiated and followed with poor response. 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 Medications provided. Hanna in place. DISCHARGE MEDICATIONS: Please see below. ALLERGIES: Please see below. PHYSICAL EXAMINATION ON DISCHARGE: VITAL SIGNS: Please see below. GENERAL: comfortable, drowsy HEENT: NC, AT CARDIOVASCULAR EXAMINATION: Normal S1, S2, RRR RESPIRATORY EXAMINATION: fair air entry bilaterally, no wheezing ABDOMINAL EXAMINATION: soft, non distended EXTREMITIES: no edema. no calf tenderness LABORATORY DATA: Please see below. IMAGING: CXR (06/22/20): FINDINGS: There is a severe dextroconvex thoracolumbar scoliosis again noted. Mild cardiomegaly is observed unchanged. Pulmonary vasculature is not increased. No infiltrate is seen. Pleural angles are sharp. 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 IMPRESSION: Cardiomegaly. Severe scoliosis. Otherwise no acute disease. PROGNOSIS: comfort measures ACTIVITY: [As tolerated]. DIET: tube feedings, comfort feeds DISCHARGE PLAN: DC to [facility] under YARD WORKER status. Order set medications for pain, anxiety, nausea, constipation was placed. DISPOSITION: [facility] DISCHARGE INSTRUCTIONS: . Leave hanna in place for comfort . YARD WORKER comfort meds ordered . Please follow up with PCP 3-5 days DISCHARGE CONDITION: Stable TIME SPENT ON DISCHARGE: 35 minutes Vital Signs/I&Os Vital Signs Date Time Temp Pulse Resp B/P (MAP) Pulse Ox O2 Delivery O2 Flow Rate FiO2 06/21/20 04:33 97.4 75 11 100/65 (77) 99 Room Air I&O- Last 24 Hours up to 6 AM 06/22/20 06:00 Intake Total 1420 ml Output Total 1000 ml Balance 420 ml Microbiology Microbiology 06/20/20 Urine Culture - Final, Complete Serratia Marcescens 06/20/20 Blood Culture - Preliminary, Resulted No growth after 24 hours . All specim... 06/20/20 Blood Culture - Preliminary, Resulted No growth after 24 hours . All specim... 06/20/20 Respiratory Virus Panel (PCR) (TEDDY) - Final, Complete SARS-CoV-2 (COVID 19) Discharge Medications Scheduled Calcipotriene (Dovonex) 0.005 % Cre, 1 DOSE TOP 5XW, (Reported) BID MON THRU FRI - APPLY TO PSORIASIS AREAS Scheduled PRN Bisacodyl (Bisacodyl) 10 Mg Supp.rect, 10 MG [place] Q24HP PRN for CONSTIPATION Docusate Sodium (Docu Liquid) 50 Mg/5 Ml Liquid, 100 MG PO BID PRN for 14 Hyoscyamine Sulfate (Hyoscyamine Sulfate) 0.125 Mg Tab.subl, 0.125 MG PO Q4HP PRN for TERMINAL SECRETIONS Use sublingually if unable to swallow Lorazepam (Ativan) 0.5 Mg Tablet, 0.5 MG PO Q4HP PRN for ANXIETY/AGITATION Use sublingually if unable to swallow Magnesium Hydroxide (Milk of Magnesia) 400 Mg/5 Ml Oral.susp, 30 ML PO DAILY PRN for CONSTIPATION Morphine Sulfate (Morphine Sulfate) 100 Mg/5 Ml Solution, 0.25-1 ML PO Q2H PRN for PAIN OR DYSPNEA Use sublingually if unable to swallow Ondansetron HCl (Zofran) 4 Mg Tablet, 4 MG PO Q6-8HP PRN for nausea/vomiting Allergies Coded Allergies: No Known Allergies (Unverified , 5/5/19) LULÚ BOLAÑOS MD Jun 22, 2020 11:46
== END 2020-06-22 12:44 | disposition other institution (70) ==
LOC: M ED 10:38 → M ED INP 10:39 → M 4MAIN 16:15
PROVIDERS: ADMIT Family Medicine; ATTEND Family Medicine
DX: A41.89 Other specified sepsis (principal); U07.1 COVID-19; E87.2 Acidosis; D72.829 Elevated white blood cell count, unspecified; N17.9 Acute kidney failure, unspecified; E80.7 Disorder of bilirubin metabolism, unspecified; F81.9 Developmental disorder of scholastic skills, unspecified; L40.9 Psoriasis, unspecified; G40.919 Epilepsy, unspecified, intractable, without status epilepticus; I63.411 Cerebral infarction due to embolism of right middle cerebral artery; Z93.1 Gastrostomy status; Z51.5 Encounter for palliative care; Z79.899 Other long term (current) drug therapy
CPT/HCPCS: 36415; 51702; 71045; 80047; 80048; 80076; 81000; 82550; 82553; 82803; 83605; 83690; 84484; 85025; 87040; 87088; 87186; 87486; 87581; 87633; 87798; 93005; 93041; 96361; 96365; 96366; 96367; 96375; 99285; G0378; J2270; J2405; J2543; J3370